=== PATIENT | female | born 1950 | race Caucasian/White ===

== ENCOUNTER 2016-06-07 22:41 | Observation (INO) | payer MEDICARE, OTHER ==
[2016-06-07 23:17] LABS: Basophils % (A) 1 %; CH 30.9; CHCM 32.5; Eosinophils # (A) 0.4 k/uL (0-0.7); Eosinophils % (A) 5 %; HCT 38.7 % (34.0-46.0); HDW 2.29; HGB 12.5 gm/dL (11.4-16.0); Luc # (Auto) 0.13; Luc % (Auto) 2; Lymphocytes # (A) 1.9 k/uL (1.0-4.8); Lymphocytes % (A) 27 %; MCH 30.7 pg (25.0-35.0); MCHC 32.2 g/dL (31.0-37.0); MCV 95.5 fL (80.0-100.0); Mean Platelet Volume 7.7; Monocytes # (A) 0.4 k/uL (0-1.0); Monocytes % (A) 6 %; Neutrophils # (A) 4.2 k/uL (1.3-7.7); Neutrophils % (A) 60 %; RBC 4.06 m/uL (3.80-5.40); RDW 13.9 % (11.5-15.5); WBC 7.1 k/uL (3.8-10.6); WBC (Perox) 7.23
[2016-06-07 23:25] LABS: Partial Thromboplastin Time 22.5 sec (22.0-30.0); Prothrombin Time 9.8 sec (9.0-12.0)
[2016-06-07 23:28] LABS: Calcium 10.1 mg/dL (8.4-10.2); Magnesium 1.4 mg/dL (1.6-2.3); Potassium 4.2 mmol/L (3.5-5.1); Total Bilirubin 0.4 mg/dL (0.2-1.3); Total Protein 7.6 g/dL (6.3-8.2)
[2016-06-07 23:37] LABS: Creatine Kinase 113 U/L (30-135)
--- NOTE | 2016-06-07 23:43 | XR ---
EXAMINATION TYPE: XR chest 1V portable DATE OF EXAM: 06/07/2016 11:17 PM COMPARISON: 08/23/2011 HISTORY: Chest pain today history of quadruple bypass. TECHNIQUE: Single frontal view of the chest is obtained. FINDINGS: There is no focal air space opacity, pleural effusion, or pneumothorax seen. The cardiac silhouette size is within normal limits. Postsurgical changes of sternotomy are noted. The osseous s tructures are intact. IMPRESSION: 1. No active lung infiltrates. 2. Sternotomy. 3. No significant interval change.
--- NOTE | 2016-06-07 23:49 | ED ---
Chest Pain HPI - General Chief Complaint: Chest Pain Stated Complaint: Chest Pain Time Seen by Provider: 06/07/16 22:55 Source: patient, RN notes reviewed Mode of arrival: wheelchair Limitations: no limitations - History of Present Illness Initial Comments: This patient is a 66-year-old woman with history of previous CABG, who presents with what she is describing as anginal episodes going on or about 7 days now. The patient states that she gets some substernal pain, like a pressure, moderate intensity. She states the pains will last half hour to an hour and resolved with rest. She states that for some the episodes she has taken nitroglycerin and that that will resolve the pain. She has also had some intermittent nausea associated. She phoned her permastone applicator, Dr. Smith who told her to go to the emergency department if the episodes continue and that is why she is here. Patient denies other anginal symptoms. Reviewing her recent health, she did have bronchitis couple weeks ago associated with that cough but this seems to have resolved. MD Complaint: chest pain -: days(s) Onset: during rest Pain Location: substernal Pain Radiation: none Severity: moderate Quality: heaviness Consistency: intermittent Improves With: nitroglycerin, rest Worsens With: nothing Anginal Symptoms: nausea Treatments Prior to Arrival: nitroglycerin - Related Data Home Medications Medication Instructions Recorded Confirmed ALPRAZolam [Xanax] 0.25 mg PO HS PRN 06/07/16 06/07/16 Allopurinol [Zyloprim] 200 mg PO DAILY 06/07/16 06/07/16 Ascorbic Acid [Vitamin C] 1,000 mg PO DAILY 06/07/16 06/07/16 Atorvastatin [Lipitor] 10 mg PO HS 06/07/16 06/07/16 Clopidogrel [Plavix] 75 mg PO DAILY 06/07/16 06/07/16 Cyclobenzaprine [Flexeril] 10 mg PO TID PRN 06/07/16 06/07/16 Esomeprazole Magnesium [NexIUM] 40 mg PO DAILY 06/07/16 06/07/16 Hydrocodone/Acetaminophen [[place] 1 tab PO Q4H PRN 06/07/16 06/07/16 10-325] Hydroxychloroquine Sulfate 200 mg PO DAILY 06/07/16 06/07/16 [Plaquenil] Isosorbide Mononitrate ER [Imdur] 60 mg PO DAILY 06/07/16 06/07/16 Levothyroxine Sodium [Synthroid] 100 mcg PO DAILY 06/07/16 06/07/16 Magnesium Gluconate [Magonate] 500 mg PO DAILY 06/07/16 06/07/16 Metoprolol Succinate (ER) [Toprol 100 mg PO DAILY 06/07/16 06/07/16 Xl] [place]-3 Fatty Acids/Fish Oil [Fish 1 cap PO BID 06/07/16 06/07/16 Oil 1,000 mg Softgel] Vitamin E 1,000 unit PO DAILY 06/07/16 06/07/16 Allergies Allergy/AdvReac Type Severity Reaction Status Date / Time Penicillins Allergy Unknown Verified 06/07/16 23:15 prednisone Allergy Unknown Verified 06/07/16 23:15 Sulfa (Sulfonamide Allergy Unknown Verified 06/07/16 23:15 Antibiotics) Review of Systems ROS Statement: Those systems with pertinent positive or pertinent negative responses have been documented in the HPI. ROS Other: All systems not noted in ROS Statement are negative. Constitutional: Denies: fever, chills, weakness Respiratory: Reports: as per HPI, cough, dyspnea. Denies: wheezes, hemoptysis Cardiovascular: Reports: as per HPI, chest pain. Denies: palpitations, orthopnea, edema, syncope Gastrointestinal: Reports: nausea. Denies: abdominal pain, vomiting, diarrhea, constipation, melena, hematochezia Genitourinary: Denies: dysuria, hematuria Musculoskeletal: Denies: back pain Skin: Denies: rash Neurological: Denies: headache, weakness, numbness EKG Findings - EKG Results: EKG: interpreted by ERMD, sinus rhythm (Rate proximal he 69 bpm) - Blocks, [place], Hypertrophy, ST Abn: AV and intraventricular conduction: left bundle branch block (fixed/intermittent , complete/incomplete) (Incomplete) QRS axis and voltage: left axis deviation (-30 to -90) Chamber hypertrophy or enlargement: only voltage criteria for left ventricular hypertrophy Repolarization changes or abnormalities: nonspecific abnormality, ST segment, and/or T wave Past Medical History Past Medical History: Diabetes Mellitus, Myocardial Infarction ([place]) Additional Past Medical History / Comment(s): sarcodosis, kidney failure History of Any Multi-Drug Resistant Organisms: None Reported Past Surgical History: Coronary Bypass/CABG, Heart Catheterization Past Psychological History: No Psychological Hx Reported Smoking Status: Never smoker Past Alcohol Use History: Occasional Past Drug Use History: None Reported General Exam Limitations: no limitations General appearance: alert, in no apparent distress, obese Head exam: Present: atraumatic, normocephalic Eye exam: Present: normal appearance ENT exam: Present: normal exam Neck exam: Present: normal inspection Respiratory exam: Present: normal lung sounds bilaterally. Absent: respiratory distress, wheezes, rales, rhonchi, stridor Cardiovascular Exam: Present: regular rate, normal rhythm, normal heart sounds. Absent: systolic murmur, diastolic murmur, rubs, gallop GI/Abdominal exam: Present: soft. Absent: distended, tenderness, guarding, rebound, mass Extremities exam: Present: normal inspection, normal capillary refill. Absent: pedal edema, calf tenderness Back exam: Present: normal inspection. Absent: CVA tenderness (R), CVA tenderness (L) Neurological exam: Present: alert Skin exam: Present: warm, dry, intact, normal color. Absent: rash Course Vital Signs 06/07/16 06/07/16 06/08/16 22:45 23:49 00:00 Temperature 97.6 F 98 F 98 F Pulse Rate 71 65 73 Respiratory 18 18 20 Rate Blood Pressure 151/67 157/77 145/75 O2 Sat by Pulse 99 97 95 Oximetry Critical Care Time Critical Care Time: Yes (35 minutes) Disposition Clinical Impression: Chest pain Disposition: ADMITTED IP TO THIS [facility] Condition: Fair Referrals: Sam Quiñonez MD [Primary Care Provider] - 1-2 days
[2016-06-07 23:51] LABS: Creatine Kinase MB 0.9 ng/mL (0.0-2.4); Troponin I <0.012 ng/mL (0.000-0.034)
[2016-06-08] MEDS ORDERED: NITROGLYCERIN SL TABS 0.4 MG TAB SUBLINGUAL STA (00:14)
[2016-06-08] MEDS ORDERED: MORPHINE SULFATE 4 MG/ML SYRINGE IV STA (00:14)
[2016-06-08] MEDS ORDERED: NITROGLYCERIN SL TABS 0.4 MG TAB SUBLINGUAL PRN ×2 (00:42→09:20)
[2016-06-08] MEDS ORDERED: ALPRAZolam 0.25 MG TAB PO PRN ×2 (00:44→09:20)
[2016-06-08] MEDS ORDERED: CYCLOBENZAPRINE 10 MG TAB PO PRN (00:44)
[2016-06-08] MEDS: ENOXAPARIN 100 MG/ML SYRINGE SQ SCH ×2 (01:08→13:45)
[2016-06-08 02:02] VITALS: BMI 36.9
[2016-06-08] MEDS: HYDROcodone/APAP 10-325MG 1 EACH TAB PO PRN ×3 (02:56→20:13)
[2016-06-08 06:05] LABS: Creatine Kinase MB 0.8 ng/mL (0.0-2.4); Troponin I 0.019 ng/mL (0.000-0.034)
[2016-06-08 07:49] LABS: Glucose,Whole Blood 107 mg/dL (75-99)
[2016-06-08] MEDS ORDERED: NON-FORMULARY DRUG (Omega-3 Fatty Acids/Fish Oil [Fish Oil 1,000 Mg Softgel] 1 CAP) PO SCH (09:00)
[2016-06-08] MEDS ORDERED: SODIUM CHLORIDE 0.9% 1,000 ML in EMPTY BAG 1 BAG IV ONE (09:20)
[2016-06-08] MEDS ORDERED: ATORVASTATIN 80 MG TAB PO STA (09:20)
[2016-06-08] MEDS ORDERED: ASPIRIN 325 MG TAB PO STA (09:20)
[2016-06-08] MEDS ORDERED: ALPRAZolam 0.5 MG TAB PO PRN (09:20)
--- NOTE | 2016-06-08 09:21 | P.CRDCN ---
History of Present Illness Consult date: 06/08/16 Chief complaint: Chest pain History of present illness: This is a pleasant 66-year-old female patient with a past medical history significant for CAD and prior CABG with unknown details at this point, diabetes , hypertension, dyslipidemia, presented to the emergency room complaining of chest discomfort. She was in her usual state of health until about a week ago when she started experiencing intermittent episodes of chest discomfort as a pressure across the chest without any radiation and without any associated symptoms. Over the last few days her chest discomfort has became constant. The EKG showed sinus mechanism with nonspecific changes. She underwent 2 sets of cardiac enzymes came in to be unremarkable. In view of the history of CAD and prior open-heart, the ongoing chest discomfort , I recommended proceeding with a heart catheterization. Past Medical History Past Medical History: Diabetes Mellitus Additional Past Medical History / Comment(s): sarcodosis, kidney failure, Angina History of Any Multi-Drug Resistant Organisms: None Reported Past Surgical History: Back Surgery, Section, Cholecystectomy, Coronary Bypass/CABG, Heart Catheterization, Tubal Ligation Additional Past Surgical History / Comment(s): C section X2, left shoulder rotator cuff, B/L knee 2014 Past Anesthesia/Blood Transfusion Reactions: No Reported Reaction Past Psychological History: No Psychological Hx Reported Smoking Status: Never smoker Past Alcohol Use History: Occasional Past Drug Use History: None Reported - Past Family History Mother Family Medical History: Diabetes Mellitus Additional Family Medical History / Comment(s): 2 CABG Father Family Medical History: Diabetes Mellitus Additional Family Medical History / Comment(s): CABG Medications and Allergies Home Medications Medication Instructions Recorded Confirmed Type ALPRAZolam [Xanax] 0.25 mg PO HS PRN 06/07/16 06/07/16 History Allopurinol [Zyloprim] 200 mg PO DAILY 06/07/16 06/07/16 History Ascorbic Acid [Vitamin C] 1,000 mg PO DAILY 06/07/16 06/07/16 History Atorvastatin [Lipitor] 10 mg PO HS 06/07/16 06/07/16 History Clopidogrel [Plavix] 75 mg PO HS 06/07/16 06/08/16 History Cyclobenzaprine [Flexeril] 10 mg PO TID PRN 06/07/16 06/08/16 History Esomeprazole Magnesium [NexIUM] 80 mg PO HS 06/07/16 06/08/16 History Hydrocodone/Acetaminophen [[place] 1 tab PO Q4H PRN 06/07/16 06/07/16 History 10-325] Hydroxychloroquine Sulfate 200 mg PO BID 06/07/16 06/08/16 History [Plaquenil] Isosorbide Mononitrate ER [Imdur] 60 mg PO DAILY 06/07/16 06/07/16 History Levothyroxine Sodium [Synthroid] 100 mcg PO DAILY 06/07/16 06/07/16 History Magnesium Gluconate [Magonate] 500 mg PO DAILY 06/07/16 06/07/16 History Metoprolol Succinate (ER) [Toprol 100 mg PO DAILY 06/07/16 06/07/16 History Xl] [place]-3 Fatty Acids/Fish Oil [Fish 1 cap PO BID 06/07/16 06/07/16 History Oil 1,000 mg Softgel] Vitamin E 1,000 unit PO DAILY 06/07/16 06/07/16 History INSULIN LISPRO (HumaLOG) [HumaLOG] 0 units SQ ACHS 06/08/16 06/08/16 History Insulin NPH Hum/Reg Insulin Hm 0 units SQ BID 06/08/16 06/08/16 History [NovoLIN 70-30 100 UNIT/ML VIAL] Allergies Allergy/AdvReac Type Severity Reaction Status Date / Time Penicillins Allergy Rash/Hives Verified 06/08/16 01:48 prednisone Allergy Rapid Verified 06/08/16 01:48 Heart Rate Sulfa (Sulfonamide Allergy Unknown Verified 06/07/16 23:15 Antibiotics) Physical Exam Vitals: Vital Signs Temp Pulse Pulse Resp BP BP BP 06/08/16 07:47 97.4 F L 66 16 141/66 06/08/16 04:00 71 16 131/61 06/08/16 02:09 18 06/08/16 01:50 97.6 F 68 16 181/78 06/08/16 01:16 97.4 F L 66 18 140/66 Pulse Ox 06/08/16 07:47 100 06/08/16 04:00 99 06/08/16 02:09 06/08/16 01:50 100 06/08/16 01:16 97 Intake and Output 06/07/16 06/08/16 06/08/16 22:59 06:59 14:59 Intake Total 0 Balance 0 Intake: Oral 0 Other: Voiding Method Toilet Toilet # Voids 3 Weight 97.7 kg - Constitutional General appearance: no acute distress - Respiratory Respiratory: bilateral: CTA - Cardiovascular Heart sounds: normal: S1, S2 Results 06/07/16 23:04 06/07/16 23:04 Cardiac Enzymes 06/08/16 Range/Units 05:21 CK-MB (CK-2) 0.8 (0.0-2.4) ng/mL Troponin I 0.019 (0.000-0.034) ng/mL Current Medications Generic Name Dose Route Start Last Admin Trade Name Freq PRN Reason Stop Dose Admin Acetaminophen/Hydrocodone [place] 1 each 06/08/16 00:44 06/08/16 07:59 [place] 10 PO 1 each Q4H PRN Administration Pain Allopurinol 200 mg 06/08/16 09:00 Zyloprim PO DAILY JET Alprazolam 0.25 mg 06/08/16 00:44 06/08/16 02:56 Xanax PO 0.25 mg HS PRN Administration Anxiety Ascorbic Acid 1,000 mg 06/08/16 09:00 Vitamin C PO DAILY [facility] Aspirin 325 mg 06/09/16 09:00 Aspirin PO DAILY [facility] Atorvastatin Calcium 10 mg 06/08/16 21:00 Lipitor PO HS [facility] Clopidogrel Bisulfate 75 mg 06/08/16 09:00 Plavix PO DAILY [facility] Cyclobenzaprine HCl 10 mg 06/08/16 00:44 Flexeril PO TID PRN Spasms Enoxaparin Sodium 100 mg 06/08/16 00:45 06/08/16 01:08 Lovenox SQ 100 mg Q12H JET Administration Hydroxychloroquine Sulfate 200 mg 06/08/16 09:00 Plaquenil PO DAILY [facility] Isosorbide Mononitrate 60 mg 06/08/16 09:00 Imdur PO DAILY [facility] Levothyroxine Sodium 100 mcg 06/08/16 09:00 Synthroid PO DAILY [facility] Magnesium Oxide 400 mg 06/08/16 09:00 Mag-Ox PO DAILY [facility] Metoprolol Succinate 100 mg 06/08/16 09:00 Toprol Xl PO DAILY [facility] Nitroglycerin 0.4 mg 06/08/16 00:42 Nitrostat SUBLINGUAL Q5M PRN Chest Pain Pantoprazole Sodium 40 mg 06/08/16 09:00 Protonix PO DAILY JET Vitamin E 1,200 unit 06/08/16 09:00 Vitamin E PO DAILY JET Intake and Output 06/07/16 06/08/16 06/08/16 22:59 06:59 14:59 Intake Total 0 Balance 0 Intake: Oral 0 Other: Voiding Method Toilet Toilet # Voids 3 Weight 97.7 kg Assessment and Plan Plan: Assessment #1 ongoing chest discomfort #2 known CAD with prior CABG #3 multiple risk factors for CAD Plan #1 I recommended proceeding with heart catheterization #2 follow-up with the patient
[2016-06-08] MEDS: VITAMIN E (DL,TOCOPHERYL ACET) 400 UNIT CAP PO SCH (11:08)
[2016-06-08] MEDS: MAGNESIUM OXIDE 400 MG TAB PO SCH (11:08)
[2016-06-08] MEDS: ISOSORBIDE MONONITRATE ER 60 MG TAB.ER.24H PO SCH (11:08)
[2016-06-08] MEDS: HYDROXYCHLOROQUINE SULFATE 200 MG TAB PO SCH (11:09)
[2016-06-08] MEDS: ASCORBIC ACID 500 MG TAB PO SCH (11:09)
[2016-06-08] MEDS: ALLOPURINOL 100 MG TAB PO SCH (11:09)
[2016-06-08] MEDS: LEVOTHYROXINE 100 MCG TAB PO SCH (11:09)
[2016-06-08] MEDS: METOPROLOL SUCCINATE (ER) 100 MG TAB.ER.24H PO SCH (11:09)
[2016-06-08] MEDS: PANTOPRAZOLE 40 MG TABLET PO SCH (11:10)
[2016-06-08 11:44] LABS: Creatine Kinase MB 0.8 ng/mL (0.0-2.4); Troponin I 0.016 ng/mL (0.000-0.034)
[2016-06-08 12:02] LABS: Glucose,Whole Blood 132 mg/dL (75-99)
--- NOTE | 2016-06-08 14:24 | P.HPIM ---
History of Present Illness H&P Date: 06/08/16 Chief Complaint: Chest pain This is a 66-year-old female. Her primary care physician is Dr. Quiñonez. She has a past medical history for coronary artery disease status post 4 vessel CABG in 2002, diabetes mellitus type 2, insulin requiring, sarcoidosis , chronic kidney disease stage III under the care of Dr. Pham, hyperlipidemia, hypothyroidism, GERD. She gives history of having angina for the past 8 days with pressure in her chest. The pain was gradually getting worse. She was better with nitroglycerin. She had intermittent nausea. He called Dr. Smith and was instructed to come into the hospital. Troponin 0.012, 0.019, 0.016. Patient was placed in the observation unit and cardiology consult in place with plan for heart catheterization after patient receives hydration. Nephrology consult will be added. Review of Systems All systems: negative Constitutional: Denies chills, Denies fever Eyes: denies blurred vision, denies pain Ears, nose, mouth and throat: Denies headache, Denies sore throat Cardiovascular: Reports chest pain, Denies shortness of breath Respiratory: Denies cough Gastrointestinal: Denies abdominal pain, Denies diarrhea, Denies nausea, Denies vomiting Genitourinary: Denies dysuria, Denies hematuria Musculoskeletal: Denies myalgias Integumentary: Denies pruritus, Denies rash Neurological: Denies numbness, Denies weakness Psychiatric: Denies anxiety, Denies depression Endocrine: Denies fatigue, Denies weight change Past Medical History Past Medical History: Diabetes Mellitus, GERD/Reflux, Hyperlipidemia, Renal Disease, Thyroid Disorder Additional Past Medical History / Comment(s): sarcodosis, chronic kidney disease stage III, Angina History of Any Multi-Drug Resistant Organisms: None Reported Past Surgical History: Back Surgery, Section, Cholecystectomy, Coronary Bypass/CABG, Heart Catheterization, Tonsillectomy, Tubal Ligation Additional Past Surgical History / Comment(s): C section X2, left shoulder rotator cuff, bilateral knee replacement 2014, 4 vessel CABG in 2002, bilateral cataract extraction and intraocular lens implants Past Anesthesia/Blood Transfusion Reactions: No Reported Reaction Past Psychological History: No Psychological Hx Reported Smoking Status: Never smoker Past Alcohol Use History: Occasional Additional Past Alcohol Use History / Comment(s): Patient is a lifelong nonsmoker. She denies any medical marijuana, marijuana, street drug use. She drinks occasional wine. She was at home with her . Past Drug Use History: None Reported - Past Family History Mother Family Medical History: Diabetes Mellitus Additional Family Medical History / Comment(s): Mother at age 70 with history of coronary artery disease status post CABG 2 and diabetes. Father Family Medical History: Diabetes Mellitus Additional Family Medical History / Comment(s): Father at age 83 with history of coronary artery disease status post CABG and diabetes. Daughter(s) Additional Family Medical History / Comment(s): Patient has one daughter with hyperlipidemia. Patient has one son with diabetes. Patient is an only child. Medications and Allergies Home Medications Medication Instructions Recorded Confirmed Type ALPRAZolam [Xanax] 0.25 mg PO HS PRN 06/07/16 06/07/16 History Allopurinol [Zyloprim] 200 mg PO DAILY 06/07/16 06/07/16 History Ascorbic Acid [Vitamin C] 1,000 mg PO DAILY 06/07/16 06/07/16 History Atorvastatin [Lipitor] 10 mg PO HS 06/07/16 06/07/16 History Clopidogrel [Plavix] 75 mg PO HS 06/07/16 06/08/16 History Cyclobenzaprine [Flexeril] 10 mg PO TID PRN 06/07/16 06/08/16 History Esomeprazole Magnesium [NexIUM] 80 mg PO HS 06/07/16 06/08/16 History Hydrocodone/Acetaminophen [[place] 1 tab PO Q4H PRN 06/07/16 06/07/16 History 10-325] Hydroxychloroquine Sulfate 200 mg PO BID 06/07/16 06/08/16 History [Plaquenil] Isosorbide Mononitrate ER [Imdur] 60 mg PO DAILY 06/07/16 06/07/16 History Levothyroxine Sodium [Synthroid] 100 mcg PO DAILY 06/07/16 06/07/16 History Magnesium Gluconate [Magonate] 500 mg PO DAILY 06/07/16 06/07/16 History Metoprolol Succinate (ER) [Toprol 100 mg PO DAILY 06/07/16 06/07/16 History Xl] [place]-3 Fatty Acids/Fish Oil [Fish 1 cap PO BID 06/07/16 06/07/16 History Oil 1,000 mg Softgel] Vitamin E 1,000 unit PO DAILY 06/07/16 06/07/16 History INSULIN LISPRO (HumaLOG) [HumaLOG] 0 units SQ ACHS 06/08/16 06/08/16 History Insulin NPH Hum/Reg Insulin Hm 0 units SQ BID 06/08/16 06/08/16 History [NovoLIN 70-30 100 UNIT/ML VIAL] Allergies Allergy/AdvReac Type Severity Reaction Status Date / Time Penicillins Allergy Rash/Hives Verified 06/08/16 01:48 prednisone Allergy Rapid Verified 06/08/16 01:48 Heart Rate Sulfa (Sulfonamide Allergy Unknown Verified 06/07/16 23:15 Antibiotics) Physical Exam Vitals: Vital Signs Temp Pulse Pulse Resp BP BP BP 06/08/16 11:44 97.9 F 66 16 119/58 06/08/16 11:08 97.4 F L 63 16 147/65 06/08/16 07:47 97.4 F L 66 16 141/66 06/08/16 04:00 71 16 131/61 06/08/16 02:09 18 06/08/16 01:50 97.6 F 68 16 181/78 06/08/16 01:16 97.4 F L 66 18 140/66 Pulse Ox 06/08/16 11:44 99 06/08/16 11:08 99 06/08/16 07:47 100 06/08/16 04:00 99 06/08/16 02:09 06/08/16 01:50 100 06/08/16 01:16 97 Intake and Output 06/07/16 06/08/16 06/08/16 22:59 06:59 14:59 Intake Total 0 Balance 0 Intake: Oral 0 Other: Voiding Method Toilet Toilet # Voids 3 Weight 97.7 kg Gen: This is a 66-year-old female. She is resting in bed appears to be in no acute distress. HEENT: Head is atraumatic, normocephalic. Pupils equal, round. Sclerae is anicteric. NECK: Supple. No JVD. No lymphadenopathy. No thyromegaly. LUNGS: Clear to auscultation. No wheezes or rhonchi. No intercostal retractions. HEART: Regular rate and rhythm. No murmur. ABDOMEN: Soft. Bowel sounds are present. No masses. No tenderness. EXTREMITIES: No pedal edema. No calf tenderness. NEUROLOGICAL: Patient is awake, alert and oriented x3. Cranial nerves 2 through 12 are grossly intact. Results CBC & Chem 7: 06/07/16 23:04 06/07/16 23:04 Labs: Abnormal Lab Results - Last 24 Hours (Table) 06/08/16 06/08/16 Range/Units 07:35 12:01 POC Glucose (mg/dL) 107 H 132 H (75-99) mg/dL Thrombosis Risk Factor Assmnt - DVT/VTE Prophylaxis DVT/VTE Prophylaxis: Pharmacologic Prophylaxis ordered - Choose All That Apply Each Risk Factor Represents 2 Points: Age 61-74 years Thrombosis Risk Factor Assessment Total Risk Factor Score: 2 Thrombosis Risk Factor Assessment Level: Low Risk Assessment and Plan Plan: 1. Chest pain in a patient with history of coronary artery disease. Patient is being prepared for heart catheterization. Continue aspirin 325 mg daily, Lipitor 10 mg daily, Toprol-XL, Plavix, Imdur. Cardiology consult appreciated. 2. History of coronary artery disease status post 4 vessel CABG in 2002. Continue as in #1. 3. Diabetes mellitus type 2, insulin requiring. Continue NPH 7030 20 units twice daily and Humalog scale. 4. Hyperlipidemia. Continue Lipitor, fish oil. 5. Hypothyroidism. Continue levothyroxine. 6. Gastroesophageal reflux disease and gastritis prophylaxis. Continue Protonix. 7. DVT prophylaxis. Continue Lovenox. Patient will be admitted to the hospital for a minimum of 2 night stay. Discharge plan: Return home Impression and plan of care have been directed as dictated by the signing physician. Clarice Sommers nurse practitioner acting as scribe for signing physician. Time with Patient: Greater than 30
[2016-06-08 15:12] LABS: Hemoglobin A1C 6.5 % (4.2-6.1)
[2016-06-08 16:50] LABS: Glucose,Whole Blood 113 mg/dL (75-99)
[2016-06-08] MEDS ORDERED: MIDAZOLAM 2 MG/2 ML VIAL ONE (18:05)
[2016-06-08] MEDS ORDERED: diphenhydrAMINE 50 MG/ML 1 ML VIAL ONE (18:06)
[2016-06-08] MEDS ORDERED: LIDOCAINE 2% INJ 20 MG/ML (20 ML MDV) ONE (18:06)
[2016-06-08] MEDS ORDERED: IV FLUID CONTINUATION 1,000 ML IV ONE (18:15)
[2016-06-08 18:29] LABS: Glucose,Whole Blood 128 mg/dL (75-99)
[2016-06-08] MEDS ORDERED: MIDAZOLAM 2 MG/2 ML VIAL IVP ONE ×2 (18:30)
[2016-06-08] MEDS ORDERED: diphenhydrAMINE 50 MG/ML 1 ML VIAL IVP ONE (18:30)
[2016-06-08] MEDS ORDERED: LIDOCAINE 2% INJ 20 MG/ML SQ ONE ×2 (18:34→18:35)
[2016-06-08] MEDS ORDERED: HYDROmorphone 2 MG/ML 1 ML SYRINGE ONE (18:54)
[2016-06-08] MEDS ORDERED: HYDROmorphone 2 MG/ML 1 ML SYRINGE IVP ONE (18:56)
[2016-06-08] MEDS ORDERED: IODIXANOL 320 MG/ML 100 ML INTRAARTER ONE (19:08)
[2016-06-08] MEDS ORDERED: RX INFO: IV CONTRAST WAS GIVEN 1 EACH MISC MISCELLANE PRN (19:10)
[2016-06-08] MEDS ORDERED: SODIUM CHLORIDE 0.9% 1,000 ML IV SCH (19:15)
[2016-06-08] MEDS: CLOPIDOGREL 75 MG TAB PO SCH (20:21)
[2016-06-08] MEDS: INSULIN LISPRO (humaLOG) 300 UNIT/3 ML VIAL SQ SCH (20:21)
[2016-06-08] MEDS: INSULIN NPH/REG INSULIN 70/30 300 UNIT/3 ML VIAL SQ SCH (20:33)
[2016-06-08] MEDS ORDERED: ATORVASTATIN 10 MG TAB PO SCH (21:00)
[2016-06-09] MEDS: INSULIN LISPRO (humaLOG) 300 UNIT/3 ML VIAL SQ SCH ×2 (01:37→07:54)
[2016-06-09] MEDS: ENOXAPARIN 100 MG/ML SYRINGE SQ SCH (02:00)
[2016-06-09 06:55] LABS: Glucose,Whole Blood 86 mg/dL (75-99)
[2016-06-09 07:23] LABS: CH 30.6; CHCM 31.6; HCT 37.7 % (34.0-46.0); HDW 2.27; HGB 11.8 gm/dL (11.4-16.0); MCH 30.5 pg (25.0-35.0); MCHC 31.4 g/dL (31.0-37.0); MCV 97.4 fL (80.0-100.0); Mean Platelet Volume 7.8; RBC 3.88 m/uL (3.80-5.40); RDW 13.8 % (11.5-15.5); WBC 5.6 k/uL (3.8-10.6)
[2016-06-09 07:40] LABS: Calcium 9.5 mg/dL (8.4-10.2); Potassium 4.3 mmol/L (3.5-5.1)
[2016-06-09 08:30] VITALS: BP 158/53; PULSE 62; RESP 16; TEMP 97.9
[2016-06-09] MEDS: ASCORBIC ACID 500 MG TAB PO SCH (08:33)
[2016-06-09] MEDS: ALLOPURINOL 100 MG TAB PO SCH (08:33)
[2016-06-09] MEDS: HYDROcodone/APAP 10-325MG 1 EACH TAB PO PRN (08:33)
[2016-06-09] MEDS: HYDROXYCHLOROQUINE SULFATE 200 MG TAB PO SCH (08:34)
[2016-06-09] MEDS: CLOPIDOGREL 75 MG TAB PO SCH (08:34)
[2016-06-09] MEDS: PANTOPRAZOLE 40 MG TABLET PO SCH (08:35)
[2016-06-09] MEDS: METOPROLOL SUCCINATE (ER) 100 MG TAB.ER.24H PO SCH (08:35)
[2016-06-09] MEDS: ISOSORBIDE MONONITRATE ER 60 MG TAB.ER.24H PO SCH (08:35)
[2016-06-09] MEDS: MAGNESIUM OXIDE 400 MG TAB PO SCH (08:35)
[2016-06-09] MEDS: LEVOTHYROXINE 100 MCG TAB PO SCH (08:35)
[2016-06-09] MEDS: VITAMIN E (DL,TOCOPHERYL ACET) 400 UNIT CAP PO SCH (08:36)
[2016-06-09] MEDS ORDERED: ASPIRIN 325 MG TAB PO SCH (09:00)
--- NOTE | 2016-06-09 11:20 | CC ---
DATE OF SERVICE: 06/08/2016 PERFORMING PHYSICIAN: Bo Diehl MD, automatic mold sander. PROCEDURE PERFORMED: 1. Selective left and right coronary angiogram. 2. SVG angiogram x1. 3. Radial artery bypass angiogram. 4. Left internal mammary artery angiogram. INDICATION: This is a pleasant 66-year-old female patient who sees Dr. Smith as an outpatient with a known history of CAD and prior coronary artery bypass grafting x3 were she received HANNAH to LAD, SVG to diagonal, and radial artery to OM branch, presented to the hospital complaining of chest discomfort and she continues to have ongoing chest discomfort. In view of that, the decision was made toward cardiac catheterization. APPROACH: Right common femoral artery. COMPLICATIONS: None. LEVEL OF SEDATION: Moderate. PROCEDURE DESCRIPTION: After obtaining an informed consent, the patient was brought to the cardiac clinical laboratory science professor. The right common femoral artery was cannulated using micropuncture technique. The micropuncture wire passed easily. Then I placed 6-[place] sheath in the right common femoral artery. Subsequently, I did selective left and right coronary angiogram using JL4 and JR4 catheters. After that, I did coronary artery bypass grafting angiogram using the JR4 catheter. The procedure was completed without any complication. SELECTIVE CORONARY ANGIOGRAM: 1. The left main has mild disease only. It bifurcates into the left anterior descending artery, and the left circumflex and both are occluded. 2. The right coronary artery is a large-caliber vessel and it is a dominant vessel. The proximal RCA appeared to have mild disease only and gives rises into a small to medium conus branch. The mid RCA appeared to have mild disease only as well and the RCA distally appeared to have mild to moderate diffuse disease. 3. The vein graft to the diag appeared to be patent. The distal part of the graft appeared to be dilated and aneurysmal with possible valve there. There was ( ) mismatch between the vein graft and the [place] coronary arteries. 4. The radial artery bypass to OM branch appeared to be patent and functional. 5. The HANNAH to LAD is patent. CONCLUSION: 1. Severe coronary artery disease with occluded left circumflex and left anterior descending artery. 2. Mild disease involving the right coronary artery. 3. Patent HANNAH to LAD. 4. Patent SVG to diagonal. 5. Patent radial artery to OM branch. POSTPROCEDURE MANAGEMENT: 1. Maximize medical treatment. 2. Follow up with the patient.
[2016-06-09] MEDS: INSULIN NPH/REG INSULIN 70/30 300 UNIT/3 ML VIAL SQ SCH (11:22)
--- NOTE | 2016-06-10 12:52 | DS ---
DATE OF ADMISSION: 06/08/2016 DATE OF DISCHARGE: 06/09/2016 ADMITTING DIAGNOSIS(ES): 1. Chest pain. 2. Anxiety. 3. Obesity. DISCHARGE DIAGNOSES: Chest pain, atypical, likely related to musculoskeletal exacerbated with anxiety. HISTORY OF PRESENT ILLNESS: This is a 66-year-old female who presented to the hospital with new onset chest pain. Cardiology evaluated the patient and recommended cardiac catheterization which turned to be without obvious significant stenosis. Patient was recommended to continue on her aggressive medical treatment with aspirin, Plavix and statin and control of other risk factors including glucose, and blood pressure. I had a long discussion with the patient at the bedside in the presence of her and plan was discussed closely there the patient and her understood the necessities for medication compliance and follow up with primary care physician and cardiology on the scheduled appointment. Discharge process: 35 minutes.
== END 2016-06-09 12:10 | disposition home or self-care (01) ==
LOC: EC 22:41 → 3OBS 06-08 00:45
PROVIDERS: ADMIT Internal Medicine; ATTEND Internal Medicine
DX: R07.89 Other chest pain (principal); F41.9 Anxiety disorder, unspecified; E66.9 Obesity, unspecified; I25.10 Atherosclerotic heart disease of native coronary artery without angina pectoris; I13.10 Hypertensive heart and chronic kidney disease without heart failure, with stage 1 through stage 4 chronic kidney disease, or unspecified chronic kidney disease; E11.22 Type 2 diabetes mellitus with diabetic chronic kidney disease; N18.3 Chronic kidney disease, stage 3 (moderate); E78.5 Hyperlipidemia, unspecified; E03.9 Hypothyroidism, unspecified; K21.9 Gastro-esophageal reflux disease without esophagitis; I25.2 Old myocardial infarction; D86.9 Sarcoidosis, unspecified; Z79.02 Long term (current) use of antithrombotics/antiplatelets; Z79.899 Other long term (current) drug therapy; Z88.0 Allergy status to penicillin; Z88.2 Allergy status to sulfonamides; Z88.8 Allergy status to other drugs, medicaments and biological substances; Z95.1 Presence of aortocoronary bypass graft; Z82.49 Family history of ischemic heart disease and other diseases of the circulatory system; Z83.3 Family history of diabetes mellitus; Z79.4 Long term (current) use of insulin; Z96.653 Presence of artificial knee joint, bilateral; Z96.1 Presence of intraocular lens; Z68.37 Body mass index [BMI] 37.0-37.9, adult
CPT/HCPCS: 36415; 93005; 93455; 80061; 80053; 80048; 83036; 82550 ×2; 82553 ×2; 83735; 84484 ×2; 85025; 85027; 85610; 85730; 71010; 99291; 96374; 96372; G0378 ×2; C1769 ×4; C1894; J2001; J2250; J2270; J1170; J1200; Q9967; J1650 ×2

== ENCOUNTER → 2016-06-13 | Outpatient (CLI) | payer MEDICARE, OTHER | END | disposition home or self-care (01) | LOC: LABWHC1 15:37 | PROVIDERS: ATTEND Internal Medicine Critical Care Medicine | DX: D86.9 Sarcoidosis, unspecified (principal); R07.9 Chest pain, unspecified | CPT/HCPCS: 36415; 82164 ==

== ENCOUNTER → 2017-05-17 | Outpatient (CLI) | payer MEDICARE, OTHER ==
--- NOTE | 2017-05-17 14:58 | XR ---
EXAMINATION TYPE: XR KUB DATE OF EXAM: 05/17/2017 2:32 PM CLINICAL HISTORY: Urinary tract infection for 9 days with history of nephrolithiasis. TECHNIQUE: Single supine KUB image of the abdomen is obtained. COMPARISON: CT abdomen pelvis dated 04/06/2016 FINDINGS: Scattered gas is seen in non-distended small bowel loops. Gas and fecal material is seen in non-distended colon. No gross evidence of nephrolithiasis. Rounded dense structure and the right upp er quadrant just inferior to the cholecystectomy clips is thought to be within bowel lumen as it is t oo cranial to be located within the kidney. Right renal arterial calcifications are incidentally note d. Degenerative changes and postoperative changes at the visualized thoracolumbar spine are present c holecystectomy clips are seen within the right upper quadrant. Numerous phleboliths are noted within the low pelvis. Atherosclerosis of the common iliac arteries and their branches are also seen. IMPRESSION: 1. Nonobstructive bowel gas pattern. 2. Right renal arterial calcifications with no gross evidence of nephrolithiasis. Note the previously described solid renal mass in 2016 cannot be visualized radiographically. CT renal mass protocol cou ld be performed for further evaluation.
== END | disposition home or self-care (01) ==
LOC: RADXRMAIN 14:08
PROVIDERS: ATTEND Internal Medicine Geriatric Medicine
DX: I70.1 Atherosclerosis of renal artery (principal); R30.0 Dysuria
CPT/HCPCS: 74000

== ENCOUNTER 2017-05-21 09:58 | Emergency (ER) | payer MEDICARE, OTHER ==
--- NOTE | 2017-05-21 11:27 | ED ---
General Adult HPI - General Source: patient, RN notes reviewed Mode of arrival: ambulatory Limitations: no limitations <Nitish Lovett - Last Filed: 05/21/17 13:50> <Zack Gallegos - Last Filed: 05/21/17 13:57> - General Chief complaint: Urogenital Stated complaint: Poss bladder infection Time Seen by Provider: 05/21/17 10:28 - History of Present Illness Initial comments: Patient 67-year-old female who presents emergency room today with a chief complaint of dysuria. Patient states that she has had pressure and pain with urination over the last 2 weeks. She does not that she was diagnosed urinary tract infection partially 2 weeks ago. She states she has been on Macrobid and now started ciprofloxacin recently after having a change when she saw the family doctor. Patient stateshis symptoms as well as computer today for further evaluation. Patient denies any recent fever, chills, shortness of breath , chest pain, back pain, nausea or vomiting, numbness or tingling, constipation or diarrhea, headaches or visual changes, or any other complaints. (Nitish Lovett) - Related Data Home Medications Medication Instructions Recorded Confirmed ALPRAZolam [Xanax] 0.25 mg PO HS PRN 06/07/16 05/21/17 Allopurinol [Zyloprim] 200 mg PO DAILY 06/07/16 05/21/17 Ascorbic Acid [Vitamin C] 1,000 mg PO DAILY 06/07/16 05/21/17 Atorvastatin [Lipitor] 10 mg PO HS 06/07/16 05/21/17 Clopidogrel [Plavix] 75 mg PO HS 06/07/16 05/21/17 Cyclobenzaprine [Flexeril] 10 mg PO TID PRN 06/07/16 05/21/17 Esomeprazole Magnesium [NexIUM] 80 mg PO HS 06/07/16 05/21/17 Hydrocodone/Acetaminophen [[place]ima 1 tab PO Q4H PRN 06/07/16 05/21/17 10-325] Hydroxychloroquine Sulfate 200 mg PO BID 06/07/16 05/21/17 [Plaquenil] Isosorbide Mononitrate ER [Imdur] 60 mg PO DAILY 06/07/16 05/21/17 Levothyroxine Sodium [Synthroid] 100 mcg PO SUMOWEFRSA 06/07/16 05/21/17 Magnesium Gluconate [Magonate] 500 mg PO DAILY 06/07/16 05/21/17 [place]-3 Fatty Acids/Fish Oil [Fish 2 cap PO DAILY 06/07/16 05/21/17 Oil 1,000 mg Softgel] Vitamin E 1,000 unit PO DAILY 06/07/16 05/21/17 INSULIN LISPRO (HumaLOG) [HumaLOG] See Protocol SQ ACHS 06/08/16 05/21/17 Insulin NPH Hum/Reg Insulin Hm See Protocol SQ AC-TID 06/08/16 05/21/17 [NovoLIN 70-30 100 UNIT/ML VIAL] Aspirin 81 mg PO DAILY 05/21/17 05/21/17 Levothyroxine Sodium [Synthroid] 150 mcg PO TUTH 05/21/17 05/21/17 Metoprolol Tartrate [Lopressor] 100 mg PO BID 05/21/17 05/21/17 [place]-3 Fatty Acids/Fish Oil [Fish 1 cap PO HS 05/21/17 05/21/17 Oil 1,000 mg Softgel] Allergies Allergy/AdvReac Type Severity Reaction Status Date / Time Iodinated Contrast- Oral and Allergy Unknown Verified 05/21/17 10:45 IV Dye Penicillins Allergy Rash/Hives Verified 05/21/17 10:45 prednisone Allergy Rapid Verified 05/21/17 10:45 Heart Rate Sulfa (Sulfonamide Allergy Unknown Verified 05/21/17 10:45 Antibiotics) gabapentin [From Neurontin] AdvReac Unknown Verified 05/21/17 10:45 Review of Systems ROS Other: All systems not noted in ROS Statement are negative. <Nitish Lovett - Last Filed: 05/21/17 13:50> ROS Other: All systems not noted in ROS Statement are negative. <Zack Gallegos - Last Filed: 05/21/17 13:57> ROS Statement: Those systems with pertinent positive or pertinent negative responses have been documented in the HPI. Past Medical History Past Medical History: Diabetes Mellitus, GERD/Reflux, Hyperlipidemia, Renal Disease, Thyroid Disorder Additional Past Medical History / Comment(s): sarcodosis, chronic kidney disease stage III, Angina History of Any Multi-Drug Resistant Organisms: None Reported Past Surgical History: Back Surgery, Section, Cholecystectomy, Coronary Bypass/CABG, Heart Catheterization, Tonsillectomy, Tubal Ligation Additional Past Surgical History / Comment(s): C section X2, left shoulder rotator cuff, bilateral knee replacement 2015, 4 vessel CABG in 2002, bilateral cataract extraction and intraocular lens implants Past Anesthesia/Blood Transfusion Reactions: No Reported Reaction Past Psychological History: No Psychological Hx Reported Smoking Status: Never smoker Past Alcohol Use History: Occasional Past Drug Use History: None Reported - Past Family History Mother Family Medical History: Diabetes Mellitus Additional Family Medical History / Comment(s): Mother at age 70 with history of coronary artery disease status post CABG 2 and diabetes. Father Family Medical History: Diabetes Mellitus Additional Family Medical History / Comment(s): Father at age 83 with history of coronary artery disease status post CABG and diabetes. Daughter(s) Additional Family Medical History / Comment(s): Patient has one daughter with hyperlipidemia. Patient has one son with diabetes. Patient is an only child. <Nitish Lovett - Last Filed: 05/21/17 13:50> General Exam Limitations: no limitations <Nitish Lovett - Last Filed: 05/21/17 13:50> <Zack Gallegos - Last Filed: 05/21/17 13:57> - General Exam Comments Initial Comments: General: The patient is awake and alert, in no distress, and does not appear acutely ill. Eye: Pupils are equal, round and reactive to light, extra-ocular movements are intact. No nystagmus. There is normal conjunctiva bilaterally. No signs of icterus. Ears, nose, mouth and throat: There are moist mucous membranes and no oral lesions. Neck: The neck is supple, there is no tenderness or JVD. Cardiovascular: There is a regular rate and rhythm. No murmur, rub or gallop is appreciated. Respiratory: Lungs are clear to auscultation, respirations are non-labored, breath sounds are equal. No wheezes, stridor, rales, or rhonchi. Gastrointestinal: The patient 11. Normal bowel sounds. Abdomen soft on palpation. Patient does have tenderness suprapubically over the bladder. No rebound tenderness. No guarding. No CVA tenderness. Musculoskeletal: Normal ROM, no tenderness. Strength 5/5. Sensation intact. Pulses equal bilaterally 2+. Neurological: A&O x 3. CN II-XII intact, There are no obvious motor or sensory deficits. Coordination appears grossly intact. Speech is normal. Skin: Skin is warm and dry and no rashes or lesions are noted. Psychiatric: Cooperative, appropriate mood & affect, normal judgment. (Nitish Lovett) Course <Nitish Lovett - Last Filed: 05/21/17 13:50> <Zack Gallegos - Last Filed: 05/21/17 13:57> Vital Signs 05/21/17 05/21/17 05/21/17 10:14 13:09 13:41 Temperature 97.6 F 97.2 F L Pulse Rate 63 81 62 Respiratory 18 18 16 Rate Blood Pressure 136/61 131/67 166/72 O2 Sat by Pulse 97 97 98 Oximetry - Reevaluation(s) Reevaluation #1: 05/21/17 13:56 PA supervision: I did a long discussion with the patient and her regarding findings. There is evidence of a mass 1.5 x 1.5 on the lower pole right kidney. She has had symptoms on the right side including some hematuria she's had chronic right lower quadrant pain for the past 2 years she states. This has been worked up apparently with no success as etiology. Patient does have a history kidney stones but none recently. She will follow-up with Dr. Phillips from urology way did discuss case with she has an appointment scheduled for 2 PM tomorrow afternoon at the urology office. Patient does have a history of sarcoid it is unclear whether this is involved at this time. (Zack Gallegos) Medical Decision Making - Lab Data Result diagrams: 05/21/17 11:30 05/21/17 11:30 <Nitish Lovett - Last Filed: 05/21/17 13:50> - Lab Data Result diagrams: 05/21/17 11:30 05/21/17 11:30 <Zack Gallegos - Last Filed: 05/21/17 13:57> - Medical Decision Making Patient's labs been reviewed. Patient's ultrasound does show evidence of a right-sided kidney mass measuring 1-1/2 cm. Results were discussed with attending physician Dr. Gallegos is also seeing patient at bedside. He did discuss case with on-call urologist Dr. Damon will see the patient while in the office. Patient's been updated of the plan will be discharged home today to follow urology tomorrow. Patient states her stated and is in agreement. (Nitish Lovett) - Lab Data Lab Results 05/21/17 05/21/17 05/21/17 Range/Units 10:15 11:30 11:30 WBC 8.8 (3.8-10.6) k/uL RBC 3.75 L (3.80-5.40) m/uL Hgb 11.0 L (11.4-16.0) gm/dL Hct 35.1 (34.0-46.0) % MCV 93.8 (80.0-100.0) fL MCH 29.3 (25.0-35.0) pg MCHC 31.3 (31.0-37.0) g/dL RDW 14.1 (11.5-15.5) % Plt Count 195 (150-450) k/uL Neutrophils % 67 % Lymphocytes % 23 % Monocytes % 5 % Eosinophils % 4 % Basophils % 1 % Neutrophils # 5.9 (1.3-7.7) k/uL Lymphocytes # 2.0 (1.0-4.8) k/uL Monocytes # 0.4 (0-1.0) k/uL Eosinophils # 0.3 (0-0.7) k/uL Basophils # 0.1 (0-0.2) k/uL Sodium 138 (137-145) mmol/L Potassium 4.9 (3.5-5.1) mmol/L Chloride 101 (98-107) mmol/L Carbon Dioxide 28 (22-30) mmol/L Anion Gap 9 mmol/L BUN 47 H (7-17) mg/dL Creatinine 1.47 H (0.52-1.04) mg/dL Est GFR (MDRD) Af Amer 43 (>60 ml/min/1.73 sqM) Est GFR (MDRD) Non-Af 35 (>60 ml/min/1.73 sqM) Glucose 133 H (74-99) mg/dL Calcium 10.1 (8.4-10.2) mg/dL Total Bilirubin 0.2 (0.2-1.3) mg/dL AST 26 (14-36) U/L ALT 31 (9-52) U/L Alkaline Phosphatase 96 (38-126) U/L Total Protein 7.1 (6.3-8.2) g/dL Albumin 3.9 (3.5-5.0) g/dL Amylase 58 (30-110) U/L Lipase 94 (23-300) U/L Urine Color Dark Yellow Urine Appearance Clear (Clear) Urine pH 6.0 (5.0-8.0) Ur Specific Lynch 1.014 (1.001-1.035) Urine Protein Trace H (Negative) Urine Glucose (UA) Negative (Negative) Urine Ketones Negative (Negative) Urine Blood Negative (Negative) Urine Nitrite Negative (Negative) Urine Bilirubin Negative (Negative) Urine Urobilinogen <2.0 (<2.0) mg/dL Ur Leukocyte Esterase Negative (Negative) Disposition Time of Disposition: 13:51 <Nitish Lovett - Last Filed: 05/21/17 13:50> <Zack Gallegos - Last Filed: 05/21/17 13:57> Clinical Impression: Dysuria, Kidney mass Disposition: HOME SELF-CARE Condition: Undetermined Instructions: Dysuria (ED) Additional Instructions: Please follow-up with urologist while at 2 PM. Referrals: Sam Quiñonez MD [Primary Care Provider] - 1-2 days Kenny Phillips MD [STAFF PHYSICIAN] - 1-2 days
[2017-05-21 11:33] LABS: Appearance,Urine Clear (Clear); Bilirubin,Urine Negative (Negative); Blood,Urine Negative (Negative); Color,Urine Dark Yellow; Glucose,Urine (UA) Negative (Negative); Ketones,Urine Negative (Negative); Leukocyte Esterase,Urine Negative (Negative); Nitrite,Urine Negative (Negative); Protein,Urine Trace (Negative); Specific Gravity,Urine 1.014 (1.001-1.035); Urobilinogen,Urine <2.0 mg/dL (<2.0)
[2017-05-21 11:37] LABS: Basophils # (A) 0.1 k/uL (0-0.2); Basophils % (A) 1 %; Eosinophils # (A) 0.3 k/uL (0-0.7); Eosinophils % (A) 4 %; HCT 35.1 % (34.0-46.0); Lymphocytes % (A) 23 %; MCH 29.3 pg (25.0-35.0); MCHC 31.3 g/dL (31.0-37.0); MCV 93.8 fL (80.0-100.0); Mean Platelet Volume 8.1; Monocytes # (A) 0.4 k/uL (0-1.0); Monocytes % (A) 5 %; Neutrophils # (A) 5.9 k/uL (1.3-7.7); Neutrophils % (A) 67 %; Platelet Count 195 k/uL (150-450); RBC 3.75 m/uL (3.80-5.40); RDW 14.1 % (11.5-15.5); WBC 8.8 k/uL (3.8-10.6)
[2017-05-21 11:50] LABS: Albumin 3.9 g/dL (3.5-5.0); Calcium 10.1 mg/dL (8.4-10.2); Potassium 4.9 mmol/L (3.5-5.1); Total Bilirubin 0.2 mg/dL (0.2-1.3); Total Protein 7.1 g/dL (6.3-8.2)
--- NOTE | 2017-05-21 12:38 | US ---
EXAMINATION TYPE: US kidneys/renal and bladder DATE OF EXAM: 05/21/2017 COMPARISON: CT abdomen pelvis dated 04/06/2016. CLINICAL HISTORY: Pain. Bladder infection x 2 weeks EXAM MEASUREMENTS: Right Kidney: 8.8 x 4.7 x 4.1 cm Left Kidney: 10.7 x 4.7 x 3.8 cm Right Kidney: Hypoechoic lower pole = 1.5 x 1.2 x 1.5cm is noted. No definitive increased or transmis eric is seen. No hydronephrosis or nephrolithiasis. Left Kidney: Prominent renal sinus fat is noted. No hydronephrosis or nephrolithiasis. Bladder: appears wnl Bilateral Jets seen: no There is no evidence for hydronephrosis at this point in time. No nephrolithiasis is seen. The urin darek bladder is anechoic. Bilateral ureteral jets are seen. IMPRESSION: 1. Hypoechoic right lower pole renal lesion that does not clearly represent a simple cyst. Three-phas e enhanced CT (renal mass protocol) could be performed for further evaluation. 2. No hydronephrosis or nephrolithiasis. Urinary bladder is sonographically unremarkable.
[2017-05-22 23:00] VITALS: BP 166/72; PULSE 62; RESP 16; TEMP 97.2
== END 2017-05-21 14:05 | disposition home or self-care (01) ==
LOC: EC 09:58
DX: N28.89 Other specified disorders of kidney and ureter (principal); R30.0 Dysuria; K21.9 Gastro-esophageal reflux disease without esophagitis; E78.5 Hyperlipidemia, unspecified; E07.9 Disorder of thyroid, unspecified; E11.22 Type 2 diabetes mellitus with diabetic chronic kidney disease; N18.3 Chronic kidney disease, stage 3 (moderate); Z79.01 Long term (current) use of anticoagulants; Z79.4 Long term (current) use of insulin; Z79.82 Long term (current) use of aspirin; Z79.899 Other long term (current) drug therapy; Z88.0 Allergy status to penicillin; Z88.2 Allergy status to sulfonamides; Z91.041 Radiographic dye allergy status; Z88.8 Allergy status to other drugs, medicaments and biological substances
CPT/HCPCS: 36415; 76770; 80053; 81003; 82150; 83690; 85025; 87086; 99283

== ENCOUNTER → 2017-06-17 | Outpatient (CLI) | payer MEDICARE, OTHER ==
--- NOTE | 2017-06-17 13:24 | US ---
EXAMINATION TYPE: US transvaginal DATE OF EXAM: 06/17/2017 COMPARISON: NONE CLINICAL HISTORY: Pelvic Pain R10.2. Right pelvic pain x 2 years TECHNIQUE: Transvaginal (TV) Date of LMP: unknown EXAM MEASUREMENTS: Uterus: 5.3 x 2.6 x 4.0 cm Endometrial Stripe: 0.2 cm Right Ovary: 2.7 x 1.2 x 1.1 cm Left Ovary: unable to visualize 1. Uterus: Anteverted heterogeneous 2. Endometrium: appears wnl as visualized 3. Right Ovary: cystic area = 0.8 x 0.8 x 0.7cm compatible with a follicle 4. Left Ovary: Obscured by overlying bowel gas 5. Bilateral Adnexa: wnl 6. Posterior cul-de-sac: wnl IMPRESSION: 1. Right ovarian follicle 2. Left ovary is not identified during this exam.
== END | disposition home or self-care (01) ==
LOC: RADUSWWP 12:13
PROVIDERS: ATTEND Internal Medicine Geriatric Medicine
DX: R10.2 Pelvic and perineal pain (principal)
CPT/HCPCS: 76830

== ENCOUNTER → 2017-08-26 | Outpatient (CLI) | payer MEDICARE, OTHER ==
--- NOTE | 2017-08-26 13:21 | BD ---
EXAMINATION TYPE: MG DEXA axial skeleton. DATE OF EXAM: 08/26/2017 COMPARISON: NONE CLINICAL HISTORY: Z13.820 Screening for osteoporosis Height: 63 Weight: 223.7 FRAX RISK QUESTIONS: Alcohol (3 or more units per day): no Family History (Parent hip fracture): no Glucocorticoids (More than 3mos): no (Ex: prednisone, prednisolone, methylprednisolone, dexamethasone, and hydrocortisone). History of Fracture in Adulthood: no Secondary Osteoporosis: 1. Type 1 Diabetes: no 2. Hyperthyroidism: no 3. Menopause before 45: no 4. Malnutrition: no 5. Chronic liver disease: no Rheumatoid Arthritis: no Current Tobacco Use: no RISK FACTORS HISTORY OF: Surgery to Spine/Hip(right/left)/Wrist (right/left): l-3,4, s1 When: 2014 Family History of Osteoporosis: no Active: yes Diet low in dairy products/other sources of calcium: no Postmenopausal woman: age 49 Itake estrogen and/or progesterone medications: yes How lon-4 years Lost more than 2 inches in height since high school: yes Frequent falls: yes/ neuropathy Adrenal Insufficiency: no MEDICATIONS: plaquenil, plavix, toperol, nexium, lipitor, alopurinal. imdur, norco, fentanyl, vagafem , flexeril, asa, humulin, omega 3, xanax Thyroid Medications: synthroid How Long: long time Additional History: EXAM MEASUREMENTS: Bone mineral densitometry was performed using the [employer] System. Bone mineral density about the R hip (g/cm2): 1.176 Bone mineral density about the L hip (g/cm2): 1.275 T Score values are as follows: -----R Neck: 1.0 -----L Neck: 1.7 -----R Total: 1.1 -----L Total: 1.8 Bone mineral density has: decreased 18.7 % since study of: 06.21.2009 IMPRESSION: No evidence for osteoporosis or osteopenia. NOTE: T-SCORE=SD OF THE YOUNG ADULT MEAN.
== END | disposition home or self-care (01) ==
LOC: RADBDWWP 09:45
PROVIDERS: ATTEND Obstetrics & Gynecology
DX: Z13.820 Encounter for screening for osteoporosis (principal)
CPT/HCPCS: 77080

== ENCOUNTER → 2017-08-26 | Outpatient (CLI) | payer MEDICARE, OTHER ==
--- NOTE | 2017-08-28 09:22 | MM ---
Reason for exam: screening (asymptomatic). Last mammogram was performed 1 year ago. History: Patient is postmenopausal. Taking progesterone for 3 years. Physical Findings: A clinical breast exam by your physician is recommended on an annual basis and results should be correlated with mammographic findings. MG Screening Mammo w CAD Bilateral CC and MLO view(s) were taken. Prior study comparison: August 23, 2016, bilateral MG screening mammo w CAD. July 20, 2015, bilateral MG screening mammo w CAD. The breast tissue is almost entirely fat. No significant changes when compared with prior studies. ASSESSMENT: Negative, BI-RAD 1 RECOMMENDATION: Routine screening mammogram of both breasts in 1 year.
== END | disposition home or self-care (01) ==
LOC: RADMAMWWP 09:42
PROVIDERS: ATTEND Obstetrics & Gynecology
DX: Z12.31 Encounter for screening mammogram for malignant neoplasm of breast (principal)
CPT/HCPCS: 77067

== ENCOUNTER → 2017-09-25 | Day surgery (SDC) | payer MEDICARE, OTHER ==
[2017-09-24 13:21] VITALS: BMI 38.6
[2017-09-25 10:54] VITALS: BP 171/74; RESP 18
[2017-09-25 12:08] VITALS: PULSE 64; TEMP 97.8
== END ==
LOC: CATHCVL 10:32
DX: N39.0 Urinary tract infection, site not specified (principal)
CPT/HCPCS: 76937; 77001; 00000; C1751; 0

== ENCOUNTER 2017-11-08 08:18 | Inpatient (IN) | payer MEDICARE, OTHER ==
[2017-11-08] MEDS ORDERED: NITROGLYCERIN SL TABS 0.4 MG TAB SUBLINGUAL STA (08:35)
[2017-11-08] MEDS ORDERED: SODIUM CHLORIDE 0.9% 1,000 ML IV STA (08:35)
[2017-11-08] MEDS ORDERED: ASPIRIN 81 MG PO STA (08:35)
--- NOTE | 2017-11-08 08:38 | ED ---
SOB HPI <El Enamorado - Last Filed: 11/08/17 12:37> - General Source: patient, RN notes reviewed, old records reviewed Mode of arrival: wheelchair Limitations: no limitations <Nori Benedict - Last Filed: 11/08/17 12:56> - General Chief Complaint: Shortness of Breath Stated Complaint: Sob Time Seen by Provider: 11/08/17 08:27 - History of Present Illness Initial Comments: This Patient is a 59-year-old female with a significant history of coronary artery disease and quadruple bypass surgery 2002 and a catheterization. 2017 presents today with 2 days of shortness of breath. She reports that at this time she has no chest pain what was suffered from some chest pain past 2 days. She does take nitro periodically. Patient reports that she has no cough. She was recently seen by her program coordinator Dr. Goodson. She reports that she was clear from his standpoint last week. She does have a history of sarcoidosis. She denies any productive cough. Denies any nausea or vomiting or diaphoresis. Denies any jaw or chest pain at this time. 2 reports yesterday evening she was trying to get comfortable. Sleep and was still complaining of difficulty breathing tried use multiple pillows and sitting up to help her breathe. ( Nori Benedict) - Related Data Home Medications Medication Instructions Recorded Confirmed ALPRAZolam [Xanax] 0.25 mg PO HS PRN 06/07/16 11/08/17 Allopurinol [Zyloprim] 200 mg PO DAILY 06/07/16 11/08/17 Ascorbic Acid [Vitamin C] 1,000 mg PO DAILY 06/07/16 11/08/17 Atorvastatin [Lipitor] 10 mg PO HS 06/07/16 11/08/17 Clopidogrel [Plavix] 75 mg PO HS 06/07/16 11/08/17 Cyclobenzaprine [Flexeril] 10 mg PO TID PRN 06/07/16 11/08/17 Esomeprazole Magnesium [NexIUM] 40 mg PO BID 06/07/16 11/08/17 Hydrocodone/Acetaminophen [[place] 1 tab PO BID PRN 06/07/16 11/08/17 10-325] Hydroxychloroquine Sulfate 200 mg PO BID 06/07/16 11/08/17 [Plaquenil] Isosorbide Mononitrate ER [Imdur] 60 mg PO DAILY 06/07/16 11/08/17 Levothyroxine Sodium [Synthroid] 100 mcg PO SUMOWEFRSA 06/07/16 11/08/17 Vitamin E 1,000 unit PO DAILY 06/07/16 11/08/17 INSULIN LISPRO (HumaLOG) [HumaLOG] See Protocol SQ ACHS 06/08/16 11/08/17 Insulin NPH Hum/Reg Insulin Hm See Protocol SQ AC-TID 06/08/16 11/08/17 [NovoLIN 70-30 100 UNIT/ML VIAL] Levothyroxine Sodium [Synthroid] 50 mcg PO TUTH 05/21/17 11/08/17 [place]-3 Fatty Acids/Fish Oil [Fish 2 cap PO HS 05/21/17 11/08/17 Oil 1,000 mg Softgel] Magnesium Gluconate [Magonate] 500 mg PO BID 09/24/17 11/08/17 Nitroglycerin Sl Tabs [Nitrostat] 0.4 mg SUBLINGUAL Q5M PRN 09/24/17 11/08/17 Estradiol [Vagifem] 10 mcg VG SUTH 11/08/17 11/08/17 Metoprolol Succinate (ER) [Toprol 100 mg PO BID 11/08/17 11/08/17 Xl] fentaNYL [Duragesic 37.5 MCG/HR] 1 patch TRANSDERM Q72H 11/08/17 11/08/17 Allergies Allergy/AdvReac Type Severity Reaction Status Date / Time Penicillins Allergy Rash/Hives Verified 11/08/17 09:32 prednisone Allergy Rapid Verified 11/08/17 09:32 Heart Rate Sulfa (Sulfonamide Allergy Unknown Verified 11/08/17 09:32 Antibiotics) gabapentin [From Neurontin] AdvReac Unknown Verified 11/08/17 09:32 Iodinated Contrast- Oral and AdvReac Unknown Verified 11/08/17 09:32 IV Dye Review of Systems ROS Other: All systems not noted in ROS Statement are negative. <El Enamorado - Last Filed: 11/08/17 12:37> ROS Other: All systems not noted in ROS Statement are negative. <Nori Benedict - Last Filed: 11/08/17 12:56> ROS Statement: Those systems with pertinent positive or pertinent negative responses have been documented in the HPI. Past Medical History Past Medical History: Chest Pain / Angina, Diabetes Mellitus, Fibromyalgia, GERD /Reflux, Hyperlipidemia, Hypertension, Osteoarthritis (OA), Renal Disease, Thyroid Disorder Additional Past Medical History / Comment(s): sarcoidosis, chronic kidney disease stage III, tx. current UTI that has been tx. for 4 months History of Any Multi-Drug Resistant Organisms: None Reported Past Surgical History: Back Surgery, Section, Cholecystectomy, Coronary Bypass/CABG, Heart Catheterization, Tonsillectomy, Tubal Ligation Additional Past Surgical History / Comment(s): C section X2, left shoulder rotator cuff, bilateral knee replacement 2014, 4 vessel CABG in 2002, bilateral cataract extraction and intraocular lens implants Past Anesthesia/Blood Transfusion Reactions: Postoperative Nausea & Vomiting ( PONV) Past Psychological History: No Psychological Hx Reported Smoking Status: Never smoker Past Alcohol Use History: None Reported Past Drug Use History: None Reported - Past Family History Mother Family Medical History: Diabetes Mellitus Additional Family Medical History / Comment(s): Mother at age 70 with history of coronary artery disease status post CABG 2 and diabetes. Father Family Medical History: Diabetes Mellitus Additional Family Medical History / Comment(s): Father at age 83 with history of coronary artery disease status post CABG and diabetes. Daughter(s) Additional Family Medical History / Comment(s): Patient has one daughter with hyperlipidemia. Patient has one son with diabetes. Patient is an only child. <Nori Benedict - Last Filed: 11/08/17 12:56> General Exam <FeiEl - Last Filed: 11/08/17 12:37> Limitations: no limitations Head exam: Present: atraumatic, normocephalic, normal inspection Eye exam: Present: normal appearance, PERRL, EOMI. Absent: scleral icterus, conjunctival injection, periorbital swelling ENT exam: Present: normal exam, mucous membranes moist Neck exam: Present: normal inspection. Absent: tenderness, meningismus, lymphadenopathy Respiratory exam: Present: normal lung sounds bilaterally. Absent: respiratory distress, wheezes, rales, rhonchi, stridor Cardiovascular Exam: Present: regular rate, normal rhythm, normal heart sounds. Absent: systolic murmur, diastolic murmur, rubs, gallop, clicks GI/Abdominal exam: Present: soft, normal bowel sounds. Absent: distended, tenderness, guarding, rebound, rigid Extremities exam: Present: normal inspection, full ROM, normal capillary refill. Absent: tenderness, pedal edema, joint swelling, calf tenderness Back exam: Present: normal inspection Neurological exam: Present: alert, oriented X3, CN II-XII intact Psychiatric exam: Present: normal affect, normal mood Skin exam: Present: warm, dry, intact, normal color. Absent: rash <Nori Benedict - Last Filed: 11/08/17 12:56> - General Exam Comments Initial Comments: 59-year-old female. Alert and oriented. No significant distress. (Nori Benedict) Vital Signs 11/08/17 11/08/17 11/08/17 08:20 09:22 11:32 Temperature 98.1 F Pulse Rate 56 L 53 L 54 L Respiratory 20 18 18 Rate Blood Pressure 151/59 195/79 O2 Sat by Pulse 100 100 100 Oximetry Medical Decision Making - Lab Data Result diagrams: 11/08/17 09:27 11/08/17 09:27 <El Enamorado - Last Filed: 11/08/17 12:37> - Lab Data Result diagrams: 11/08/17 09:27 11/08/17 09:27 - Radiology Data Radiology results: report reviewed <Nori Benedict - Last Filed: 11/08/17 12:56> - Medical Decision Making Attending note, medical decision making; this is a 67-year-old female with a complaint of shortness of breath for the past 2 days. She does report that she had a month long episode of angina type symptoms and it was okay for 2 weeks and then this started again. While in emergency room the patient had lab work that showed normal cardiac enzymes been elevated BNP of 3800. D-dimer elevated 3.6. CT of the chest showed no evidence of PE. She was given Lasix and nitro for the increase fluid. I examined the patient at bedside and interviewed her. She does have some crepitant rales both bases. Otherwise afebrile normal white count. CT also made suggestion of possible infiltrate. I discussed the case with Dr. Palencia, the patient's family doctor patient be admitted his service he requests consultation from cardiology and pulmonology. Dr. Enamorado ( El Enamorado) - Lab Data Lab Results 06/22/18 06/22/18 06/22/18 Range/Units 09:27 09:27 09:27 WBC 5.9 (3.8-10.6) k/uL RBC 3.43 L (3.80-5.40) m/uL Hgb 9.9 L (11.4-16.0) gm/dL Hct 31.7 L (34.0-46.0) % MCV 92.6 (80.0-100.0) fL MCH 28.8 (25.0-35.0) pg MCHC 31.1 (31.0-37.0) g/dL RDW 15.8 H (11.5-15.5) % Plt Count 185 (150-450) k/uL Neutrophils % 68 % Lymphocytes % 21 % Monocytes % 5 % Eosinophils % 5 % Basophils % 1 % Neutrophils # 4.0 (1.3-7.7) k/uL Lymphocytes # 1.2 (1.0-4.8) k/uL Monocytes # 0.3 (0-1.0) k/uL Eosinophils # 0.3 (0-0.7) k/uL Basophils # 0.0 (0-0.2) k/uL Hypochromasia Moderate PT (9.0-12.0) sec INR (<1.2) APTT (22.0-30.0) sec D-Dimer (<0.60) mg/L FEU Sodium 140 (137-145) mmol/L Potassium 4.9 (3.5-5.1) mmol/L Chloride 103 (98-107) mmol/L Carbon Dioxide 27 (22-30) mmol/L Anion Gap 10 mmol/L BUN 19 H (7-17) mg/dL Creatinine 1.10 H (0.52-1.04) mg/dL Est GFR (CKD-EPI)AfAm 60 (>60 ml/min/1.73 sqM) Est GFR (CKD-EPI)NonAf 52 (>60 ml/min/1.73 sqM) Glucose 100 H (74-99) mg/dL Calcium 9.7 (8.4-10.2) mg/dL Magnesium 1.4 L (1.6-2.3) mg/dL Total Bilirubin 0.3 (0.2-1.3) mg/dL AST 28 (14-36) U/L ALT 29 (9-52) U/L Alkaline Phosphatase 86 (38-126) U/L Total Creatine Kinase 72 (30-135) U/L CK-MB (CK-2) 0.6 (0.0-2.4) ng/mL CK-MB (CK-2) Rel Index 0.8 Troponin I 0.013 (0.000-0.034) ng/mL NT-Pro-B Natriuret Pep pg/mL Total Protein 6.6 (6.3-8.2) g/dL Albumin 3.7 (3.5-5.0) g/dL 11/08/17 11/08/17 Range/Units 09:27 09:27 WBC (3.8-10.6) k/uL RBC (3.80-5.40) m/uL Hgb (11.4-16.0) gm/dL Hct (34.0-46.0) % MCV (80.0-100.0) fL MCH (25.0-35.0) pg MCHC (31.0-37.0) g/dL RDW (11.5-15.5) % Plt Count (150-450) k/uL Neutrophils % % Lymphocytes % % Monocytes % % Eosinophils % % Basophils % % Neutrophils # (1.3-7.7) k/uL Lymphocytes # (1.0-4.8) k/uL Monocytes # (0-1.0) k/uL Eosinophils # (0-0.7) k/uL Basophils # (0-0.2) k/uL Hypochromasia PT 9.6 (9.0-12.0) sec INR 1.0 (<1.2) APTT 23.7 (22.0-30.0) sec D-Dimer 3.19 H (<0.60) mg/L FEU Sodium (137-145) mmol/L Potassium (3.5-5.1) mmol/L Chloride (98-107) mmol/L Carbon Dioxide (22-30) mmol/L Anion Gap mmol/L BUN (7-17) mg/dL Creatinine (0.52-1.04) mg/dL Est GFR (CKD-EPI)AfAm (>60 ml/min/1.73 sqM) Est GFR (CKD-EPI)NonAf (>60 ml/min/1.73 sqM) Glucose (74-99) mg/dL Calcium (8.4-10.2) mg/dL Magnesium (1.6-2.3) mg/dL Total Bilirubin (0.2-1.3) mg/dL AST (14-36) U/L ALT (9-52) U/L Alkaline Phosphatase (38-126) U/L Total Creatine Kinase (30-135) U/L CK-MB (CK-2) (0.0-2.4) ng/mL CK-MB (CK-2) Rel Index Troponin I (0.000-0.034) ng/mL NT-Pro-B Natriuret Pep 3340 pg/mL Total Protein (6.3-8.2) g/dL Albumin (3.5-5.0) g/dL 11/08/17 08:43 EKG shows sinus bradycardia with first-degree AV block. Minimal voltage criteria for LVH may be normal variant. T-wave abnormality considering lateral ischemia. Abnormal EKG. Ventricular rate 52 beats were minute. Pulse 210 ms. QRS duration 108 ms. QT QTc is 436/405 ms. (Nori Benedict) - Radiology Data CT evidence no evidence for PE. Suspicious reticular opacities on bilateral arms could reflect developing multifocal pneumonia correlate clinically. Chronic for CHF exacerbation as increasing cardiomegaly with suspected moderate central vascular congestion. (Nori Benedict) Disposition <El Enamorado - Last Filed: 11/08/17 12:37> Is patient prescribed a controlled substance at d/c from ED?: No When asked, does pt state using other controlled substances?: No If prescribed controlled substance>3 days was MAPS reviewed?: No If opioid is for acute pain is fill amount 7 days or less?: No If Rx opioid, was Start Talking consent form obtained?: No Time of Disposition: 12:56 <Nori Benedict - Last Filed: 11/08/17 12:56> Clinical Impression: CHF (congestive heart failure), Unstable angina Disposition: ADMITTED IP TO THIS HOSP Condition: Stable Referrals: Sam Quiñonez MD [Primary Care Provider] - 1-2 days
--- NOTE | 2017-11-08 09:47 | XR ---
EXAMINATION TYPE: XR chest 2V DATE OF EXAM: 11/08/2017 COMPARISON: Chest x-ray June 07, 2016 HISTORY: Chest pain. TECHNIQUE: Frontal and lateral views of the chest are obtained. FINDINGS: Post-CABG changes with mediastinal clips and sternal wires is present. There is new cardiom egaly with central vascular congestion. No large pleural effusion or pneumothorax is seen bilaterall y. Fairly moderate to severe multilevel spurring in the spine is present. Cholecystectomy clips are n oted IMPRESSION: Correlate for CHF exacerbation as there is increasing cardiomegaly with suspected new mil d to moderate central vascular congestion.
[2017-11-08 09:51] LABS: Basophils % (A) 1 %; Eosinophils # (A) 0.3 k/uL (0-0.7); Eosinophils % (A) 5 %; HCT 31.7 % (34.0-46.0); HGB 9.9 gm/dL (11.4-16.0); Hypochromasia Moderate; Lymphocytes # (A) 1.2 k/uL (1.0-4.8); Lymphocytes % (A) 21 %; MCH 28.8 pg (25.0-35.0); MCHC 31.1 g/dL (31.0-37.0); MCV 92.6 fL (80.0-100.0); Mean Platelet Volume 8.3; Monocytes # (A) 0.3 k/uL (0-1.0); Monocytes % (A) 5 %; Neutrophils % (A) 68 %; Platelet Count 185 k/uL (150-450); RBC 3.43 m/uL (3.80-5.40); RDW 15.8 % (11.5-15.5); WBC 5.9 k/uL (3.8-10.6)
[2017-11-08 10:02] LABS: Partial Thromboplastin Time 23.7 sec (22.0-30.0); Prothrombin Time 9.6 sec (9.0-12.0)
[2017-11-08 10:05] LABS: Albumin 3.7 g/dL (3.5-5.0); Calcium 9.7 mg/dL (8.4-10.2); Magnesium 1.4 mg/dL (1.6-2.3); Potassium 4.9 mmol/L (3.5-5.1); Total Bilirubin 0.3 mg/dL (0.2-1.3); Total Protein 6.6 g/dL (6.3-8.2)
[2017-11-08 10:10] LABS: D-Dimer 3.19 mg/L FEU (<0.60)
[2017-11-08 10:26] LABS: Creatine Kinase MB 0.6 ng/mL (0.0-2.4); Troponin I 0.013 ng/mL (0.000-0.034)
[2017-11-08] MEDS ORDERED: SODIUM CHLORIDE 0.9% 1,000 ML IV ONE (10:35)
[2017-11-08] MEDS ORDERED: FAMOTIDINE 20 MG/2 ML VIAL IV STA (10:43)
[2017-11-08] MEDS ORDERED: diphenhydrAMINE 50 MG/ML 1 ML VIAL IVP STA (10:43)
[2017-11-08] MEDS ORDERED: methylPREDNISolone SOD SUCCI 125 MG/2 ML VIAL IV STA (10:43)
[2017-11-08] MEDS ORDERED: SODIUM CHLORIDE 0.9% 1,000 ML IV SCH (10:45)
--- NOTE | 2017-11-08 11:44 | CT ---
EXAMINATION TYPE: CT chest angio for PE DATE OF EXAM: 11/08/2017 COMPARISON: CT chest June 27, 2010. Chest x-ray earlier today HISTORY: Difficulty breathing. CT DLP: 685 mGycm. Automated Exposure Control for Dose Reduction was Utilized. CONTRAST: CTA scan of the thorax is performed with IV Contrast, patient injected with 93 mL of Isovue 370, pulm onary embolism protocol. MIP Images are created on CT scanner and reviewed. FINDINGS: LUNGS: Slightly elevated and eventrated right hemidiaphragm is redemonstrated. There is patchy bibasi lar linear scarring and/or atelectasis identified on current study. Central areas of opacity bilatera lly favor mild edema. No suspicious focal consolidation is seen. There are however reticulonodular op acities superior aspect right lower lobe could reflect developing infiltrates and also on the periphe ry of the left lower lobe near axial image 90. MEDIASTINUM: There is satisfactory enhancement of the pulmonary artery and its branches, there is no CT evidence for pulmonary embolism. There are no greater than 1 cm hilar or mediastinal lymph nodes. No cardiomegaly or pericardial effusion is seen. Post CABG changes with mediastinal clips and ster nal wires is present. OTHER: Cholecystectomy clips are noted. There is fairly moderate multilevel spurring in the thoracic spine. IMPRESSION: 1. No CT evidence for acute pulmonary embolism. 2. Suspicious reticulonodular opacities bilateral lower lobes could reflect developing multifocal pne umonia, correlate clinically.
[2017-11-08] MEDS ORDERED: FUROSEMIDE 10 MG/ML 4 ML VIAL IV STA (12:08)
[2017-11-08] MEDS ORDERED: LEVOFLOXACIN 750MG-D5W PMX 750 MG in DEXTROSE/WATER 1 150ML.BAG IVPB STA (12:21)
[2017-11-08] MEDS: SODIUM CHLORIDE 0.9% 1,000 ML IV SCH (12:47)
[2017-11-08] MEDS ORDERED: NITROGLYCERIN SL TABS 0.4 MG TAB SUBLINGUAL PRN (12:58)
[2017-11-08] MEDS ORDERED: CYCLOBENZAPRINE 10 MG TAB PO PRN (12:58)
[2017-11-08] MEDS ORDERED: LEVOTHYROXINE 100 MCG TAB PO SCH (13:00)
[2017-11-08] MEDS: NITROGLYCERIN OINT 1 INCH/GM PACKET TOPICAL SCH ×3 (15:29→21:29)
[2017-11-08] MEDS: HYDROcodone/APAP 10-325MG 1 EACH TAB PO PRN (15:30)
--- NOTE | 2017-11-08 16:18 | P.HPIM ---
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 Pham on regular basis. History of diabetes has been doing better also history of sarcoidosis who seen Dr. Lopez for the last 15 years on regular basis and not on any active medication currently. Patient has been seen Dr. Aguilar recently for recurrent UTI and was treated with few course of antibiotic and had an arrangement for iron infusion recently was done as an outpatient at [facility]. Patient presented to the emergency department with complaint of acute mid to left-sided chest pain exacerbated with exertion associated with mild shortness of breath with nausea and mild abdominal pain. Workup at the emergency department shows slight infiltrate in the base was diagnosed with pneumonia also CK with troponin came back negative but with her current complaint as an active angina will do CK with troponin 3 admit patient consult cardiology might require an need testing. Review of Systems CONSTITUTIONAL: Well-developed no acute respiratory distress. EYES: No icterus sclerae, no conjunctivitis. EARS, NOSE, MOUTH, THROAT, and FACE: No sore throat, lymphadenopathy, carotid bruits or deformity. RESPIRATORY: Positive shortness of breath cough wheezes with chest pain. CARDIOVASCULAR: Positive chest pain with angina positive PND orthopnea palpitations. GASTROINTESTINAL: No Abd pain, positive nausea with no vomiting, no Diarrhea or constipation, No GI Bleed, no distention or masses. GENITOURINARY: Negative for Hematuria or UTI, no kidney stones. INTEGUMENT/BREAST: Negative for any muscular injury with mild osteoarthritis.. HEMATOLOGIC/LYMPHATIC: Negative for bleed or purpura. MUSCULOSKELTAL: Negative for Myalgia or arthralgia. NEURLOGICAL: No LOC, Sz or syncope, blurred vision dizziness or abnormality.. BEHAVIORAL/PSYCH: Negative. ENDOCRINE: Negative. Past Medical History Past Medical History: Chest Pain / Angina, Diabetes Mellitus, Fibromyalgia, GERD /Reflux, Hyperlipidemia, Hypertension, Osteoarthritis (OA), Renal Disease, Thyroid Disorder Additional Past Medical History / Comment(s): sarcoidosis, chronic kidney disease stage III,neuropathy-balance issues, reccurring UTI" had a picc line in -removed recently, upper/lower bridges History of Any Multi-Drug Resistant Organisms: None Reported Past Surgical History: Back Surgery, Section, Cholecystectomy, Coronary Bypass/CABG, Heart Catheterization, Tonsillectomy, Tubal Ligation Additional Past Surgical History / Comment(s): C section X2, left shoulder rotator cuff, bilateral knee replacement 2014, 4 vessel CABG in 2002, bilateral cataract extraction and intraocular lens implants, picc line -since removed. Past Anesthesia/Blood Transfusion Reactions: Motion Sickness, Postoperative Nausea & Vomiting (PONV) Smoking Status: Never smoker - Past Family History Mother Family Medical History: Diabetes Mellitus Additional Family Medical History / Comment(s): Mother at age 70 with history of coronary artery disease status post CABG 2 and diabetes. Father Family Medical History: Diabetes Mellitus Additional Family Medical History / Comment(s): Father at age 83 with history of coronary artery disease status post CABG and diabetes. Daughter(s) Additional Family Medical History / Comment(s): Patient has one daughter with hyperlipidemia. Patient has one son with diabetes. Patient is an only child. Medications and Allergies Home Medications Medication Instructions Recorded Confirmed Type ALPRAZolam [Xanax] 0.25 mg PO HS PRN 06/07/16 11/08/17 History Allopurinol [Zyloprim] 200 mg PO DAILY 06/07/16 11/08/17 History Ascorbic Acid [Vitamin C] 1,000 mg PO DAILY 06/07/16 11/08/17 History Atorvastatin [Lipitor] 10 mg PO HS 06/07/16 11/08/17 History Clopidogrel [Plavix] 75 mg PO HS 06/07/16 11/08/17 History Cyclobenzaprine [Flexeril] 10 mg PO TID PRN 06/07/16 11/08/17 History Esomeprazole Magnesium [NexIUM] 40 mg PO BID 06/07/16 11/08/17 History Hydrocodone/Acetaminophen [[place] 1 tab PO BID PRN 06/07/16 11/08/17 History 10-325] Hydroxychloroquine Sulfate 200 mg PO BID 06/07/16 11/08/17 History [Plaquenil] Isosorbide Mononitrate ER [Imdur] 60 mg PO DAILY 06/07/16 11/08/17 History Levothyroxine Sodium [Synthroid] 100 mcg PO SUMOWEFRSA 06/07/16 11/08/17 History Vitamin E 1,000 unit PO DAILY 06/07/16 11/08/17 History INSULIN LISPRO (HumaLOG) [HumaLOG] See Protocol SQ ACHS 06/08/16 11/08/17 History Insulin NPH Hum/Reg Insulin Hm See Protocol SQ AC-TID 06/08/16 11/08/17 History [NovoLIN 70-30 100 UNIT/ML VIAL] Levothyroxine Sodium [Synthroid] 50 mcg PO TUTH 05/21/17 11/08/17 History [place]-3 Fatty Acids/Fish Oil [Fish 2 cap PO HS 05/21/17 11/08/17 History Oil 1,000 mg Softgel] Magnesium Gluconate [Magonate] 500 mg PO BID 09/24/17 11/08/17 History Nitroglycerin Sl Tabs [Nitrostat] 0.4 mg SUBLINGUAL Q5M PRN 09/24/17 11/08/17 History Estradiol [Vagifem] 10 mcg VG SUTH 11/08/17 11/08/17 History Metoprolol Succinate (ER) [Toprol 100 mg PO BID 11/08/17 11/08/17 History Xl] fentaNYL [Duragesic 37.5 MCG/HR] 1 patch TRANSDERM Q72H 11/08/17 11/08/17 History Allergies Allergy/AdvReac Type Severity Reaction Status Date / Time Penicillins Allergy Rash/Hives Verified 11/08/17 09:32 prednisone Allergy Rapid Verified 11/08/17 09:32 Heart Rate Sulfa (Sulfonamide Allergy Unknown Verified 11/08/17 09:32 Antibiotics) gabapentin [From Neurontin] AdvReac Unknown Verified 11/08/17 09:32 Iodinated Contrast- Oral and AdvReac Unknown Verified 11/08/17 09:32 IV Dye Physical Exam Vitals: Vital Signs Temp Pulse Resp BP Pulse Ox 11/08/17 13:45 52 L 18 158/68 98 11/08/17 11:32 54 L 18 195/79 100 11/08/17 09:22 53 L 18 100 11/08/17 08:20 98.1 F 56 L 20 151/59 100 Intake and Output 11/08/17 11/08/17 11/08/17 06:59 14:59 22:59 Other: Weight 102.058 kg Results CBC & Chem 7: 11/08/17 09:27 11/08/17 09:27 Labs: Abnormal Lab Results - Last 24 Hours (Table) 11/08/17 11/08/17 11/08/17 Range/Units 09:27 09:27 09:27 RBC 3.43 L (3.80-5.40) m/uL Hgb 9.9 L (11.4-16.0) gm/dL Hct 31.7 L (34.0-46.0) % RDW 15.8 H (11.5-15.5) % D-Dimer 3.19 H (<0.60) mg/L FEU BUN 19 H (7-17) mg/dL Creatinine 1.10 H (0.52-1.04) mg/dL Glucose 100 H (74-99) mg/dL Magnesium 1.4 L (1.6-2.3) mg/dL Thrombosis Risk Factor Assmnt - DVT/VTE Prophylaxis DVT/VTE Prophylaxis: Pharmacologic Prophylaxis ordered, Mechanical Prophylaxis ordered Assessment and Plan Plan: 1 recurrent angina and chest pain: With known coronary artery disease post CABG , patient seen cardiology regular basis we'll consult cardiology troponin 3 will be done repeat EKG in continue cardiac monitoring. Based on the results we 'll decide on further testing. 2 severe dyspnea and shortness of breath: Combination of COPD, sarcoidosis and pneumonia continue updraft treatment continue antibiotics for now continue O2 try to keep pulse ox above 92 percentile. 3 bibasilar pneumonia: With patient's current symptoms patient will be on gram- negative coverage at this point Levaquin was giving in the emergency room continue Levaquin along with updraft treatment O2 repeat chest x-ray in 2 days. 4 diabetes: More time 2 on insulin continue patient on 7030 along with Accu- Chek with sliding scales coverage. 5 hyperlipidemia: Continue patient on 10 mg daily. 6 hypothyroidism: Patient is on levothyroxine 150 g daily. 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 8 anemia: Iron deficient post iron supplement and infusion recently. 9 recurrent UTI: Has been seen urology and infectious disease no infection lately. 10 chronic kidney disease stage III: Much better patient creatinine is down significantly, she still seen nephrology every 6-8 weeks. 11 GI prophylaxis: Patient will be on Nexium 40 mg daily. 12 DVT prophylaxis: Patient will be on heparin subcutaneous. CODE STATUS: Full code. Admit patient to inpatient status for more than 2 nights.
[2017-11-08 16:42] LABS: Creatine Kinase MB 0.4 ng/mL (0.0-2.4); Troponin I 0.013 ng/mL (0.000-0.034)
[2017-11-08] MEDS: FUROSEMIDE 10 MG/ML 4 ML VIAL IV SCH ×2 (16:51→23:36)
--- NOTE | 2017-11-08 16:59 | P.CNPUL ---
History of Present Illness Consult date: 11/08/17 Reason for consult: dyspnea, chest pain History of present illness: A pleasant 67-year-old female patient, known history of coronary artery disease with previous bypass surgery, known history of sarcoidosis, known history of chronic renal failure, presenting to the hospital because of episodic chest pain and shortness of breath. The patient's chest pain is been going on for the past month. She states that on and off she was having small episodes of angina for which she was taken nitroglycerin sublingually with good response. Nevertheless over the past few days her pain is gotten worse. She has developed severe pain anterior chest radiating to her back associated with some shortness of breath. No diaphoresis. No sweating. She was very much concerned and she came into the hospital. EKG showed no acute ST segment elevations. Questionable lateral stuff which were present on old EKGs. Troponin was at 0.012 first set and the proBNP level is a [address] of the chest was done in the emergency department that showed no evidence of any pulmonary embolism. There is some limited mediastinal calcification related to old sarcoidosis along with some limited count breast changes which does not explain the patient's symptoms. Noted the patient's sarcoidosis is been essentially inactive in stable and she has been maintained on Plaquenil suppressions treatment for many years under the care of Dr. Goodson. The patient has no fever. No chills. No pleurisy. No hemoptysis. No swelling in lower extremities. No other complaints otherwise for now. She was given nitroglycerin patch. He does have an underlying anemia with a hemoglobin of 9.9 yet that is no reported history of any GI bleed or melanotic stools. In terms of coronary artery disease, the patient last cardiac catheterization was then GI of 2016 and back and the patient was found to have disease within the [place] arteries and the patient had patent HANNHA to LAD, patent saphenous vein graft and radial artery to obtuse marginal. Review of Systems CONSTITUTIONAL: Well-developed no acute respiratory distress. EYES: No icterus sclerae, no conjunctivitis. EARS, NOSE, MOUTH, THROAT, and FACE: No sore throat, lymphadenopathy, carotid bruits or deformity. RESPIRATORY: Positive shortness of breath cough wheezes with chest pain. CARDIOVASCULAR: Positive chest pain with angina positive PND orthopnea palpitations. GASTROINTESTINAL: No Abd pain, positive nausea with no vomiting, no Diarrhea or constipation, No GI Bleed, no distention or masses. GENITOURINARY: Negative for Hematuria or UTI, no kidney stones. INTEGUMENT/BREAST: Negative for any muscular injury with mild osteoarthritis.. HEMATOLOGIC/LYMPHATIC: Negative for bleed or purpura. MUSCULOSKELTAL: Negative for Myalgia or arthralgia. NEURLOGICAL: No LOC, Sz or syncope, blurred vision dizziness or abnormality.. BEHAVIORAL/PSYCH: Negative. ENDOCRINE: Negative. Past Medical History Past Medical History: Coronary Artery Disease (CAD), Chest Pain / Angina, Diabetes Mellitus, Fibromyalgia, GERD/Reflux, Hyperlipidemia, Hypertension, Osteoarthritis (OA), Renal Disease, Thyroid Disorder Additional Past Medical History / Comment(s): sarcoidosis, chronic kidney disease stage III,neuropathy-balance issues, reccurring UTI" had a picc line in -removed recently, upper/lower bridges History of Any Multi-Drug Resistant Organisms: None Reported Past Surgical History: Back Surgery, Section, Cholecystectomy, Coronary Bypass/CABG, Heart Catheterization, Tonsillectomy, Tubal Ligation Additional Past Surgical History / Comment(s): C section X2, left shoulder rotator cuff, bilateral knee replacement 2014, 4 vessel CABG in 2002, bilateral cataract extraction and intraocular lens implants, picc line -since removed. Past Anesthesia/Blood Transfusion Reactions: Motion Sickness, Postoperative Nausea & Vomiting (PONV) Smoking Status: Never smoker - Past Family History Mother Family Medical History: Diabetes Mellitus Additional Family Medical History / Comment(s): Mother at age 70 with history of coronary artery disease status post CABG 2 and diabetes. Father Family Medical History: Diabetes Mellitus Additional Family Medical History / Comment(s): Father at age 83 with history of coronary artery disease status post CABG and diabetes. Daughter(s) Additional Family Medical History / Comment(s): Patient has one daughter with hyperlipidemia. Patient has one son with diabetes. Patient is an only child. Medications and Allergies Home Medications Medication Instructions Recorded Confirmed Type ALPRAZolam [Xanax] 0.25 mg PO HS PRN 06/07/16 11/08/17 History Allopurinol [Zyloprim] 200 mg PO DAILY 06/07/16 11/08/17 History Ascorbic Acid [Vitamin C] 1,000 mg PO DAILY 06/07/16 11/08/17 History Atorvastatin [Lipitor] 10 mg PO HS 06/07/16 11/08/17 History Clopidogrel [Plavix] 75 mg PO HS 06/07/16 11/08/17 History Cyclobenzaprine [Flexeril] 10 mg PO TID PRN 06/07/16 11/08/17 History Esomeprazole Magnesium [NexIUM] 40 mg PO BID 06/07/16 11/08/17 History Hydrocodone/Acetaminophen [[place]horn 1 tab PO BID PRN 06/07/16 11/08/17 History 10-325] Hydroxychloroquine Sulfate 200 mg PO BID 06/07/16 11/08/17 History [Plaquenil] Isosorbide Mononitrate ER [Imdur] 60 mg PO DAILY 06/07/16 11/08/17 History Levothyroxine Sodium [Synthroid] 100 mcg PO SUMOWEFRSA 06/07/16 11/08/17 History Vitamin E 1,000 unit PO DAILY 06/07/16 11/08/17 History INSULIN LISPRO (HumaLOG) [HumaLOG] See Protocol SQ ACHS 06/08/16 11/08/17 History Insulin NPH Hum/Reg Insulin Hm See Protocol SQ AC-TID 06/08/16 11/08/17 History [NovoLIN 70-30 100 UNIT/ML VIAL] Levothyroxine Sodium [Synthroid] 50 mcg PO TUTH 05/21/17 11/08/17 History Hubert-3 Fatty Acids/Fish Oil [Fish 2 cap PO HS 05/21/17 11/08/17 History Oil 1,000 mg Softgel] Magnesium Gluconate [Magonate] 500 mg PO BID 09/24/17 11/08/17 History Nitroglycerin Sl Tabs [Nitrostat] 0.4 mg SUBLINGUAL Q5M PRN 09/24/17 11/08/17 History Estradiol [Vagifem] 10 mcg VG SUTH 11/08/17 11/08/17 History Metoprolol Succinate (ER) [Toprol 100 mg PO BID 11/08/17 11/08/17 History Xl] fentaNYL [Duragesic 37.5 MCG/HR] 1 patch TRANSDERM Q72H 11/08/17 11/08/17 History Allergies Allergy/AdvReac Type Severity Reaction Status Date / Time Penicillins Allergy Rash/Hives Verified 11/08/17 09:32 prednisone Allergy Rapid Verified 11/08/17 09:32 Heart Rate Sulfa (Sulfonamide Allergy Unknown Verified 11/08/17 09:32 Antibiotics) gabapentin [From Neurontin] AdvReac Unknown Verified 11/08/17 09:32 Iodinated Contrast- Oral and AdvReac Unknown Verified 11/08/17 09:32 IV Dye Physical Exam Vitals: Vital Signs Temp Pulse Resp BP Pulse Ox 11/08/17 13:45 52 L 18 158/68 98 11/08/17 11:32 54 L 18 195/79 100 11/08/17 09:22 53 L 18 100 11/08/17 08:20 98.1 F 56 L 20 151/59 100 Intake and Output 11/08/17 11/08/17 11/08/17 06:59 14:59 22:59 Other: Weight 102.058 kg Gen. appearance, comfortable no acute distress. Awake and alert. Head exam was generally normal. There was no scleral icterus or corneal arcus. Mucous membranes were moist. Neck was supple and without jugular venous distension, thyromegaly, or carotid bruits. Carotids were easily palpable bilaterally. There was no adenopathy. Lungs were clear to auscultation and percussion, and with normal diaphragmatic excursion. No wheezes or rales were noted. Cardiac exam revealed the PMI to be normally situated and sized. The rhythm was regular and no extrasystoles were noted during several minutes of auscultation. The first and second heart sounds were normal and physiologic splitting of the second heart sound was noted. There were no murmurs, rubs, clicks, or gallops. Scar of previous thoracotomy over the anterior chest area and the areas dry clean and intact. Abdominal exam revealed normal bowel sounds. The abdomen was soft, non-tender, and without masses, organomegaly, or appreciable enlargement of the abdominal aorta. Examination of the extremities revealed easily palpable radial, femoral and pedal pulses. There was no cyanosis, clubbing or edema. Scar of a previous vein harvest in the left lower extremity which is dry clean and intact. Examination of the skin revealed no evidence of significant rashes, suspicious appearing nevi or other concerning lesions. Neurologically awake and alert and there is no focal neurological deficits. Results - Laboratory Findings CBC and BMP: 11/08/17 09:27 11/08/17 09:27 PT/INR, D-dimer PT 9.6 sec (9.0-12.0) 11/08/17 09:27 INR 1.0 (<1.2) 11/08/17 09:27 D-Dimer 3.19 mg/L FEU (<0.60) H 11/08/17 09:27 Abnormal lab findings: Abnormal Labs 11/08/17 11/08/17 11/08/17 09:27 09:27 09:27 RBC 3.43 L Hgb 9.9 L Hct 31.7 L RDW 15.8 H D-Dimer 3.19 H BUN 19 H Creatinine 1.10 H Glucose 100 H Magnesium 1.4 L - Diagnostic Findings CT scan - chest: image reviewed Assessment and Plan Plan: Assessment 1 episodes of chest pain and shortness of breath, likely a representation of an underlying angina and this is to be further investigated. 2 coronary artery disease with previous bypass surgery and please refer back to the cardiac catheterization report from general 2017 that showed patent HANNAH to LAD, saphenous vein graft and patent radial to up obtuse marginal branch. The current EKG is not showing any acute abnormalities and the first set of cardiac enzymes of been negative 3 sarcoidosis chronic, and in remission. The patient is on Plaquenil. CAT scan of the chest shows some minimal groundglass changes and mediastinal lymph node calcification, which is a typical manifestation of sarcoidosis in remission and there is no active manifestations of sarcoid explain her shortness of breath and her chest pain. Her most recent angiotensin-converting enzyme level was in the mid 60s and was within stable levels. 4 diabetes mellitus 5 hyperlipidemia 6 hypothyroidism 7 chronic anemia with a hemoglobin of 9.9, likely of an iron was sitting deficiency type 8 chronic stage III kidney failure, stable 9 obesity with a BMI of 38.6 Plan In my opinion, likely would've pneumonia is very unlikely in the manifestation the CAT scan isn't presentation of old sarcoidosis. No pulmonary embolism. No active sarcoid disease. No evidence of any acute pneumonia. Patient has developed some iron deficiency anemia and please refer to the underlying chest pain/angina the patient is having and she may need further cardiac evaluation including an echocardiogram and possibly repeating a cardiac catheterization based on the reported history. We'll continue to follow.
[2017-11-08 17:03] LABS: Glucose,Whole Blood 266 mg/dL (75-99)
[2017-11-08] MEDS: PANTOPRAZOLE 40 MG TABLET PO SCH (18:30)
[2017-11-08 20:47] LABS: Glucose,Whole Blood 286 mg/dL (75-99)
[2017-11-08] MEDS ORDERED: ATORVASTATIN 10 MG TAB PO SCH (21:00)
[2017-11-08] MEDS: MAGNESIUM OXIDE 400 MG TAB PO SCH (21:27)
[2017-11-08] MEDS: HYDROXYCHLOROQUINE SULFATE 200 MG TAB PO SCH (21:27)
[2017-11-08] MEDS: METOPROLOL SUCCINATE (ER) 100 MG TAB.ER.24H PO SCH (21:28)
[2017-11-08] MEDS: CLOPIDOGREL 75 MG TAB PO SCH (21:28)
[2017-11-08] MEDS: ALPRAZolam 0.25 MG TAB PO PRN (21:29)
[2017-11-08] MEDS: INSULIN ASPART 100 UNIT/ML 1 ML 10 ML VIAL SQ SCH (21:29)
[2017-11-08] MEDS: OMEGA PO SCH (21:29)
[2017-11-08 23:41] LABS: Creatine Kinase MB 0.5 ng/mL (0.0-2.4); Troponin I <0.012 ng/mL (0.000-0.034)
[2017-11-09 01:07] LABS: Hemoglobin A1C 5.7 % (4.0-6.0)
[2017-11-09 06:12] LABS: Glucose,Whole Blood 245 mg/dL (75-99)
[2017-11-09] MEDS: INSULIN ASPART 100 UNIT/ML 1 ML 10 ML VIAL SQ SCH ×4 (06:39→21:47)
[2017-11-09] MEDS: LEVOTHYROXINE 100 MCG TAB PO SCH (06:39)
[2017-11-09] MEDS: PANTOPRAZOLE 40 MG TABLET PO SCH ×2 (07:06→17:23)
[2017-11-09] MEDS: INSULIN NPH/REG INSULIN 70/30 300 UNIT/3 ML VIAL SQ SCH ×3 (07:14→17:23)
[2017-11-09] MEDS: MAGNESIUM SULFATE-D5W PMX 1 GM in DEXTROSE/WATER 1 100ML.BAG IVPB SCH ×2 (07:15→08:35)
[2017-11-09] MEDS: FUROSEMIDE 10 MG/ML 4 ML VIAL IV SCH ×3 (07:59→23:49)
[2017-11-09] MEDS: METOPROLOL SUCCINATE (ER) 100 MG TAB.ER.24H PO SCH ×2 (07:59→21:48)
[2017-11-09] MEDS: ASCORBIC ACID 500 MG TAB PO SCH (07:59)
[2017-11-09] MEDS: ASPIRIN 325 MG TAB PO SCH (07:59)
[2017-11-09] MEDS: NITROGLYCERIN OINT 1 INCH/GM PACKET TOPICAL SCH ×4 (07:59→21:48)
[2017-11-09] MEDS: HYDROXYCHLOROQUINE SULFATE 200 MG TAB PO SCH ×2 (07:59→21:47)
[2017-11-09] MEDS: ALLOPURINOL 100 MG TAB PO SCH (08:00)
[2017-11-09] MEDS: VITAMIN E (DL,TOCOPHERYL ACET) 400 UNIT CAP PO SCH (08:00)
[2017-11-09] MEDS: MAGNESIUM OXIDE 400 MG TAB PO SCH ×2 (08:00→21:48)
[2017-11-09] MEDS: HYDROcodone/APAP 10-325MG 1 EACH TAB PO PRN ×2 (08:48→21:48)
[2017-11-09] MEDS ORDERED: ISOSORBIDE MONONITRATE ER 60 MG TAB.ER.24H PO SCH (09:00)
[2017-11-09] MEDS ORDERED: HEPARIN SODIUM,PORCINE 5,000 UNIT/ML 1 ML VIAL IV ONE (09:14)
[2017-11-09] MEDS ORDERED: HEPARIN SODIUM,PORCINE 5,000 UNIT/ML 1 ML VIAL IV PRN (09:14)
[2017-11-09] MEDS: HEPARIN SOD,PORK IN 0.45% NACL 25,000 UNIT in 0.45% NACL 1 500ML.BAG IV SCH (10:39)
--- NOTE | 2017-11-09 11:03 | P.PN ---
Subjective Progress Note Date: 11/09/17 A pleasant 67-year-old female patient, known history of coronary artery disease with previous bypass surgery, known history of sarcoidosis, known history of chronic renal failure, presenting to the hospital because of episodic chest pain and shortness of breath. The patient's chest pain is been going on for the past month. She states that on and off she was having small episodes of angina for which she was taken nitroglycerin sublingually with good response. Nevertheless over the past few days her pain is gotten worse. She has developed severe pain anterior chest radiating to her back associated with some shortness of breath. No diaphoresis. No sweating. She was very much concerned and she came into the hospital. EKG showed no acute ST segment elevations. Questionable lateral stuff which were present on old EKGs. Troponin was at 0.012 first set and the proBNP level is a [address] of the chest was done in the emergency department that showed no evidence of any pulmonary embolism. There is some limited mediastinal calcification related to old sarcoidosis along with some limited count breast changes which does not explain the patient's symptoms. Noted the patient's sarcoidosis is been essentially inactive in stable and she has been maintained on Plaquenil suppressions treatment for many years under the care of Dr. Goodson. The patient has no fever. No chills. No pleurisy. No hemoptysis. No swelling in lower extremities. No other complaints otherwise for now. She was given nitroglycerin patch. He does have an underlying anemia with a hemoglobin of 9.9 yet that is no reported history of any GI bleed or melanotic stools. In terms of coronary artery disease, the patient last cardiac catheterization was then GI of 2016 and back and the patient was found to have disease within the [place] arteries and the patient had patent HANNAH to LAD, patent saphenous vein graft and radial artery to obtuse marginal. On today's evaluation of 11/09/2017, the patient is feeling better. On and off she was having chest pain for which was given Nitropaste which gave her a subsequent headache. Cardiac enzymes are negative. Patient was seen by cardiology and she is being contemplated for further workup including either a stress test or a cardiac catheterization. No cough. No sputum production. No chest tightness. No wheezing. Echo cardiogram was done this morning. The patient remains on IV heparin. The patient's is receiving topical nitroglycerin patch 1 inch 4 times a day. The patient is also on IV Lasix. Objective - Vital Signs Vital signs: Vital Signs Temp 96.4 F L 11/09/17 07:59 Pulse 58 L 11/09/17 07:59 Resp 18 11/09/17 07:59 BP 122/57 11/09/17 07:59 Pulse Ox 94 L 11/09/17 07:59 Intake & Output 11/08/17 11/09/17 11/09/17 18:59 06:59 18:59 Intake Total 360 Output Total 2900 Balance 360 -2900 Weight 102.058 kg 99.3 kg Intake: Oral 360 Output: Urine 2900 Other: Voiding Method Toilet Toilet # Voids 2 - Exam Gen. appearance, comfortable no acute distress. Awake and alert. Head exam was generally normal. There was no scleral icterus or corneal arcus. Mucous membranes were moist. Neck was supple and without jugular venous distension, thyromegaly, or carotid bruits. Carotids were easily palpable bilaterally. There was no adenopathy. Lungs were clear to auscultation and percussion, and with normal diaphragmatic excursion. No wheezes or rales were noted. Cardiac exam revealed the PMI to be normally situated and sized. The rhythm was regular and no extrasystoles were noted during several minutes of auscultation. The first and second heart sounds were normal and physiologic splitting of the second heart sound was noted. There were no murmurs, rubs, clicks, or gallops. Scar of previous thoracotomy over the anterior chest area and the areas dry clean and intact. Abdominal exam revealed normal bowel sounds. The abdomen was soft, non-tender, and without masses, organomegaly, or appreciable enlargement of the abdominal aorta. Examination of the extremities revealed easily palpable radial, femoral and pedal pulses. There was no cyanosis, clubbing or edema. Scar of a previous vein harvest in the left lower extremity which is dry clean and intact. Examination of the skin revealed no evidence of significant rashes, suspicious appearing nevi or other concerning lesions. Neurologically awake and alert and there is no focal neurological deficits. - Labs CBC & Chem 7: 11/08/17 09:27 11/08/17 09:27 Labs: Abnormal Lab Results - Last 24 Hours (Table) 0611/08/17 11/09/17 Range/Units 16:43 20:46 05:47 POC Glucose (mg/dL) 266 H 286 H (75-99) mg/dL Magnesium 1.3 L (1.6-2.3) mg/dL 11/09/17 Range/Units 06:07 POC Glucose (mg/dL) 245 H (75-99) mg/dL Magnesium (1.6-2.3) mg/dL Assessment and Plan Plan: Assessment 1 episodes of chest pain and shortness of breath, likely a representation of an underlying angina and this is to be further investigated. The patient is on IV heparin. The patient is also on nitroglycerin. Cardiac enzymes have been negative 3 sets. Echocardiogram is still pending for now. 2 coronary artery disease with previous bypass surgery and please refer back to the cardiac catheterization report from general 2017 that showed patent HANNAH to LAD, saphenous vein graft and patent radial to up obtuse marginal branch. The current EKG is not showing any acute abnormalities and the cardiac enzymes of been negative 3 sarcoidosis chronic, and in remission. The patient is on Plaquenil. CAT scan of the chest shows some minimal groundglass changes and mediastinal lymph node calcification, which is a typical manifestation of sarcoidosis in remission and there is no active manifestations of sarcoid explain her shortness of breath and her chest pain. Her most recent angiotensin-converting enzyme level was in the mid 60s and was within stable levels. 4 diabetes mellitus 5 hyperlipidemia 6 hypothyroidism 7 chronic anemia with a hemoglobin of 9.9, likely of an iron was sitting deficiency type 8 chronic stage III kidney failure, stable 9 obesity with a BMI of 38.6 Plan Pulmonary status is stable. Sarcoidosis stable. Patient is being worked up for cardiac disease/unstable angina. The patient is on IV heparin. The patient nitroglycerin. Cardiac enzymes are negative. Echocardiogram was done today. Patient on IV Lasix. We'll continue to follow.
--- NOTE | 2017-11-09 11:46 | P.PN ---
Subjective 67-year-old female one of my office patient with multiple medical problem was known to have history of CAD post CABG, post heart catheter back in 2016 with no major blockage at the time, also patient suffered from stage III chronic kidney disease has been seen Dr. Pham on regular basis. History of diabetes has been doing better also history of sarcoidosis who seen Dr. Lopez for the last 15 years on regular basis and not on any active medication currently. Patient has been seen Dr. Aguilar recently for recurrent UTI and was treated with few course of antibiotic and had an arrangement for iron infusion recently was done as an outpatient at [facility]. Patient presented to the emergency department with complaint of acute mid to left-sided chest pain exacerbated with exertion associated with mild shortness of breath with nausea and mild abdominal pain. Workup at the emergency department shows slight infiltrate in the base was diagnosed with pneumonia also CK with troponin came back negative but with her current complaint as an active angina will do CK with troponin 3 admit patient consult cardiology might require an need testing. 11/09: Patient was evaluated this morning on rounds, she denies any further episodes of chest pain, so far her cardiac workup has been negative, 3 troponins were drawn and are negative. Her d-dimer was noted to be elevated at 3.1, she had a CT of the chest, shows no evidence for acute pulmonary embolism, suspicious reticulonodular opacities bilateral lower lobes that could possibly represent developing multifocal pneumonia. Pulmonary is on consult, feels that pneumonia is less likely and possible chronic sarcoidosis that is in remission. Cardiology is on consult. Hemoglobin low at 9.9, creatinine 1.1, BUN 19, glucose have been slightly elevated. She has been started on Heparin and on nitroglycerin. Echocardiogram is pending. Objective - Vital Signs Vital signs: Vital Signs Temp 97.6 F 11/09/17 04:00 Pulse 67 11/09/17 04:00 Resp 18 11/09/17 04:00 BP 142/66 11/09/17 04:00 Pulse Ox 97 11/09/17 04:00 Intake & Output 11/08/17 11/09/17 11/09/17 18:59 06:59 18:59 Intake Total 360 Output Total 2900 Balance 360 -2900 Weight 102.058 kg 99.3 kg Intake: Oral 360 Output: Urine 2900 Other: Voiding Method Toilet # Voids 2 - Constitutional General appearance: Present: cooperative, no acute distress - EENT Eyes: Present: PERRLA ENT: Present: hearing grossly normal - Neck Neck: Present: normal ROM. Absent: lymphadenopathy, thyromegaly Thyroid: bilateral: normal size, negative: enlarged, nodule - Respiratory Respiratory: bilateral: CTA, negative: rales, rhonchi, wheezing - Cardiovascular Rhythm: regular Heart sounds: normal: S1, S2 Abnormal Heart Sounds: Absent: systolic murmur, diastolic murmur - Gastrointestinal General gastrointestinal: Present: normal bowel sounds, soft. Absent: distended , hepatomegaly, organomegaly, tenderness - Integumentary Integumentary: Present: normal, normal turgor. Absent: rash - Neurologic Neurologic: Present: CNII-XII intact. Absent: focal deficits - Musculoskeletal Musculoskeletal: Present: strength equal bilaterally - Psychiatric Psychiatric: Present: A&O x's 3 - Labs CBC & Chem 7: 11/08/17 09:27 11/08/17 09:27 Labs: Abnormal Lab Results - Last 24 Hours (Table) 11/08/17 11/08/17 11/08/17 Range/Units 09:27 09:27 09:27 RBC 3.43 L (3.80-5.40) m/uL Hgb 9.9 L (11.4-16.0) gm/dL Hct 31.7 L (34.0-46.0) % RDW 15.8 H (11.5-15.5) % D-Dimer 3.19 H (<0.60) mg/L FEU BUN 19 H (7-17) mg/dL Creatinine 1.10 H (0.52-1.04) mg/dL Glucose 100 H (74-99) mg/dL POC Glucose (mg/dL) (75-99) mg/dL Magnesium 1.4 L (1.6-2.3) mg/dL 11/08/17 11/08/17 11/09/17 Range/Units 16:43 20:46 05:47 RBC (3.80-5.40) m/uL Hgb (11.4-16.0) gm/dL Hct (34.0-46.0) % RDW (11.5-15.5) % D-Dimer (<0.60) mg/L FEU BUN (7-17) mg/dL Creatinine (0.52-1.04) mg/dL Glucose (74-99) mg/dL POC Glucose (mg/dL) 266 H 286 H (75-99) mg/dL Magnesium 1.3 L (1.6-2.3) mg/dL 11/09/17 Range/Units 06:07 RBC (3.80-5.40) m/uL Hgb (11.4-16.0) gm/dL Hct (34.0-46.0) % RDW (11.5-15.5) % D-Dimer (<0.60) mg/L FEU BUN (7-17) mg/dL Creatinine (0.52-1.04) mg/dL Glucose (74-99) mg/dL POC Glucose (mg/dL) 245 H (75-99) mg/dL Magnesium (1.6-2.3) mg/dL Assessment and Plan Plan: 1 recurrent angina and chest pain: With known coronary artery disease post CABG , patient seen cardiology regular basis we'll consult cardiology troponin 3 are negative, repeat EKG in continue cardiac monitoring. Echocardiogram is pending. 2 severe dyspnea and shortness of breath: Combination of COPD, sarcoidosis and pneumonia has been ruled out 3 Sarcoidosis: pneumonia has been ruled out, Levaquin has been discontinued. Pulmonary is on consult, continue with Plaquenil 4 diabetes: More time 2 on insulin continue patient on 70/30 along with Accu- Chek with sliding scales coverage. 5 hyperlipidemia: Continue patient on Lipitor 10 mg daily. 6 hypothyroidism: Patient is on levothyroxine 100 g daily. 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 8 anemia: Iron deficient post iron supplement and infusion recently. 9 recurrent UTI: Has been seen urology and infectious disease no infection lately. 10 chronic kidney disease stage III: Much better patient creatinine is down significantly, she still seen nephrology every 6-8 weeks. 11 GI prophylaxis: Patient will be on Nexium 40 mg daily. 12 DVT prophylaxis: Patient will be on heparin subcutaneous. CODE STATUS: Full code. Admit patient to inpatient status for more than 2 nights. The above impression and plan of care have been discussed and directed by signing physician. Jocelin Zhou nurse practitioner acting as scribe for signing physician.
[2017-11-09 12:07] LABS: Glucose,Whole Blood 117 mg/dL (75-99)
[2017-11-09] MEDS: SODIUM CHLORIDE 0.9% 1,000 ML IV SCH (12:09)
--- NOTE | 2017-11-09 13:39 | CONS ---
CONSULTATION Mrs. Oswald is a patient of Dr. Smith and Dr. Quiñonez who presented with chest discomfort. This is a 67-year-old female who has coronary artery disease status post coronary artery bypass graft in 2002. She presented with shortness of breath and chest discomfort for the last several days. She denied any other pulmonary symptoms. She was also complaining of orthopnea and had to sit up breathing. The symptom that bothered her most was that she had to get up several times because she was extremely short of breath when she started experiencing chest discomfort. When she did not have chest discomfort, she was able to lie flat. MEDICATIONS: Home medications include Xanax, Zyloprim, vitamin C, Lipitor, Plavix, Flexeril, Nexium, [place], Plaquenil, Imdur, Synthroid, insulin, metoprolol succinate. Prednisone, sulfa, gabapentin, iodine. PAST MEDICAL HISTORY: Past history of coronary artery disease status post coronary artery bypass grafting and stage 3 chronic kidney disease, history of sarcoidosis. PAST SURGICAL HISTORY: Back surgeries, Caesarean section, cholecystectomy, coronary artery bypass grafting. EXAMINATION: She is afebrile 96.8 degrees Fahrenheit, pulse rate is in the 50s, respirations are normal,blood pressure is normal 132/77 mmHg. Breath sounds are reduced bilaterally and no rhonchi no crackles. Heart sounds S1, S2 are normal. Abdomen is soft, nontender. Extremities are warm. No edema. LABORATORY DATA: Her labs are reviewed and specific cardiac enzymes normal. She had 3 normal cardiac enzymes. Electrolytes are normal. BUN is 19, creatinine is 1.1. GFR is 52. D-dimer is elevated at 3.19. She underwent a CT of the chest which showed no evidence for pulmonary embolism, but showed reticulonodular opacities bilaterally in the lower lobes. She has a history of sarcoidosis. IMPRESSION: The patient presenting with shortness of breath and chest discomfort and orthopnea with normal cardiac enzymes. Her 12-lead ECG showed a septal ST depression in the precordial leads as well as high lateral leads. SUGGEST: Continue IV heparin for now. Continue cardiac medications. Continue aspirin and statin. I will increase the dose of statin to 20 mg p.o. daily and further coronary workup as an inpatient. Two-dimensional echo and Doppler studies also be noted. MMODL / IJN: [id number] /
[2017-11-09 15:38] VITALS: BMI 37.5
[2017-11-09 17:16] LABS: Glucose,Whole Blood 163 mg/dL (75-99)
[2017-11-09 20:53] LABS: Glucose,Whole Blood 167 mg/dL (75-99)
[2017-11-09] MEDS: ATORVASTATIN 20 MG TAB PO SCH (21:47)
[2017-11-09] MEDS: CLOPIDOGREL 75 MG TAB PO SCH (21:47)
[2017-11-09] MEDS: ALPRAZolam 0.25 MG TAB PO PRN (21:48)
[2017-11-09] MEDS: OMEGA PO SCH (21:48)
[2017-11-10] MEDS: HEPARIN SOD,PORK IN 0.45% NACL 25,000 UNIT in 0.45% NACL 1 500ML.BAG IV SCH (05:14)
[2017-11-10 06:19] LABS: Glucose,Whole Blood 123 mg/dL (75-99)
[2017-11-10 06:21] LABS: Anisocytosis Slight; Basophils # (A) 0.1 k/uL (0-0.2); Basophils % (A) 1 %; Eosinophils # (A) 0.2 k/uL (0-0.7); Eosinophils % (A) 3 %; HGB 10.7 gm/dL (11.4-16.0); Hypochromasia Slight; Lymphocytes # (A) 3.1 k/uL (1.0-4.8); Lymphocytes % (A) 36 %; MCH 29.7 pg (25.0-35.0); MCHC 32.3 g/dL (31.0-37.0); MCV 91.8 fL (80.0-100.0); Mean Platelet Volume 8.2; Monocytes # (A) 0.4 k/uL (0-1.0); Monocytes % (A) 4 %; Neutrophils # (A) 4.7 k/uL (1.3-7.7); Neutrophils % (A) 54 %; Platelet Count 199 k/uL (150-450); RDW 16.7 % (11.5-15.5); WBC 8.6 k/uL (3.8-10.6)
[2017-11-10] MEDS: INSULIN ASPART 100 UNIT/ML 1 ML 10 ML VIAL SQ SCH ×4 (06:46→20:49)
[2017-11-10] MEDS: LEVOTHYROXINE 100 MCG TAB PO SCH (06:46)
[2017-11-10] MEDS: INSULIN NPH/REG INSULIN 70/30 300 UNIT/3 ML VIAL SQ SCH ×3 (06:46→17:09)
[2017-11-10] MEDS: PANTOPRAZOLE 40 MG TABLET PO SCH ×2 (06:46→17:11)
[2017-11-10 07:11] LABS: Albumin 3.8 g/dL (3.5-5.0); Calcium 9.8 mg/dL (8.4-10.2); Magnesium 1.8 mg/dL (1.6-2.3); Potassium 4.8 mmol/L (3.5-5.1); Total Bilirubin 0.3 mg/dL (0.2-1.3); Total Protein 6.9 g/dL (6.3-8.2)
--- NOTE | 2017-11-10 07:41 | XR ---
EXAMINATION TYPE: XR chest 2V DATE OF EXAM: 11/10/2017 COMPARISON: 11/08/2017 HISTORY: 67 year-old female shortness of breath TECHNIQUE: Frontal and lateral views FINDINGS: Heart normal size, improved from prior. Median sternotomy wires. Some strandy areas of probable atele ctasis in the lower lungs. Chronic appearing mild diffuse interstitial prominence. No consolidation o r pleural effusion. IMPRESSION: Some strandy bibasilar densities probably atelectasis. The reticulonodular densities seen on CT are n ot well appreciated radiographically. There are no progressive infiltrates.
[2017-11-10] MEDS: NITROGLYCERIN OINT 1 INCH/GM PACKET TOPICAL SCH ×4 (09:38→23:16)
[2017-11-10] MEDS: HYDROXYCHLOROQUINE SULFATE 200 MG TAB PO SCH ×2 (09:38→20:10)
[2017-11-10] MEDS: ASPIRIN 325 MG TAB PO SCH (09:38)
[2017-11-10] MEDS: VITAMIN E (DL,TOCOPHERYL ACET) 400 UNIT CAP PO SCH (09:38)
[2017-11-10] MEDS: ASCORBIC ACID 500 MG TAB PO SCH (09:38)
[2017-11-10] MEDS: ALLOPURINOL 100 MG TAB PO SCH (09:38)
[2017-11-10] MEDS: MAGNESIUM OXIDE 400 MG TAB PO SCH ×2 (09:38→20:10)
[2017-11-10] MEDS: FUROSEMIDE 10 MG/ML 4 ML VIAL IV SCH (09:39)
[2017-11-10] MEDS: SODIUM CHLORIDE 0.9% 1,000 ML IV SCH (09:39)
[2017-11-10] MEDS: METOPROLOL SUCCINATE (ER) 100 MG TAB.ER.24H PO SCH ×2 (09:39→20:10)
[2017-11-10] MEDS: HYDROcodone/APAP 10-325MG 1 EACH TAB PO PRN ×2 (09:50→22:08)
--- NOTE | 2017-11-10 10:47 | ECHOF ---
Referral Reason:acs MEASUREMENTS -------- HEIGHT: 162.6 cm WEIGHT: 98.9 kg BP: 122/57 IVSd: 1.0 cm (0.6 - 1.1) LVIDd: 4.9 cm (3.9 - 5.3) LVPWd: 0.9 cm (0.6 - 1.1) IVSs: 1.6 cm LVIDs: 3.1 cm LVPWs: 1.4 cm LA Diam: 4.0 cm (2.7 - 3.8) RVIDd: 3.4 cm (< 3.3) LAESV Index (A-L): 40.34 ml/m Ao Diam: 3.0 cm (2.0 - 3.7) AV Cusp: 2.1 cm (1.5 - 2.6) EPSS: 1.1 cm MV E Giuseppe: 1.10 m/s MV DecT: 159 ms MV A Giuseppe: 0.78 m/s MV E/A Ratio: 1.41 RAP: 5.00 mmHg RVSP: 31.67 mmHg MV EF SLOPE: 63.65 mm/s (70 - 150) MV EXCURSION: 12.15 mm (> 18.000) FINDINGS -------- Sinus rhythm. This was a technically adequate study. The left ventricular size is normal. Left ventricular wall thickness is normal. Overall left vent ricular systolic function is normal with, an EF between 55 - 60 %. The right ventricle is mildly enlarged. LA is severely dilated >40 ml/m2 The right atrium is normal in size. The aortic valve is trileaflet and appears structurally normal. The mitral valve leaflets are mildly thickened. Mild mitral annular calcification present. Mild-t o-moderate mitral regurgitation is present. Mild tricuspid regurgitation present. Right ventricular systolic pressure is normal at < 35 mmHg. Trace/mild (physiologic) pulmonic regurgitation. The aortic root size is normal. Normal inferior vena cava with normal inspiratory collapse consistent with estimated right atrial pre ssure of 5 mmHg. There is no pericardial effusion. CONCLUSIONS -------- 1. Sinus rhythm. 2. This was a technically adequate study. 3. The left ventricular size is normal. 4. Left ventricular wall thickness is normal. 5. Overall left ventricular systolic function is normal with, an EF between 55 - 60 %. 6. The right ventricle is mildly enlarged. 7. LA is severely dilated >40 ml/m2 8. The right atrium is normal in size. 9. The aortic valve is trileaflet and appears structurally normal. 10. The mitral valve leaflets are mildly thickened. 11. Mild mitral annular calcification present. 12. Fpmp-gb-[id number] mitral regurgitation is present. 13. Mild tricuspid regurgitation present. 14. Right ventricular systolic pressure is normal at < 35 mmHg. 15. Trace/mild (physiologic) pulmonic regurgitation. 16. The aortic root size is normal. 17. Normal inferior vena cava with normal inspiratory collapse consistent with estimated right atrial pressure of 5 mmHg. 18. There is no pericardial effusion. TAIL RIPPER: Toyin Pascual RDCS
--- NOTE | 2017-11-10 11:23 | P.PN ---
Subjective Progress Note Date: 11/10/17 This is a 67-year-old female with history of coronary artery disease with prior bypass surgery, chronic kidney disease, diabetes, hypertension, hyperlipidemia, history of sarcoidosis, recent UTI as an outpatient. She presented to the hospital with symptoms of shortness of breath with associated chest discomfort. Positive orthopnea. Patient was seen in consultation by Dr. Espinal. Patient had been initiated on IV Lasix, she diuresed through the night , weight is down 1 kg. Troponins 0.013, 0.013, 0.012. Easy level on admission 1.4, 1.8 this morning. BNP level 3340. Creatinine on admission 1.1, 1.9 this morning. She did have an elevated d-dimer on admission of 3.1, CT of the chest was negative for pulmonary embolism. Echocardiogram with Doppler study was performed which revealed an ejection fraction of 55-60%, severely dilated left atrium with mild to moderate mitral regurg. Chest x-ray revealed probable atelectasis, no progressive infiltrates. Patient overall feels well today, denies any chest discomfort, breathing is stable. We will discontinue her IV Lasix today discontinue IV heparin. Have the patient up ambulating today. We will review office records in the morning, and further recommendations will be made. Objective - Vital Signs Vital signs: Vital Signs Temp 96.8 F L 11/10/17 11:06 Pulse 50 L 11/10/17 11:06 Resp 18 11/10/17 11:06 BP 130/59 11/10/17 11:06 Pulse Ox 95 11/10/17 11:06 Intake & Output 11/09/17 11/10/17 11/10/17 18:59 06:59 18:59 Intake Total 1093.358 297.381 180 Output Total 2350 1800 Balance -1256.642 -1502.619 180 Weight 99.3 kg 98.7 kg Intake: Intake, IV Titration 143.358 297.381 Amount Heparin Sod,Pork in 0.45% 143.358 297.381 NaCl 25,000 unit In 0.45 % NaCl 1 500ml.bag @ 10.1 UNITS/KG/HR 20.05 mls/hr IV .Q24H [facility] Rx#: [id number] Oral 950 180 Output: Urine 2350 1800 Other: Voiding Method Toilet Toilet Toilet - Exam PHYSICAL EXAMINATION: GENERAL: 67-year-old female in no apparent distress at the time of my examination HEENT: Head is atraumatic, normocephalic. Pupils equal, round. Sclera anicteric. Conjunctiva are clear. Mucous membranes of the mouth are moist. Neck is supple. There is no elevated jugular venous pressure.] bruit is heard. HEART EXAMINATION: Heart S1, S2 normal. No murmur or gallop heard. CHEST EXAMINATION: Lungs are clear to auscultation and precussion. No chest wall tenderness is noted on palpation or with deep breathing. ABDOMEN: Soft, nontender. Bowel sounds are heard. No organomegaly noted. EXTREMITIES: 2+ peripheral pulses with no evidence of peripheral edema and no calf tenderness noted. NEUROLOGIC patient is awake, alert and oriented -3. . - Labs CBC & Chem 7: 11/10/17 05:46 11/10/17 05:46 Labs: Abnormal Lab Results - Last 24 Hours (Table) 11/09/17 11/09/17 11/09/17 Range/Units 12:03 16:39 17:08 RBC (3.80-5.40) m/uL Hgb (11.4-16.0) gm/dL Hct (34.0-46.0) % RDW (11.5-15.5) % APTT 38.7 H (22.0-30.0) sec Chloride (98-107) mmol/L Carbon Dioxide (22-30) mmol/L BUN (7-17) mg/dL Creatinine (0.52-1.04) mg/dL Glucose (74-99) mg/dL POC Glucose (mg/dL) 117 H 163 H (75-99) mg/dL 11/09/17 11/09/17 11/10/17 Range/Units 20:49 23:23 05:46 RBC 3.60 L (3.80-5.40) m/uL Hgb 10.7 L (11.4-16.0) gm/dL Hct 33.0 L (34.0-46.0) % RDW 16.7 H (11.5-15.5) % APTT 68.3 H (22.0-30.0) sec Chloride (98-107) mmol/L Carbon Dioxide (22-30) mmol/L BUN (7-17) mg/dL Creatinine (0.52-1.04) mg/dL Glucose (74-99) mg/dL POC Glucose (mg/dL) 167 H (75-99) mg/dL 11/10/17 11/10/17 11/10/17 Range/Units 05:46 05:46 06:14 RBC (3.80-5.40) m/uL Hgb (11.4-16.0) gm/dL Hct (34.0-46.0) % RDW (11.5-15.5) % APTT 74.8 H (22.0-30.0) sec Chloride 95 L (98-107) mmol/L Carbon Dioxide 32 H (22-30) mmol/L BUN 45 H (7-17) mg/dL Creatinine 1.99 H (0.52-1.04) mg/dL Glucose 129 H (74-99) mg/dL POC Glucose (mg/dL) 123 H (75-99) mg/dL Microbiology - Last 24 Hours (Table) 11/08/17 09:27 Blood Culture - Preliminary Blood No Growth after 24 hours Assessment and Plan Plan: Assessment and plan #1 recurrent chest discomfort, troponins negative 3, EKG did not reveal any significant change. #2 known history of coronary artery disease with prior bypass surgery #3 dyspnea with associated orthopnea, likely, patient of COPD, sarcoidosis #4 diabetes # 5 hyperlipidemia #6 hypothyroidism #7 chronic kidney disease Plan We will discontinue the IV Lasix, check lytes BUN and creatinine in the morning. Discontinue IV Heparin. We will also review the office records tomorrow. Continue other current medical therapy. DNP note has been reviewed, I agree with a documented findings and plan of care. Patient was seen and examined.
[2017-11-10 11:44] LABS: Glucose,Whole Blood 202 mg/dL (75-99)
--- NOTE | 2017-11-10 12:18 | P.PN ---
Subjective 67-year-old female one of my office patient with multiple medical problem was known to have history of CAD post CABG, post heart catheter back in 2016 with no major blockage at the time, also patient suffered from stage III chronic kidney disease has been seen Dr. Pham on regular basis. History of diabetes has been doing better also history of sarcoidosis who seen Dr. Lopez for the last 15 years on regular basis and not on any active medication currently. Patient has been seen Dr. Aguilar recently for recurrent UTI and was treated with few course of antibiotic and had an arrangement for iron infusion recently was done as an outpatient at [facility]. Patient presented to the emergency department with complaint of acute mid to left-sided chest pain exacerbated with exertion associated with mild shortness of breath with nausea and mild abdominal pain. Workup at the emergency department shows slight infiltrate in the base was diagnosed with pneumonia also CK with troponin came back negative but with her current complaint as an active angina will do CK with troponin 3 admit patient consult cardiology might require an need testing. 11/09: Patient was evaluated this morning on rounds, she denies any further episodes of chest pain, so far her cardiac workup has been negative, 3 troponins were drawn and are negative. Her d-dimer was noted to be elevated at 3.1, she had a CT of the chest, shows no evidence for acute pulmonary embolism, suspicious reticulonodular opacities bilateral lower lobes that could possibly represent developing multifocal pneumonia. Pulmonary is on consult, feels that pneumonia is less likely and possible chronic sarcoidosis that is in remission. Cardiology is on consult. Hemoglobin low at 9.9, creatinine 1.1, BUN 19, glucose have been slightly elevated. She has been started on Heparin and on nitroglycerin. Echocardiogram is pending. 11/10: Patient denies any further episodes of chest pain, no palpitations shortness of breath or dizziness. Patient has been up and ambulating in the room today. Blood cultures show no growth to date. Creatinine increased to 1.99 today, Lasix has been discontinued. Echo cardiogram reveals an EF between 55-60%, mild to moderate mitral regurgitation, mild tricuspid regurgitation, and a severely dilated left atrium. Will redraw BUN and creatinine tomorrow morning. Objective - Vital Signs Vital signs: Vital Signs Temp 96.8 F L 11/10/17 11:06 Pulse 50 L 11/10/17 11:07 Resp 18 11/10/17 11:07 BP 130/59 11/10/17 11:06 Pulse Ox 95 11/10/17 11:06 Intake & Output 11/09/17 11/10/17 11/10/17 18:59 06:59 18:59 Intake Total 1093.358 297.381 180 Output Total 2350 1800 Balance -1256.642 -1502.619 180 Weight 99.3 kg 98.7 kg Intake: Intake, IV Titration 143.358 297.381 Amount Heparin Sod,Pork in 0.45% 143.358 297.381 NaCl 25,000 unit In 0.45 % NaCl 1 500ml.bag @ 10.1 UNITS/KG/HR 20.05 mls/hr IV .Q24H [facility] Rx#: [id number] Oral 950 180 Output: Urine 2350 1800 Other: Voiding Method Toilet Toilet Toilet - Exam - Constitutional General appearance: Present: cooperative, no acute distress - EENT Eyes: Present: PERRLA ENT: Present: hearing grossly normal - Neck Neck: Present: normal ROM. Absent: lymphadenopathy, thyromegaly Thyroid: bilateral: normal size, negative: enlarged, nodule - Respiratory Respiratory: bilateral: CTA, negative: rales, rhonchi, wheezing - Cardiovascular Rhythm: regular Heart sounds: normal: S1, S2 Abnormal Heart Sounds: Absent: systolic murmur, diastolic murmur - Gastrointestinal General gastrointestinal: Present: normal bowel sounds, soft. Absent: distended , hepatomegaly, organomegaly, tenderness - Integumentary Integumentary: Present: normal, normal turgor. Absent: rash - Neurologic Neurologic: Present: CNII-XII intact. Absent: focal deficits - Musculoskeletal Musculoskeletal: Present: strength equal bilaterally - Psychiatric Psychiatric: Present: A&O x's 3 - Labs CBC & Chem 7: 11/10/17 05:46 11/10/17 05:46 Labs: Abnormal Lab Results - Last 24 Hours (Table) 11/09/17 11/09/17 11/09/17 Range/Units 12:03 16:39 17:08 RBC (3.80-5.40) m/uL Hgb (11.4-16.0) gm/dL Hct (34.0-46.0) % RDW (11.5-15.5) % APTT 38.7 H (22.0-30.0) sec Chloride (98-107) mmol/L Carbon Dioxide (22-30) mmol/L BUN (7-17) mg/dL Creatinine (0.52-1.04) mg/dL Glucose (74-99) mg/dL POC Glucose (mg/dL) 117 H 163 H (75-99) mg/dL 11/09/17 11/09/17 11/10/17 Range/Units 20:49 23:23 05:46 RBC 3.60 L (3.80-5.40) m/uL Hgb 10.7 L (11.4-16.0) gm/dL Hct 33.0 L (34.0-46.0) % RDW 16.7 H (11.5-15.5) % APTT 68.3 H (22.0-30.0) sec Chloride (98-107) mmol/L Carbon Dioxide (22-30) mmol/L BUN (7-17) mg/dL Creatinine (0.52-1.04) mg/dL Glucose (74-99) mg/dL POC Glucose (mg/dL) 167 H (75-99) mg/dL 11/10/17 11/10/17 11/10/17 Range/Units 05:46 05:46 06:14 RBC (3.80-5.40) m/uL Hgb (11.4-16.0) gm/dL Hct (34.0-46.0) % RDW (11.5-15.5) % APTT 74.8 H (22.0-30.0) sec Chloride 95 L (98-107) mmol/L Carbon Dioxide 32 H (22-30) mmol/L BUN 45 H (7-17) mg/dL Creatinine 1.99 H (0.52-1.04) mg/dL Glucose 129 H (74-99) mg/dL POC Glucose (mg/dL) 123 H (75-99) mg/dL Microbiology - Last 24 Hours (Table) 11/08/17 09:27 Blood Culture - Preliminary Blood No Growth after 24 hours Assessment and Plan Plan: 1 recurrent angina and chest pain: With known coronary artery disease post CABG , patient seen cardiology regular basis we'll consult cardiology troponin 3 are negative, repeat EKG in continue cardiac monitoring. Echocardiogram reveals an EF between 55-60%, mild to moderate mitral regurgitation, mild tricuspid regurgitation, and a severely dilated left atrium. 2 severe dyspnea and shortness of breath: Combination of COPD, sarcoidosis and pneumonia has been ruled out 3 Sarcoidosis: pneumonia has been ruled out, Levaquin has been discontinued. Pulmonary is on consult, continue with Plaquenil 4 diabetes: More time 2 on insulin continue patient on 70/30 along with Accu- Chek with sliding scales coverage. 5 hyperlipidemia: Continue patient on Lipitor 10 mg daily. 6 hypothyroidism: Patient is on levothyroxine 100 g daily. 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 8 anemia: Iron deficient post iron supplement and infusion recently. 9 recurrent UTI: Has been seen urology and infectious disease no infection lately. 10 chronic kidney disease stage III: Much better patient creatinine is down significantly, she still seen nephrology every 6-8 weeks. 11 GI prophylaxis: Patient will be on Nexium 40 mg daily. 12 DVT prophylaxis: Patient will be on heparin subcutaneous. CODE STATUS: Full code. Admit patient to inpatient status for more than 2 nights. The above impression and plan of care have been discussed and directed by signing physician. Jocelin Zhou nurse practitioner acting as scribe for signing physician.
--- NOTE | 2017-11-10 12:53 | P.PN ---
Subjective Progress Note Date: 11/10/17 A pleasant 67-year-old female patient, known history of coronary artery disease with previous bypass surgery, known history of sarcoidosis, known history of chronic renal failure, presenting to the hospital because of episodic chest pain and shortness of breath. The patient's chest pain is been going on for the past month. She states that on and off she was having small episodes of angina for which she was taken nitroglycerin sublingually with good response. Nevertheless over the past few days her pain is gotten worse. She has developed severe pain anterior chest radiating to her back associated with some shortness of breath. No diaphoresis. No sweating. She was very much concerned and she came into the hospital. EKG showed no acute ST segment elevations. Questionable lateral stuff which were present on old EKGs. Troponin was at 0.012 first set and the proBNP level is a [address] of the chest was done in the emergency department that showed no evidence of any pulmonary embolism. There is some limited mediastinal calcification related to old sarcoidosis along with some limited count breast changes which does not explain the patient's symptoms. Noted the patient's sarcoidosis is been essentially inactive in stable and she has been maintained on Plaquenil suppressions treatment for many years under the care of Dr. Goodson. The patient has no fever. No chills. No pleurisy. No hemoptysis. No swelling in lower extremities. No other complaints otherwise for now. She was given nitroglycerin patch. He does have an underlying anemia with a hemoglobin of 9.9 yet that is no reported history of any GI bleed or melanotic stools. In terms of coronary artery disease, the patient last cardiac catheterization was then GI of 2016 and back and the patient was found to have disease within the [place] arteries and the patient had patent HANNAH to LAD, patent saphenous vein graft and radial artery to obtuse marginal. On today's evaluation of 11/09/2017, the patient is feeling better. On and off she was having chest pain for which was given Nitropaste which gave her a subsequent headache. Cardiac enzymes are negative. Patient was seen by cardiology and she is being contemplated for further workup including either a stress test or a cardiac catheterization. No cough. No sputum production. No chest tightness. No wheezing. Echo cardiogram was done this morning. The patient remains on IV heparin. The patient's is receiving topical nitroglycerin patch 1 inch 4 times a day. The patient is also on IV Lasix. On 11/10/2017 the patient is calm and comfortable resting comfortably in bed without any chest pain still on IV heparin. The patient became prerenal on IV Lasix which was immediately discontinued. No other complaints otherwise for now. The echocardiogram was done and the patient is a preserved LV function with an ejection fraction of 55-60%. There is szji-rm-ccfaocyl mitral regurgitation. Right ventricular pressures less than 35. No pericardial effusion. No other abnormalities are noted. She is resting comfortably in bed. She is chest pain-free. No nausea or vomiting. No abdominal pain. No cough sputum production or any pleurisy. Objective - Vital Signs Vital signs: Vital Signs Temp 96.8 F L 11/10/17 11:06 Pulse 50 L 11/10/17 11:07 Resp 18 11/10/17 11:07 BP 130/59 11/10/17 11:06 Pulse Ox 95 11/10/17 11:06 Intake & Output 11/09/17 11/10/17 11/10/17 18:59 06:59 18:59 Intake Total 1093.358 297.381 380 Output Total 2350 1800 625 Balance -1256.642 -1502.619 -245 Weight 99.3 kg 98.7 kg Intake: Intake, IV Titration 143.358 297.381 Amount Heparin Sod,Pork in 0.45% 143.358 297.381 NaCl 25,000 unit In 0.45 % NaCl 1 500ml.bag @ 10.1 UNITS/KG/HR 20.05 mls/hr IV .Q24H [facility] Rx#: [id number] Oral 950 380 Output: Urine 2350 1800 625 Other: Voiding Method Toilet Toilet Toilet # Voids 2 - Exam Gen. appearance, comfortable no acute distress. Awake and alert. Head exam was generally normal. There was no scleral icterus or corneal arcus. Mucous membranes were moist. Neck was supple and without jugular venous distension, thyromegaly, or carotid bruits. Carotids were easily palpable bilaterally. There was no adenopathy. Lungs were clear to auscultation and percussion, and with normal diaphragmatic excursion. No wheezes or rales were noted. Cardiac exam revealed the PMI to be normally situated and sized. The rhythm was regular and no extrasystoles were noted during several minutes of auscultation. The first and second heart sounds were normal and physiologic splitting of the second heart sound was noted. There were no murmurs, rubs, clicks, or gallops. Scar of previous thoracotomy over the anterior chest area and the areas dry clean and intact. Abdominal exam revealed normal bowel sounds. The abdomen was soft, non-tender, and without masses, organomegaly, or appreciable enlargement of the abdominal aorta. Examination of the extremities revealed easily palpable radial, femoral and pedal pulses. There was no cyanosis, clubbing or edema. Scar of a previous vein harvest in the left lower extremity which is dry clean and intact. Examination of the skin revealed no evidence of significant rashes, suspicious appearing nevi or other concerning lesions. Neurologically awake and alert and there is no focal neurological deficits. - Labs CBC & Chem 7: 11/10/17 05:46 11/10/17 05:46 Labs: Abnormal Lab Results - Last 24 Hours (Table) 11/09/17 11/09/17 11/09/17 Range/Units 16:39 17:08 20:49 RBC (3.80-5.40) m/uL Hgb (11.4-16.0) gm/dL Hct (34.0-46.0) % RDW (11.5-15.5) % APTT 38.7 H (22.0-30.0) sec Chloride (98-107) mmol/L Carbon Dioxide (22-30) mmol/L BUN (7-17) mg/dL Creatinine (0.52-1.04) mg/dL Glucose (74-99) mg/dL POC Glucose (mg/dL) 163 H 167 H (75-99) mg/dL 11/09/17 11/10/17 11/10/17 Range/Units 23:23 05:46 05:46 RBC 3.60 L (3.80-5.40) m/uL Hgb 10.7 L (11.4-16.0) gm/dL Hct 33.0 L (34.0-46.0) % RDW 16.7 H (11.5-15.5) % APTT 68.3 H (22.0-30.0) sec Chloride 95 L (98-107) mmol/L Carbon Dioxide 32 H (22-30) mmol/L BUN 45 H (7-17) mg/dL Creatinine 1.99 H (0.52-1.04) mg/dL Glucose 129 H (74-99) mg/dL POC Glucose (mg/dL) (75-99) mg/dL 11/10/17 11/10/17 11/10/17 Range/Units 05:46 06:14 11:28 RBC (3.80-5.40) m/uL Hgb (11.4-16.0) gm/dL Hct (34.0-46.0) % RDW (11.5-15.5) % APTT 74.8 H (22.0-30.0) sec Chloride (98-107) mmol/L Carbon Dioxide (22-30) mmol/L BUN (7-17) mg/dL Creatinine (0.52-1.04) mg/dL Glucose (74-99) mg/dL POC Glucose (mg/dL) 123 H 202 H (75-99) mg/dL Microbiology - Last 24 Hours (Table) 11/08/17 09:27 Blood Culture - Preliminary Blood No Growth after 48 hours Assessment and Plan Plan: Assessment 1 episodes of chest pain and shortness of breath, likely a representation of an underlying angina and this is to be further investigated. The patient is on IV heparin. The patient is also on nitroglycerin. Cardiac enzymes have been negative 3 sets. Echocardiogram is not showing any acute abnormalities and the patient is a preserved LV function and no valvular dysfunction is seen. 2 coronary artery disease with previous bypass surgery and please refer back to the cardiac catheterization report from general 2017 that showed patent HANNAH to LAD, saphenous vein graft and patent radial to up obtuse marginal branch. The current EKG is not showing any acute abnormalities and the cardiac enzymes of been negative 3 sarcoidosis chronic, and in remission. The patient is on Plaquenil. CAT scan of the chest shows some minimal groundglass changes and mediastinal lymph node calcification, which is a typical manifestation of sarcoidosis in remission and there is no active manifestations of sarcoid explain her shortness of breath and her chest pain. Her most recent angiotensin-converting enzyme level was in the mid 60s and was within stable levels. 4 diabetes mellitus 5 hyperlipidemia 6 hypothyroidism 7 chronic anemia with a hemoglobin of 9.9, likely of an iron was sitting deficiency type 8 chronic stage III kidney failure, stable 9 obesity with a BMI of 38.6 10 acute kidney injury secondary to Lasix/prerenal azotemia. Plan Pulmonary status is stable. Sarcoidosis stable. Patient is being worked up for cardiac disease/unstable angina. Stop IV Lasix. Monitor renal function. Echocardiogram was noted. Probably stress test within next 24-48 hours versus on outpatient basis.
[2017-11-10 17:23] LABS: Glucose,Whole Blood 120 mg/dL (75-99)
[2017-11-10] MEDS: CLOPIDOGREL 75 MG TAB PO SCH (20:10)
[2017-11-10] MEDS: ATORVASTATIN 20 MG TAB PO SCH (20:10)
[2017-11-10] MEDS: OMEGA PO SCH (20:16)
[2017-11-10 20:20] LABS: Glucose,Whole Blood 175 mg/dL (75-99)
[2017-11-10] MEDS ORDERED: VAGIFEM VG SCH (21:00)
[2017-11-10] MEDS: ALPRAZolam 0.25 MG TAB PO PRN (22:08)
[2017-11-11] MEDS: HEPARIN SOD,PORK IN 0.45% NACL 25,000 UNIT in 0.45% NACL 1 500ML.BAG IV SCH (01:33)
[2017-11-11 05:51] LABS: Glucose,Whole Blood 166 mg/dL (75-99)
[2017-11-11 07:09] LABS: Anisocytosis Slight; Basophils # (A) 0.1 k/uL (0-0.2); Basophils % (A) 1 %; Eosinophils # (A) 0.4 k/uL (0-0.7); Eosinophils % (A) 4 %; HCT 34.8 % (34.0-46.0); HGB 10.8 gm/dL (11.4-16.0); Hypochromasia Slight; Lymphocytes # (A) 2.7 k/uL (1.0-4.8); Lymphocytes % (A) 31 %; MCH 29.1 pg (25.0-35.0); MCHC 31.1 g/dL (31.0-37.0); MCV 93.5 fL (80.0-100.0); Mean Platelet Volume 8.5; Monocytes # (A) 0.5 k/uL (0-1.0); Monocytes % (A) 6 %; Neutrophils # (A) 5.1 k/uL (1.3-7.7); Neutrophils % (A) 57 %; Platelet Count 230 k/uL (150-450); RBC 3.72 m/uL (3.80-5.40); RDW 16.6 % (11.5-15.5); WBC 8.9 k/uL (3.8-10.6)
[2017-11-11] MEDS: INSULIN ASPART 100 UNIT/ML 1 ML 10 ML VIAL SQ SCH ×4 (07:53→20:54)
[2017-11-11] MEDS: INSULIN NPH/REG INSULIN 70/30 300 UNIT/3 ML VIAL SQ SCH ×3 (07:53→17:20)
[2017-11-11 08:00] LABS: Calcium 9.7 mg/dL (8.4-10.2); Magnesium 1.8 mg/dL (1.6-2.3); Potassium 4.5 mmol/L (3.5-5.1); Total Bilirubin 0.2 mg/dL (0.2-1.3); Total Protein 7.2 g/dL (6.3-8.2)
[2017-11-11] MEDS ORDERED: REGADENOSON 0.4 MG/5 ML SYRINGE IV ONE (08:02)
[2017-11-11] MEDS ORDERED: AMINOPHYLLINE 500 MG/20 ML VIAL IV PRN (08:02)
[2017-11-11] MEDS: METOPROLOL SUCCINATE (ER) 100 MG TAB.ER.24H PO SCH ×2 (08:42→23:34)
--- NOTE | 2017-11-11 09:03 | P.PN ---
Subjective Progress Note Date: 11/11/17 67-year-old female one of my office patient with multiple medical problem was known to have history of CAD post CABG, post heart catheter back in 2016 with no major blockage at the time, also patient suffered from stage III chronic kidney disease has been seen Dr. Pham on regular basis. History of diabetes has been doing better also history of sarcoidosis who seen Dr. Lopez for the last 15 years on regular basis and not on any active medication currently. Patient has been seen Dr. Aguilar recently for recurrent UTI and was treated with few course of antibiotic and had an arrangement for iron infusion recently was done as an outpatient at [facility]. Patient presented to the emergency department with complaint of acute mid to left-sided chest pain exacerbated with exertion associated with mild shortness of breath with nausea and mild abdominal pain. Workup at the emergency department shows slight infiltrate in the base was diagnosed with pneumonia also CK with troponin came back negative but with her current complaint as an active angina will do CK with troponin 3 admit patient consult cardiology might require an need testing. 11/09: Patient was evaluated this morning on rounds, she denies any further episodes of chest pain, so far her cardiac workup has been negative, 3 troponins were drawn and are negative. Her d-dimer was noted to be elevated at 3.1, she had a CT of the chest, shows no evidence for acute pulmonary embolism, suspicious reticulonodular opacities bilateral lower lobes that could possibly represent developing multifocal pneumonia. Pulmonary is on consult, feels that pneumonia is less likely and possible chronic sarcoidosis that is in remission. Cardiology is on consult. Hemoglobin low at 9.9, creatinine 1.1, BUN 19, glucose have been slightly elevated. She has been started on Heparin and on nitroglycerin. Echocardiogram is pending. 11/10: Patient denies any further episodes of chest pain, no palpitations shortness of breath or dizziness. Patient has been up and ambulating in the room today. Blood cultures show no growth to date. Creatinine increased to 1.99 today, Lasix has been discontinued. Echo cardiogram reveals an EF between 55-60%, mild to moderate mitral regurgitation, mild tricuspid regurgitation, and a severely dilated left atrium. Will redraw BUN and creatinine tomorrow morning. 11/11: Patient is sitting up in bed in no apparent distress, she had an episode of orthostatic hypotension, she was taken off diuretics, we will start her on IV fluid in the form of normal saline at 75 mL an hour for the next 24 hours, echogram was reviewed, patient scheduled to go for Lexiscan stress test today patient will be kept in the hospital for another 24 hours because of that. She has no chest pain, she does not appear to be in any dyspnea, she has no swelling in her legs, she denies any abdominal pain, nausea, vomiting, or diarrhea. Objective - Vital Signs Vital signs: Vital Signs Temp 96.9 F L 11/11/17 08:08 Pulse 55 L 11/11/17 08:10 Resp 16 11/11/17 08:10 BP 116/55 11/11/17 08:08 Pulse Ox 96 11/11/17 08:08 Intake & Output 11/10/17 11/11/17 11/11/17 18:59 06:59 18:59 Intake Total 560 1070 191.608 Output Total 1525 850 Balance -965 220 191.608 Weight 98.7 kg Intake: Intake, IV Titration 720 191.608 Amount Heparin Sod,Pork in 0.45% 500 191.608 NaCl 25,000 unit In 0.45 % NaCl 1 500ml.bag @ 10.1 UNITS/KG/HR 20.05 mls/hr IV .Q24H [facility] Rx#: [id number] Sodium Chloride 0.9% 1, 220 000 ml @ 20 mls/hr IV . Q24H [facility] Rx#:[id number] Oral 560 350 Output: Urine 1525 850 Other: Voiding Method Toilet Toilet Toilet # Voids 1 1 - Exam - Exam - Constitutional General appearance: Present: cooperative, no acute distress - EENT Eyes: Present: PERRLA ENT: Present: hearing grossly normal - Neck Neck: Present: normal ROM. Absent: lymphadenopathy, thyromegaly Thyroid: bilateral: normal size, negative: enlarged, nodule - Respiratory Respiratory: bilateral: CTA, negative: rales, rhonchi, wheezing - Cardiovascular Rhythm: regular Heart sounds: normal: S1, S2 Abnormal Heart Sounds: Absent: systolic murmur, diastolic murmur - Gastrointestinal General gastrointestinal: Present: normal bowel sounds, soft. Absent: distended , hepatomegaly, organomegaly, tenderness - Integumentary Integumentary: Present: normal, normal turgor. Absent: rash - Neurologic Neurologic: Present: CNII-XII intact. Absent: focal deficits - Musculoskeletal Musculoskeletal: Present: strength equal bilaterally - Labs CBC & Chem 7: 11/11/17 06:45 11/11/17 06:45 Labs: Abnormal Lab Results - Last 24 Hours (Table) 11/10/17 11/10/17 11/10/17 Range/Units 11:28 17:03 20:19 RBC (3.80-5.40) m/uL Hgb (11.4-16.0) gm/dL RDW (11.5-15.5) % APTT (22.0-30.0) sec Chloride (98-107) mmol/L BUN (7-17) mg/dL Creatinine (0.52-1.04) mg/dL Glucose (74-99) mg/dL POC Glucose (mg/dL) 202 H 120 H 175 H (75-99) mg/dL 11/11/17 11/11/17 11/11/17 Range/Units 05:50 06:45 06:45 RBC 3.72 L (3.80-5.40) m/uL Hgb 10.8 L (11.4-16.0) gm/dL RDW 16.6 H (11.5-15.5) % APTT (22.0-30.0) sec Chloride 93 L (98-107) mmol/L BUN 59 H (7-17) mg/dL Creatinine 2.00 H (0.52-1.04) mg/dL Glucose 221 H (74-99) mg/dL POC Glucose (mg/dL) 166 H (75-99) mg/dL 11/11/17 Range/Units 06:45 RBC (3.80-5.40) m/uL Hgb (11.4-16.0) gm/dL RDW (11.5-15.5) % APTT 52.5 H (22.0-30.0) sec Chloride (98-107) mmol/L BUN (7-17) mg/dL Creatinine (0.52-1.04) mg/dL Glucose (74-99) mg/dL POC Glucose (mg/dL) (75-99) mg/dL Microbiology - Last 24 Hours (Table) 11/08/17 09:27 Blood Culture - Preliminary Blood No Growth after 48 hours Assessment and Plan Assessment: 1 recurrent angina and chest pain: With known coronary artery disease post CABG , patient seen cardiology regular basis we'll consult cardiology troponin 3 are negative, repeat EKG in continue cardiac monitoring. Echocardiogram reveals an EF between 55-60%, mild to moderate mitral regurgitation, mild tricuspid regurgitation, and a severely dilated left atrium. 2 severe dyspnea and shortness of breath: Combination of COPD, sarcoidosis and pneumonia has been ruled out 3 Sarcoidosis: pneumonia has been ruled out, Levaquin has been discontinued. Pulmonary is on consult, continue with Plaquenil 4 diabetes: More time 2 on insulin continue patient on 70/30 along with Accu- Chek with sliding scales coverage. 5 hyperlipidemia: Continue patient on Lipitor 10 mg daily. 6 hypothyroidism: Patient is on levothyroxine 100 g daily. 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 8 anemia: Iron deficient post iron supplement and infusion recently. 9 recurrent UTI: Has been seen urology and infectious disease no infection lately. 10 chronic kidney disease stage III: Much better patient creatinine is down significantly, she still seen nephrology every 6-8 weeks. 11 GI prophylaxis: Patient will be on Nexium 40 mg daily. 12 DVT prophylaxis: Patient is on heparin drip. 13. Acute kidney injury on top of chronic kidney disease stage III. Discontinue Lasix, start the patient on IV fluid in the form of normal saline at 75 mL an hour for the next 24 hours, repeat CMP magnesium tomorrow morning.
--- NOTE | 2017-11-11 10:31 | P.PN ---
Subjective Progress Note Date: 11/11/17 Principal diagnosis: Acute coronary syndrome A pleasant 67-year-old female patient, known history of coronary artery disease with previous bypass surgery, known history of sarcoidosis, known history of chronic renal failure, presenting to the hospital because of episodic chest pain and shortness of breath. The patient's chest pain is been going on for the past month. She states that on and off she was having small episodes of angina for which she was taken nitroglycerin sublingually with good response. Nevertheless over the past few days her pain is gotten worse. She has developed severe pain anterior chest radiating to her back associated with some shortness of breath. No diaphoresis. No sweating. She was very much concerned and she came into the hospital. EKG showed no acute ST segment elevations. Questionable lateral stuff which were present on old EKGs. Troponin was at 0.012 first set and the proBNP level is a [address] of the chest was done in the emergency department that showed no evidence of any pulmonary embolism. There is some limited mediastinal calcification related to old sarcoidosis along with some limited count breast changes which does not explain the patient's symptoms. Noted the patient's sarcoidosis is been essentially inactive in stable and she has been maintained on Plaquenil suppressions treatment for many years under the care of Dr. Goodson. The patient has no fever. No chills. No pleurisy. No hemoptysis. No swelling in lower extremities. No other complaints otherwise for now. She was given nitroglycerin patch. He does have an underlying anemia with a hemoglobin of 9.9 yet that is no reported history of any GI bleed or melanotic stools. In terms of coronary artery disease, the patient last cardiac catheterization was then GI of 2016 and back and the patient was found to have disease within the [place] arteries and the patient had patent HANNAH to LAD, patent saphenous vein graft and radial artery to obtuse marginal. On today's evaluation of 11/09/2017, the patient is feeling better. On and off she was having chest pain for which was given Nitropaste which gave her a subsequent headache. Cardiac enzymes are negative. Patient was seen by cardiology and she is being contemplated for further workup including either a stress test or a cardiac catheterization. No cough. No sputum production. No chest tightness. No wheezing. Echo cardiogram was done this morning. The patient remains on IV heparin. The patient's is receiving topical nitroglycerin patch 1 inch 4 times a day. The patient is also on IV Lasix. On 11/10/2017 the patient is calm and comfortable resting comfortably in bed without any chest pain still on IV heparin. The patient became prerenal on IV Lasix which was immediately discontinued. No other complaints otherwise for now. The echocardiogram was done and the patient is a preserved LV function with an ejection fraction of 55-60%. There is cdmp-re-cgyycvop mitral regurgitation. Right ventricular pressures less than 35. No pericardial effusion. No other abnormalities are noted. She is resting comfortably in bed. She is chest pain-free. No nausea or vomiting. No abdominal pain. No cough sputum production or any pleurisy. Patient was reevaluated today on 11/11/2017, she is pain free, asymptomatic, no chest pain, no shortness of breath, no cough, no wheezing. Patient is scheduled to have a stress test today. Echocardiogram showed good LV function, she does have mild to moderate mitral regurgitation, and slightly elevated right -sided pressures. PA pressure is 35. Labs were reviewed she had a therapeutic PTT normal CBC normal basic metabolic profile, however BUN is 59 and creatinine is 2.0. Objective - Vital Signs Vital signs: Vital Signs Temp 96.9 F L 11/11/17 08:08 Pulse 55 L 11/11/17 08:10 Resp 16 11/11/17 08:10 BP 116/55 11/11/17 08:08 Pulse Ox 96 11/11/17 08:08 Intake & Output 11/10/17 11/11/17 11/11/17 18:59 06:59 18:59 Intake Total 560 1070 191.608 Output Total 1525 850 Balance -965 220 191.608 Weight 98.7 kg Intake: Intake, IV Titration 720 191.608 Amount Heparin Sod,Pork in 0.45% 500 191.608 NaCl 25,000 unit In 0.45 % NaCl 1 500ml.bag @ 10.1 UNITS/KG/HR 20.05 mls/hr IV .Q24H [facility] Rx#: [id number] Sodium Chloride 0.9% 1, 220 000 ml @ 20 mls/hr IV . Q24H [facility] Rx#:[id number] Oral 560 350 Output: Urine 1525 850 Other: Voiding Method Toilet Toilet Toilet # Voids 1 1 - Exam Physical Exam:Revealed a 59-year-old female in no distress. Head: Atraumatic, normocephalic. HEENT:[Neck is supple.] [No neck masses.] [No thyromegaly.] [No JVD.] Chest: [Clear throughout, no crackles, no rhonchi, no wheezes.] Cardiac Exam: [Normal S1 and S2, no S3 gallop, 2/6 systolic murmur throughout the precordium. Abdomen: Obese, [Soft, nontender, no megaly, no rebound, no guarding, normal bowel sounds.] Extremities: [No clubbing, no edema, no cyanosis.] Neurological Exam: [No focal neurologic deficit. Psychiatric: Normal mood affect and mental status examination. Lymphatics: No lymphadenopathy was appreciated.] - Labs CBC & Chem 7: 11/11/17 06:45 11/11/17 06:45 Labs: Abnormal Lab Results - Last 24 Hours (Table) 11/10/17 11/10/17 11/10/17 Range/Units 11:28 17:03 20:19 RBC (3.80-5.40) m/uL Hgb (11.4-16.0) gm/dL RDW (11.5-15.5) % APTT (22.0-30.0) sec Chloride (98-107) mmol/L BUN (7-17) mg/dL Creatinine (0.52-1.04) mg/dL Glucose (74-99) mg/dL POC Glucose (mg/dL) 202 H 120 H 175 H (75-99) mg/dL 11/11/17 11/11/17 11/11/17 Range/Units 05:50 06:45 06:45 RBC 3.72 L (3.80-5.40) m/uL Hgb 10.8 L (11.4-16.0) gm/dL RDW 16.6 H (11.5-15.5) % APTT (22.0-30.0) sec Chloride 93 L (98-107) mmol/L BUN 59 H (7-17) mg/dL Creatinine 2.00 H (0.52-1.04) mg/dL Glucose 221 H (74-99) mg/dL POC Glucose (mg/dL) 166 H (75-99) mg/dL 11/11/17 Range/Units 06:45 RBC (3.80-5.40) m/uL Hgb (11.4-16.0) gm/dL RDW (11.5-15.5) % APTT 52.5 H (22.0-30.0) sec Chloride (98-107) mmol/L BUN (7-17) mg/dL Creatinine (0.52-1.04) mg/dL Glucose (74-99) mg/dL POC Glucose (mg/dL) (75-99) mg/dL Microbiology - Last 24 Hours (Table) 11/08/17 09:27 Blood Culture - Preliminary Blood No Growth after 48 hours Assessment and Plan Assessment: 1 acute coronary syndrome with episodes of chest pain and shortness of breath, likely a representation of an underlying angina and this is to be further investigated. The patient is on IV heparin. The patient is also on nitroglycerin. Cardiac enzymes have been negative 3 sets. Echocardiogram is not showing any acute abnormalities and the patient is a preserved LV function and no valvular dysfunction is seen. Mild to moderate mitral regurgitation noted on echocardiogram. And mild pulmonary hypertension. 2 coronary artery disease with previous bypass surgery and please refer back to the cardiac catheterization report from general 2017 that showed patent HANNAH to LAD, saphenous vein graft and patent radial to up obtuse marginal branch. The current EKG is not showing any acute abnormalities and the cardiac enzymes of been negative 3 sarcoidosis chronic, and in remission. The patient is on Plaquenil. CAT scan of the chest shows some minimal groundglass changes and mediastinal lymph node calcification, which is a typical manifestation of sarcoidosis in remission and there is no active manifestations of sarcoid explain her shortness of breath and her chest pain. Her most recent angiotensin-converting enzyme level was in the mid 60s and was within stable levels. 4 diabetes mellitus 5 hyperlipidemia 6 hypothyroidism 7 chronic anemia with a hemoglobin of 9.9, likely of an iron was sitting deficiency type 8 chronic stage III kidney failure, stable 9 obesity with a BMI of 38.6 10 acute kidney injury secondary to Lasix/prerenal azotemia. Recommendation: Continue present treatment plan, patient is scheduled to have a stress test in the next hour or so, if cleared by cardiology, patient can be discharged home on follow-up on outpatient basis with Dr. Horner. Time with Patient: Less than 30
[2017-11-11 11:39] LABS: Glucose,Whole Blood 241 mg/dL (75-99)
[2017-11-11] MEDS: VITAMIN E (DL,TOCOPHERYL ACET) 400 UNIT CAP PO SCH (12:04)
[2017-11-11] MEDS: ASCORBIC ACID 500 MG TAB PO SCH (12:04)
[2017-11-11] MEDS: PANTOPRAZOLE 40 MG TABLET PO SCH (12:04)
[2017-11-11] MEDS: ASPIRIN 325 MG TAB PO SCH (12:04)
[2017-11-11] MEDS: MAGNESIUM OXIDE 400 MG TAB PO SCH ×2 (12:04→20:17)
[2017-11-11] MEDS: HYDROXYCHLOROQUINE SULFATE 200 MG TAB PO SCH ×2 (12:04→20:17)
[2017-11-11] MEDS: NITROGLYCERIN OINT 1 INCH/GM PACKET TOPICAL SCH ×4 (12:05→23:34)
[2017-11-11] MEDS: LEVOTHYROXINE 100 MCG TAB PO SCH (12:05)
[2017-11-11] MEDS: ALLOPURINOL 100 MG TAB PO SCH (12:05)
[2017-11-11] MEDS: SODIUM CHLORIDE 0.9% 1,000 ML IV SCH (12:05)
[2017-11-11] MEDS: HYDROcodone/APAP 10-325MG 1 EACH TAB PO PRN ×2 (12:07→21:58)
--- NOTE | 2017-11-11 13:41 | NM ---
EXAMINATION TYPE: NM stress lexiscan cardiolite DATE OF EXAM: 11/11/2017 COMPARISON: NONE HISTORY: 67-year-old female with chest pain TECHNIQUE: After the intravenous administration of 10.8 mCi Tc 99m Sestamibi - Cardiolite resting SP ECT images acquired 60 minutes post injection. The patient received 0.4mg Lexiscan, 25.9 mCi Tc 99m Sestamibi - Stress images obtained [address] injection FINDINGS: Review of stress and rest SPECT images demonstrates anterior wall defect on rest images likely artifa ct due to mottled low-dose tracer uptake. No corresponding abnormality seen on polar maps here. There is slight decreased color on stress images along the mid to basal anterolateral wall but gated image s show normal wall thickening in this location. Polar maps show corresponding reversibility here. Est imated left ventricular ejection fraction of 55 %. TID is calculated at 1.24 which is elevated. IMPRESSION: 1. Possible area of reversibility along the mid to basal anterolateral wall. There is some inconsiste ncy as color is only slightly diminished here but there is normal wall thickening on gated images. Fu rther clinical workup recommended. 2. In addition, TID is elevated (1.24) which can be seen in the setting of multivessel balanced ische laxmi. Again, additional workup recommended.
--- NOTE | 2017-11-11 14:02 | EST ---
EXERCISE STRESS AGE: 67 SEX: F HT: 64" WT: 217 PROTOCOL: Lexiscan Cardiolite Stress Test HEART RATE REST: 62 BLOOD PRESSURE REST: 130/52 MAXIMUM HEART RATE ACHIEVED: 70 MAXIMUM BLOOD PRESSURE: 118/47 85% MPHR: 129 100% MPHR: 152 INDICATIONS: Chest pain. CLINICAL INFORMATION: Baseline EKG revealed normal sinus rhythm with nonspecific IVCD, precordial ST and T- wave abnormality of a nonspecific type. With Lexiscan administration, heart rate changed from 62 to 70 beats per minute, blood pressure changed from 130/52 to 118/47. EKG remained inconclusive and patient had transient chest pressure. By EKG criteria, this is an inconclusive Lexiscan stress test. The nuclear scan results which are more pertinent, will be reported by the radiologist. SHRUTHI / NORMAN: [id number] /
--- NOTE | 2017-11-11 14:50 | P.PN ---
Subjective Progress Note Date: 11/11/17 This is a 67-year-old female with history of coronary artery disease with prior bypass surgery, chronic kidney disease, diabetes, hypertension, hyperlipidemia, history of sarcoidosis, recent UTI as an outpatient. She presented to the hospital with symptoms of shortness of breath with associated chest discomfort. Positive orthopnea. Patient was seen in consultation by Dr. Espinal. Patient had been initiated on IV Lasix, she diuresed through the night , weight is down 1 kg. Troponins 0.013, 0.013, 0.012. Easy level on admission 1.4, 1.8 this morning. BNP level 3340. Creatinine on admission 1.1, 1.9 this morning. She did have an elevated d-dimer on admission of 3.1, CT of the chest was negative for pulmonary embolism. Echocardiogram with Doppler study was performed which revealed an ejection fraction of 55-60%, severely dilated left atrium with mild to moderate mitral regurg. Chest x-ray revealed probable atelectasis, no progressive infiltrates. Patient overall feels well today, denies any chest discomfort, breathing is stable. We will discontinue her IV Lasix today discontinue IV heparin. Have the patient up ambulating today. We will review office records in the morning, and further recommendations will be made. 11/12/2007 Patient seen and examined this morning, earlier this morning she had an episode where she became extremely dizzy and weak. Orthostatics were obtained at that time, 116/55 lying, 101/48 sitting, and 88/40 standing. BUN today is 59 and creatinine 2.0 with a hemoglobin of 10.8. HERBERT hose bilaterally were applied. Patient is also receiving some IV fluids. She is scheduled today to undergo a Lexiscan stress test. Objective - Vital Signs Vital signs: Vital Signs Temp 96.8 F L 11/11/17 11:44 Pulse 66 11/11/17 11:44 Resp 20 11/11/17 11:44 BP 125/56 11/11/17 11:44 Pulse Ox 95 11/11/17 11:44 Intake & Output 11/10/17 11/11/17 11/11/17 18:59 06:59 18:59 Intake Total 560 1070 731.608 Output Total 1525 850 300 Balance -965 220 431.608 Weight 98.7 kg Intake: Intake, IV Titration 720 191.608 Amount Heparin Sod,Pork in 0.45% 500 191.608 NaCl 25,000 unit In 0.45 % NaCl 1 500ml.bag @ 10.1 UNITS/KG/HR 20.05 mls/hr IV .Q24H JET Rx#: [id number] Sodium Chloride 0.9% 1, 220 000 ml @ 20 mls/hr IV . Q24H JET Rx#:[id number] Oral 560 350 540 Output: Urine 1525 850 300 Other: Voiding Method Toilet Toilet Toilet # Voids 1 1 1 # Bowel Movements 1 - Exam PHYSICAL EXAMINATION: GENERAL: 67-year-old female in no apparent distress at the time of my examination HEENT: Head is atraumatic, normocephalic. Pupils equal, round. Sclera anicteric. Conjunctiva are clear. Mucous membranes of the mouth are moist. Neck is supple. There is no elevated jugular venous pressure.] bruit is heard. HEART EXAMINATION: Heart S1, S2 normal. No murmur or gallop heard. CHEST EXAMINATION: Lungs are clear to auscultation and precussion. No chest wall tenderness is noted on palpation or with deep breathing. ABDOMEN: Soft, nontender. Bowel sounds are heard. No organomegaly noted. EXTREMITIES: 2+ peripheral pulses with no evidence of peripheral edema and no calf tenderness noted. NEUROLOGIC patient is awake, alert and oriented -3. . - Labs CBC & Chem 7: 11/11/17 06:45 11/11/17 06:45 Labs: Abnormal Lab Results - Last 24 Hours (Table) 11/10/17 11/10/17 11/11/17 Range/Units 17:03 20:19 05:50 RBC (3.80-5.40) m/uL Hgb (11.4-16.0) gm/dL RDW (11.5-15.5) % APTT (22.0-30.0) sec Chloride (98-107) mmol/L BUN (7-17) mg/dL Creatinine (0.52-1.04) mg/dL Glucose (74-99) mg/dL POC Glucose (mg/dL) 120 H 175 H 166 H (75-99) mg/dL Stool Occult Blood (Negative) 11/11/17 11/11/17 11/11/17 Range/Units 06:45 06:45 06:45 RBC 3.72 L (3.80-5.40) m/uL Hgb 10.8 L (11.4-16.0) gm/dL RDW 16.6 H (11.5-15.5) % APTT 52.5 H (22.0-30.0) sec Chloride 93 L (98-107) mmol/L BUN 59 H (7-17) mg/dL Creatinine 2.00 H (0.52-1.04) mg/dL Glucose 221 H (74-99) mg/dL POC Glucose (mg/dL) (75-99) mg/dL Stool Occult Blood (Negative) 11/11/17 11/11/17 Range/Units 11:37 14:00 RBC (3.80-5.40) m/uL Hgb (11.4-16.0) gm/dL RDW (11.5-15.5) % APTT (22.0-30.0) sec Chloride (98-107) mmol/L BUN (7-17) mg/dL Creatinine (0.52-1.04) mg/dL Glucose (74-99) mg/dL POC Glucose (mg/dL) 241 H (75-99) mg/dL Stool Occult Blood Positive H (Negative) Microbiology - Last 24 Hours (Table) 11/08/17 09:27 Blood Culture - Preliminary Blood No Growth after 72 hours Assessment and Plan Plan: Assessment and plan #1 recurrent chest discomfort, troponins negative 3, EKG did not reveal any significant change. #2 known history of coronary artery disease with prior bypass surgery #3 dyspnea with associated orthopnea, likely, patient of COPD, sarcoidosis #4 diabetes # 5 hyperlipidemia #6 hypothyroidism #7 chronic kidney disease Plan Patient is scheduled today to undergo a Lexiscan stress test, we will review the results of that this afternoon. She is also currently receiving IV fluids which we will continue, bilateral HERBERT hose stockings have been applied. DNP note has been reviewed, I agree with a documented findings and plan of care. Patient was seen and examined.
[2017-11-11 16:27] LABS: Glucose,Whole Blood 120 mg/dL (75-99)
[2017-11-11] MEDS: PANTOPRAZOLE 40 MG/10 ML VIAL IVP SCH (16:41)
[2017-11-11] MEDS: ATORVASTATIN 20 MG TAB PO SCH (20:17)
[2017-11-11 20:25] LABS: Glucose,Whole Blood 218 mg/dL (75-99)
[2017-11-11] MEDS: CLOPIDOGREL 75 MG TAB PO SCH (20:50)
[2017-11-11] MEDS: OMEGA PO SCH (21:02)
[2017-11-11 21:23] LABS: HCT 31.5 % (34.0-46.0); HGB 9.8 gm/dL (11.4-16.0); Hypochromasia Slight; MCH 28.5 pg (25.0-35.0); MCHC 31.2 g/dL (31.0-37.0); MCV 91.4 fL (80.0-100.0); Mean Platelet Volume 11.1; Platelet Count 183 k/uL (150-450); RBC 3.45 m/uL (3.80-5.40); WBC 7.4 k/uL (3.8-10.6)
[2017-11-11] MEDS: ALPRAZolam 0.25 MG TAB PO PRN (21:59)
[2017-11-12 04:02] VITALS: RESP 18
[2017-11-12 06:05] LABS: Anisocytosis Slight; Basophils % (A) 1 %; Eosinophils # (A) 0.3 k/uL (0-0.7); Eosinophils % (A) 4 %; HCT 30.8 % (34.0-46.0); HGB 9.6 gm/dL (11.4-16.0); Hypochromasia Slight; Lymphocytes # (A) 2.1 k/uL (1.0-4.8); Lymphocytes % (A) 31 %; MCH 28.9 pg (25.0-35.0); MCHC 31.2 g/dL (31.0-37.0); MCV 92.9 fL (80.0-100.0); Mean Platelet Volume 8.7; Monocytes # (A) 0.5 k/uL (0-1.0); Monocytes % (A) 7 %; Neutrophils # (A) 3.8 k/uL (1.3-7.7); Neutrophils % (A) 55 %; Platelet Count 186 k/uL (150-450); RBC 3.32 m/uL (3.80-5.40); RDW 16.3 % (11.5-15.5); WBC 6.9 k/uL (3.8-10.6)
[2017-11-12 06:10] LABS: Glucose,Whole Blood 136 mg/dL (75-99)
[2017-11-12 06:11] LABS: Albumin 3.6 g/dL (3.5-5.0); Calcium 9.6 mg/dL (8.4-10.2); Magnesium 1.8 mg/dL (1.6-2.3); Potassium 4.7 mmol/L (3.5-5.1); Total Bilirubin 0.2 mg/dL (0.2-1.3); Total Protein 6.3 g/dL (6.3-8.2)
[2017-11-12] MEDS: SODIUM CHLORIDE 0.9% 1,000 ML IV SCH ×2 (06:12→12:22)
[2017-11-12] MEDS: LEVOTHYROXINE 100 MCG TAB PO SCH (06:41)
[2017-11-12] MEDS: INSULIN NPH/REG INSULIN 70/30 300 UNIT/3 ML VIAL SQ SCH ×3 (06:45→17:18)
[2017-11-12] MEDS: INSULIN ASPART 100 UNIT/ML 1 ML 10 ML VIAL SQ SCH ×3 (06:45→17:18)
[2017-11-12] MEDS: HYDROcodone/APAP 10-325MG 1 EACH TAB PO PRN ×2 (07:54→21:47)
[2017-11-12] MEDS: HYDROXYCHLOROQUINE SULFATE 200 MG TAB PO SCH ×2 (07:55→21:44)
[2017-11-12] MEDS: ASPIRIN 325 MG TAB PO SCH (07:55)
[2017-11-12] MEDS: VITAMIN E (DL,TOCOPHERYL ACET) 400 UNIT CAP PO SCH (07:55)
[2017-11-12] MEDS: ALLOPURINOL 100 MG TAB PO SCH (07:55)
[2017-11-12] MEDS: ASCORBIC ACID 500 MG TAB PO SCH (07:55)
[2017-11-12] MEDS: LEVOTHYROXINE 50 MCG TAB PO SCH (07:55)
[2017-11-12] MEDS: PANTOPRAZOLE 40 MG/10 ML VIAL IVP SCH (07:56)
[2017-11-12] MEDS: MAGNESIUM OXIDE 400 MG TAB PO SCH ×2 (07:56→21:44)
[2017-11-12] MEDS: NITROGLYCERIN OINT 1 INCH/GM PACKET TOPICAL SCH ×3 (07:56→17:20)
[2017-11-12] MEDS ORDERED: SODIUM FERRIC GLUCONAT-SUCROSE 125 MG in SODIUM CHLORIDE 0.9% 100 ML IVPB ONE (09:01)
--- NOTE | 2017-11-12 11:04 | P.PN ---
Subjective Progress Note Date: 11/12/17 This is a 67-year-old female with history of coronary artery disease with prior bypass surgery, chronic kidney disease, diabetes, hypertension, hyperlipidemia, history of sarcoidosis, recent UTI as an outpatient. She presented to the hospital with symptoms of shortness of breath with associated chest discomfort. Positive orthopnea. Patient was seen in consultation by Dr. Espinal. Patient had been initiated on IV Lasix, she diuresed through the night , weight is down 1 kg. Troponins 0.013, 0.013, 0.012. Easy level on admission 1.4, 1.8 this morning. BNP level 3340. Creatinine on admission 1.1, 1.9 this morning. She did have an elevated d-dimer on admission of 3.1, CT of the chest was negative for pulmonary embolism. Echocardiogram with Doppler study was performed which revealed an ejection fraction of 55-60%, severely dilated left atrium with mild to moderate mitral regurg. Chest x-ray revealed probable atelectasis, no progressive infiltrates. Patient overall feels well today, denies any chest discomfort, breathing is stable. We will discontinue her IV Lasix today discontinue IV heparin. Have the patient up ambulating today. We will review office records in the morning, and further recommendations will be made. 11/11/2017 Patient seen and examined this morning, earlier this morning she had an episode where she became extremely dizzy and weak. Orthostatics were obtained at that time, 116/55 lying, 101/48 sitting, and 88/40 standing. BUN today is 59 and creatinine 2.0 with a hemoglobin of 10.8. HERBERT hose bilaterally were applied. Patient is also receiving some IV fluids. She is scheduled today to undergo a Lexiscan stress test. 11/12/2017 Patient was seen and examined this morning, denies any dizziness, no chest discomfort, no shortness of breath. Princess scan stress test performed yesterday revealed possible area of reversibility along the mid to basal anterior lateral wall. There is some inconsistency as color is only slightly diminished there but there is normal wall thickening on gated images. Findings were reviewed with Dr. Dover, and also discussed with Dr. Smith. Decision was made at this time to continue maximum medical therapy. Blood pressure this morning 126/60 with a heart rate in the 70s, 99% on room air. White blood cell count 6.9, hemoglobin 9.6, potassium 4.7, BUN 51, creatinine 1.6. Magnesium level I.8. Objective - Vital Signs Vital signs: Vital Signs Temp 97.5 F L 11/12/17 04:00 Pulse 71 11/12/17 07:50 Resp 18 11/12/17 07:50 BP 118/55 11/12/17 07:48 Pulse Ox 97 11/12/17 07:48 Intake & Output 11/11/17 11/12/17 11/12/17 18:59 06:59 18:59 Intake Total 855.374 6113 240 Output Total 300 Balance 854.857 8453 240 Weight 98.5 kg Intake: Intake, IV Titration 191.608 900 Amount Heparin Sod,Pork in 0.45% 191.608 NaCl 25,000 unit In 0.45 % NaCl 1 500ml.bag @ 10.1 UNITS/KG/HR 20.05 mls/hr IV .Q24H JET Rx#: [id number] Sodium Chloride 0.9% 1, 900 000 ml @ 75 mls/hr IV . [id number] JTE Rx#:[id number] Oral 780 600 240 Output: Urine 300 Other: Voiding Method Toilet Toilet Toilet # Voids 1 2 # Bowel Movements 1 - Exam PHYSICAL EXAMINATION: GENERAL: 67-year-old female in no apparent distress at the time of my examination HEENT: Head is atraumatic, normocephalic. Pupils equal, round. Sclera anicteric. Conjunctiva are clear. Mucous membranes of the mouth are moist. Neck is supple. There is no elevated jugular venous pressure.] bruit is heard. HEART EXAMINATION: Heart S1, S2 normal. No murmur or gallop heard. CHEST EXAMINATION: Lungs are clear to auscultation and precussion. No chest wall tenderness is noted on palpation or with deep breathing. ABDOMEN: Soft, nontender. Bowel sounds are heard. No organomegaly noted. EXTREMITIES: 2+ peripheral pulses with no evidence of peripheral edema and no calf tenderness noted. NEUROLOGIC patient is awake, alert and oriented -3. . - Labs CBC & Chem 7: 11/12/17 05:28 11/12/17 05:28 Labs: Abnormal Lab Results - Last 24 Hours (Table) 11/11/17 11/11/17 11/11/17 Range/Units 11:37 14:00 16:26 RBC (3.80-5.40) m/uL Hgb (11.4-16.0) gm/dL Hct (34.0-46.0) % RDW (11.5-15.5) % BUN (7-17) mg/dL Creatinine (0.52-1.04) mg/dL Glucose (74-99) mg/dL POC Glucose (mg/dL) 241 H 120 H (75-99) mg/dL Stool Occult Blood Positive H (Negative) 11/11/17 11/11/17 11/12/17 Range/Units 20:23 21:14 05:28 RBC 3.45 L 3.32 L (3.80-5.40) m/uL Hgb 9.8 L 9.6 L (11.4-16.0) gm/dL Hct 31.5 L 30.8 L (34.0-46.0) % RDW 16.0 H 16.3 H (11.5-15.5) % BUN (7-17) mg/dL Creatinine (0.52-1.04) mg/dL Glucose (74-99) mg/dL POC Glucose (mg/dL) 218 H (75-99) mg/dL Stool Occult Blood (Negative) 11/12/17 11/12/17 Range/Units 05:28 06:01 RBC (3.80-5.40) m/uL Hgb (11.4-16.0) gm/dL Hct (34.0-46.0) % RDW (11.5-15.5) % BUN 51 H (7-17) mg/dL Creatinine 1.63 H (0.52-1.04) mg/dL Glucose 118 H (74-99) mg/dL POC Glucose (mg/dL) 136 H (75-99) mg/dL Stool Occult Blood (Negative) Microbiology - Last 24 Hours (Table) 11/08/17 09:27 Blood Culture - Preliminary Blood No Growth after 72 hours Assessment and Plan Plan: Assessment and plan #1 recurrent chest discomfort, troponins negative 3, EKG did not reveal any significant change. Princess scan revealed a possible area of reversibility along the mid to basal anterior lateral wall, and consistency of color is only slightly diminished air but there is normal wall thickening on gating images. Decision was made to maximize medical therapy. #2 known history of coronary artery disease with prior bypass surgery #3 dyspnea with associated orthopnea, likely, patient of COPD, sarcoidosis #4 diabetes # 5 hyperlipidemia #6 hypothyroidism #7 chronic kidney disease Plan Patient is receiving an iron infusion today. From cardiology's perspective she may be able to be discharged once she is cleared by primary we'll make her a follow-up appointment to see Dr. Smith in the office post discharge. DNP note has been reviewed, I agree with a documented findings and plan of care. Patient was seen and examined.
--- NOTE | 2017-11-12 11:15 | P.PN ---
Subjective 67-year-old female one of my office patient with multiple medical problem was known to have history of CAD post CABG, post heart catheter back in 2016 with no major blockage at the time, also patient suffered from stage III chronic kidney disease has been seen Dr. Pham on regular basis. History of diabetes has been doing better also history of sarcoidosis who seen Dr. Lopez for the last 15 years on regular basis and not on any active medication currently. Patient has been seen Dr. Aguilar recently for recurrent UTI and was treated with few course of antibiotic and had an arrangement for iron infusion recently was done as an outpatient at [facility]. Patient presented to the emergency department with complaint of acute mid to left-sided chest pain exacerbated with exertion associated with mild shortness of breath with nausea and mild abdominal pain. Workup at the emergency department shows slight infiltrate in the base was diagnosed with pneumonia also CK with troponin came back negative but with her current complaint as an active angina will do CK with troponin 3 admit patient consult cardiology might require an need testing. 11/09: Patient was evaluated this morning on rounds, she denies any further episodes of chest pain, so far her cardiac workup has been negative, 3 troponins were drawn and are negative. Her d-dimer was noted to be elevated at 3.1, she had a CT of the chest, shows no evidence for acute pulmonary embolism, suspicious reticulonodular opacities bilateral lower lobes that could possibly represent developing multifocal pneumonia. Pulmonary is on consult, feels that pneumonia is less likely and possible chronic sarcoidosis that is in remission. Cardiology is on consult. Hemoglobin low at 9.9, creatinine 1.1, BUN 19, glucose have been slightly elevated. She has been started on Heparin and on nitroglycerin. Echocardiogram is pending. 11/10: Patient denies any further episodes of chest pain, no palpitations shortness of breath or dizziness. Patient has been up and ambulating in the room today. Blood cultures show no growth to date. Creatinine increased to 1.99 today, Lasix has been discontinued. Echo cardiogram reveals an EF between 55-60%, mild to moderate mitral regurgitation, mild tricuspid regurgitation, and a severely dilated left atrium. Will redraw BUN and creatinine tomorrow morning. 11/11: Patient is sitting up in bed in no apparent distress, she had an episode of orthostatic hypotension, she was taken off diuretics, we will start her on IV fluid in the form of normal saline at 75 mL an hour for the next 24 hours, echogram was reviewed, patient scheduled to go for Lexiscan stress test today patient will be kept in the hospital for another 24 hours because of that. She has no chest pain, she does not appear to be in any dyspnea, she has no swelling in her legs, she denies any abdominal pain, nausea, vomiting, or diarrhea. 11/12: Patient reports no chest pain, or shortness of breath, no cough or wheeze today. States dizziness has improved with IV fluids. Lexiscan reveals a possible area of reversibility along the mid to basal anterolateral wall, cardiology would like to review Lexiscan results before decision is made. Kidney function did improve after IV fluids, creatinine 1.63, BUN 51. Patient was noted to have an episode of dark tarry stool, sample was obtained and it was guaiac positive. Hemoglobin did drop slightly from 10.8 to 9.6 today. Heparin has been discontinued. She will need a GI workup to rule out GI bleed. Will consult surgery. Iron infusion ordered today. Objective - Vital Signs Vital signs: Vital Signs Temp 97.5 F L 11/12/17 04:00 Pulse 71 11/12/17 07:50 Resp 18 11/12/17 07:50 BP 118/55 11/12/17 07:48 Pulse Ox 97 11/12/17 07:48 Intake & Output 11/11/17 11/12/17 11/12/17 18:59 06:59 18:59 Intake Total 721.827 9553 240 Output Total 300 Balance 026.810 9571 240 Weight 98.5 kg Intake: Intake, IV Titration 191.608 900 Amount Heparin Sod,Pork in 0.45% 191.608 NaCl 25,000 unit In 0.45 % NaCl 1 500ml.bag @ 10.1 UNITS/KG/HR 20.05 mls/hr IV .Q24H JET Rx#: [id number] Sodium Chloride 0.9% 1, 900 000 ml @ 75 mls/hr IV . [id number] JET Rx#:[id number] Oral 780 600 240 Output: Urine 300 Other: Voiding Method Toilet Toilet Toilet # Voids 1 2 # Bowel Movements 1 - Exam - Constitutional General appearance: Present: cooperative, no acute distress - EENT Eyes: Present: PERRLA ENT: Present: hearing grossly normal - Neck Neck: Present: normal ROM. Absent: lymphadenopathy, thyromegaly Thyroid: bilateral: normal size, negative: enlarged, nodule - Respiratory Respiratory: bilateral: CTA, negative: rales, rhonchi, wheezing - Cardiovascular Rhythm: regular Heart sounds: normal: S1, S2 Abnormal Heart Sounds: Absent: systolic murmur, diastolic murmur - Gastrointestinal General gastrointestinal: Present: normal bowel sounds, soft. Absent: distended , hepatomegaly, organomegaly, tenderness - Integumentary Integumentary: Present: normal, normal turgor. Absent: rash - Neurologic Neurologic: Present: CNII-XII intact. Absent: focal deficits - Musculoskeletal Musculoskeletal: Present: strength equal bilaterally - Psychiatric Psychiatric: Present: A&O x's 3 - Labs CBC & Chem 7: 11/12/17 05:28 11/12/17 05:28 Labs: Abnormal Lab Results - Last 24 Hours (Table) 11/11/17 11/11/17 11/11/17 Range/Units 06:45 11:37 14:00 RBC (3.80-5.40) m/uL Hgb (11.4-16.0) gm/dL Hct (34.0-46.0) % RDW (11.5-15.5) % Chloride 93 L (98-107) mmol/L BUN 59 H (7-17) mg/dL Creatinine 2.00 H (0.52-1.04) mg/dL Glucose 221 H (74-99) mg/dL POC Glucose (mg/dL) 241 H (75-99) mg/dL Stool Occult Blood Positive H (Negative) 11/11/17 11/11/17 11/11/17 Range/Units 16:26 20:23 21:14 RBC 3.45 L (3.80-5.40) m/uL Hgb 9.8 L (11.4-16.0) gm/dL Hct 31.5 L (34.0-46.0) % RDW 16.0 H (11.5-15.5) % Chloride (98-107) mmol/L BUN (7-17) mg/dL Creatinine (0.52-1.04) mg/dL Glucose (74-99) mg/dL POC Glucose (mg/dL) 120 H 218 H (75-99) mg/dL Stool Occult Blood (Negative) 11/12/17 11/12/17 11/12/17 Range/Units 05:28 05:28 06:01 RBC 3.32 L (3.80-5.40) m/uL Hgb 9.6 L (11.4-16.0) gm/dL Hct 30.8 L (34.0-46.0) % RDW 16.3 H (11.5-15.5) % Chloride (98-107) mmol/L BUN 51 H (7-17) mg/dL Creatinine 1.63 H (0.52-1.04) mg/dL Glucose 118 H (74-99) mg/dL POC Glucose (mg/dL) 136 H (75-99) mg/dL Stool Occult Blood (Negative) Microbiology - Last 24 Hours (Table) 11/08/17 09:27 Blood Culture - Preliminary Blood No Growth after 72 hours Assessment and Plan Plan: 1 recurrent angina and chest pain: With known coronary artery disease post CABG , patient seen cardiology regular basis we'll consult cardiology troponin 3 are negative, repeat EKG in continue cardiac monitoring. Echocardiogram reveals an EF between 55-60%, mild to moderate mitral regurgitation, mild tricuspid regurgitation, and a severely dilated left atrium. 2 severe dyspnea and shortness of breath: Combination of COPD, sarcoidosis and pneumonia has been ruled out 3 Sarcoidosis: pneumonia has been ruled out, Levaquin has been discontinued. Pulmonary is on consult, continue with Plaquenil 4 diabetes: More time 2 on insulin continue patient on 70/30 along with Accu- Chek with sliding scales coverage. 5 hyperlipidemia: Continue patient on Lipitor 10 mg daily. 6 hypothyroidism: Patient is on levothyroxine 100 g daily. 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 8 anemia: Iron deficient post iron supplement and infusion recently, she is receiving iron infusion today, guaiac positive, surgery consulted for possible GI bleed may need colonoscopy and EGD, will continue 40 mg of Protonix daily. 9 recurrent UTI: Has been seen urology and infectious disease no infection lately. 10 chronic kidney disease stage III: Much better patient creatinine is down significantly, she still seen nephrology every 6-8 weeks. 11 GI prophylaxis: Patient will be on Nexium 40 mg daily. 12 DVT prophylaxis: Patient will be on heparin subcutaneous. CODE STATUS: Full code. Admit patient to inpatient status for more than 2 nights. The above impression and plan of care have been discussed and directed by signing physician. Jocelin Zhou nurse practitioner acting as scribe for signing physician.
[2017-11-12 11:34] LABS: Glucose,Whole Blood 243 mg/dL (75-99)
[2017-11-12] MEDS: METOPROLOL SUCCINATE (ER) 100 MG TAB.ER.24H PO SCH (11:41)
--- NOTE | 2017-11-12 11:46 | P.PN ---
Subjective Progress Note Date: 11/12/17 Principal diagnosis: Acute coronary syndrome A pleasant 67-year-old female patient, known history of coronary artery disease with previous bypass surgery, known history of sarcoidosis, known history of chronic renal failure, presenting to the hospital because of episodic chest pain and shortness of breath. The patient's chest pain is been going on for the past month. She states that on and off she was having small episodes of angina for which she was taken nitroglycerin sublingually with good response. Nevertheless over the past few days her pain is gotten worse. She has developed severe pain anterior chest radiating to her back associated with some shortness of breath. No diaphoresis. No sweating. She was very much concerned and she came into the hospital. EKG showed no acute ST segment elevations. Questionable lateral stuff which were present on old EKGs. Troponin was at 0.012 first set and the proBNP level is a [address] of the chest was done in the emergency department that showed no evidence of any pulmonary embolism. There is some limited mediastinal calcification related to old sarcoidosis along with some limited count breast changes which does not explain the patient's symptoms. Noted the patient's sarcoidosis is been essentially inactive in stable and she has been maintained on Plaquenil suppressions treatment for many years under the care of Dr. Goodson. The patient has no fever. No chills. No pleurisy. No hemoptysis. No swelling in lower extremities. No other complaints otherwise for now. She was given nitroglycerin patch. He does have an underlying anemia with a hemoglobin of 9.9 yet that is no reported history of any GI bleed or melanotic stools. In terms of coronary artery disease, the patient last cardiac catheterization was then GI of 2016 and back and the patient was found to have disease within the rampart arteries and the patient had patent HANNAH to LAD, patent saphenous vein graft and radial artery to obtuse marginal. On today's evaluation of 11/09/2017, the patient is feeling better. On and off she was having chest pain for which was given Nitropaste which gave her a subsequent headache. Cardiac enzymes are negative. Patient was seen by cardiology and she is being contemplated for further workup including either a stress test or a cardiac catheterization. No cough. No sputum production. No chest tightness. No wheezing. Echo cardiogram was done this morning. The patient remains on IV heparin. The patient's is receiving topical nitroglycerin patch 1 inch 4 times a day. The patient is also on IV Lasix. On 11/10/2017 the patient is calm and comfortable resting comfortably in bed without any chest pain still on IV heparin. The patient became prerenal on IV Lasix which was immediately discontinued. No other complaints otherwise for now. The echocardiogram was done and the patient is a preserved LV function with an ejection fraction of 55-60%. There is [id number] mitral regurgitation. Right ventricular pressures less than 35. No pericardial effusion. No other abnormalities are noted. She is resting comfortably in bed. She is chest pain-free. No nausea or vomiting. No abdominal pain. No cough sputum production or any pleurisy. Patient was reevaluated today on 11/11/2017, she is pain free, asymptomatic, no chest pain, no shortness of breath, no cough, no wheezing. Patient is scheduled to have a stress test today. Echocardiogram showed good LV function, she does have mild to moderate mitral regurgitation, and slightly elevated right -sided pressures. PA pressure is 35. Labs were reviewed she had a therapeutic PTT normal CBC normal basic metabolic profile, however BUN is 59 and creatinine is 2.0. The patient is seen again today 11/12/2017 in follow-up on the selective care unit. She is currently awake and alert in no acute distress. She denies any worsening shortness of breath, cough or congestion. She is maintaining good O2 saturations in the mid 90s on room air. She's been afebrile. No chest pain currently. She did undergo Lexiscan stress testing yesterday. Cardiology has decided to treat her with maximum medical therapy. She is now having issues with suspected GI bleed. Stools positive. She is also iron deficient and receiving a transfusion of iron today. Objective - Vital Signs Vital signs: Vital Signs Temp 97.0 F L 11/12/17 11:27 Pulse 63 11/12/17 11:27 Resp 18 11/12/17 11:27 BP 128/55 11/12/17 11:27 Pulse Ox 95 11/12/17 11:27 Intake & Output 11/11/17 11/12/17 11/12/17 18:59 06:59 18:59 Intake Total 572.817 6683 1240 Output Total 300 200 Balance 289.589 0202 1040 Weight 98.5 kg Intake: Intake, IV Titration 191.836 456 3460 Amount Heparin Sod,Pork in 0.45% 191.608 NaCl 25,000 unit In 0.45 % NaCl 1 500ml.bag @ 10.1 UNITS/KG/HR 20.05 mls/hr IV .Q24H [facility] Rx#: [id number] Sodium Chloride 0.9% 1, 900 900 000 ml @ 75 mls/hr IV . [id number] [facility] Rx#:[id number] Sodium Ferric Gluconat- 100 Sucrose 125 mg In Sodium Chloride 0.9% 100 ml @ 100 mls/hr IVPB ONCE ONE Rx#:[id number] Oral 780 600 240 Output: Urine 300 200 Other: Voiding Method Toilet Toilet Toilet # Voids 1 2 1 # Bowel Movements 1 - Exam GENERAL EXAM: Alert, active, comfortable in no apparent distress. HEAD: Normocephalic. EYES: Normal reaction of pupils, equal size. NOSE: Clear with pink turbinates. THROAT: No erythema or exudates. NECK: No masses, no JVD. CHEST: No chest wall deformity. LUNGS: Equal air entry with no crackles, wheeze, rhonchi or dullness. CVS: S1 and S2 normal with no audible murmur, regular rhythm. ABDOMEN: No hepatosplenomegaly, normal bowel sounds, no guarding or rigidity. SPINE: No scoliosis or deformity SKIN: No rashes CENTRAL NERVOUS SYSTEM: No focal deficits, tone is normal in all 4 extremities. EXTREMITIES: There is no peripheral edema. No clubbing, no cyanosis. Peripheral pulses are intact. - Labs CBC & Chem 7: 11/12/17 05:28 11/12/17 05:28 Labs: Abnormal Lab Results - Last 24 Hours (Table) 11/11/17 11/11/17 11/11/17 Range/Units 14:00 16:26 20:23 RBC (3.80-5.40) m/uL Hgb (11.4-16.0) gm/dL Hct (34.0-46.0) % RDW (11.5-15.5) % BUN (7-17) mg/dL Creatinine (0.52-1.04) mg/dL Glucose (74-99) mg/dL POC Glucose (mg/dL) 120 H 218 H (75-99) mg/dL Stool Occult Blood Positive H (Negative) 11/11/17 11/12/17 11/12/17 Range/Units 21:14 05:28 05:28 RBC 3.45 L 3.32 L (3.80-5.40) m/uL Hgb 9.8 L 9.6 L (11.4-16.0) gm/dL Hct 31.5 L 30.8 L (34.0-46.0) % RDW 16.0 H 16.3 H (11.5-15.5) % BUN 51 H (7-17) mg/dL Creatinine 1.63 H (0.52-1.04) mg/dL Glucose 118 H (74-99) mg/dL POC Glucose (mg/dL) (75-99) mg/dL Stool Occult Blood (Negative) 11/12/17 11/12/17 Range/Units 06:01 11:29 RBC (3.80-5.40) m/uL Hgb (11.4-16.0) gm/dL Hct (34.0-46.0) % RDW (11.5-15.5) % BUN (7-17) mg/dL Creatinine (0.52-1.04) mg/dL Glucose (74-99) mg/dL POC Glucose (mg/dL) 136 H 243 H (75-99) mg/dL Stool Occult Blood (Negative) Microbiology - Last 24 Hours (Table) 11/08/17 09:27 Blood Culture - Preliminary Blood No Growth after 72 hours Assessment and Plan Assessment: Impression: 1 acute coronary syndrome with episodes of chest pain and shortness of breath, likely a representation of an underlying angina and this is to be further investigated. The patient is on IV heparin. The patient is also on nitroglycerin. Cardiac enzymes have been negative 3 sets. Echocardiogram is not showing any acute abnormalities and the patient is a preserved LV function and no valvular dysfunction is seen. Mild to moderate mitral regurgitation noted on echocardiogram. And mild pulmonary hypertension. 2 coronary artery disease with previous bypass surgery and please refer back to the cardiac catheterization report from general 2017 that showed patent HANNAH to LAD, saphenous vein graft and patent radial to up obtuse marginal branch. The current EKG is not showing any acute abnormalities and the cardiac enzymes of been negative 3 sarcoidosis chronic, and in remission. The patient is on Plaquenil. CAT scan of the chest shows some minimal groundglass changes and mediastinal lymph node calcification, which is a typical manifestation of sarcoidosis in remission and there is no active manifestations of sarcoid explain her shortness of breath and her chest pain. Her most recent angiotensin-converting enzyme level was in the mid 60s and was within stable levels. 4 diabetes mellitus 5 hyperlipidemia 6 hypothyroidism 7 chronic anemia with a hemoglobin of 9.9, likely of an iron was sitting deficiency type 8 chronic stage III kidney failure, stable 9 obesity with a BMI of 38.6 10 acute kidney injury secondary to Lasix/prerenal azotemia. Recommendation: The patient was seen and evaluated by Dr. Townsend. She remains stable from the pulmonary standpoint. We will follow the patient on as-needed basis. I, the cosigning physician, performed a history & physical examination of the patient. Lungs sounds are clear. Maintaining good O2 saturations in the 90s on room air. I discussed the assessment and plan of care with my nurse practitioner, Antonia Allen. I attest to the above note as dictated by her.
[2017-11-12 12:06] LABS: Appearance,Urine Clear (Clear); Bilirubin,Urine Negative (Negative); Blood,Urine Negative (Negative); Color,Urine Light Yellow; Glucose,Urine (UA) Negative (Negative); Ketones,Urine Negative (Negative); Leukocyte Esterase,Urine Negative (Negative); Nitrite,Urine Negative (Negative); Protein,Urine Negative (Negative); Specific Gravity,Urine 1.011 (1.001-1.035); Urobilinogen,Urine <2.0 mg/dL (<2.0)
[2017-11-12 16:30] LABS: Glucose,Whole Blood 148 mg/dL (75-99)
--- NOTE | 2017-11-12 18:29 | P.GSCN ---
History of Present Illness Consult date: 11/12/17 Reason for Consult: Anemia, Hemoccult-positive stool History of present illness: The patient's a 67-year-old female who presented to the hospital with chest pain and shortness of breath. She has a history of coronary artery disease and was admitted for further workup. She is been noted to be anemic. A Hemoccult was done which was positive. There is a history of urinary tract infections which were recurrent and chronic for greater than 6 months. She was on multiple antibiotics for this. She denied any hematuria. She did have a cystoscopy done which the patient reports as normal. A colonoscopy was done by Dr. Tomlin in 2016. The patient reports that there was 1 polyp and some diverticulosis. She hasn't had any recent diverticulitis. No obvious blood in the stool or dark tarry stool no abdominal pain, nausea, vomiting, weight loss. No family history of GI malignancy or inflammatory bowel disease. The patient reports having iron deficiency anemia when she was first diagnosed with sarcoidosis Review of Systems All systems: negative - Constitutional Constitutional Comment(s): Her chest pain and shortness of breath have resolved Past Medical History Past Medical History: Coronary Artery Disease (CAD), Chest Pain / Angina, Diabetes Mellitus, Fibromyalgia, GERD/Reflux, Hyperlipidemia, Hypertension, Osteoarthritis (OA), Renal Disease, Thyroid Disorder Additional Past Medical History / Comment(s): sarcoidosis, chronic kidney disease stage III, diverticulosis, colon polyps neuropathy-balance issues, reccurring UTI" had a picc line in -removed recently, upper/lower bridges History of Any Multi-Drug Resistant Organisms: None Reported Past Surgical History: Back Surgery, Section, Cholecystectomy, Coronary Bypass/CABG, Heart Catheterization, Tonsillectomy, Tubal Ligation Additional Past Surgical History / Comment(s): C section X2, left shoulder rotator cuff, bilateral knee replacement 2014, 4 vessel CABG in 2002, bilateral cataract extraction and intraocular lens implants, picc line -since removed. Colonoscopy in 2016 Past Anesthesia/Blood Transfusion Reactions: Motion Sickness, Postoperative Nausea & Vomiting (PONV) Smoking Status: Never smoker - Past Family History Mother Family Medical History: Diabetes Mellitus Additional Family Medical History / Comment(s): Mother at age 70 with history of coronary artery disease status post CABG 2 and diabetes. Father Family Medical History: Diabetes Mellitus Additional Family Medical History / Comment(s): Father at age 83 with history of coronary artery disease status post CABG and diabetes. Daughter(s) Additional Family Medical History / Comment(s): Patient has one daughter with hyperlipidemia. Patient has one son with diabetes. Patient is an only child. Medications and Allergies Home Medications Medication Instructions Recorded Confirmed Type ALPRAZolam [Xanax] 0.25 mg PO HS PRN 06/07/16 11/08/17 History Allopurinol [Zyloprim] 200 mg PO DAILY 06/07/16 11/08/17 History Ascorbic Acid [Vitamin C] 1,000 mg PO DAILY 06/07/16 11/08/17 History Atorvastatin [Lipitor] 10 mg PO HS 06/07/16 11/08/17 History Clopidogrel [Plavix] 75 mg PO HS 06/07/16 11/08/17 History Esomeprazole Magnesium [NexIUM] 40 mg PO BID 06/07/16 11/08/17 History Hydrocodone/Acetaminophen [[place] 1 tab PO BID PRN 06/07/16 11/08/17 History 10-325] Hydroxychloroquine Sulfate 200 mg PO BID 06/07/16 11/08/17 History [Plaquenil] Isosorbide Mononitrate ER [Imdur] 60 mg PO DAILY 06/07/16 11/08/17 History Vitamin E 1,000 unit PO DAILY 06/07/16 11/08/17 History INSULIN LISPRO (HumaLOG) [HumaLOG] See Protocol SQ ACHS 06/08/16 11/08/17 History Insulin NPH Hum/Reg Insulin Hm See Protocol SQ AC-TID 06/08/16 11/08/17 History [NovoLIN 70-30 100 UNIT/ML VIAL] Levothyroxine Sodium [Synthroid] 50 mcg PO TUTH 05/21/17 11/08/17 History [place]-3 Fatty Acids/Fish Oil [Fish 2 cap PO HS 05/21/17 11/08/17 History Oil 1,000 mg Softgel] Magnesium Gluconate [Magonate] 500 mg PO BID 09/24/17 11/08/17 History Nitroglycerin Sl Tabs [Nitrostat] 0.4 mg SUBLINGUAL Q5M PRN 09/24/17 11/08/17 History Estradiol [Vagifem] 10 mcg VG SUTH 11/08/17 11/08/17 History Levothyroxine Sodium [Synthroid] 100 mcg PO DAILY 11/08/17 11/08/17 History Metoprolol Succinate (ER) [Toprol 100 mg PO BID 11/08/17 11/08/17 History Xl] fentaNYL 50MCG/HR PATCH [Duragesic 50 mcg TRANSDERM Q72H 11/08/17 11/08/17 History 50MCG/HR] Allergies Allergy/AdvReac Type Severity Reaction Status Date / Time Penicillins Allergy Rash/Hives Verified 11/08/17 09:32 prednisone Allergy Rapid Verified 11/08/17 09:32 Heart Rate Sulfa (Sulfonamide Allergy Unknown Verified 11/08/17 09:32 Antibiotics) gabapentin [From Neurontin] AdvReac Unknown Verified 11/08/17 09:32 Iodinated Contrast- Oral and AdvReac Unknown Verified 11/08/17 09:32 IV Dye Surgical - Exam Osteopathic Statement: *. No significant issues noted on an osteopathic structural exam other than those noted in the History and Physical/Consult. Vital Signs Temp Pulse Resp BP Pulse Ox 98.1 F 56 L 20 151/59 100 11/08/17 08:20 11/08/17 08:20 11/08/17 08:20 11/08/17 08:20 11/08/17 08:20 - General well developed, well nourished, no distress - Eyes normal ocular movement - Neck trachea midline - Respiratory normal respiratory effort - Abdomen Unremarkable Results - Labs 11/12/17 05:28 11/12/17 05:28 Abnormal Lab Results - Last 24 Hours (Table) 11/11/17 11/11/17 11/12/17 Range/Units 20:23 21:14 05:28 RBC 3.45 L 3.32 L (3.80-5.40) m/uL Hgb 9.8 L 9.6 L (11.4-16.0) gm/dL Hct 31.5 L 30.8 L (34.0-46.0) % RDW 16.0 H 16.3 H (11.5-15.5) % BUN (7-17) mg/dL Creatinine (0.52-1.04) mg/dL Glucose (74-99) mg/dL POC Glucose (mg/dL) 218 H (75-99) mg/dL 0611/12/17 11/12/17 Range/Units 05:28 06:01 11:29 RBC (3.80-5.40) m/uL Hgb (11.4-16.0) gm/dL Hct (34.0-46.0) % RDW (11.5-15.5) % BUN 51 H (7-17) mg/dL Creatinine 1.63 H (0.52-1.04) mg/dL Glucose 118 H (74-99) mg/dL POC Glucose (mg/dL) 136 H 243 H (75-99) mg/dL 11/12/17 Range/Units 16:25 RBC (3.80-5.40) m/uL Hgb (11.4-16.0) gm/dL Hct (34.0-46.0) % RDW (11.5-15.5) % BUN (7-17) mg/dL Creatinine (0.52-1.04) mg/dL Glucose (74-99) mg/dL POC Glucose (mg/dL) 148 H (75-99) mg/dL Microbiology - Last 24 Hours (Table) 11/12/17 11:46 Urine Culture - Preliminary Urine,Clean Catch 11/08/17 09:27 Blood Culture - Preliminary Blood No Growth after 96 hours Diabetes panel 11/12/17 Range/Units 05:28 Sodium 140 (137-145) mmol/L Potassium 4.7 (3.5-5.1) mmol/L Chloride 102 (98-107) mmol/L Carbon Dioxide 29 (22-30) mmol/L BUN 51 H (7-17) mg/dL Creatinine 1.63 H (0.52-1.04) mg/dL Glucose 118 H (74-99) mg/dL Calcium 9.6 (8.4-10.2) mg/dL AST 21 (14-36) U/L ALT 27 (9-52) U/L Alkaline Phosphatase 69 (38-126) U/L Total Protein 6.3 (6.3-8.2) g/dL Albumin 3.6 (3.5-5.0) g/dL Calcium panel 11/12/17 Range/Units 05:28 Calcium 9.6 (8.4-10.2) mg/dL Albumin 3.6 (3.5-5.0) g/dL Pituitary panel 11/12/17 Range/Units 05:28 Sodium 140 (137-145) mmol/L Potassium 4.7 (3.5-5.1) mmol/L Chloride 102 (98-107) mmol/L Carbon Dioxide 29 (22-30) mmol/L BUN 51 H (7-17) mg/dL Creatinine 1.63 H (0.52-1.04) mg/dL Glucose 118 H (74-99) mg/dL Calcium 9.6 (8.4-10.2) mg/dL Adrenal panel 11/12/17 Range/Units 05:28 Sodium 140 (137-145) mmol/L Potassium 4.7 (3.5-5.1) mmol/L Chloride 102 (98-107) mmol/L Carbon Dioxide 29 (22-30) mmol/L BUN 51 H (7-17) mg/dL Creatinine 1.63 H (0.52-1.04) mg/dL Glucose 118 H (74-99) mg/dL Calcium 9.6 (8.4-10.2) mg/dL Total Bilirubin 0.2 (0.2-1.3) mg/dL AST 21 (14-36) U/L ALT 27 (9-52) U/L Alkaline Phosphatase 69 (38-126) U/L Total Protein 6.3 (6.3-8.2) g/dL Albumin 3.6 (3.5-5.0) g/dL Assessment and Plan (1) Iron deficiency anemia Current Visit: Yes Status: Acute Code(s): D50.9 - IRON DEFICIENCY ANEMIA, UNSPECIFIED SNOMED Code(s): 48009989 (2) Heme positive stool Current Visit: Yes Status: Acute Code(s): R19.5 - OTHER FECAL ABNORMALITIES SNOMED Code(s): 89153616 (3) Diverticulosis Current Visit: Yes Status: Acute Code(s): K57.90 - DVRTCLOS OF INTEST, PART UNSP, W/O PERF OR ABSCESS W/O BLEED SNOMED Code(s): 047622841 (4) Frequent urinary tract infections Current Visit: Yes Status: Acute Code(s): N39.0 - URINARY TRACT INFECTION, SITE NOT SPECIFIED SNOMED Code(s): 582291448 (5) Chest pain Current Visit: No Status: Acute Code(s): R07.9 - CHEST PAIN, UNSPECIFIED SNOMED Code(s): 98601314 Plan: The patient denies any upper GI symptoms but with a Hemoccult positive stool I would recommend an EGD to rule out occult ulcer disease. The procedure risk and complications were discussed. I will do this for her tomorrow. If the EGD is normal, and recommend a repeat colonoscopy. This could be done as an outpatient. With the frequent urinary tract infections due to E. coli, consideration could be made for some sort of colovesical fistula. The patient does not have passage of flatus or stool with urination, but this should be considered. Further recommendations to follow
[2017-11-12] MEDS: ATORVASTATIN 20 MG TAB PO SCH (21:44)
[2017-11-12] MEDS: CLOPIDOGREL 75 MG TAB PO SCH (21:44)
[2017-11-12] MEDS: ALPRAZolam 0.25 MG TAB PO PRN (21:47)
--- NOTE | 2017-11-13 10:21 | PN ---
PROGRESS NOTE HPI: This is a pleasant 67-year-old female who initially presented to the hospital with symptoms of chest discomfort and abdominal discomfort. She did undergo Lexiscan stress test while she was here, which was reviewed, maximal medical therapy advised. She was seen and examined this morning. She is scheduled to undergo an EGD at 3:00 today. Denies any chest discomfort. Her breathing is stable. No further dizziness or lightheadedness. Hemodynamically she is stable. Blood pressure 118/60 with a heart rate in the 70s. PHYSICAL EXAMINATION: A 67-year-old female in no apparent distress at the time of my examination. HEENT normal. HEART: S1, S2. Soft, systolic murmur is heard. LUNGS: Lungs are clear to auscultation. ABDOMEN: Soft. Mild generalized tenderness is noted. EXTREMITIES: 2+ peripheral pulses with no evidence of any peripheral edema. PLAN: From cardiology's perspective, we will continue the patient on her current medications. On discharge, she has been advised to follow up with Dr. Smith in the office. MMODL / IJN: [id number] /
--- NOTE | 2017-11-13 10:50 | P.PN ---
Subjective Progress Note Date: 11/13/17 Principal diagnosis: Acute coronary syndrome A pleasant 67-year-old female patient, known history of coronary artery disease with previous bypass surgery, known history of sarcoidosis, known history of chronic renal failure, presenting to the hospital because of episodic chest pain and shortness of breath. The patient's chest pain is been going on for the past month. She states that on and off she was having small episodes of angina for which she was taken nitroglycerin sublingually with good response. Nevertheless over the past few days her pain is gotten worse. She has developed severe pain anterior chest radiating to her back associated with some shortness of breath. No diaphoresis. No sweating. She was very much concerned and she came into the hospital. EKG showed no acute ST segment elevations. Questionable lateral stuff which were present on old EKGs. Troponin was at 0.012 first set and the proBNP level is a [address] of the chest was done in the emergency department that showed no evidence of any pulmonary embolism. There is some limited mediastinal calcification related to old sarcoidosis along with some limited count breast changes which does not explain the patient's symptoms. Noted the patient's sarcoidosis is been essentially inactive in stable and she has been maintained on Plaquenil suppressions treatment for many years under the care of Dr. Goodson. The patient has no fever. No chills. No pleurisy. No hemoptysis. No swelling in lower extremities. No other complaints otherwise for now. She was given nitroglycerin patch. He does have an underlying anemia with a hemoglobin of 9.9 yet that is no reported history of any GI bleed or melanotic stools. In terms of coronary artery disease, the patient last cardiac catheterization was then GI of 2016 and back and the patient was found to have disease within the [place] arteries and the patient had patent HANNAH to LAD, patent saphenous vein graft and radial artery to obtuse marginal. On today's evaluation of 11/09/2017, the patient is feeling better. On and off she was having chest pain for which was given Nitropaste which gave her a subsequent headache. Cardiac enzymes are negative. Patient was seen by cardiology and she is being contemplated for further workup including either a stress test or a cardiac catheterization. No cough. No sputum production. No chest tightness. No wheezing. Echo cardiogram was done this morning. The patient remains on IV heparin. The patient's is receiving topical nitroglycerin patch 1 inch 4 times a day. The patient is also on IV Lasix. On 11/10/2017 the patient is calm and comfortable resting comfortably in bed without any chest pain still on IV heparin. The patient became prerenal on IV Lasix which was immediately discontinued. No other complaints otherwise for now. The echocardiogram was done and the patient is a preserved LV function with an ejection fraction of 55-60%. There is [id number] mitral regurgitation. Right ventricular pressures less than 35. No pericardial effusion. No other abnormalities are noted. She is resting comfortably in bed. She is chest pain-free. No nausea or vomiting. No abdominal pain. No cough sputum production or any pleurisy. Patient was reevaluated today on 11/11/2017, she is pain free, asymptomatic, no chest pain, no shortness of breath, no cough, no wheezing. Patient is scheduled to have a stress test today. Echocardiogram showed good LV function, she does have mild to moderate mitral regurgitation, and slightly elevated right -sided pressures. PA pressure is 35. Labs were reviewed she had a therapeutic PTT normal CBC normal basic metabolic profile, however BUN is 59 and creatinine is 2.0. The patient is seen again today 11/12/2017 in follow-up on the selective care unit. She is currently awake and alert in no acute distress. She denies any worsening shortness of breath, cough or congestion. She is maintaining good O2 saturations in the mid 90s on room air. She's been afebrile. No chest pain currently. She did undergo Lexiscan stress testing yesterday. Cardiology has decided to treat her with maximum medical therapy. She is now having issues with suspected GI bleed. Stools positive. She is also iron deficient and receiving a transfusion of iron today. Patient is seen again today 11/13/2017 in follow-up on the selective care unit. She remains awake and alert in no acute distress. She denies any shortness of breath, cough or congestion. Maintaining good O2 saturations in the 90s on room air. Hemodynamically stable. The plan is for EGD today. Objective - Vital Signs Vital signs: Vital Signs Temp 96.9 F L 11/13/17 00:00 Pulse 77 11/13/17 02:21 Resp 18 11/13/17 02:21 BP 101/39 11/13/17 00:00 Pulse Ox 98 11/13/17 00:00 Intake & Output 11/12/17 11/13/17 11/13/17 18:59 06:59 18:59 Intake Total 1600 Output Total 200 400 Balance 1400 -400 Weight 98.5 kg Intake: Intake, IV Titration 1000 Amount Sodium Chloride 0.9% 1, 900 000 ml @ 75 mls/hr IV . [id number] [facility] Rx#:[id number] Sodium Ferric Gluconat- 100 Sucrose 125 mg In Sodium Chloride 0.9% 100 ml @ 100 mls/hr IVPB ONCE ONE Rx#:[id number] Oral 600 Output: Urine 200 400 Other: Voiding Method Toilet Toilet # Voids 1 1 - Exam GENERAL EXAM: Alert, active, comfortable in no apparent distress. HEAD: Normocephalic. EYES: Normal reaction of pupils, equal size. NOSE: Clear with pink turbinates. THROAT: No erythema or exudates. NECK: No masses, no JVD. CHEST: No chest wall deformity. LUNGS: Equal air entry with no crackles, wheeze, rhonchi or dullness. CVS: S1 and S2 normal with no audible murmur, regular rhythm. ABDOMEN: No hepatosplenomegaly, normal bowel sounds, no guarding or rigidity. SPINE: No scoliosis or deformity SKIN: No rashes CENTRAL NERVOUS SYSTEM: No focal deficits, tone is normal in all 4 extremities. EXTREMITIES: There is no peripheral edema. No clubbing, no cyanosis. Peripheral pulses are intact. - Labs CBC & Chem 7: 11/12/17 05:28 11/12/17 05:28 Labs: Abnormal Lab Results - Last 24 Hours (Table) 11/12/17 11/12/17 Range/Units 11:29 16:25 POC Glucose (mg/dL) 243 H 148 H (75-99) mg/dL Microbiology - Last 24 Hours (Table) 11/12/17 11:46 Urine Culture - Preliminary Urine,Clean Catch 11/08/17 09:27 Blood Culture - Preliminary Blood No Growth after 96 hours Assessment and Plan Assessment: Impression: 1 acute coronary syndrome with episodes of chest pain and shortness of breath, likely a representation of an underlying angina and this is to be further investigated. The patient is on IV heparin. The patient is also on nitroglycerin. Cardiac enzymes have been negative 3 sets. Echocardiogram is not showing any acute abnormalities and the patient is a preserved LV function and no valvular dysfunction is seen. Mild to moderate mitral regurgitation noted on echocardiogram. And mild pulmonary hypertension. 2 coronary artery disease with previous bypass surgery and please refer back to the cardiac catheterization report from general 2017 that showed patent HANNAH to LAD, saphenous vein graft and patent radial to up obtuse marginal branch. The current EKG is not showing any acute abnormalities and the cardiac enzymes of been negative 3 sarcoidosis chronic, and in remission. The patient is on Plaquenil. CAT scan of the chest shows some minimal groundglass changes and mediastinal lymph node calcification, which is a typical manifestation of sarcoidosis in remission and there is no active manifestations of sarcoid explain her shortness of breath and her chest pain. Her most recent angiotensin-converting enzyme level was in the mid 60s and was within stable levels. 4 diabetes mellitus 5 hyperlipidemia 6 hypothyroidism 7 chronic anemia with a hemoglobin of 9.9, likely of an iron deficiency. Stool for occult blood positive. EGD today. 8 chronic stage III kidney failure, stable 9 obesity with a BMI of 38.6 10 acute kidney injury secondary to Lasix/prerenal azotemia. Recommendation: The patient was seen and evaluated by Dr. Townsend. She remains stable from the pulmonary standpoint. Await EGD results. I, the cosigning physician, performed a history & physical examination of the patient. Lungs sounds are clear. Maintaining good O2 saturations in the 90s on room air. I discussed the assessment and plan of care with my nurse practitioner, Antonia Allen. I attest to the above note as dictated by her.
[2017-11-13] MEDS: METOPROLOL SUCCINATE (ER) 100 MG TAB.ER.24H PO SCH ×3 (11:36→22:30)
[2017-11-13] MEDS: OMEGA PO SCH (11:36)
[2017-11-13] MEDS: NITROGLYCERIN OINT 1 INCH/GM PACKET TOPICAL SCH ×4 (11:36→16:38)
[2017-11-13] MEDS: INSULIN ASPART 100 UNIT/ML 1 ML 10 ML VIAL SQ SCH ×5 (11:36→22:28)
[2017-11-13] MEDS: SODIUM CHLORIDE 0.9% 1,000 ML IV SCH ×2 (11:37→16:49)
[2017-11-13] MEDS: INSULIN NPH/REG INSULIN 70/30 300 UNIT/3 ML VIAL SQ SCH ×3 (11:37→16:46)
[2017-11-13] MEDS: LEVOTHYROXINE 100 MCG TAB PO SCH (11:37)
--- NOTE | 2017-11-13 12:17 | P.PN ---
Subjective Progress Note Date: 11/13/17 67-year-old female one of my office patient with multiple medical problem was known to have history of CAD post CABG, post heart catheter back in 2016 with no major blockage at the time, also patient suffered from stage III chronic kidney disease has been seen Dr. Pham on regular basis. History of diabetes has been doing better also history of sarcoidosis who seen Dr. Lopez for the last 15 years on regular basis and not on any active medication currently. Patient has been seen Dr. Aguilar recently for recurrent UTI and was treated with few course of antibiotic and had an arrangement for iron infusion recently was done as an outpatient at [facility]. Patient presented to the emergency department with complaint of acute mid to left-sided chest pain exacerbated with exertion associated with mild shortness of breath with nausea and mild abdominal pain. Workup at the emergency department shows slight infiltrate in the base was diagnosed with pneumonia also CK with troponin came back negative but with her current complaint as an active angina will do CK with troponin 3 admit patient consult cardiology might require an need testing. 11/09: Patient was evaluated this morning on rounds, she denies any further episodes of chest pain, so far her cardiac workup has been negative, 3 troponins were drawn and are negative. Her d-dimer was noted to be elevated at 3.1, she had a CT of the chest, shows no evidence for acute pulmonary embolism, suspicious reticulonodular opacities bilateral lower lobes that could possibly represent developing multifocal pneumonia. Pulmonary is on consult, feels that pneumonia is less likely and possible chronic sarcoidosis that is in remission. Cardiology is on consult. Hemoglobin low at 9.9, creatinine 1.1, BUN 19, glucose have been slightly elevated. She has been started on Heparin and on nitroglycerin. Echocardiogram is pending. 11/10: Patient denies any further episodes of chest pain, no palpitations shortness of breath or dizziness. Patient has been up and ambulating in the room today. Blood cultures show no growth to date. Creatinine increased to 1.99 today, Lasix has been discontinued. Echo cardiogram reveals an EF between 55-60%, mild to moderate mitral regurgitation, mild tricuspid regurgitation, and a severely dilated left atrium. Will redraw BUN and creatinine tomorrow morning. 11/11: Patient is sitting up in bed in no apparent distress, she had an episode of orthostatic hypotension, she was taken off diuretics, we will start her on IV fluid in the form of normal saline at 75 mL an hour for the next 24 hours, echogram was reviewed, patient scheduled to go for Lexiscan stress test today patient will be kept in the hospital for another 24 hours because of that. She has no chest pain, she does not appear to be in any dyspnea, she has no swelling in her legs, she denies any abdominal pain, nausea, vomiting, or diarrhea. 11/12: Patient reports no chest pain, or shortness of breath, no cough or wheeze today. States dizziness has improved with IV fluids. Lexiscan reveals a possible area of reversibility along the mid to basal anterolateral wall, cardiology would like to review Lexiscan results before decision is made. Kidney function did improve after IV fluids, creatinine 1.63, BUN 51. Patient was noted to have an episode of dark tarry stool, sample was obtained and it was guaiac positive. Hemoglobin did drop slightly from 10.8 to 9.6 today. Heparin has been discontinued. She will need a GI workup to rule out GI bleed. Will consult surgery. Iron infusion ordered today. 11/13: Patient sitting up in bed in no apparent distress she is feeling a bit better she had an episode of chest pain earlier today, she is scheduled to go for EGD this afternoon, she will be hopefully discharged home in the next 24 hours after obtaining the result of the EGD. Objective - Vital Signs Vital signs: Vital Signs Temp 97.8 F 11/13/17 12:02 Pulse 77 11/13/17 12:02 Resp 18 11/13/17 12:02 BP 155/67 11/13/17 12:02 Pulse Ox 97 11/13/17 12:02 Intake & Output 11/12/17 11/13/17 11/13/17 18:59 06:59 18:59 Intake Total 1600 Output Total 200 400 Balance 1400 -400 Weight 98.5 kg 99 kg Intake: Intake, IV Titration 1000 Amount Sodium Chloride 0.9% 1, 900 000 ml @ 75 mls/hr IV . [id number] [facility] Rx#:[id number] Sodium Ferric Gluconat- 100 Sucrose 125 mg In Sodium Chloride 0.9% 100 ml @ 100 mls/hr IVPB ONCE ONE Rx#:[id number] Oral 600 Output: Urine 200 400 Other: Voiding Method Toilet Toilet Toilet # Voids 1 1 1 # Bowel Movements 0 - Exam - Exam - Constitutional General appearance: Present: cooperative, no acute distress - EENT Eyes: Present: PERRLA ENT: Present: hearing grossly normal - Neck Neck: Present: normal ROM. Absent: lymphadenopathy, thyromegaly Thyroid: bilateral: normal size, negative: enlarged, nodule - Respiratory Respiratory: bilateral: CTA, negative: rales, rhonchi, wheezing - Cardiovascular Rhythm: regular Heart sounds: normal: S1, S2 Abnormal Heart Sounds: Absent: systolic murmur, diastolic murmur - Gastrointestinal General gastrointestinal: Present: normal bowel sounds, soft. Absent: distended , hepatomegaly, organomegaly, tenderness - Integumentary Integumentary: Present: normal, normal turgor. Absent: rash - Neurologic Neurologic: Present: CNII-XII intact. Absent: focal deficits - Musculoskeletal Musculoskeletal: Present: strength equal bilaterally - Labs CBC & Chem 7: 11/12/17 05:28 11/12/17 05:28 Labs: Abnormal Lab Results - Last 24 Hours (Table) 11/12/17 Range/Units 16:25 POC Glucose (mg/dL) 148 H (75-99) mg/dL Microbiology - Last 24 Hours (Table) 11/08/17 09:27 Blood Culture - Preliminary Blood No Growth after 120 hours 11/12/17 11:46 Urine Culture - Preliminary Urine,Clean Catch Assessment and Plan Assessment: 1 recurrent angina and chest pain: With known coronary artery disease post CABG , patient seen cardiology regular basis we'll consult cardiology troponin 3 are negative, repeat EKG in continue cardiac monitoring. Echocardiogram reveals an EF between 55-60%, mild to moderate mitral regurgitation, mild tricuspid regurgitation, and a severely dilated left atrium. 2 severe dyspnea and shortness of breath: Combination of COPD, sarcoidosis and pneumonia has been ruled out 3 Sarcoidosis: pneumonia has been ruled out, Levaquin has been discontinued. Pulmonary is on consult, continue with Plaquenil 4 diabetes: More time 2 on insulin continue patient on 70/30 along with Accu- Chek with sliding scales coverage. 5 hyperlipidemia: Continue patient on Lipitor 10 mg daily. 6 hypothyroidism: Patient is on levothyroxine 100 g daily. 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 8 anemia: Iron deficient post iron supplement and infusion recently. 9 recurrent UTI: Has been seen urology and infectious disease no infection lately. 10 chronic kidney disease stage III: Much better patient creatinine is down significantly, she still seen nephrology every 6-8 weeks. 11 GI prophylaxis: Patient will be on Nexium 40 mg daily. 12 DVT prophylaxis: Patient is on heparin drip. 13. Acute kidney injury on top of chronic kidney disease stage III. Discontinue Lasix, start the patient on IV fluid in the form of normal saline at 75 mL an hour for the next 24 hours, repeat CMP magnesium tomorrow morning. 13. GI bleed. EGD scheduled for today. Patient can be discharged home in the next 24 hours and Endoscopy to Be Done As an Outpatient. Patient Has Had Colonoscopy 2015.
[2017-11-13] MEDS ORDERED: PROPOFOL 10 MG/ML 20 ML VIAL IV ONE (14:30)
[2017-11-13] MEDS ORDERED: LIDOCAINE 1% INJ 10MG/ML (20 ML MDV) ONE (14:30)
[2017-11-13] MEDS ORDERED: SODIUM CHLORIDE 0.9% 1,000 ML IV ONE (14:36)
--- NOTE | 2017-11-13 14:50 | P.PCN ---
Date of Procedure: 11/13/17 Preoperative Diagnosis: Iron deficiency anemia, chest pain, heme positive stool Postoperative Diagnosis: Iron deficiency anemia, chest pain, ulcerated duodenal mass, duodenal diverticulum, heme positive stool Procedure(s) Performed: EGD with biopsy Anesthesia: MAC Surgeon: Fanny Saleh Estimated Blood Loss (ml): 5 Pathology: other (Duodenum) Condition: stable Disposition: floor Indications for Procedure: Patient presented with iron deficiency anemia and heme positive stools Description of Procedure: The patient is taken to the endoscopy suite where a gastroscope is passed per mouth to the third and fourth portions of the duodenum. The pharynx is unremarkable. The esophagus is without evidence of esophagitis or mass lesion. GE junction is without inflammatory change. The stomach shows no evidence of ulcer or mucosal abnormality. No evidence of new or old blood in the stomach. In the duodenal bulb and abutting the pylorus there is noted to be a ulcerated mass at least 2-3 cm in size. It's fairly friable. Several cold biopsies were obtained. 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 She tolerated the procedure without difficulty and was taken recovery room in satisfactory condition. Further recommendations to follow.
--- NOTE | 2017-11-13 15:05 | P.PN ---
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 CEA and CA-19-9 were ordered. She needs a computed tomography scan with oral and IV contrast to further evaluate the tumor. She does have renal insufficiency. I spoke with Dr. Collier would like Dr. Pham consulted for recommendations regarding the IV contrast. She can be further worked up as an outpatient.
[2017-11-13] MEDS: MAGNESIUM OXIDE 400 MG TAB PO SCH ×2 (16:20→22:28)
[2017-11-13] MEDS: HYDROXYCHLOROQUINE SULFATE 200 MG TAB PO SCH (16:20)
[2017-11-13] MEDS: ASCORBIC ACID 500 MG TAB PO SCH (16:35)
[2017-11-13] MEDS: VITAMIN E (DL,TOCOPHERYL ACET) 400 UNIT CAP PO SCH (16:36)
[2017-11-13] MEDS: ASPIRIN 325 MG TAB PO SCH (16:36)
[2017-11-13] MEDS: PANTOPRAZOLE 40 MG TABLET PO SCH (16:36)
[2017-11-13] MEDS: ALLOPURINOL 100 MG TAB PO SCH (16:36)
[2017-11-13 16:51] LABS: Glucose,Whole Blood 170 mg/dL (75-99)
[2017-11-13 20:03] LABS: Cancer Antigen 19-9 2.4 U/mL (0.0-34.9)
[2017-11-13 21:01] LABS: Glucose,Whole Blood 166 mg/dL (75-99)
[2017-11-13] MEDS: ATORVASTATIN 20 MG TAB PO SCH (22:26)
[2017-11-13] MEDS: CLOPIDOGREL 75 MG TAB PO SCH (22:27)
[2017-11-13] MEDS: HYDROcodone/APAP 10-325MG 1 EACH TAB PO PRN (22:31)
[2017-11-13] MEDS: ALPRAZolam 0.25 MG TAB PO PRN (22:32)
[2017-11-14 05:47] LABS: Glucose,Whole Blood 135 mg/dL (75-99)
[2017-11-14 05:55] LABS: Anisocytosis Slight; Basophils # (A) 0.1 k/uL (0-0.2); Basophils % (A) 1 %; Eosinophils # (A) 0.4 k/uL (0-0.7); Eosinophils % (A) 5 %; HCT 28.9 % (34.0-46.0); HGB 9.1 gm/dL (11.4-16.0); Hypochromasia Moderate; Lymphocytes # (A) 1.9 k/uL (1.0-4.8); Lymphocytes % (A) 28 %; MCH 29.4 pg (25.0-35.0); MCHC 31.6 g/dL (31.0-37.0); MCV 92.9 fL (80.0-100.0); Mean Platelet Volume 8.6; Monocytes # (A) 0.5 k/uL (0-1.0); Monocytes % (A) 7 %; Neutrophils # (A) 3.8 k/uL (1.3-7.7); Neutrophils % (A) 57 %; Platelet Count 168 k/uL (150-450); RBC 3.11 m/uL (3.80-5.40); RDW 16.6 % (11.5-15.5); WBC 6.8 k/uL (3.8-10.6)
[2017-11-14 06:15] LABS: Albumin 3.2 g/dL (3.5-5.0); Calcium 9.6 mg/dL (8.4-10.2); Potassium 5.1 mmol/L (3.5-5.1); Total Bilirubin 0.2 mg/dL (0.2-1.3)
[2017-11-14] MEDS: HYDROXYCHLOROQUINE SULFATE 200 MG TAB PO SCH ×2 (06:38→08:01)
[2017-11-14] MEDS: OMEGA PO SCH (06:38)
[2017-11-14] MEDS: NITROGLYCERIN OINT 1 INCH/GM PACKET TOPICAL SCH ×2 (06:39→08:17)
[2017-11-14] MEDS: LEVOTHYROXINE 100 MCG TAB PO SCH (06:40)
[2017-11-14] MEDS: SODIUM CHLORIDE 0.9% 1,000 ML IV SCH (06:43)
[2017-11-14] MEDS: VITAMIN E (DL,TOCOPHERYL ACET) 400 UNIT CAP PO SCH (08:00)
[2017-11-14] MEDS: PANTOPRAZOLE 40 MG TABLET PO SCH (08:00)
[2017-11-14] MEDS: MAGNESIUM OXIDE 400 MG TAB PO SCH (08:00)
[2017-11-14] MEDS: ASPIRIN 325 MG TAB PO SCH (08:00)
[2017-11-14] MEDS: ASCORBIC ACID 500 MG TAB PO SCH (08:00)
[2017-11-14] MEDS: ALLOPURINOL 100 MG TAB PO SCH (08:00)
[2017-11-14] MEDS: METOPROLOL SUCCINATE (ER) 100 MG TAB.ER.24H PO SCH (08:01)
[2017-11-14] MEDS: INSULIN NPH/REG INSULIN 70/30 300 UNIT/3 ML VIAL SQ SCH (08:15)
[2017-11-14] MEDS: INSULIN ASPART 100 UNIT/ML 1 ML 10 ML VIAL SQ SCH (08:16)
[2017-11-14] MEDS: LEVOTHYROXINE 50 MCG TAB PO SCH (08:16)
[2017-11-14 08:29] VITALS: BP 113/63; PULSE 65; TEMP 97.9
--- NOTE | 2017-11-14 11:31 | P.DS ---
Providers Date of admission: 11/09/17 15:20 Attending physician: Sam Quiñonez Consults: 11/08/17 12:56 Consult Physician Stat Consulting Provider: Zack Goodson Consult Reason/Comments: CHF, Unstable Angina, SOB Do you want consulting provider notified?: Yes Consult Physician Stat Consulting Provider: Madhav Smith Consult Reason/Comments: CHF, Unstable Angina Do you want consulting provider notified?: Yes 11/12/17 08:54 Consult Physician Routine Consulting Provider: Denver Tomlin Consult Reason/Comments: GI bleed Do you want consulting provider notified?: Yes 11/13/17 15:02 Consult Physician Routine Consulting Provider: Rowena Pham Consult Reason/Comments: renal disease, needs IV contrast for CT scan Do you want consulting provider notified?: Yes Primary care physician: [facility] Course: 67-year-old female one of my office patient with multiple medical problem was known to have history of CAD post CABG, post heart catheter back in 2016 with no major blockage at the time, also patient suffered from stage III chronic kidney disease has been seen Dr. Pham on regular basis. History of diabetes has been doing better also history of sarcoidosis who seen Dr. Goodson the for the last 15 years on regular basis and not on any active medication currently. Patient has been seen Dr. Aguilar recently for recurrent UTI and was treated with few course of antibiotic and had an arrangement for iron infusion recently was done as an outpatient at [facility]. Patient presented to the emergency department with complaint of acute mid to left-sided chest pain exacerbated with exertion associated with mild shortness of breath with nausea and mild abdominal pain. Workup at the emergency department shows slight infiltrate in the base was diagnosed with pneumonia also CK with troponin came back negative but with her current complaint as an active angina will do CK with troponin 3 admit patient consult cardiology might require an need testing. 11/09: Patient was evaluated this morning on rounds, she denies any further episodes of chest pain, so far her cardiac workup has been negative, 3 troponins were drawn and are negative. Her d-dimer was noted to be elevated at 3.1, she had a CT of the chest, shows no evidence for acute pulmonary embolism, suspicious reticulonodular opacities bilateral lower lobes that could possibly represent developing multifocal pneumonia. Pulmonary is on consult, feels that pneumonia is less likely and possible chronic sarcoidosis that is in remission. Cardiology is on consult. Hemoglobin low at 9.9, creatinine 1.1, BUN 19, glucose have been slightly elevated. She has been started on Heparin and on nitroglycerin. Echocardiogram is pending. 11/10: Patient denies any further episodes of chest pain, no palpitations shortness of breath or dizziness. Patient has been up and ambulating in the room today. Blood cultures show no growth to date. Creatinine increased to 1.99 today, Lasix has been discontinued. Echo cardiogram reveals an EF between 55-60%, mild to moderate mitral regurgitation, mild tricuspid regurgitation, and a severely dilated left atrium. Will redraw BUN and creatinine tomorrow morning. 11/11: Patient is sitting up in bed in no apparent distress, she had an episode of orthostatic hypotension, she was taken off diuretics, we will start her on IV fluid in the form of normal saline at 75 mL an hour for the next 24 hours, echogram was reviewed, patient scheduled to go for Lexiscan stress test today patient will be kept in the hospital for another 24 hours because of that. She has no chest pain, she does not appear to be in any dyspnea, she has no swelling in her legs, she denies any abdominal pain, nausea, vomiting, or diarrhea. 11/12: Patient reports no chest pain, or shortness of breath, no cough or wheeze today. States dizziness has improved with IV fluids. Lexiscan reveals a possible area of reversibility along the mid to basal anterolateral wall, cardiology would like to review Lexiscan results before decision is made. Kidney function did improve after IV fluids, creatinine 1.63, BUN 51. Patient was noted to have an episode of dark tarry stool, sample was obtained and it was guaiac positive. Hemoglobin did drop slightly from 10.8 to 9.6 today. Heparin has been discontinued. She will need a GI workup to rule out GI bleed. Will consult surgery. Iron infusion ordered today. 11/13: 11/13: Patient sitting up in bed in no apparent distress she is feeling a bit better she had an episode of chest pain earlier today, she is scheduled to go for EGD this afternoon, she will be hopefully discharged home in the next 24 hours after obtaining the result of the EGD. 11/14: Patient underwent EGD yesterday. There was no evidence of new or old blood in the stomach, no ulcers or mucosal abnormality, in the duodenal bulb and abutting the pylorus there was a friable, ulcerated mass 2-3 cm in size, biopsies were taken and are pending. Duodenal tumor suspicious adenocarcinoma, CEA and CA 19-9 were ordered and are pending. She will need a CT scan with oral and IV contrast as an outpatient basis. Nephrology was consulted regarding her decreased kidney function in regards for recommendations for the CT. Plan is to wait on biopsy results and do CT/PET scan as outpatient depending on the biopsy results. Discharge diagnoses 1 recurrent angina and chest pain 2 severe dyspnea and shortness of breath 3 Sarcoidosis 4 diabetes 5 hyperlipidemia 6 hypothyroidism 7 chronic pain syndrome 8 anemia 9 recurrent UTI 10 chronic kidney disease stage III 11. Acute kidney injury on top of chronic kidney disease stage III. 13. GI bleed. 14. Duodenal tumor suspicious for adenocarcinoma The above impression and plan of care have been discussed and directed by signing physician. Jocelin Zhou nurse practitioner acting as scribe for signing physician. Patient Condition at Discharge: Stable Plan - Discharge Summary Discharge Rx Participant: No New Discharge Prescriptions: Continue ALPRAZolam [Xanax] 0.25 mg PO HS PRN PRN Reason: Anxiety Isosorbide Mononitrate ER [Imdur] 60 mg PO DAILY Hydrocodone/Acetaminophen [Dutton 10-325] 1 tab PO BID PRN PRN Reason: Pain Esomeprazole Magnesium [NexIUM] 40 mg PO BID Atorvastatin [Lipitor] 10 mg PO HS Allopurinol [Zyloprim] 200 mg PO DAILY Hydroxychloroquine Sulfate [Plaquenil] 200 mg PO BID Clopidogrel [Plavix] 75 mg PO HS Vitamin E 1,000 unit PO DAILY Ascorbic Acid [Vitamin C] 1,000 mg PO DAILY INSULIN LISPRO (HumaLOG) [humaLOG] See Protocol SQ ACHS Insulin NPH Hum/Reg Insulin Hm [NovoLIN 70-30 100 UNIT/ML VIAL] See Protocol SQ AC-TID Levothyroxine Sodium [Synthroid] 50 mcg PO TUTH Olanta-3 Fatty Acids/Fish Oil [Fish Oil 1,000 mg Softgel] 2 cap PO HS Nitroglycerin Sl Tabs [Nitrostat] 0.4 mg SUBLINGUAL Q5M PRN PRN Reason: Chest Pain Magnesium Gluconate [Magonate] 500 mg PO BID Estradiol [Vagifem] 10 mcg VG SUTH Metoprolol Succinate (ER) [Toprol XL] 100 mg PO BID fentaNYL 50MCG/HR PATCH [Duragesic 50MCG/HR] 50 mcg TRANSDERM Q72H Levothyroxine Sodium [Synthroid] 100 mcg PO DAILY Discharge Medication List ALPRAZolam [Xanax] 0.25 mg PO HS PRN 06/07/16 [History] Allopurinol [Zyloprim] 200 mg PO DAILY 06/07/16 [History] Ascorbic Acid [Vitamin C] 1,000 mg PO DAILY 06/07/16 [History] Atorvastatin [Lipitor] 10 mg PO HS 06/07/16 [History] Clopidogrel [Plavix] 75 mg PO HS 06/07/16 [History] Esomeprazole Magnesium [NexIUM] 40 mg PO BID 06/07/16 [History] Hydrocodone/Acetaminophen [Dutton 10-325] 1 tab PO BID PRN 06/07/16 [History] Hydroxychloroquine Sulfate [Plaquenil] 200 mg PO BID 06/07/16 [History] Isosorbide Mononitrate ER [Imdur] 60 mg PO DAILY 06/07/16 [History] Vitamin E 1,000 unit PO DAILY 06/07/16 [History] INSULIN LISPRO (HumaLOG) [humaLOG] See Protocol SQ ACHS 06/08/16 [History] Insulin NPH Hum/Reg Insulin Hm [NovoLIN 70-30 100 UNIT/ML VIAL] See Protocol SQ AC-TID 06/08/16 [History] Levothyroxine Sodium [Synthroid] 50 mcg PO TUTH 05/21/17 [History] Olanta-3 Fatty Acids/Fish Oil [Fish Oil 1,000 mg Softgel] 2 cap PO HS 05/21/17 [ History] Magnesium Gluconate [Magonate] 500 mg PO BID 09/24/17 [History] Nitroglycerin Sl Tabs [Nitrostat] 0.4 mg SUBLINGUAL Q5M PRN 09/24/17 [History] Estradiol [Vagifem] 10 mcg VG SUTH 11/08/17 [History] Levothyroxine Sodium [Synthroid] 100 mcg PO DAILY 11/08/17 [History] Metoprolol Succinate (ER) [Toprol XL] 100 mg PO BID 11/08/17 [History] fentaNYL 50MCG/HR PATCH [Duragesic 50MCG/HR] 50 mcg TRANSDERM Q72H 11/08/17 [ History] Follow up Appointment(s)/Referral(s): Madhav Smith MD [STAFF PHYSICIAN] - 11/21/17 9:45 am Sam Quiñonez MD [Primary Care Provider] - 11/15/17 9:15 am Zack Goodson DO [Doctor of Osteopathic Medicine] - 11/28/17 2:30 pm Patient Instructions/Handouts: Heart Failure (DC), Chest Pain (DC)
--- NOTE | 2017-11-14 17:24 | CONS ---
CONSULTATION REASON FOR CONSULT: Renal failure. HISTORY OF PRESENT ILLNESS: The patient is a 67-year-old female who was admitted to the hospital on 11/08/2017 with complaints of shortness of breath. Patient was initially in CHF and volume overload. She was diuresed and serum creatinine went up from 1.1 to 2.0 mg/dL following which the diuretics were held and patient was started on IV fluids. Her creatinine is now down to 1.3. The patient had an EGD done which showed an ulcerated duodenal mass. The biopsy and/pathology of which is currently pending. There was concern for needing a CT scan with IV contrast. However, it was decided to have the CT done as outpatient once the acute kidney injury has resolved. The patient will need a PET scan too down the road. PAST MEDICAL HISTORY: Chronic kidney disease and NKF stage III, currently stable. Type 2 diabetes, coronary artery disease, fibromyalgia, gastroesophageal reflux disease, hyperlipidemia, hypertension, and sarcoidosis. History of UTI. PAST SURGICAL HISTORY: Back surgery, , cholecystectomy, coronary artery bypass surgery, cardiac catheterization, tonsillectomy, tubal ligation. , rotator cuff surgery, bilateral knee arthroplasty, cataract surgery. SOCIAL HISTORY: Negative for smoking, drug abuse or alcohol abuse. MEDICATIONS: Medications at home include Xanax, vitamin C, Zyloprim, Plavix, Flexeril, Nexium, Imdur, Synthroid, Nitrostat, Toprol and Ventolin. ALLERGIES: INCLUDE PENICILLIN, PREDNISONE, SULFA, GABAPENTIN, IV DYE. EXAMINATION: Patient is currently comfortable, awake, not in any acute distress. Alert and oriented x3. Blood pressure is 113/63, heart rate 65 per minute. She is afebrile. Examination of the heart S1, S2. Examination of the lungs bilateral breath sounds are heard. Abdomen is soft, nontender. Examination of the lower extremities shows no evidence of edema. 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 LAB: Shows sodium 139, potassium 5.1, BUN 25, serum creatinine 1.3, hemoglobin 10.1 g/dL. ASSESSMENT: 1. Acute kidney injury secondary to diuresis, currently improved. 2. Chronic kidney disease stage 3 secondary to nephrosclerosis, currently completely benign urinalysis. We will follow up as outpatient. Patient has a scheduled appointment in about 2 weeks time. Renal function is now close to baseline. 3. Ulcerated duodenal mass status post biopsy, results of which are currently pending. 4. Gastrointestinal bleed, most likely associated with this new finding on the EGD. Await pathology results. PLAN: Patient is stable for discharge. It will be better to proceed with further imaging, which will need contrast agents down the road as outpatient once her renal function has improved further. MMODL / IJN: [id number] /
== END 2017-11-14 10:17 | disposition home or self-care (01) | DRG 303 ==
LOC: EC 08:18 → 6SEL 12:39 → OBSVTOIN 11-09 15:20
PROVIDERS: ADMIT Internal Medicine Geriatric Medicine; ATTEND Internal Medicine Geriatric Medicine
PROC: 0DB98ZX Excision of Duodenum, Via Natural or Artificial Opening Endoscopic, Diagnostic (ICD-10-PCS; principal; 2017-11-13 09:05)
DX: I25.110 Atherosclerotic heart disease of native coronary artery with unstable angina pectoris (principal); N17.9 Acute kidney failure, unspecified; C17.0 Malignant neoplasm of duodenum; K92.2 Gastrointestinal hemorrhage, unspecified; I13.0 Hypertensive heart and chronic kidney disease with heart failure and stage 1 through stage 4 chronic kidney disease, or unspecified chronic kidney disease; D86.9 Sarcoidosis, unspecified; E11.22 Type 2 diabetes mellitus with diabetic chronic kidney disease; N18.3 Chronic kidney disease, stage 3 (moderate); K57.10 Diverticulosis of small intestine without perforation or abscess without bleeding; T50.1X5A Adverse effect of loop [high-ceiling] diuretics, initial encounter; I27.20 Pulmonary hypertension, unspecified; I95.1 Orthostatic hypotension; D50.9 Iron deficiency anemia, unspecified; I08.1 Rheumatic disorders of both mitral and tricuspid valves; J44.9 Chronic obstructive pulmonary disease, unspecified; E11.42 Type 2 diabetes mellitus with diabetic polyneuropathy; I50.9 Heart failure, unspecified; R94.39 Abnormal result of other cardiovascular function study; K57.90 Diverticulosis of intestine, part unspecified, without perforation or abscess without bleeding; I44.0 Atrioventricular block, first degree; G89.4 Chronic pain syndrome; E78.5 Hyperlipidemia, unspecified; M79.7 Fibromyalgia; M19.90 Unspecified osteoarthritis, unspecified site; E66.9 Obesity, unspecified; E03.9 Hypothyroidism, unspecified; M51.36 Other intervertebral disc degeneration, lumbar region; K21.9 Gastro-esophageal reflux disease without esophagitis; Z83.3 Family history of diabetes mellitus; Z95.1 Presence of aortocoronary bypass graft; Z96.653 Presence of artificial knee joint, bilateral; Z87.440 Personal history of urinary (tract) infections; Z98.42 Cataract extraction status, left eye; Z98.41 Cataract extraction status, right eye; Z96.1 Presence of intraocular lens; Z79.4 Long term (current) use of insulin; Z79.899 Other long term (current) drug therapy; Z68.38 Body mass index [BMI] 38.0-38.9, adult; Z86.010 Personal history of colon polyps; Z82.49 Family history of ischemic heart disease and other diseases of the circulatory system; Z83.49 Family history of other endocrine, nutritional and metabolic diseases; Z98.51 Tubal ligation status; Z90.49 Acquired absence of other specified parts of digestive tract; Z88.0 Allergy status to penicillin; Z88.2 Allergy status to sulfonamides; Z88.8 Allergy status to other drugs, medicaments and biological substances; Z91.041 Radiographic dye allergy status; Z79.02 Long term (current) use of antithrombotics/antiplatelets; Z79.890 Hormone replacement therapy; Z79.891 Long term (current) use of opiate analgesic
CPT/HCPCS: 36415; 43239; 71046; 71275; 78452; 80053; 81003; 82272; 82378; 82550; 82553; 83036; 83735; 83880; 84484; 85025; 85027; 85379; 85610; 85730; 86301; 87040; 87077; 87086; 87186; 88305; 93005; 93017; 93306; 96361; 96365; 96366; 96375; 99285

== ENCOUNTER → 2017-12-05 | Outpatient (CLI) | payer MEDICARE, OTHER ==
--- NOTE | 2017-12-05 16:25 | CT ---
EXAMINATION TYPE: CT abdomen pelvis wo/w con DATE OF EXAM: 12/05/2017 COMPARISON: 04/06/2016 and 09/19/2015 HISTORY: 59 year-old female history of malignant gastric tumor, c/o pelvic pain TECHNIQUE: Contiguous axial scanning of the abdomen and pelvis before and after administration of 80 ml Isovue 300 IV contrast. Delayed images through the kidneys and coronal/sagittal reconstructions p erformed. CT DLP: 3441.7 mGycm Automated exposure control for dose reduction was used. FINDINGS: Heart mildly enlarged. Median sternotomy wires. No pericardial effusion. Visualized mid and lower lungs show patchy perihilar bronchovascular groundglass, possible tree-in-bu d opacities. No pleural effusion. Findings have increased from 09/19/2015, are new from 06/27/2010, and d id not seem to be significantly changed from 11/08/2017. Tiny hiatal hernia. No focal liver lesion or biliary ductal dilatation. Portal venous system is patent. Cholecystectomy clips. Diverticulum of the second portion of the duodenum projecting into the pancrea tic head region. Adrenal glands, left kidney, spleen, pancreas show no gross abnormality. Hilar splenules and prominent left para-aortic retroperitoneal lymph node measuring 8 mm, unchanged f rom 2016. No other retroperitoneal or mesenteric lymphadenopathy. 1.4 cm cortical lesion lower pole right kidney is unchanged from 2016 compatible with a cyst. Moderate atherosclerotic calcifications abdominal aorta. No aneurysm. No dilated small bowel, free fluid, or free air. Scattered mild without pericolonic inflammatory [place]. There is sigmoid diverticulosis. Bladder is urine distended. Uterus and ovaries are visualized. Pelvic fluid levels. No abnormal fluid collection in the pelvis or pelvic lymphadenopathy seen. Soft tissue density and associated calcifications within the superficial subcutaneous adipose tissues of the lower abdomen likely relating to chronic subcutaneous injections. Bones: Degenerative changes of the hips. Osteopenia. Posterior lumbar fusion hardware. Multilevel deg enerative changes in the spine. IMPRESSION: 1. A SUSPICIOUS GASTRIC TUMOR IS NOT CLEARLY IDENTIFIED. 2. PATCHY PERIBRONCHOVASCULAR GROUNDGLASS AND POSSIBLE TREE-IN-BUD OPACITIES IN THE VISUALIZED MID AN D LOWER LUNGS, NOT SIGNIFICANTLY CHANGED FROM 11/08/2017 BUT INCREASED FROM 09/19/2015. CORRELATE FOR PO SSIBLE ETIOLOGIES SUCH CRIMP SETTER, SARCOID, ATYPICAL PNEUMONIAS, AND BRONCHIOLITIS. 3. SIGMOID DIVERTICULOSIS.
== END | disposition home or self-care (01) ==
LOC: RADCTMAIN 13:50
PROVIDERS: ATTEND Internal Medicine Geriatric Medicine
DX: K57.30 Diverticulosis of large intestine without perforation or abscess without bleeding (principal)
CPT/HCPCS: 82565; 84520; 74178; 36415; Q9967

== ENCOUNTER 2017-12-13 06:55 | Day surgery (SDC) | payer MEDICARE, OTHER ==
[2017-12-10 17:18] VITALS: BMI 39.1
[~2017-12-13 06:55] MED LIST: LACTATED RINGERS 1,000 ML IV SCH; LIDOCAINE 1% 20 ML VIAL (10MG/ML) FOR IV START INTRADERMA PRN; MIDAZOLAM 2 MG/2 ML VIAL IV PRN
[2017-12-13 07:34] VITALS: RESP 18; TEMP 98.6
[2017-12-13] MEDS ORDERED: PROPOFOL 10 MG/ML 20 ML VIAL IV ONE (07:40)
[2017-12-13] MEDS ORDERED: GLYCOPYRROLATE 0.2 MG/ML 2 ML VIAL ONE (07:40)
[2017-12-13] MEDS ORDERED: LIDOCAINE 1% INJ 10MG/ML (20 ML MDV) ONE (07:40)
--- NOTE | 2017-12-13 08:10 | P.PCN ---
Date of Procedure: 12/13/17 Procedure(s) Performed: BRIEF HISTORY: Patient is a 67-year-old, pleasant, white white female, scheduled for an upper endoscopy as a part of follow-up of pyloric/duodenal polyp that was noted initially upper endoscopy a month ago by Dr. Saleh. The patient presented with iron deficiency anemia and GI bleed and hence an upper endoscopy performed on 11/14/2079 showed an ulcerated lesion in the duodenal bulb/pyloric area and biopsies revealed hyperplastic polyp. She is hence scheduled today for possible endoscopic polypectomy. PROCEDURE PERFORMED: Esophagogastroduodenoscopy with snare polypectomy and Endo Clip placement. PREOPERATIVE DIAGNOSIS: Ulcerated duodenal polypoid lesion noted on upper endoscopy a month ago. IV sedation per anesthesia. PROCEDURE: After informed consent was obtained, the patient was brought into the endoscopy unit. IV sedation was administered by Anesthesia under continuous monitoring. Initially the Olympus GIF-140 video endoscope was inserted into the mouth. Esophagus intubated without any difficulty. It was gradually advanced into the stomach and duodenum and carefully examined. The bulb and the second part of the duodenum appeared normal. Initially there was a 2.5-3 cm pedunculated polyp noted in the duodenal bulb but with gentle suction I was able to pull it into the gastric antrum and the location of the polyp was in the prepyloric area close to the pylorus. It had a thick peduncle and at this time I proceeded with complete snare polypectomy. Following this there was small oozing noted at the base of the polyp and hence Endo Clip was placed with good hemostasis. The scope at this time was withdrawn to the stomach, adequately insufflated with air, and upon careful examination, mucosa of the antrum, body, cardia and the fundus appeared normal. The scope was then withdrawn into the esophagus. The GE junction was located at 39 cm from the incisors. Very small hiatal hernia noted. The esophagus appeared normal. There were no erosions or ulcerations seen and the patient tolerated the procedure well. IMPRESSION: 1. 2.5 - 3 cm ulcerated polyp on a thick peduncle in the prepyloric area status post complete snare polypectomy followed by Endo Clip placement. RECOMMENDATIONS: The findings of this examination were discussed with the patient as well as her family. She was advised to hold off on aspirin and Plavix for 5 days. She'll be seen in office in a week to discuss the biopsy results..
[2017-12-13] MEDS ORDERED: ONDANSETRON 4 MG/2 ML VIAL IVP ONE (08:15)
[2017-12-13 08:45] VITALS: BP 145/63; PULSE 69
[2017-12-16 07:25] LABS: Glucose,Whole Blood 135 mg/dL (75-99)
[2017-12-16 07:25] LABS: Glucose,Whole Blood 136 mg/dL (75-99)
== END 2017-12-13 09:06 | disposition home or self-care (01) ==
LOC: ORWHC2ENDO 06:55
PROVIDERS: ATTEND Internal Medicine Gastroenterology
DX: K29.00 Acute gastritis without bleeding (principal); K29.50 Unspecified chronic gastritis without bleeding; K31.7 Polyp of stomach and duodenum; K44.9 Diaphragmatic hernia without obstruction or gangrene; K21.9 Gastro-esophageal reflux disease without esophagitis; I25.10 Atherosclerotic heart disease of native coronary artery without angina pectoris; E78.5 Hyperlipidemia, unspecified; D86.9 Sarcoidosis, unspecified; E09.22 Drug or chemical induced diabetes mellitus with diabetic chronic kidney disease; I12.9 Hypertensive chronic kidney disease with stage 1 through stage 4 chronic kidney disease, or unspecified chronic kidney disease; N18.3 Chronic kidney disease, stage 3 (moderate); Z87.440 Personal history of urinary (tract) infections; Z79.4 Long term (current) use of insulin; Z79.899 Other long term (current) drug therapy; Z95.1 Presence of aortocoronary bypass graft; Z96.653 Presence of artificial knee joint, bilateral; Z79.02 Long term (current) use of antithrombotics/antiplatelets
CPT/HCPCS: 88305; 43251; J2405; J2001; J2704; 43247; 43255

== ENCOUNTER → 2018-09-02 | Outpatient (CLI) | payer MEDICARE, OTHER ==
--- NOTE | 2018-09-03 09:55 | MM ---
Reason for exam: screening (asymptomatic). Last mammogram was performed 1 year ago. History: Patient is postmenopausal. Taking progesterone for 3 years. Physical Findings: A clinical breast exam by your physician is recommended on an annual basis and results should be correlated with mammographic findings. MG Screening Mammo w CAD Bilateral CC and MLO view(s) were taken. Prior study comparison: August 26, 2017, bilateral MG screening mammo w CAD. August 23, 2016, bilateral MG screening mammo w CAD. There are scattered fibroglandular densities. There are benign appearing round vascular calcifications bilaterally. There is no discrete abnormality. ASSESSMENT: Benign, BI-RAD 2 RECOMMENDATION: Routine screening mammogram of both breasts in 1 year.
== END ==
LOC: RADMAMWWP 09:42
PROVIDERS: ATTEND Obstetrics & Gynecology
DX: Z12.31 Encounter for screening mammogram for malignant neoplasm of breast (principal)
CPT/HCPCS: 77067

== ENCOUNTER 2018-10-21 07:34 | Day surgery (SDC) | payer MEDICARE, OTHER ==
[2018-10-17 11:43] VITALS: BMI 38.6
[~2018-10-21 07:34] MED LIST changes: +HYDROmorphone 0.5 MG/0.5 ML SYRINGE IVP PRN; -LIDOCAINE 1% 20 ML VIAL (10MG/ML) FOR IV START INTRADERMA PRN; +ONDANSETRON 4 MG/2 ML VIAL IVP ONE; +ceFAZolin IN SWFI 2 GM/20 ML SYRINGE IVP ONE
[2018-10-21 08:00] VITALS: TEMP 97.8
[2018-10-21 08:12] LABS: Glucose,Whole Blood 142 mg/dL (75-99)
[2018-10-21] MEDS ORDERED: LIDOCAINE 2% INJ 20 MG/ML SQ ONE (08:33)
[2018-10-21] MEDS ORDERED: BUPIVACAINE (PF) 0.5% 30 ML VIAL SQ ONE (08:33)
[2018-10-21] MEDS ORDERED: LIDOCAINE 1% INJ 10MG/ML (20 ML MDV) ONE (08:38)
[2018-10-21] MEDS ORDERED: PROPOFOL 10 MG/ML 20 ML VIAL IV ONE (08:38)
[2018-10-21] MEDS ORDERED: MIDAZOLAM 2 MG/2 ML VIAL ONE (08:38)
[2018-10-21] MEDS ORDERED: fentaNYL (PF) 50 MCG/ML 2 ML AMP ONE (08:38)
[2018-10-21] MEDS ORDERED: LACTATED RINGERS 1,000 ML IV ONE (09:03)
[2018-10-21 09:31] VITALS: BP 164/70; PULSE 51; RESP 16
[2018-10-21 09:47] LABS: Glucose,Whole Blood 122 mg/dL (75-99)
--- NOTE | 2018-10-21 22:56 | OP ---
OPERATIVE REPORT SURGERY DATE: 10/21/2018 PREOPERATIVE DIAGNOSIS: Right index trigger finger. FINAL DIAGNOSIS: Right index trigger finger. OPERATION PERFORMED: Trigger finger release. PROCEDURE: A transverse incision was made in the proximal skin crease of the middle finger. Blunt dissection was taken through the subcutaneous tissue to identify the neurovascular bundles. They were kept in view and gently retracted out of harm?s way while a longitudinal release of the A1 gavin was performed. The flexor pollicis longus was examined and slight swelling was noted but the tendon was intact. The tendon was gently retracted from the wound to ensure no adhesion. The wound was then thoroughly irrigated, tourniquet released. Hemostasis was acquired and the skin was closed with 5-0 nylon suture. Soft bulky dressing applied. The patient was taken to the recovery room in satisfactory condition. MMODL / IJN: [id number] /
== END 2018-10-21 09:51 | disposition home or self-care (01) ==
LOC: OR 07:34
PROVIDERS: ATTEND Orthopaedic Surgery Hand Surgery
DX: M65.321 Trigger finger, right index finger (principal); I13.10 Hypertensive heart and chronic kidney disease without heart failure, with stage 1 through stage 4 chronic kidney disease, or unspecified chronic kidney disease; E11.22 Type 2 diabetes mellitus with diabetic chronic kidney disease; N18.9 Chronic kidney disease, unspecified; Z79.4 Long term (current) use of insulin; E07.9 Disorder of thyroid, unspecified; M79.7 Fibromyalgia; M19.90 Unspecified osteoarthritis, unspecified site; E78.5 Hyperlipidemia, unspecified; R00.2 Palpitations; K21.9 Gastro-esophageal reflux disease without esophagitis; Z95.1 Presence of aortocoronary bypass graft; D86.9 Sarcoidosis, unspecified; Z79.82 Long term (current) use of aspirin; Z79.890 Hormone replacement therapy; Z79.891 Long term (current) use of opiate analgesic; Z79.02 Long term (current) use of antithrombotics/antiplatelets; Z79.899 Other long term (current) drug therapy; Z90.49 Acquired absence of other specified parts of digestive tract; Z88.0 Allergy status to penicillin; Z88.2 Allergy status to sulfonamides; Z88.8 Allergy status to other drugs, medicaments and biological substances
CPT/HCPCS: 26055; J2001 ×2; J2250; J2405; J3010; J2704; J0690

== ENCOUNTER 2019-03-28 13:15 | Observation (INO) | payer MEDICARE ==
--- NOTE | 2019-03-28 14:07 | ED ---
Chest Pain HPI - General Chief Complaint: Chest Pain Stated Complaint: Chest discomfort Time Seen by Provider: 03/28/19 13:25 Source: patient Mode of arrival: ambulatory Limitations: no limitations - History of Present Illness Initial Comments: The patient is a 69-year-old female with past medical history coronary artery disease status post CABG, diabetes mellitus and sarcoid who presents to the emergency department with reported chest palpitations. She states that her symptoms started around 3 PM yesterday. States that she was relaxing at home an d they came on. States that her heart rate tolerates when she ambulates. Admits to exertional shortness of breath. Also admits orthopnea she has been present for the past several days. No history of congestive heart failure. Denies chest pain but admits to chest pressure. No ripping or tearing sensation to her back. Denies fevers, chills or hemoptysis. No nausea or vomiting. No recent surgeries. Denies a history of DVT or PE. No family history of blood clotting disorders. Denies pedal edema. No recent medication changes. She is currently on Plaquinil for her sarcoid. No recent antibiotic or steroid use. There are no other alleviating, precipitating or modifying factors - Related Data Home Medications Medication Instructions Recorded Confirmed ALPRAZolam [Xanax] 0.25 mg PO BID PRN 06/07/16 03/28/19 Allopurinol [Zyloprim] 100 mg PO DAILY 06/07/16 03/28/19 Atorvastatin [Lipitor] 10 mg PO HS 06/07/16 03/28/19 Clopidogrel [Plavix] 75 mg PO HS 06/07/16 03/28/19 Esomeprazole Magnesium [NexIUM] 40 mg PO BID 06/07/16 03/28/19 Hydrocodone/Acetaminophen [[place] 1 tab PO BID PRN 06/07/16 03/28/19 10-325] Hydroxychloroquine Sulfate 200 mg PO BID 06/07/16 03/28/19 [Plaquenil] Isosorbide Mononitrate ER [Imdur] 60 mg PO DAILY 06/07/16 03/28/19 INSULIN LISPRO (HumaLOG) [humaLOG] See Protocol SQ ACHS 06/08/16 03/28/19 Insulin NPH Hum/Reg Insulin Hm See Protocol SQ AC-TID 06/08/16 03/28/19 [NovoLIN 70-30 100 UNIT/ML VIAL] Levothyroxine Sodium [Synthroid] 50 mcg PO TUTH 05/21/17 03/28/19 Nitroglycerin Sl Tabs [Nitrostat] 0.4 mg SUBLINGUAL Q5M PRN 09/24/17 03/28/19 Levothyroxine Sodium [Synthroid] 100 mcg PO SUMOWEFRSA 11/08/17 03/28/19 Metoprolol Succinate (ER) [Toprol 100 mg PO BID 11/08/17 03/28/19 XL] Aspirin [Adult Low Dose Aspirin EC] 81 mg PO HS 12/10/17 03/28/19 Clobetasol Propionate [Temovate 1 applic TOPICAL DAILY 03/28/19 03/28/19 0.05% Cream] Clotrimazole/Betamethasone Dip 1 applic TOPICAL BID 03/28/19 03/28/19 [Lotrisone Cream] Cyclobenzaprine [Flexeril] 10 mg PO TID PRN 03/28/19 03/28/19 Estradiol [Vagifem] 10 mcg VAGINAL MOTH 03/28/19 03/28/19 Triamcinolone 0.1% Cream [Kenalog 1 applic TOPICAL DAILY 03/28/19 03/28/19 0.1% Cream] Allergies Allergy/AdvReac Type Severity Reaction Status Date / Time Penicillins Allergy Rash/Hives Verified 03/28/19 16:56 prednisone Allergy Rapid Verified 03/28/19 16:56 Heart Rate Sulfa (Sulfonamide Allergy Rash/Hives Verified 03/28/19 16:56 Antibiotics) gabapentin [From Neurontin] AdvReac Unknown Verified 03/28/19 16:56 methylprednisolone AdvReac Rapid Verified 03/28/19 16:56 [From Medrol] Heart Rate Review of Systems ROS Statement: Those systems with pertinent positive or pertinent negative responses have been documented in the HPI. ROS Other: All systems not noted in ROS Statement are negative. EKG Findings - EKG Comments: EKG Findings:: EKG demonstrates normal sinus rhythm with a ventricular rate of 86. IL interval 190. Trazodone 10. QTC 454. There are no acute ST segment elevations. Inverted T waves and some ST depression in leads 1, aVL, V5 through V6. This appears similar to patient's previous EKG however is more pronounced Past Medical History Past Medical History: Coronary Artery Disease (CAD), Chest Pain / Angina, Diabetes Mellitus, Fibromyalgia, GERD/Reflux, Hyperlipidemia, Hypertension, Osteoarthritis (OA), Renal Disease, Respiratory Disorder, Thyroid Disorder Additional Past Medical History / Comment(s): sarcoidosis, chronic kidney disease stage III, diverticulosis, colon polyps neuropathy-balance issues, reccurring UTI, upper/lower bridges. VARICOSE VEINS. RT INDEX TRIGGER FINGER CURRENTLY. History of Any Multi-Drug Resistant Organisms: None Reported Past Surgical History: Back Surgery, Section, Cholecystectomy, Coronary Bypass/CABG, Heart Catheterization, Joint Replacement, Tonsillectomy, Tubal Ligation Additional Past Surgical History / Comment(s): C-S X2, left shoulder rotator cuff, bilateral knee replacement 2014, 4 vessel CABG in 2002, bilateral cataract extraction and intraocular lens implants, picc line -since removed. Colonoscopy in 2016. BRONCHOSCOPY, BIOPSY. Past Anesthesia/Blood Transfusion Reactions: Motion Sickness, Postoperative Nausea & Vomiting (PONV) Past Psychological History: No Psychological Hx Reported Smoking Status: Never smoker Past Alcohol Use History: None Reported Past Drug Use History: None Reported - Past Family History Mother Family Medical History: Diabetes Mellitus Additional Family Medical History / Comment(s): Mother at age 70 with history of coronary artery disease status post CABG 2 and diabetes. Father Family Medical History: Diabetes Mellitus Additional Family Medical History / Comment(s): Father at age 83 with history of coronary artery disease status post CABG and diabetes. Daughter(s) Additional Family Medical History / Comment(s): Patient has one daughter with hyperlipidemia. Patient has one son with diabetes. Patient is an only child. General Exam Limitations: no limitations General appearance: alert, in no apparent distress Head exam: Present: atraumatic, normocephalic, normal inspection Eye exam: Present: normal appearance, PERRL, EOMI. Absent: scleral icterus, conjunctival injection, periorbital swelling ENT exam: Present: normal exam, mucous membranes moist Neck exam: Present: normal inspection. Absent: tenderness, meningismus, lymphadenopathy Respiratory exam: Present: normal lung sounds bilaterally. Absent: respiratory distress, wheezes, rales, rhonchi, stridor Cardiovascular Exam: Present: regular rate, normal rhythm, normal heart sounds. Absent: systolic murmur, diastolic murmur, rubs, gallop, clicks GI/Abdominal exam: Present: soft, normal bowel sounds. Absent: distended, tenderness, guarding, rebound, rigid Extremities exam: Present: normal inspection, full ROM, normal capillary refill. Absent: tenderness, pedal edema, joint swelling, calf tenderness Back exam: Present: normal inspection Neurological exam: Present: alert, oriented X3, CN II-XII intact Psychiatric exam: Present: normal affect, normal mood Skin exam: Present: warm, dry, intact, normal color. Absent: rash Course Vital Signs 03/28/19 03/28/19 03/28/19 13:21 14:00 15:00 Temperature 98 F Pulse Rate 89 85 84 Respiratory 18 18 18 Rate Blood Pressure 124/89 149/71 149/71 O2 Sat by Pulse 98 98 96 Oximetry 03/28/19 03/28/19 03/28/19 16:00 17:00 17:14 Temperature 98.7 F Pulse Rate 88 98 Respiratory 16 18 Rate Blood Pressure 149/71 141/74 O2 Sat by Pulse 98 97 Oximetry Chest Pain MDM - MDM Upon arrival the patient was placed into room 8. A thorough history and physical exam was performed. I recommended laboratory studies and a chest x- ray. EKG is unremarkable. D-dimer is elevated at 1.5. Creatinine 1.4 which from the patient's baseline. Troponin 0.015. BNP of 411. Chest x-ray is performed and demonstrates no active cardiopulmonary disease. I did discuss results with the patient. Because of her elevated d-dimer I do request to do a CT. The patient does have a low GFR and therefore radiology does refused to perform the study. I discussed this with the patient. I did recommend a ventilation perfusion scan. Also recommended continuing to trend the patient's troponins have a cardiology consult because of her orthopnea. I called and discussed the case with Dr. Collier who accepted admission for the patient. Bridging orders were placed. Ventilation/perfusion scan was ordered the patient was taken to imaging immediately therefore I do hold off on heparinizing the patient. Disposition Clinical Impression: Chest pain, Shortness of breath, Palpitations, Elevated d-dimer Disposition: ADMITTED IP TO THIS [facility] Condition: Stable Is patient prescribed a controlled substance at d/c from ED?: No Decision to Admit Reason: Admit from EC Decision Date: 03/28/19 Decision Time: 16:33
[2019-03-28 14:19] LABS: Basophils % (A) 1 %; Eosinophils # (A) 0.2 k/uL (0-0.7); Eosinophils % (A) 4 %; HCT 39.4 % (34.0-46.0); HGB 12.6 gm/dL (11.4-16.0); Lymphocytes # (A) 1.3 k/uL (1.0-4.8); Lymphocytes % (A) 20 %; MCH 30.5 pg (25.0-35.0); MCV 95.2 fL (80.0-100.0); Mean Platelet Volume 8.1; Monocytes # (A) 0.3 k/uL (0-1.0); Monocytes % (A) 5 %; Neutrophils # (A) 4.5 k/uL (1.3-7.7); Neutrophils % (A) 69 %; Platelet Count 172 k/uL (150-450); RBC 4.13 m/uL (3.80-5.40); RDW 14.5 % (11.5-15.5); WBC 6.6 k/uL (3.8-10.6)
--- NOTE | 2019-03-28 14:20 | XR ---
EXAMINATION TYPE: XR chest 2V DATE OF EXAM: 03/28/2019 COMPARISON: 11/10/2017 HISTORY: Chest pain TECHNIQUE: Frontal and lateral views of the chest are obtained. FINDINGS: Heart is normal. Lungs are clear of consolidation. There are no hilar masses. There are ch est leads. There are sternal wires. Bony thorax is intact. There is slight widening left AC joint unc hanged. IMPRESSION: No active cardiopulmonary disease. Normal heart. No change.
[2019-03-28 14:29] LABS: Albumin 4.3 g/dL (3.5-5.0); Calcium 10.3 mg/dL (8.4-10.2); Magnesium 1.7 mg/dL (1.6-2.3); Potassium 4.9 mmol/L (3.5-5.1); Total Bilirubin 0.4 mg/dL (0.2-1.3); Total Protein 7.6 g/dL (6.3-8.2)
[2019-03-28 14:36] LABS: INR 0.9 (<1.2); Partial Thromboplastin Time 23.3 sec (22.0-30.0); Prothrombin Time 9.5 sec (9.0-12.0)
[2019-03-28 14:51] LABS: D-Dimer 1.52 mg/L FEU (<0.60)
[2019-03-28] MEDS ORDERED: NALOXONE 0.4 MG/ML 1 ML VIAL IV PRN (16:33)
[2019-03-28] MEDS ORDERED: ENOXAPARIN 100 MG/ML SYRINGE SQ STA (16:36)
--- NOTE | 2019-03-28 18:26 | NM ---
EXAMINATION TYPE: NM pul vent and perfuse DATE OF EXAM: 03/28/2019 COMPARISON: NONE HISTORY: Elevated d-dimer. Short of breath. TECHNIQUE: Utilizing inhalation of 68.9 mCi Tc 99m DTPA aerosol and intravenous injection of 5.3 mCi of Tc 99m MAA, ventilation and perfusion images are acquired post injection in multiple projections. FINDINGS: There is mild symmetric decreased ventilation and perfusion of the upper lobes compared to the lower lobes. There is no mismatch. There is no segmental type defect. IMPRESSION: Matching bilateral upper lobe defect consistent with airway disease. There is a low probability of pu lmonary embolism.
[2019-03-28] MEDS ORDERED: CYCLOBENZAPRINE 10 MG TAB PO PRN (19:04)
[2019-03-28] MEDS ORDERED: HYDROcodone/APAP 10-325MG 1 EACH TAB PO PRN (19:04)
[2019-03-28] MEDS ORDERED: ALPRAZolam 0.25 MG TAB PO PRN (19:04)
[2019-03-28] MEDS ORDERED: NITROGLYCERIN SL TABS 0.4 MG TAB SUBLINGUAL PRN (19:04)
[2019-03-28] MEDS ORDERED: ATORVASTATIN 10 MG TAB PO SCH (21:00)
[2019-03-28] MEDS ORDERED: ASPIRIN 81 MG PO SCH (21:00)
[2019-03-28] MEDS ORDERED: CLOPIDOGREL 75 MG TAB PO SCH (21:00)
[2019-03-28 21:04] LABS: Glucose,Whole Blood 205 mg/dL (75-99)
[2019-03-28] MEDS: CLOTRIMAZOLE/BETAMETH 1-0.05% CREAM 45 GM TUBE TOPICAL SCH (21:20)
[2019-03-28] MEDS: PANTOPRAZOLE 40 MG TABLET PO SCH (21:20)
[2019-03-28] MEDS: HYDROXYCHLOROQUINE SULFATE 200 MG TAB PO SCH (21:21)
[2019-03-28] MEDS: METOPROLOL SUCCINATE (ER) 100 MG TAB.ER.24H PO SCH (21:21)
[2019-03-28] MEDS: INSULIN ASPART (NovoLOG) 100 UNIT/ML VIAL SQ SCH (21:22)
[2019-03-28] MEDS: INSULIN NPH 300 UNIT/3 ML VIAL SQ SCH (21:23)
[2019-03-29 06:00] LABS: Glucose,Whole Blood 119 mg/dL (75-99)
[2019-03-29] MEDS: INSULIN ASPART (NovoLOG) 100 UNIT/ML VIAL SQ SCH ×2 (06:12→12:02)
[2019-03-29] MEDS: INSULIN NPH 300 UNIT/3 ML VIAL SQ SCH ×2 (06:13→12:01)
--- NOTE | 2019-03-29 06:20 | P.HPIM ---
History of Present Illness H&P Date: 03/28/19 Chief Complaint: chest pain/palpitations. 69-year-old female one of my office patient with multiple medical problem was known to have history of CAD post CABG, post heart catheter back in 2016 with no major blockage at the time, also patient suffered from stage III chronic kidney disease has been seen Dr. Pham on regular basis. History of diabetes has been doing better also history of sarcoidosis who seen Dr. Goodson the for the last 15 years on regular basis and not on any active medication currently. Patient has been packing her stuff at home for plan to move to a different home and she noticed that she has been more short of breath along with increased palpitations without being able to lay flat for the past few days and she was debating wether or not she should come to the Emergency Department for evaluation and she finally did, she did not notice any increased swelling in both legs, no recent travel or trauma, no coughing or hemoptysis, but she knows that this is different from the angina that she gets once harry while, she was seen in the Emergency and was found to have elevated D-Dimer( but unfortunately she has CKD 3 which make D-Dimer elevated) so there was a concerns for Pulmonary Embolism however patient is not in acute respiratory distress, therefore it was decided to go for VQ scan if it is negative that will rule it out, she will have her cardiac enzymes checked and will be seen in consultation and Cardiology and Pulmonary. Review of Systems Constitutional: Denies anorexia, Denies chronic headaches, Denies lethargy, Denies malaise, Denies weight gain, Denies weight loss Eyes: denies blurred vision, denies bulging eye, denies decreased vision Ears, nose, mouth and throat: Denies dysphagia, Denies neck lump, Denies sore throat Cardiovascular: Reports chest pain, Reports decreased exercise tolerance, Reports dyspnea on exertion, Reports rapid heart beat, Reports shortness of breath, Denies lightheadedness, Denies syncope Respiratory: Denies congestion, Denies cough with sputum, Denies home oxygen, Denies sleep apnea, Denies snoring, Denies wheezing Gastrointestinal: Denies abdominal pain, Denies BRBPR, Denies heartburn, Denies hematemesis, Denies melena, Denies nausea, Denies vomiting Genitourinary: Denies dysuria, Denies nocturia Menstruation: Reports postmenopausal Musculoskeletal: Denies myalgias Musculoskeletal: absent: ankle pain, ankle stiffness, ankle swelling, elbow pain, elbow stiffness, elbow swelling, foot pain, foot stiffness, foot swelling, hand pain, hand stiffness, hand swelling, hip pain, hip stiffness, hip swelling, knee pain, knee stiffness, knee swelling, shoulder pain, shoulder stiffness, shoulder swelling, wrist pain, wrist stiffness, wrist swelling Integumentary: Denies pruritus, Denies rash Neurological: Denies numbness, Denies weakness Psychiatric: Reports anxiety Endocrine: Denies fatigue, Denies weight change Past Medical History Past Medical History: Coronary Artery Disease (CAD), Chest Pain / Angina, Diabetes Mellitus, Fibromyalgia, GERD/Reflux, Hyperlipidemia, Hypertension, Osteoarthritis (OA), Renal Disease, Respiratory Disorder, Thyroid Disorder Additional Past Medical History / Comment(s): sarcoidosis, chronic kidney disease stage III, diverticulosis, colon polyps neuropathy-balance issues, reccurring UTI, upper/lower bridges. VARICOSE VEINS. RT INDEX TRIGGER FINGER CURRENTLY. History of Any Multi-Drug Resistant Organisms: None Reported Past Surgical History: Back Surgery, Section, Cholecystectomy, Coronary Bypass/CABG, Heart Catheterization, Joint Replacement, Tonsillectomy, Tubal Ligation Additional Past Surgical History / Comment(s): C-S X2, left shoulder rotator cuff, bilateral knee replacement 2014, 4 vessel CABG in 2002, bilateral cataract extraction and intraocular lens implants, picc line -since removed. Colonoscopy in 2015. BRONCHOSCOPY, BIOPSY. Past Anesthesia/Blood Transfusion Reactions: Motion Sickness, Postoperative Nausea & Vomiting (PONV) Past Psychological History: No Psychological Hx Reported Smoking Status: Never smoker Past Alcohol Use History: None Reported Past Drug Use History: None Reported - Past Family History Mother Family Medical History: Diabetes Mellitus Additional Family Medical History / Comment(s): Mother at age 70 with history of coronary artery disease status post CABG 2 and diabetes. Father Family Medical History: Diabetes Mellitus Additional Family Medical History / Comment(s): Father at age 83 with history of coronary artery disease status post CABG and diabetes. Daughter(s) Additional Family Medical History / Comment(s): Patient has one daughter with hyperlipidemia. Patient has one son with diabetes. Patient is an only child. Medications and Allergies Home Medications Medication Instructions Recorded Confirmed Type ALPRAZolam [Xanax] 0.25 mg PO BID PRN 06/07/16 03/28/19 History Allopurinol [Zyloprim] 100 mg PO DAILY 06/07/16 03/28/19 History Atorvastatin [Lipitor] 10 mg PO HS 06/07/16 03/28/19 History Clopidogrel [Plavix] 75 mg PO HS 06/07/16 03/28/19 History Esomeprazole Magnesium [NexIUM] 40 mg PO BID 06/07/16 03/28/19 History Hydrocodone/Acetaminophen [[place] 1 tab PO BID PRN 06/07/16 03/28/19 History 10-325] Hydroxychloroquine Sulfate 200 mg PO BID 06/07/16 03/28/19 History [Plaquenil] Isosorbide Mononitrate ER [Imdur] 60 mg PO DAILY 06/07/16 03/28/19 History INSULIN LISPRO (HumaLOG) [humaLOG] See Protocol SQ ACHS 06/08/16 03/28/19 History Insulin NPH Hum/Reg Insulin Hm See Protocol SQ AC-TID 06/08/16 03/28/19 History [NovoLIN 70-30 100 UNIT/ML VIAL] Levothyroxine Sodium [Synthroid] 50 mcg PO TUTH 05/21/17 03/28/19 History Nitroglycerin Sl Tabs [Nitrostat] 0.4 mg SUBLINGUAL Q5M PRN 09/24/17 03/28/19 History Levothyroxine Sodium [Synthroid] 100 mcg PO SUMOWEFRSA 11/08/17 03/28/19 History Metoprolol Succinate (ER) [Toprol 100 mg PO BID 11/08/17 03/28/19 History XL] Aspirin [Adult Low Dose Aspirin EC] 81 mg PO HS 12/10/17 03/28/19 History Clobetasol Propionate [Temovate 1 applic TOPICAL DAILY 03/28/19 03/28/19 History 0.05% Cream] Clotrimazole/Betamethasone Dip 1 applic TOPICAL BID 03/28/19 03/28/19 History [Lotrisone Cream] Cyclobenzaprine [Flexeril] 10 mg PO TID PRN 03/28/19 03/28/19 History Estradiol [Vagifem] 10 mcg VAGINAL MOTH 03/28/19 03/28/19 History Triamcinolone 0.1% Cream [Kenalog 1 applic TOPICAL DAILY 03/28/19 03/28/19 History 0.1% Cream] Allergies Allergy/AdvReac Type Severity Reaction Status Date / Time Penicillins Allergy Rash/Hives Verified 03/28/19 16:56 prednisone Allergy Rapid Verified 03/28/19 16:56 Heart Rate Sulfa (Sulfonamide Allergy Rash/Hives Verified 03/28/19 16:56 Antibiotics) gabapentin [From Neurontin] AdvReac Unknown Verified 03/28/19 16:56 methylprednisolone AdvReac Rapid Verified 03/28/19 16:56 [From Medrol] Heart Rate Physical Exam Vitals: Vital Signs Temp Pulse Resp BP Pulse Ox 03/28/19 16:00 88 16 149/71 98 03/28/19 15:00 84 18 149/71 96 03/28/19 14:00 85 18 149/71 98 03/28/19 13:21 98 F 89 18 124/89 98 Intake and Output 03/28/19 03/28/19 03/28/19 06:59 14:59 22:59 Other: Weight 102.058 kg - Constitutional General appearance: average body habitus, no acute distress - EENT Eyes: anicteric sclerae, EOMI, PERRLA, no ptosis, no scleral icterus, normal appearance ENT: hearing grossly normal, NA/AT, normal oropharynx, no thrush Ears: bilateral: normal - Neck Neck: no lymphadenopathy, normal ROM, no rigidity, no stridor, no thyromegaly Carotids: bilateral: upstroke normal Thyroid: bilateral: normal size - Respiratory Respiratory: bilateral: diminished, negative: dullness, rales, rhonchi, wheezing, prolonged expiration, prolonged inspiration - Cardiovascular Rhythm: regular Heart sounds: normal: S1, S2 Abnormal Heart Sounds: systolic murmur, no rub, no S3 Gallop, no S4 Gallop, no click - Gastrointestinal General gastrointestinal: normal bowel sounds, soft, no tenderness, no umbilical hernia, no ventral hernia - Integumentary Integumentary: normal, normal turgor - Neurologic Neurologic: CNII-XII intact - Musculoskeletal Musculoskeletal: gait normal, strength equal bilaterally - Psychiatric Psychiatric: A&O x's 3, appropriate affect, intact judgment & insight Results CBC & Chem 7: 03/28/19 13:55 03/28/19 13:55 Labs: Abnormal Lab Results - Last 24 Hours (Table) 03/28/19 03/28/19 Range/Units 13:55 13:55 D-Dimer 1.52 H (<0.60) mg/L FEU BUN 33 H (7-17) mg/dL Creatinine 1.43 H (0.52-1.04) mg/dL Glucose 202 H (74-99) mg/dL Calcium 10.3 H (8.4-10.2) mg/dL Thrombosis Risk Factor Assmnt - DVT/VTE Prophylaxis DVT/VTE Prophylaxis: Pharmacologic Prophylaxis ordered, Mechanical Prophylaxis ordered Assessment and Plan Assessment: Assessment and Plan: 1. Chest pain with palpitations. doubt Pulmonary Embolism and it appears different than her angina. we will check cardiac enzymes ,VQ scan and will be seen by Cardiology and Pulmonary. 2. CAD post CABG . will continue with ASA 81 mg orally daily, Plavix 75 mg orally daily, Imdur 60m orally daily and Metoprolol 100 mg orally bid along with Lipitor 10 mg orally daily. 3. Pulmonary sarcoidosis. inactive. consult Pulmonary. 4. Hypertension and hypertensive cardiovascular disease. we will continue with Metoprolol 100 mg orally bid. 5. Hyperlipidemia. we will continue with Lipitor 10mg orally daily. 6. Diabetes mellitus type 2. we will continue with Humalog 70/30 25 units TID along with SSI. BGM Ac connie and at bedtime. 7. Hypothyroidism. we will continue with synthroid 100 mcg orally daily except Saturday and 50 mcg . 8. Gout. we will continue with Allopurinol 100 mg orally daily. 9. CKD stage 3 . Avoid Contrast dye. 10. chronic pain syndrome with low back pain and Neuropathy. continue with Flexeril. 11. GERD with recent EGD that showed Polyp(benign). 12. DVT prophylaxis . we will continue with Heparin 5000 units sc Q 8 H. 13. GI prophylaxis. on PPI. 14. Admits for inpatient.estimated length of stay 2 midnights. 15. Full code.
[2019-03-29] MEDS: PANTOPRAZOLE 40 MG TABLET PO SCH (06:24)
[2019-03-29] MEDS ORDERED: LEVOTHYROXINE 100 MCG TAB PO SCH (06:30)
[2019-03-29] MEDS ORDERED: HEPARIN SODIUM,PORCINE 5,000 UNIT/ML 1 ML VIAL SQ SCH (08:00)
[2019-03-29] MEDS: METOPROLOL SUCCINATE (ER) 100 MG TAB.ER.24H PO SCH (08:46)
[2019-03-29] MEDS: HYDROXYCHLOROQUINE SULFATE 200 MG TAB PO SCH (08:46)
[2019-03-29] MEDS: CLOTRIMAZOLE/BETAMETH 1-0.05% CREAM 45 GM TUBE TOPICAL SCH (08:47)
[2019-03-29 08:58] VITALS: TEMP 98.7
[2019-03-29] MEDS ORDERED: CLOBETASOL PROP 0.05% CR 15GM TOPICAL SCH (09:00)
[2019-03-29] MEDS ORDERED: TRIAMCINOLONE 0.1% CREAM 80 GM TUBE TOPICAL SCH (09:00)
[2019-03-29] MEDS ORDERED: ALLOPURINOL 100 MG TAB PO SCH (09:00)
[2019-03-29] MEDS ORDERED: ISOSORBIDE MONONITRATE ER 60 MG TAB.ER.24H PO SCH (09:00)
--- NOTE | 2019-03-29 09:51 | P.PN ---
Subjective Progress Note Date: 03/29/19 69-year-old female one of my office patient with multiple medical problem was known to have history of CAD post CABG, post heart catheter back in 2016 with no major blockage at the time, also patient suffered from stage III chronic kidney disease has been seen Dr. Pham on regular basis. History of diabetes has been doing better also history of sarcoidosis who seen Dr. Goodson the for the last 15 years on regular basis and not on any active medication currently. Patient has been packing her stuff at home for plan to move to a different home and she noticed that she has been more short of breath along with increased palpitations without being able to lay flat for the past few days and she was debating wether or not she should come to the Emergency Department for evaluation and she finally did, she did not notice any increased swelling in both legs, no recent travel or trauma, no coughing or hemoptysis, but she knows that this is different from the angina that she gets once harry while, she was seen in the Emergency and was found to have elevated D-Dimer( but unfortunately she has CKD 3 which make D-Dimer elevated) so there was a concerns for Pulmonary Embolism however patient is not in acute respiratory distress, therefore it was decided to go for VQ scan if it is negative that will rule it out, she will have her cardiac enzymes checked and will be seen in consultation and Cardiology and Pulmonary. 03/29: Patient is doing a lot better today she is not having any palpitation she has no shortness of breath, she is not using oxygen per monitor showing heart rate with sinus rate of 75, her VQ scan showed low probability for pulmonary medicine, I believe the patient can be discharged home with follow-up with pulmonary and cardiology as an outpatient. Review of Systems Constitutional: Denies anorexia, Denies chronic headaches, Denies lethargy, Denies malaise, Denies weight gain, Denies weight loss Eyes: denies blurred vision, denies bulging eye, denies decreased vision Ears, nose, mouth and throat: Denies dysphagia, Denies neck lump, Denies sore throat Cardiovascular: Reports chest pain, Reports decreased exercise tolerance, Reports dyspnea on exertion, Reports rapid heart beat, Reports shortness of breath, Denies lightheadedness, Denies syncope Respiratory: Denies congestion, Denies cough with sputum, Denies home oxygen, Denies sleep apnea, Denies snoring, Denies wheezing Gastrointestinal: Denies abdominal pain, Denies BRBPR, Denies heartburn, Denies hematemesis, Denies melena, Denies nausea, Denies vomiting Genitourinary: Denies dysuria, Denies nocturia Menstruation: Reports postmenopausal Musculoskeletal: Denies myalgias Musculoskeletal: absent: ankle pain, ankle stiffness, ankle swelling, elbow pain, elbow stiffness, elbow swelling, foot pain, foot stiffness, foot swelling, hand pain, hand stiffness, hand swelling, hip pain, hip stiffness, hip swelling, knee pain, knee stiffness, knee swelling, shoulder pain, shoulder stiffness, shoulder swelling, wrist pain, wrist stiffness, wrist swelling Integumentary: Denies pruritus, Denies rash Neurological: Denies numbness, Denies weakness Psychiatric: Reports anxiety Endocrine: Denies fatigue, Denies weight change Objective - Vital Signs Vital signs: Vital Signs Temp 97.3 F L 03/29/19 03:55 Pulse 77 03/29/19 03:55 Resp 18 03/29/19 03:55 BP 140/68 03/29/19 03:55 Pulse Ox 97 03/29/19 03:55 Intake & Output 03/28/19 03/28/19 03/29/19 06:59 18:59 06:59 Intake Total 600 Output Total 700 Balance 600 -700 Weight 102.058 kg 100.7 kg Intake: Oral 600 Output: Urine 700 Other: Voiding Method Toilet - Exam - Constitutional General appearance: average body habitus, no acute distress - EENT Eyes: anicteric sclerae, EOMI, PERRLA, no ptosis, no scleral icterus, normal appearance ENT: hearing grossly normal, NA/AT, normal oropharynx, no thrush Ears: bilateral: normal - Neck Neck: no lymphadenopathy, normal ROM, no rigidity, no stridor, no thyromegaly Carotids: bilateral: upstroke normal Thyroid: bilateral: normal size - Respiratory Respiratory: bilateral: diminished, negative: dullness, rales, rhonchi, wheezing, prolonged expiration, prolonged inspiration - Cardiovascular Rhythm: regular Heart sounds: normal: S1, S2 Abnormal Heart Sounds: systolic murmur, no rub, no S3 Gallop, no S4 Gallop, no click - Gastrointestinal General gastrointestinal: normal bowel sounds, soft, no tenderness, no umbilical hernia, no ventral hernia - Integumentary Integumentary: normal, normal turgor - Neurologic Neurologic: CNII-XII intact - Musculoskeletal Musculoskeletal: gait normal, strength equal bilaterally - Psychiatric Psychiatric: A&O x's 3, appropriate affect, intact judgment & insight - Labs CBC & Chem 7: 03/28/19 13:55 03/28/19 13:55 Labs: Abnormal Lab Results - Last 24 Hours (Table) 03/28/19 03/28/19 03/28/19 Range/Units 13:55 13:55 20:48 D-Dimer 1.52 H (<0.60) mg/L FEU BUN 33 H (7-17) mg/dL Creatinine 1.43 H (0.52-1.04) mg/dL Glucose 202 H (74-99) mg/dL POC Glucose (mg/dL) 205 H (75-99) mg/dL Calcium 10.3 H (8.4-10.2) mg/dL Assessment and Plan Assessment: Assessment and Plan: 1. Chest pain with palpitations. doubt Pulmonary Embolism and it appears different than her angina. VQ scan was done and that was low probability for pulmonary was him. 2. CAD post CABG . will continue with ASA 81 mg orally daily, Plavix 75 mg orally daily, Imdur 60m orally daily and Metoprolol 100 mg orally bid along with Lipitor 10 mg orally daily. 3. Pulmonary sarcoidosis. inactive. consult Pulmonary. 4. Hypertension and hypertensive cardiovascular disease. we will continue with Metoprolol 100 mg orally bid. 5. Hyperlipidemia. we will continue with Lipitor 10mg orally daily. 6. Diabetes mellitus type 2. we will continue with Humalog 70/30 25 units TID along with SSI. BGM Ac connie and at bedtime. 7. Hypothyroidism. we will continue with synthroid 100 mcg orally daily except Saturday and 50 mcg . 8. Gout. we will continue with Allopurinol 100 mg orally daily. 9. CKD stage 3 . Avoid Contrast dye. 10. chronic pain syndrome with low back pain and Neuropathy. continue with Flexeril. 11. GERD with recent EGD that showed Polyp(benign). 12. DVT prophylaxis . we will continue with Heparin 5000 units sc Q 8 H. 13. GI prophylaxis. on PPI. 14. Medically stable for discharge.
--- NOTE | 2019-03-29 09:53 | P.DS ---
Providers Date of admission: 03/28/19 16:33 Expected date of discharge: 03/29/19 Attending physician: Mina Collier Consults: 03/28/19 16:34 Consult Physician Urgent Consulting Provider: Jacquie Horner Consult Reason/Comments: acute resp insuff, hx sarcoid Do you want consulting provider notified?: Yes 03/28/19 16:35 Consult Physician Urgent Consulting Provider: [facility] Consult Reason/Comments: acute orthopnea, palpitations Do you want consulting provider notified?: Yes Primary care physician: [facility] Course: 69-year-old female one of my office patient with multiple medical problem was known to have history of CAD post CABG, post heart catheter back in 2016 with no major blockage at the time, also patient suffered from stage III chronic kidney disease has been seen Dr. Pham on regular basis. History of diabetes has been doing better also history of sarcoidosis who seen Dr. Lopez for the last 15 years on regular basis and not on any active medication currently. Patient has been packing her stuff at home for plan to move to a different home and she noticed that she has been more short of breath along with increased palpitations without being able to lay flat for the past few days and she was debating wether or not she should come to the Emergency Department for evaluation and she finally did, she did not notice any increased swelling in both legs, no recent travel or trauma, no coughing or hemoptysis, but she knows that this is different from the angina that she gets once harry while, she was seen in the Emergency and was found to have elevated D-Dimer( but unfortunately she has CKD 3 which make D-Dimer elevated) so there was a concerns for Pulmonary Embolism however patient is not in acute respiratory distress, therefore it was decided to go for VQ scan if it is negative that will rule it out, she will have her cardiac enzymes checked and will be seen in consultation and Cardiology and Pulmonary. 03/29: Patient is doing a lot better today she is not having any palpitation she has no shortness of breath, she is not using oxygen per monitor showing heart rate with sinus rate of 75, her VQ scan showed low probability for pulmonary medicine, I believe the patient can be discharged home with follow-up with pulmonary and cardiology as an outpatient. Discharge diagnoses: 1. Chest pain with palpitations. Cardiac enzymes are negative 3, VQ scan were low probability for pulmonary medicine this is likely due to anxiety. 2. CAD post CABG . 3. Pulmonary sarcoidosis. inactive. 4. Hypertension and hypertensive cardiovascular disease. 5. Hyperlipidemia. 6. Diabetes mellitus type 2. 7. Hypothyroidism. 8. Gout. 9. CKD stage 3. 10. chronic pain syndrome with low back pain. 11. GERD Patient Condition at Discharge: Stable Plan - Discharge Summary Discharge Rx Participant: No New Discharge Prescriptions: No Action ALPRAZolam [Xanax] 0.25 mg PO BID PRN PRN Reason: Anxiety Isosorbide Mononitrate ER [Imdur] 60 mg PO DAILY Hydrocodone/Acetaminophen [Musella 10-325] 1 tab PO BID PRN PRN Reason: Pain Esomeprazole Magnesium [NexIUM] 40 mg PO BID Atorvastatin [Lipitor] 10 mg PO HS Allopurinol [Zyloprim] 100 mg PO DAILY Hydroxychloroquine Sulfate [Plaquenil] 200 mg PO BID Clopidogrel [Plavix] 75 mg PO HS INSULIN LISPRO (HumaLOG) [humaLOG] See Protocol SQ ACHS Insulin NPH Hum/Reg Insulin Hm [NovoLIN 70-30 100 UNIT/ML VIAL] See Protocol SQ AC-TID Levothyroxine Sodium [Synthroid] 50 mcg PO TUTH Nitroglycerin Sl Tabs [Nitrostat] 0.4 mg SUBLINGUAL Q5M PRN PRN Reason: Chest Pain Metoprolol Succinate (ER) [Toprol XL] 100 mg PO BID Levothyroxine Sodium [Synthroid] 100 mcg PO SUMOWEFRSA Aspirin [Adult Low Dose Aspirin EC] 81 mg PO HS Clobetasol Propionate [Temovate 0.05% Cream] 1 applic TOPICAL DAILY Clotrimazole/Betamethasone Dip [Lotrisone Cream] 1 applic TOPICAL BID Estradiol [Vagifem] 10 mcg VAGINAL MOTH Triamcinolone 0.1% Cream [Kenalog 0.1% Cream] 1 applic TOPICAL DAILY Cyclobenzaprine [Flexeril] 10 mg PO TID PRN PRN Reason: Muscle Spasm Discharge Medication List ALPRAZolam [Xanax] 0.25 mg PO BID PRN 06/07/16 [History] Allopurinol [Zyloprim] 100 mg PO DAILY 06/07/16 [History] Atorvastatin [Lipitor] 10 mg PO HS 06/07/16 [History] Clopidogrel [Plavix] 75 mg PO HS 06/07/16 [History] Esomeprazole Magnesium [NexIUM] 40 mg PO BID 06/07/16 [History] Hydrocodone/Acetaminophen [Musella 10-325] 1 tab PO BID PRN 06/07/16 [History] Hydroxychloroquine Sulfate [Plaquenil] 200 mg PO BID 06/07/16 [History] Isosorbide Mononitrate ER [Imdur] 60 mg PO DAILY 06/07/16 [History] INSULIN LISPRO (HumaLOG) [humaLOG] See Protocol SQ ACHS 06/08/16 [History] Insulin NPH Hum/Reg Insulin Hm [NovoLIN 70-30 100 UNIT/ML VIAL] See Protocol SQ AC-TID 06/08/16 [History] Levothyroxine Sodium [Synthroid] 50 mcg PO TUTH 05/21/17 [History] Nitroglycerin Sl Tabs [Nitrostat] 0.4 mg SUBLINGUAL Q5M PRN 09/24/17 [History] Levothyroxine Sodium [Synthroid] 100 mcg PO SUMOWEFRSA 11/08/17 [History] Metoprolol Succinate (ER) [Toprol XL] 100 mg PO BID 11/08/17 [History] Aspirin [Adult Low Dose Aspirin EC] 81 mg PO HS 12/10/17 [History] Clobetasol Propionate [Temovate 0.05% Cream] 1 applic TOPICAL DAILY 03/28/19 [History] Clotrimazole/Betamethasone Dip [Lotrisone Cream] 1 applic TOPICAL BID 03/28/19 [History] Cyclobenzaprine [Flexeril] 10 mg PO TID PRN 03/28/19 [History] Estradiol [Vagifem] 10 mcg VAGINAL MOTH 03/28/19 [History] Triamcinolone 0.1% Cream [Kenalog 0.1% Cream] 1 applic TOPICAL DAILY 03/28/19 [History] Follow up Appointment(s)/Referral(s): Sam Quiñonez MD [Primary Care Provider] - 1-2 days
--- NOTE | 2019-03-29 10:12 | P.CRDCN ---
History of Present Illness History of present illness: HISTORY OF PRESENTING ILLNESS This is a pleasant 69-year-old female past medical history significant for artery disease status post four-vessel bypass grafting in 2003 subsequent cardiac catheterization in 2017 revealed 3 patent grafts, chronic angina, diabetes mellitus, hypertension, dyslipidemia, chronic kidney disease and fibromyalgia. She presented with palpitations. She follows in the office with Dr. Smith. We have been asked to see him in consultation for palpitations. She states since Saturday evening she has felt her heart racing. She states it has been a steady regular racing not associated with activity or exertion. She checked her pulse and her pulse ranged between the high 90s to the low 100s. She also has been experiencing some associated shortness of breath with the palpitations. She states the palpitations seemed worse when she lays flat. She denies associated chest pain, dizziness, nausea, vomiting or syncope. She continued to have palpitations on arrival to the emergency department. EKG at that time revealed sinus mechanism, left axis deviation heart rate of 86. She states her heart rates typically run in the low 60s. Telemetry tracings reveal persistent sinus rhythm. Her symptoms have completely subsided. She denies any further palpitations or shortness of breath. She does states she has been under significant stress and anxiety as she is currently moving and has been packing and doing a lot of extra activity that she doesn't typically do on a daily basis. DIAGNOSTICS Chest xray negative for an acute cardiopulmonary process. VQ scan is low probability for PE. Evidence of matching bilateral upper lobe d efect consistent with airway disease. Laboratory reviewed, CBC unremarkable, d-dimer 1.52, sodium 140, potassium 4.9, creatinine 1.43, magnesium 1.7, cardiac enzymes negative 3, proBNP 401, TSH 1.31. Current cardiac medications include aspirin 81 mg daily, atorvastatin 10 mg daily, Plavix 75 mg daily, Imdur 60 mg daily, Toprol 100 mg twice a day. Most recent echocardiogram obtained in October 2017 reveals preserved LV systolic function with ejection fraction 55-60%. REVIEW OF SYSTEMS At the time of my exam: CONSTITUTIONAL: Denies fever or chills. CARDIOVASCULAR: Denies chest pain, shortness of breath, orthopnea, PND or palpitations. RESPIRATORY: Denies cough. GASTROINTESTINAL: Denies abdominal pain, diarrhea, constipation, nausea or vomiting. MUSCULOSKELETAL: Denies myalgias. NEUROLOGIC: Denies numbness, tingling or weakness. ENDOCRINE: Denies fatigue, weight change, polydipsia or polyurina. GENITOURINARY: Denies burning, hematuria or urgency with micturation. HEMATOLOGIC: Denies history of anemia or bleeding. PHYSICAL EXAMINATION Blood [id number] heart rate 75 afebrile and maintaining oxygen saturaiton on room air. CONSTITUTIONAL: No apparent distress. HEENT: Head is normocephalic. Pupils are equal, round. Sclerae anicteric. Mucous membranes of the mouth are moist. No JVD. No carotid bruit. CHEST EXAMINATION: Lungs are clear to auscultation. No chest wall tenderness is noted on palpation or with deep breathing. HEART EXAMINATION: Regular rate and rhythm. S1, S2 heard. No murmurs, gallops or rub. ABDOMEN: Soft, nontender. Positive bowel sounds. EXTREMITIES: 2+ peripheral pulses, no lower extremity edema and no calf tenderness. NEUROLOGIC EXAMINATION: Patient is awake, alert and oriented x3. ASSESSMENT Palpitations, no arrhythmia noted on telemetry or EKG. Resolved History of coronary artery disease status post bypass grafting Hypertension Dyslipidemia Diabetes mellitus PLAN No evidence of acute arrhythmia on telemetry tracings. Symptoms have resolved. Stable for discharge from a cardiac perspective, she has an appointment scheduled in the office every [address] Smith on . We've advised her to keep that appointment. May require outpatient event monitoring if her symptoms persist. Thank you kindly for this consultation. Nurse Practitioner note has been reviewed, I agree with a documented findings and plan of care. Patient was seen and examined. Past Medical History Past Medical History: Coronary Artery Disease (CAD), Chest Pain / Angina, Diabetes Mellitus, Fibromyalgia, GERD/Reflux, Hyperlipidemia, Hypertension, Osteoarthritis (OA), Renal Disease, Respiratory Disorder, Thyroid Disorder Additional Past Medical History / Comment(s): sarcoidosis, chronic kidney disease stage III, diverticulosis, colon polyps neuropathy-balance issues, reccurring UTI, upper/lower bridges. VARICOSE VEINS. RT INDEX TRIGGER FINGER CURRENTLY. History of Any Multi-Drug Resistant Organisms: None Reported Past Surgical History: Back Surgery, Section, Cholecystectomy, Coronary Bypass/CABG, Heart Catheterization, Joint Replacement, Tonsillectomy, Tubal Ligation Additional Past Surgical History / Comment(s): C-S X2, left shoulder rotator cuff, bilateral knee replacement 2014, 4 vessel CABG in 2002, bilateral cataract extraction and intraocular lens implants, picc line -since removed. Colonoscopy in 2016. BRONCHOSCOPY, BIOPSY. Past Anesthesia/Blood Transfusion Reactions: Motion Sickness, Postoperative Nausea & Vomiting (PONV) Past Psychological History: No Psychological Hx Reported Smoking Status: Never smoker Past Alcohol Use History: None Reported Past Drug Use History: None Reported - Past Family History Mother Family Medical History: Diabetes Mellitus Additional Family Medical History / Comment(s): Mother at age 70 with history of coronary artery disease status post CABG 2 and diabetes. Father Family Medical History: Diabetes Mellitus Additional Family Medical History / Comment(s): Father at age 83 with history of coronary artery disease status post CABG and diabetes. Daughter(s) Additional Family Medical History / Comment(s): Patient has one daughter with hyperlipidemia. Patient has one son with diabetes. Patient is an only child. Medications and Allergies Home Medications Medication Instructions Recorded Confirmed Type ALPRAZolam [Xanax] 0.25 mg PO BID PRN 06/07/16 03/28/19 History Allopurinol [Zyloprim] 100 mg PO DAILY 06/07/16 03/28/19 History Atorvastatin [Lipitor] 10 mg PO HS 06/07/16 03/28/19 History Clopidogrel [Plavix] 75 mg PO HS 06/07/16 03/28/19 History Esomeprazole Magnesium [NexIUM] 40 mg PO BID 06/07/16 03/28/19 History Hydrocodone/Acetaminophen [[place] 1 tab PO BID PRN 06/07/16 03/28/19 History 10-325] Hydroxychloroquine Sulfate 200 mg PO BID 06/07/16 03/28/19 History [Plaquenil] Isosorbide Mononitrate ER [Imdur] 60 mg PO DAILY 06/07/16 03/28/19 History INSULIN LISPRO (HumaLOG) [humaLOG] See Protocol SQ ACHS 06/08/16 03/28/19 History Insulin NPH Hum/Reg Insulin Hm See Protocol SQ AC-TID 06/08/16 03/28/19 History [NovoLIN 70-30 100 UNIT/ML VIAL] Levothyroxine Sodium [Synthroid] 50 mcg PO TUTH 05/21/17 03/28/19 History Nitroglycerin Sl Tabs [Nitrostat] 0.4 mg SUBLINGUAL Q5M PRN 09/24/17 03/28/19 History Levothyroxine Sodium [Synthroid] 100 mcg PO SUMOWEFRSA 11/08/17 03/28/19 History Metoprolol Succinate (ER) [Toprol 100 mg PO BID 11/08/17 03/28/19 History XL] Aspirin [Adult Low Dose Aspirin EC] 81 mg PO HS 12/10/17 03/28/19 History Clobetasol Propionate [Temovate 1 applic TOPICAL DAILY 03/28/19 03/28/19 History 0.05% Cream] Clotrimazole/Betamethasone Dip 1 applic TOPICAL BID 03/28/19 03/28/19 History [Lotrisone Cream] Cyclobenzaprine [Flexeril] 10 mg PO TID PRN 03/28/19 03/28/19 History Estradiol [Vagifem] 10 mcg VAGINAL MOTH 03/28/19 03/28/19 History Triamcinolone 0.1% Cream [Kenalog 1 applic TOPICAL DAILY 03/28/19 03/28/19 History 0.1% Cream] Allergies Allergy/AdvReac Type Severity Reaction Status Date / Time Penicillins Allergy Rash/Hives Verified 03/28/19 16:56 prednisone Allergy Rapid Verified 03/28/19 16:56 Heart Rate Sulfa (Sulfonamide Allergy Rash/Hives Verified 03/28/19 16:56 Antibiotics) gabapentin [From Neurontin] AdvReac Unknown Verified 03/28/19 16:56 methylprednisolone AdvReac Rapid Verified 03/28/19 16:56 [From Medrol] Heart Rate Physical Exam Vitals: Vital Signs Temp Pulse Pulse Resp BP BP Pulse Ox 03/29/19 08:15 98.7 F 75 17 118/63 03/29/19 03:55 97.3 F L 77 18 140/68 97 03/29/19 00:00 97.8 F 91 18 125/65 98 03/28/19 20:00 98.6 F 97 18 135/76 100 03/28/19 18:50 98 F 93 18 126/64 99 03/28/19 17:14 98.7 F 03/28/19 17:00 98 18 141/74 97 03/28/19 16:00 88 16 149/71 98 03/28/19 15:00 84 18 149/71 96 03/28/19 14:00 85 18 149/71 98 03/28/19 13:21 98 F 89 18 124/89 98 Intake and Output 03/28/19 03/29/19 03/29/19 22:59 06:59 14:59 Intake Total 600 472 Output Total 1300 Balance 600 -1300 472 Intake: Oral 600 472 Output: Urine 1300 Other: Voiding Method Toilet Toilet Weight 100.7 kg Results 03/28/19 13:55 03/28/19 13:55 Cardiac Enzymes 03/28/19 03/28/19 03/28/19 Range/Units 13:55 13:55 20:38 AST 27 (14-36) U/L Troponin I 0.015 0.016 (0.000-0.034) ng/mL 03/29/19 Range/Units 01:32 AST (14-36) U/L Troponin I 0.022 (0.000-0.034) ng/mL Coagulation 03/28/19 Range/Units 13:55 PT 9.5 (9.0-12.0) sec APTT 23.3 (22.0-30.0) sec CBC 03/28/19 Range/Units 13:55 WBC 6.6 (3.8-10.6) k/uL RBC 4.13 (3.80-5.40) m/uL Hgb 12.6 (11.4-16.0) gm/dL Hct 39.4 (34.0-46.0) % Plt Count 172 (150-450) k/uL Comprehensive Metabolic Panel 03/28/19 Range/Units 13:55 Sodium 140 (137-145) mmol/L Potassium 4.9 (3.5-5.1) mmol/L Chloride 102 (98-107) mmol/L Carbon Dioxide 28 (22-30) mmol/L BUN 33 H (7-17) mg/dL Creatinine 1.43 H (0.52-1.04) mg/dL Glucose 202 H (74-99) mg/dL Calcium 10.3 H (8.4-10.2) mg/dL AST 27 (14-36) U/L ALT 21 (9-52) U/L Alkaline Phosphatase 104 (38-126) U/L Total Protein 7.6 (6.3-8.2) g/dL Albumin 4.3 (3.5-5.0) g/dL Current Medications Generic Name Dose Route Start Last Admin Trade Name Freq PRN Reason Stop Dose Admin Hydrocodone Bitart/Acetaminophen 1 each 03/28/19 19:04 03/28/19 22:52 [place] 10 PO 1 each BID PRN Administration Pain Allopurinol 100 mg 03/29/19 09:00 03/29/19 08:46 Zyloprim PO 100 mg DAILY JET Administration Alprazolam 0.25 mg 03/28/19 19:04 03/28/19 22:52 Xanax PO 0.25 mg BID PRN Administration Anxiety Aspirin 81 mg 03/28/19 21:00 03/28/19 21:21 Aspirin PO 81 mg HS JET Administration Atorvastatin Calcium 10 mg 03/28/19 21:00 03/28/19 21:20 Lipitor PO 10 mg HS JET Administration Betamethasone/Clotrimazole 1 applic 03/28/19 21:00 03/29/19 08:47 Lotrisone TOPICAL Not Given BID [facility] Clobetasol Propionate 1 applic 03/29/19 09:00 03/29/19 08:46 Temovate TOPICAL 1 applic DAILY [facility] Administration Clopidogrel Bisulfate 75 mg 03/28/19 21:00 03/28/19 21:20 Plavix PO 75 mg HS [facility] Administration Cyclobenzaprine HCl 10 mg 03/28/19 19:04 Flexeril PO TID PRN Muscle Spasm Heparin Sodium (Porcine) 5,000 unit 03/29/19 08:00 03/29/19 08:48 Heparin SQ Not Given Q8HR [facility] Hydroxychloroquine Sulfate 200 mg 03/28/19 21:00 03/29/19 08:46 Plaquenil PO 200 mg BID JET Administration Insulin Aspart 0 unit 03/28/19 21:00 03/29/19 06:12 Novolog SQ Not Given ACHS [facility] Protocol Insulin Human NPH 25 unit 03/28/19 21:00 03/29/19 06:13 Humulin N SQ Not Given AC-TID [facility] Isosorbide Mononitrate 60 mg 03/29/19 09:00 03/29/19 08:46 Imdur PO 60 mg DAILY JET Administration Levothyroxine Sodium 50 mcg 03/31/19 06:30 Synthroid PO TUTH [facility] Levothyroxine Sodium 100 mcg 03/29/19 06:30 11/10/19 06:24 Synthroid PO 100 mcg SUMOWEFRSA JET Administration Metoprolol Succinate 100 mg 03/28/19 21:00 03/29/19 08:46 Toprol Xl PO 100 mg BID JET Administration Naloxone HCl 0.2 mg 03/28/19 16:33 Narcan IV Q2M PRN Opioid Reversal Nitroglycerin 0.4 mg 03/28/19 19:04 Nitrostat SUBLINGUAL Q5M PRN Chest Pain Pantoprazole Sodium 40 mg 03/28/19 21:00 03/29/19 06:24 Protonix PO 40 mg AC-BID JET Administration Triamcinolone Acetonide 1 applic 03/29/19 09:00 03/29/19 08:45 Kenalog TOPICAL 1 applic DAILY JET Administration Intake and Output 03/28/19 03/29/19 03/29/19 22:59 06:59 14:59 Intake Total 600 472 Output Total 1300 Balance 600 -1300 472 Intake: Oral 600 472 Output: Urine 1300 Other: Voiding Method Toilet Toilet Weight 100.7 kg 03/28/19 13:55 03/28/19 13:55
[2019-03-29 11:26] LABS: Glucose,Whole Blood 212 mg/dL (75-99)
[2019-03-29 12:15] VITALS: BP 125/90; PULSE 92; RESP 19
[2019-03-31] MEDS ORDERED: LEVOTHYROXINE 50 MCG TAB PO SCH (06:30)
== END 2019-03-29 13:24 | disposition home or self-care (01) ==
LOC: EC 13:15 → 3SCARD 16:33
PROVIDERS: ADMIT Internal Medicine; ATTEND Internal Medicine
DX: R07.89 Other chest pain (principal); R00.2 Palpitations; R79.89 Other specified abnormal findings of blood chemistry; D86.0 Sarcoidosis of lung; I13.10 Hypertensive heart and chronic kidney disease without heart failure, with stage 1 through stage 4 chronic kidney disease, or unspecified chronic kidney disease; N18.3 Chronic kidney disease, stage 3 (moderate); I25.119 Atherosclerotic heart disease of native coronary artery with unspecified angina pectoris; E78.5 Hyperlipidemia, unspecified; E03.9 Hypothyroidism, unspecified; M10.9 Gout, unspecified; G89.4 Chronic pain syndrome; M54.5 Low back pain; K21.9 Gastro-esophageal reflux disease without esophagitis; E11.22 Type 2 diabetes mellitus with diabetic chronic kidney disease; M79.7 Fibromyalgia; M19.90 Unspecified osteoarthritis, unspecified site; K57.90 Diverticulosis of intestine, part unspecified, without perforation or abscess without bleeding; F41.9 Anxiety disorder, unspecified; E11.42 Type 2 diabetes mellitus with diabetic polyneuropathy; Z79.891 Long term (current) use of opiate analgesic; Z79.02 Long term (current) use of antithrombotics/antiplatelets; Z79.82 Long term (current) use of aspirin; Z79.890 Hormone replacement therapy; Z79.4 Long term (current) use of insulin; Z79.899 Other long term (current) drug therapy; Z95.1 Presence of aortocoronary bypass graft; Z88.0 Allergy status to penicillin; Z88.2 Allergy status to sulfonamides; Z88.8 Allergy status to other drugs, medicaments and biological substances; Z87.440 Personal history of urinary (tract) infections; Z86.010 Personal history of colon polyps; I83.90 Asymptomatic varicose veins of unspecified lower extremity; Z90.49 Acquired absence of other specified parts of digestive tract; Z98.41 Cataract extraction status, right eye; Z98.42 Cataract extraction status, left eye; Z82.49 Family history of ischemic heart disease and other diseases of the circulatory system; Z96.653 Presence of artificial knee joint, bilateral; Z96.1 Presence of intraocular lens; Z87.19 Personal history of other diseases of the digestive system; Z98.51 Tubal ligation status; Z83.3 Family history of diabetes mellitus; Z83.42 Family history of familial hypercholesterolemia
CPT/HCPCS: 99285; 36415; 93005; 85379; 83880; 80053; 84443; 83735; 84484 ×2; 85025; 85610; 85730; 71046; 78582; G0378 ×2; A9540; A9567

== ENCOUNTER 2019-11-11 22:02 | Emergency (ER) | payer MEDICARE ==
[2019-11-11 22:18] VITALS: BP 143/53; PULSE 57; RESP 18; TEMP 98.2
--- NOTE | 2019-11-11 23:56 | CT ---
EXAMINATION TYPE: CT brain elana wo con DATE OF EXAM: 11/11/2019 COMPARISON: None HISTORY: FALL CT DLP: 1568.8 mGycm Automated exposure control for dose reduction was used. Ventricles and sulci appear normal. There is no mass effect nor midline shift. There is no sign of in tracranial hemorrhage. There is minimal thalamic calcification. The calvarium is intact. There is no evidence of cerebral edema. Cervical vertebra have normal alignment. There is some spurring of the endplates from C4 to C7. Facet joints are intact. The skull base is intact. There is normal aeration of the temporal bones. IMPRESSION: Mild spondylotic changes in the cervical spine. No fracture. Brain CT scan appears normal for age. Possible 5 mm scalp hematoma at the right posterior frontal region.
--- NOTE | 2019-11-12 00:54 | ED ---
General Adult HPI - General Chief complaint: Fall Stated complaint: Fall, Head Injury Source: patient, RN notes reviewed Mode of arrival: ambulatory Limitations: no limitations - History of Present Illness Initial comments: 69-year-old female presents to the emergency department for head injury. Patient had a mechanical trip and fall earlier today at about 4:30 PM or 6 hours prior to arrival. Patient tripped over her shoe and hit her head on the door frame. She does have a mild headache. States that her children's told her she should be evaluated because she takes Plavix. Patient does not take any other blood thinners. Patient denies any visual changes or difficulty walking.Patient has no other complaints at this time including shortness of breath, chest pain, abdominal pain, nausea or vomiting, or visual changes. - Related Data Home Medications Medication Instructions Recorded Confirmed ALPRAZolam [Xanax] 0.25 mg PO BID PRN 06/07/16 03/28/19 Allopurinol [Zyloprim] 100 mg PO DAILY 06/07/16 03/28/19 Atorvastatin [Lipitor] 10 mg PO HS 06/07/16 03/28/19 Clopidogrel [Plavix] 75 mg PO HS 06/07/16 03/28/19 Esomeprazole Magnesium [NexIUM] 40 mg PO BID 06/07/16 03/28/19 Hydrocodone/Acetaminophen [[place] 1 tab PO BID PRN 06/07/16 03/28/19 10-325] Hydroxychloroquine Sulfate 200 mg PO BID 06/07/16 03/28/19 [Plaquenil] Isosorbide Mononitrate ER [Imdur] 60 mg PO DAILY 06/07/16 03/28/19 INSULIN LISPRO (HumaLOG) [humaLOG] See Protocol SQ ACHS 06/08/16 03/28/19 Insulin NPH Hum/Reg Insulin Hm See Protocol SQ AC-TID 06/08/16 03/28/19 [NovoLIN 70-30 100 UNIT/ML VIAL] Levothyroxine Sodium [Synthroid] 50 mcg PO TUTH 05/21/17 03/28/19 Nitroglycerin Sl Tabs [Nitrostat] 0.4 mg SUBLINGUAL Q5M PRN 09/24/17 03/28/19 Levothyroxine Sodium [Synthroid] 100 mcg PO SUMOWEFRSA 11/08/17 03/28/19 Metoprolol Succinate (ER) [Toprol 100 mg PO BID 11/08/17 03/28/19 XL] Aspirin [Adult Low Dose Aspirin EC] 81 mg PO HS 12/10/17 03/28/19 Clobetasol Propionate [Temovate 1 applic TOPICAL DAILY 03/28/19 03/28/19 0.05% Cream] Clotrimazole/Betamethasone Dip 1 applic TOPICAL BID 03/28/19 03/28/19 [Lotrisone Cream] Cyclobenzaprine [Flexeril] 10 mg PO TID PRN 03/28/19 03/28/19 Estradiol [Vagifem] 10 mcg VAGINAL MOTH 03/28/19 03/28/19 Triamcinolone 0.1% Cream [Kenalog 1 applic TOPICAL DAILY 03/28/19 03/28/19 0.1% Cream] Allergies Allergy/AdvReac Type Severity Reaction Status Date / Time Penicillins Allergy Rash/Hives Verified 11/11/19 22:18 prednisone Allergy Rapid Verified 11/11/19 22:18 Heart Rate Sulfa (Sulfonamide Allergy Rash/Hives Verified 11/11/19 22:18 Antibiotics) gabapentin [From Neurontin] AdvReac Unknown Verified 11/11/19 22:18 methylprednisolone AdvReac Rapid Verified 11/11/19 22:18 [From Medrol] Heart Rate Review of Systems ROS Statement: Those systems with pertinent positive or pertinent negative responses have been documented in the HPI. ROS Other: All systems not noted in ROS Statement are negative. Past Medical History Past Medical History: Coronary Artery Disease (CAD), Chest Pain / Angina, Diabetes Mellitus, Fibromyalgia, GERD/Reflux, Hyperlipidemia, Hypertension, Osteoarthritis (OA), Renal Disease, Respiratory Disorder, Thyroid Disorder Additional Past Medical History / Comment(s): sarcoidosis, chronic kidney disease stage III, diverticulosis, colon polyps neuropathy-balance issues, reccurring UTI, upper/lower bridges. VARICOSE VEINS. RT INDEX TRIGGER FINGER CURRENTLY. History of Any Multi-Drug Resistant Organisms: None Reported Past Surgical History: Back Surgery, Section, Cholecystectomy, Coronary Bypass/CABG, Heart Catheterization, Joint Replacement, Tonsillectomy, Tubal Liga tion Additional Past Surgical History / Comment(s): C-S X2, left shoulder rotator cuff, bilateral knee replacement 2014, 4 vessel CABG in 2002, bilateral cataract extraction and intraocular lens implants, picc line -since removed. Colonoscopy in 2016. BRONCHOSCOPY, BIOPSY. Past Anesthesia/Blood Transfusion Reactions: Motion Sickness, Postoperative Nausea & Vomiting (PONV) Past Psychological History: No Psychological Hx Reported Smoking Status: Never smoker Past Alcohol Use History: None Reported Past Drug Use History: None Reported - Past Family History Mother Family Medical History: Diabetes Mellitus Additional Family Medical History / Comment(s): Mother at age 70 with history of coronary artery disease status post CABG 2 and diabetes. Father Family Medical History: Diabetes Mellitus Additional Family Medical History / Comment(s): Father at age 83 with history of coronary artery disease status post CABG and diabetes. Daughter(s) Additional Family Medical History / Comment(s): Patient has one daughter with hyperlipidemia. Patient has one son with diabetes. Patient is an only child. General Exam Limitations: no limitations General appearance: alert, in no apparent distress Head exam: Present: normocephalic, normal inspection. Absent: atraumatic (Patient does have a 3 cm x 3 cm hematoma noted to the right frontal scalp.) Eye exam: Present: normal appearance, PERRL, EOMI. Absent: scleral icterus, conjunctival injection, periorbital swelling, other (negative raccoon sign) ENT exam: Present: normal exam, mucous membranes moist, TM's normal bilaterally (Negative hemotympanum), normal external ear exam (Negative Waldron sign) Neck exam: Present: normal inspection, full ROM. Absent: tenderness, meningismus, lymphadenopathy Respiratory exam: Present: normal lung sounds bilaterally. Absent: respiratory distress, wheezes, rales, rhonchi, stridor Cardiovascular Exam: Present: regular rate, normal rhythm, normal heart sounds. Absent: systolic murmur, diastolic murmur, rubs, gallop, clicks GI/Abdominal exam: Present: soft, normal bowel sounds. Absent: distended, tenderness, guarding, rebound, rigid Neurological exam: Present: alert, oriented X3, CN II-XII intact, normal gait, other (GCS 15) Psychiatric exam: Present: normal affect, normal mood Course Vital Signs 11/11/19 22:16 Temperature 98.2 F Pulse Rate 57 L Respiratory 18 Rate Blood Pressure 143/53 O2 Sat by Pulse 97 Oximetry Medical Decision Making - Medical Decision Making CT cervical spine shows spondylitic changes without fracture. CT brain scan appears normal for age. There is a 5 mm scalp hematoma noted of the right posterior frontal region. No neurologic deficits. At this time she'll be discharged home. She will follow up with primary care and return for any worsening symptoms. Disposition Clinical Impression: Head injury Disposition: HOME SELF-CARE Condition: Good Instructions (If sedation given, give patient instructions): Head Injury (ED) Additional Instructions: Please follow up with primary care. Return to the emergency room for any worsening symptoms. Is patient prescribed a controlled substance at d/c from ED?: No Referrals: Sam Quiñonez MD [Primary Care Provider] - 1-2 days Time of Disposition: 00:53
== END 2019-11-12 01:12 | disposition home or self-care (01) ==
LOC: EC 22:02
DX: S00.03XA Contusion of scalp, initial encounter (principal); I25.119 Atherosclerotic heart disease of native coronary artery with unspecified angina pectoris; E11.22 Type 2 diabetes mellitus with diabetic chronic kidney disease; K21.9 Gastro-esophageal reflux disease without esophagitis; E78.5 Hyperlipidemia, unspecified; I12.9 Hypertensive chronic kidney disease with stage 1 through stage 4 chronic kidney disease, or unspecified chronic kidney disease; N18.3 Chronic kidney disease, stage 3 (moderate); M19.90 Unspecified osteoarthritis, unspecified site; E07.9 Disorder of thyroid, unspecified; E11.40 Type 2 diabetes mellitus with diabetic neuropathy, unspecified; Z79.82 Long term (current) use of aspirin; Z79.01 Long term (current) use of anticoagulants; Z79.4 Long term (current) use of insulin; Z79.899 Other long term (current) drug therapy; Z96.653 Presence of artificial knee joint, bilateral; Z98.42 Cataract extraction status, left eye; Z98.41 Cataract extraction status, right eye; Z96.1 Presence of intraocular lens; Z95.5 Presence of coronary angioplasty implant and graft; Z95.1 Presence of aortocoronary bypass graft; Z88.0 Allergy status to penicillin; Z88.2 Allergy status to sulfonamides; Z88.8 Allergy status to other drugs, medicaments and biological substances; W01.198A Fall on same level from slipping, tripping and stumbling with subsequent striking against other object, initial encounter; Y92.009 Unspecified place in unspecified non-institutional (private) residence as the place of occurrence of the external cause
CPT/HCPCS: 70450; 72125; 99283

== ENCOUNTER → 2020-02-04 | Outpatient (CLI) | payer MEDICARE ==
--- NOTE | 2020-02-10 09:10 | P.ARTDOP ---
Arterial Doppler LOWER EXTREMITY ARTERIAL DOPPLER: DATE OF SERVICE: 02/04/2020 Reason for study: Right great toe ulcer. Doppler waveforms: Multiphasic bilaterally throughout. Pulse volume recording: []. Pressure gradients: None. Ankle-brachial indices: Cannot be occluded. Toe brachial indices: Cannot occlude on the right, 0.89 on the left. Waveforms look good on both sides. Impression: Normal flow patterns. Significantly elevated pressures suggests calcific wall disease..
== END | disposition home or self-care (01) ==
LOC: RADUSWWP 13:23
PROVIDERS: ATTEND Podiatrist
DX: I73.89 Other specified peripheral vascular diseases (principal); L97.512 Non-pressure chronic ulcer of other part of right foot with fat layer exposed; E11.621 Type 2 diabetes mellitus with foot ulcer; Z88.0 Allergy status to penicillin; Z88.2 Allergy status to sulfonamides; Z88.8 Allergy status to other drugs, medicaments and biological substances
CPT/HCPCS: 93922

== ENCOUNTER 2020-02-12 10:24 | Emergency (ER) | payer MEDICARE ==
[2020-02-12] MEDS ORDERED: METOPROLOL SUCCINATE (ER) 100 MG TAB.ER.24H PO STA (10:38)
--- NOTE | 2020-02-12 10:50 | ED ---
General Adult HPI - General Chief complaint: Recheck/Abnormal Lab/Rx Stated complaint: High BP Time Seen by Provider: 02/12/20 10:37 Source: patient Mode of arrival: wheelchair Limitations: no limitations - History of Present Illness Initial comments: Dictation was produced using [employer] dictation software. please excuse any grammatical, word or spelling errors. This patient was cared for during a federal and state declared state of emergency secondary to Covid 19 Chief Complaint: 70-year-old female sent here to the emergency room for elevated blood pressure. History of Present Illness: His 70-year-old female she was directly sent over here from the [facility] for elevated blood pressure. Patient had a blood pressure of 224/74 at [facility]. Denies any symptoms. Denies any chest pain, headache, shortness of breath or strokelike symptoms. Patient has history of hypertension. She did not take her blood pressure medicines this morning because she did any breakfast. She did have salty foods last night in [place] for dinner. It have couple of coffee this morning. She recently started drinking coffee in the morning. Patient has no complaints at this time. The ROS documented in this emergency department record has been reviewed and confirmed by me. Those systems with pertinent positive or negative responses have been documented in the HPI. All other systems are other negative and/or noncontributory. PHYSICAL EXAM: General Impression: Alert and oriented x3, not in acute distress HEENT: Normocephalic atraumatic, extra-ocular movements intact, pupils equal and reactive to light bilaterally, mucous membranes moist. Cardiovascular: Heart regular rate and rhythm Chest: Able to complete full sentences, no retractions, no tachypnea Abdomen: abdomen soft, non-tender, non-distended, no organomegaly Musculoskeletal: Pulses present and equal in all extremities, no peripheral edema Motor: no focal deficits noted Neurological: CN II-XII grossly intact, no focal motor or sensory deficits noted Skin: Intact with no visualized rashes Psych: Normal affect and mood ED course:70 -year-old female presents with clinical presentation consistent with asymptomatic hypertension. Signs upon arrival shows blood pressure 151/74 cumbersome vital signs within acceptable limits. Physical examination is samuel gn. EKG interpretation: Ventricular rate 53, bradycardia,. Interval T12, QRS 122, QTC 390. No SD prolongation, no QTC prolongation. Repeat EKG was performed to evaluate for that amount changes with no changes. Ventricular rate 53, bradycardia,. Interval to 24, QRS 114, QTc 416 patient observed in the emergency department for several minutes. She continues to be asymptomatic. Patient's EKG does appear to be slightly different from 2019. However considering patient's current presentation these changes are nonspecific. She is told to follow-up with her primary care physician. Return Prevacid discussed. Patient was discharged. - Related Data Home Medications Medication Instructions Recorded Confirmed ALPRAZolam [Xanax] 0.25 mg PO BID PRN 06/07/16 03/28/19 Atorvastatin [Lipitor] 10 mg PO HS 06/07/16 03/28/19 Clopidogrel [Plavix] 75 mg PO HS 06/07/16 03/28/19 Esomeprazole Magnesium [NexIUM] 40 mg PO BID 06/07/16 03/28/19 Hydrocodone/Acetaminophen [[place] 1 tab PO BID PRN 06/07/16 03/28/19 10-325] Hydroxychloroquine Sulfate 200 mg PO BID 06/07/16 03/28/19 [Plaquenil] Isosorbide Mononitrate ER [Imdur] 60 mg PO DAILY 06/07/16 03/28/19 allopurinoL [Zyloprim] 100 mg PO DAILY 06/07/16 03/28/19 INSULIN LISPRO (HumaLOG) [humaLOG] See Protocol SQ ACHS 06/08/16 03/28/19 Insulin NPH Hum/Reg Insulin Hm See Protocol SQ AC-TID 06/08/16 03/28/19 [NovoLIN 70-30 100 UNIT/ML VIAL] Levothyroxine Sodium [Synthroid] 50 mcg PO TUTH 05/21/17 03/28/19 Nitroglycerin Sl Tabs [Nitrostat] 0.4 mg SUBLINGUAL Q5M PRN 09/24/17 03/28/19 Levothyroxine Sodium [Synthroid] 100 mcg PO SUMOWEFRSA 11/08/17 03/28/19 Metoprolol Succinate (ER) [Toprol 100 mg PO BID 11/08/17 03/28/19 XL] Aspirin [Adult Low Dose Aspirin EC] 81 mg PO HS 12/10/17 03/28/19 Clobetasol Propionate [Temovate 1 applic TOPICAL DAILY 03/28/19 03/28/19 0.05% Cream] Clotrimazole/Betamethasone Dip 1 applic TOPICAL BID 03/28/19 03/28/19 [Lotrisone Cream] Cyclobenzaprine [Flexeril] 10 mg PO TID PRN 03/28/19 03/28/19 Estradiol [Vagifem] 10 mcg VAGINAL MOTH 03/28/19 03/28/19 Triamcinolone 0.1% Cream [Kenalog 1 applic TOPICAL DAILY 03/28/19 03/28/19 0.1% Cream] Allergies Allergy/AdvReac Type Severity Reaction Status Date / Time Penicillins Allergy Rash/Hives Verified 02/12/20 10:36 prednisone Allergy Rapid Verified 02/12/20 10:36 Heart Rate Sulfa (Sulfonamide Allergy Rash/Hives Verified 02/12/20 10:36 Antibiotics) gabapentin [From Neurontin] AdvReac Unknown Verified 02/12/20 10:36 methylprednisolone AdvReac Rapid Verified 02/12/20 10:36 [From Medrol] Heart Rate Review of Systems ROS Statement: Those systems with pertinent positive or pertinent negative responses have been documented in the HPI. ROS Other: All systems not noted in ROS Statement are negative. Past Medical History Past Medical History: Coronary Artery Disease (CAD), Chest Pain / Angina, Diabetes Mellitus, Fibromyalgia, GERD/Reflux, Hyperlipidemia, Hypertension, Osteoarthritis (OA), Renal Disease, Respiratory Disorder, Thyroid Disorder Additional Past Medical History / Comment(s): sarcoidosis, chronic kidney disease stage III, diverticulosis, colon polyps neuropathy-balance issues, reccurring UTI, upper/lower bridges. VARICOSE VEINS. Current right toe infection History of Any Multi-Drug Resistant Organisms: None Reported Past Surgical History: Back Surgery, Section, Cholecystectomy, Coronary Bypass/CABG, Heart Catheterization, Joint Replacement, Tonsillectomy, Tubal Ligation Additional Past Surgical History / Comment(s): C-S X2, left shoulder rotator cuff, bilateral knee replacement 2014, 4 vessel CABG in 2002, bilateral cataract extraction and intraocular lens implants, picc line -since removed. Colonoscopy in 2015. BRONCHOSCOPY, BIOPSY. Past Anesthesia/Blood Transfusion Reactions: Motion Sickness, Postoperative Na usea & Vomiting (PONV) Past Psychological History: No Psychological Hx Reported Smoking Status: Never smoker Past Alcohol Use History: None Reported Past Drug Use History: None Reported - Past Family History Mother Family Medical History: Diabetes Mellitus Additional Family Medical History / Comment(s): Mother at age 70 with history of coronary artery disease status post CABG 2 and diabetes. Father Family Medical History: Diabetes Mellitus Additional Family Medical History / Comment(s): Father at age 83 with history of coronary artery disease status post CABG and diabetes. Daughter(s) Additional Family Medical History / Comment(s): Patient has one daughter with hyperlipidemia. Patient has one son with diabetes. Patient is an only child. General Exam Limitations: no limitations Course Vital Signs 02/12/20 02/12/20 10:33 11:24 Temperature 98.2 F Pulse Rate 57 L 55 L Respiratory 18 16 Rate Blood Pressure 151/74 143/117 O2 Sat by Pulse 99 97 Oximetry Disposition Clinical Impression: Hypertension Disposition: HOME SELF-CARE Condition: Good Instructions (If sedation given, give patient instructions): Hypertension (ED) Is patient prescribed a controlled substance at d/c from ED?: No Referrals: Sam Quiñonez MD [Primary Care Provider] - 1-2 days Time of Disposition: 11:56
[2020-02-12 11:56] VITALS: BP 164/71; PULSE 53; RESP 12
[2020-02-12 12:11] VITALS: TEMP 97
== END 2020-02-12 12:11 | disposition home or self-care (01) ==
LOC: EC 10:24
DX: I12.9 Hypertensive chronic kidney disease with stage 1 through stage 4 chronic kidney disease, or unspecified chronic kidney disease (principal); I25.119 Atherosclerotic heart disease of native coronary artery with unspecified angina pectoris; E11.22 Type 2 diabetes mellitus with diabetic chronic kidney disease; K21.9 Gastro-esophageal reflux disease without esophagitis; E78.5 Hyperlipidemia, unspecified; M19.90 Unspecified osteoarthritis, unspecified site; N18.3 Chronic kidney disease, stage 3 (moderate); E07.9 Disorder of thyroid, unspecified; Z79.4 Long term (current) use of insulin; Z79.890 Hormone replacement therapy; Z79.02 Long term (current) use of antithrombotics/antiplatelets; Z79.82 Long term (current) use of aspirin; Z79.899 Other long term (current) drug therapy; Z95.5 Presence of coronary angioplasty implant and graft; Z95.1 Presence of aortocoronary bypass graft; Z96.653 Presence of artificial knee joint, bilateral; Z98.42 Cataract extraction status, left eye; Z98.41 Cataract extraction status, right eye; Z96.1 Presence of intraocular lens; Z88.0 Allergy status to penicillin; Z88.2 Allergy status to sulfonamides; Z88.8 Allergy status to other drugs, medicaments and biological substances
CPT/HCPCS: 93005; 99283

== ENCOUNTER 2020-06-02 20:02 | Emergency (ER) | payer MEDICARE ==
[2020-06-02] MEDS ORDERED: ACETAMINOPHEN TAB 500 MG TAB PO STA (21:12)
--- NOTE | 2020-06-02 22:03 | CT ---
EXAMINATION TYPE: CT brain cspine wo con DATE OF EXAM: 06/02/2020 COMPARISON: 11/11/2019. HISTORY: Fall with head injury CT DLP: 1620.9 mGycm Automated exposure control for dose reduction was used. TECHNIQUE: CT scan of the head and cervical spine are performed without contrast. FINDINGS: There is no acute intracranial hemorrhage, mass effect, or midline shift identified. The ventricles and sulci are within normal limits in size. The globes are intact and the visualized sin uses are clear. Cervical spine is visualized in its entirety from C1 through upper thoracic levels and demonstrates s atisfactory alignment without evidence of acute fracture or dislocation. Prevertebral soft tissue ap pears within normal limits. The C1-C2 articulation is unremarkable. There is multilevel moderate ce rvical spondylosis. IMPRESSION: 1. There is no acute fracture or dislocation evident in the cervical spine. 2. No acute intracranial hemorrhage, mass effect, or midline shift is seen.
--- NOTE | 2020-06-02 22:16 | ED ---
General Adult HPI - General Chief complaint: Head Injury Stated complaint: Fall-R Arm/Head injury Time Seen by Provider: 06/02/20 20:55 Source: patient, RN notes reviewed Mode of arrival: wheelchair Limitations: no limitations - History of Present Illness Initial comments: 70-year-old female with a complicated past medical history on Plavix for history of CABG presents to the emergency department for head injury. Patient states that she got new shoes to help liver out her balance today. States that one of them stuck to the hardwood floor and she fell. Patient hit the right posterior aspect of her head on the ground. No loss of consciousness. No neck pain. Slight headache. She did have some slight nausea earlier however this has since resolved. No vomiting associated with this. No visual changes. Patient did also fall on her right shoulder. Has chronic pain in the right shoulder for which she sees orthopedics. States that she does not have any increased pain in the right shoulder and does not want imaging of this at this time. She is concerned about her head.Patient has no other complaints at this time including shortness of breath, chest pain, abdominal pain, nausea or vomiting, or visual changes. - Related Data Home Medications Medication Instructions Recorded Confirmed ALPRAZolam [Xanax] 0.25 mg PO BID PRN 06/07/16 03/28/19 Atorvastatin [Lipitor] 10 mg PO HS 06/07/16 03/28/19 Clopidogrel [Plavix] 75 mg PO HS 06/07/16 03/28/19 Esomeprazole Magnesium [NexIUM] 40 mg PO BID 06/07/16 03/28/19 Hydrocodone/Acetaminophen [[place] 1 tab PO BID PRN 06/07/16 03/28/19 10-325] Hydroxychloroquine Sulfate 200 mg PO BID 06/07/16 03/28/19 [Plaquenil] Isosorbide Mononitrate ER [Imdur] 60 mg PO DAILY 06/07/16 03/28/19 allopurinoL [Zyloprim] 100 mg PO DAILY 06/07/16 03/28/19 INSULIN LISPRO (HumaLOG) [humaLOG] See Protocol SQ ACHS 06/08/16 03/28/19 Insulin NPH Hum/Reg Insulin Hm See Protocol SQ AC-TID 06/08/16 03/28/19 [NovoLIN 70-30 100 UNIT/ML VIAL] Levothyroxine Sodium [Synthroid] 50 mcg PO TUTH 05/21/17 03/28/19 Nitroglycerin Sl Tabs [Nitrostat] 0.4 mg SUBLINGUAL Q5M PRN 09/24/17 03/28/19 Levothyroxine Sodium [Synthroid] 100 mcg PO SUMOWEFRSA 11/08/17 03/28/19 Metoprolol Succinate (ER) [Toprol 100 mg PO BID 11/08/17 03/28/19 XL] Aspirin [Adult Low Dose Aspirin EC] 81 mg PO HS 12/10/17 03/28/19 Clobetasol Propionate [Temovate 1 applic TOPICAL DAILY 03/28/19 03/28/19 0.05% Cream] Clotrimazole/Betamethasone Dip 1 applic TOPICAL BID 03/28/19 03/28/19 [Lotrisone Cream] Cyclobenzaprine [Flexeril] 10 mg PO TID PRN 03/28/19 03/28/19 Estradiol [Vagifem] 10 mcg VAGINAL MOTH 03/28/19 03/28/19 Triamcinolone 0.1% Cream [Kenalog 1 applic TOPICAL DAILY 03/28/19 03/28/19 0.1% Cream] Allergies Allergy/AdvReac Type Severity Reaction Status Date / Time Penicillins Allergy Rash/Hives Verified 06/02/20 20:44 prednisone Allergy Rapid Verified 06/02/20 20:44 Heart Rate Sulfa (Sulfonamide Allergy Rash/Hives Verified 06/02/20 20:44 Antibiotics) gabapentin [From Neurontin] AdvReac Unknown Verified 06/02/20 20:44 methylprednisolone AdvReac Rapid Verified 06/02/20 20:44 [From Medrol] Heart Rate Review of Systems ROS Statement: Those systems with pertinent positive or pertinent negative responses have been documented in the HPI. ROS Other: All systems not noted in ROS Statement are negative. Past Medical History Past Medical History: Coronary Artery Disease (CAD), Chest Pain / Angina, Diabetes Mellitus, Fibromyalgia, GERD/Reflux, Hyperlipidemia, Hypertension, Osteoarthritis (OA), Renal Disease, Respiratory Disorder, Thyroid Disorder Additional Past Medical History / Comment(s): sarcoidosis, chronic kidney disease stage III, diverticulosis, colon polyps neuropathy-balance issues, reccurring UTI, upper/lower bridges. VARICOSE VEINS. Current right toe infection History of Any Multi-Drug Resistant Organisms: None Reported Past Surgical History: Back Surgery, Section, Cholecystectomy, Coronary Bypass/CABG, Heart Catheterization, Joint Replacement, Tonsillectomy, Tubal Ligation Additional Past Surgical History / Comment(s): C-S X2, left shoulder rotator cuff, bilateral knee replacement 2014, 4 vessel CABG in 2002, bilateral cataract extraction and intraocular lens implants, picc line -since removed. Colonoscopy in 2016. BRONCHOSCOPY, BIOPSY. Past Anesthesia/Blood Transfusion Reactions: Motion Sickness, Postoperative Nausea & Vomiting (PONV) Past Psychological History: No Psychological Hx Reported Smoking Status: Never smoker - Past Family History Mother Family Medical History: Diabetes Mellitus Additional Family Medical History / Comment(s): Mother at age 70 with history of coronary artery disease status post CABG 2 and diabetes. Father Family Medical History: Diabetes Mellitus Additional Family Medical History / Comment(s): Father at age 83 with history of coronary artery disease status post CABG and diabetes. Daughter(s) Additional Family Medical History / Comment(s): Patient has one daughter with hyperlipidemia. Patient has one son with diabetes. Patient is an only child. General Exam Limitations: no limitations General appearance: alert, in no apparent distress Head exam: Absent: atraumatic (Patient has a hematoma right posterior parietal scalp) Eye exam: Present: normal appearance, PERRL, EOMI. Absent: scleral icterus, conjunctival injection, other (Negative raccoon sign) ENT exam: Present: normal exam, mucous membranes moist, TM's normal bilaterally (Negative hemotympanum), normal external ear exam (Negative Waldron sign) Neck exam: Present: normal inspection, full ROM. Absent: tenderness (No cervical spine tenderness) Respiratory exam: Present: normal lung sounds bilaterally. Absent: respiratory distress, wheezes, rales, rhonchi, stridor Cardiovascular Exam: Present: regular rate, normal rhythm, normal heart sounds. Absent: systolic murmur, diastolic murmur, rubs, gallop, clicks GI/Abdominal exam: Present: soft, normal bowel sounds. Absent: distended, tenderness, guarding, rebound, rigid Back exam: Absent: CVA tenderness (R), CVA tenderness (L), vertebral tenderness (No thoracic or lumbar spine tenderness) Neurological exam: Present: alert, oriented X3, normal gait, other (GCS 15) Course Vital Signs 06/02/20 20:39 Temperature 98.0 F Pulse Rate 54 L Respiratory 18 Rate Blood Pressure 141/44 O2 Sat by Pulse 99 Oximetry Medical Decision Making - Medical Decision Making Vitals are stable. Small contusion noted to the right posterior scalp. No focal neurologic deficits. CT cervical spine shows no acute fracture or dislocation. CT brain shows no acute intracranial hemorrhage, mass effect, or midline shift. At this time patient can be discharged home to follow up with primary care. She'll should return here for any worsening symptoms. She should monitor for concussion symptoms Disposition Clinical Impression: Head injury Disposition: HOME SELF-CARE Condition: Good Instructions (If sedation given, give patient instructions): Head Injury (ED), Concussion (ED) Additional Instructions: Please take Tylenol for pain. Please follow-up with your doctor in one to 2 days. Return to the emergency room if you have any worsening symptoms. Is patient prescribed a controlled substance at d/c from ED?: No Referrals: Sam Quiñonez MD [Primary Care Provider] - 1-2 days Time of Disposition: 22:16
[2020-06-02 22:25] VITALS: BP 154/79; PULSE 87; RESP 20; TEMP 97
== END 2020-06-02 22:25 | disposition home or self-care (01) ==
LOC: EC 20:02
DX: S00.03XA Contusion of scalp, initial encounter (principal); M25.511 Pain in right shoulder; N18.30 Chronic kidney disease, stage 3 unspecified; Z79.899 Other long term (current) drug therapy; Z79.02 Long term (current) use of antithrombotics/antiplatelets; Z88.0 Allergy status to penicillin; Z88.2 Allergy status to sulfonamides; Z88.8 Allergy status to other drugs, medicaments and biological substances; Z96.1 Presence of intraocular lens; Z95.1 Presence of aortocoronary bypass graft; Z95.5 Presence of coronary angioplasty implant and graft; Z90.49 Acquired absence of other specified parts of digestive tract; Z96.653 Presence of artificial knee joint, bilateral; Z98.42 Cataract extraction status, left eye; Z98.41 Cataract extraction status, right eye; W01.198A Fall on same level from slipping, tripping and stumbling with subsequent striking against other object, initial encounter
CPT/HCPCS: 70450; 72125; 99283

== ENCOUNTER → 2020-06-14 | Outpatient (CLI) | payer MEDICARE ==
--- NOTE | 2020-06-14 14:06 | BD ---
EXAMINATION TYPE: Axial Bone Density DATE OF EXAM: 06/14/2020 COMPARISON: NONE CLINICAL HISTORY: Height: 63 Weight: 237.5 FRAX RISK QUESTIONS: Alcohol (3 or more units per day): no Family History (Parent hip fracture): no Glucocorticoids (More than 3mos): no (Ex: prednisone, prednisolone, methylprednisolone, dexamethasone, and hydrocortisone). History of Fracture in Adulthood: yes Secondary Osteoporosis: 1. Type 1 Diabetes: no 2. Hyperthyroidism: no 3. Menopause before 45: no 4. Malnutrition: no 5. Chronic liver disease: no Rheumatoid Arthritis: no Current Tobacco Use: no RISK FACTORS HISTORY OF: Surgery to Spine/Hip(right/left)/Wrist (right/left): l-5 s-1 When: 2009 Family History of Osteoporosis: no Active: yes Diet low in dairy products/other sources of calcium: no Postmenopausal woman: age 49 Take estrogen and/or progesterone medications: yes Lost more than 2 inches in height since high school: yes MEDICATIONS: blood pressure , heart meds, nexium, sarcoid meds, diabetic meds Thyroid Medications: synthroid How Lon years Additional History: EXAM MEASUREMENTS: Bone mineral densitometry was performed using the [employer] System. Bone mineral density about the R hip (g/cm2): 1.211 Bone mineral density about the L hip (g/cm2): 1.252 T Score values are as follows: -----R Neck: 1.2 -----L Neck: 1.5 -----R Total: 1.2 -----L Total: 1.7 Bone mineral density has: increased 0.8 % since study of: 4.9.2017 Bone mineral density about the L Wrist (g/cm2): 0.659 T Score values are as follows: -----Dist. R+U: 0.7 -----Prox. R+U: 0.0 -----Radius total: -0.3 Bone mineral density : baseline IMPRESSION: No evidence for osteoporosis or osteopenia. NOTE: T-SCORE=SD OF THE YOUNG ADULT MEAN.
--- NOTE | 2020-06-15 09:43 | MM ---
Reason for exam: screening (asymptomatic). Last mammogram was performed 1 year and 9 months ago. History: Patient is postmenopausal. Taking progesterone for 3 years. Physical Findings: A clinical breast exam by your physician is recommended on an annual basis and results should be correlated with mammographic findings. MG Screening Mammo w CAD Bilateral CC and MLO view(s) were taken. Prior study comparison: September 02, 2018, bilateral MG screening mammo w CAD. August 26, 2017, bilateral MG screening mammo w CAD. There are scattered fibroglandular densities. Finding: There are typically benign vascular, linear calcifications in both breasts. There is no discrete abnormality. ASSESSMENT: Benign, BI-RAD 2 RECOMMENDATION: Routine screening mammogram of both breasts in 1 year.
== END | disposition home or self-care (01) ==
LOC: RADMAMWWP 07:26
PROVIDERS: ATTEND Internal Medicine Geriatric Medicine
DX: Z12.31 Encounter for screening mammogram for malignant neoplasm of breast (principal); M81.0 Age-related osteoporosis without current pathological fracture
CPT/HCPCS: 77067; 77080

== ENCOUNTER 2020-06-27 11:10 | Day surgery (SDC) | payer MEDICARE ==
[2020-06-24 10:26] VITALS: BMI 42.0
[~2020-06-27 11:10] MED LIST changes: +ALBUTEROL NEB (CONC) 2.5 MG/0.5 ML INHALATION ONE; +ATROPINE SULFATE 0.4 MG/ML 1 ML VIAL IM ONE; -HYDROmorphone 0.5 MG/0.5 ML SYRINGE IVP PRN; -LACTATED RINGERS 1,000 ML IV SCH; +LIDOCAINE 1% (10MG/ML) FOR IV START INTRADERMA ONE; +LIDOCAINE 2% (PF) 20 MG/ML 5 ML VIAL INHALATION ONE; +LIDOCAINE VISCOUS 300 MG/15 ML CUP MUCOUS MEM ONE; -MIDAZOLAM 2 MG/2 ML VIAL IV PRN; -ONDANSETRON 4 MG/2 ML VIAL IVP ONE; +Pre Op ABX Message 1 EACH MISC MISCELLANE ONE; +SODIUM CHLORIDE 0.9% 1,000 ML IV SCH; -ceFAZolin IN SWFI 2 GM/20 ML SYRINGE IVP ONE
[2020-06-27 11:49] VITALS: TEMP 97.2
[2020-06-27] MEDS ORDERED: LACTATED RINGERS 1,000 ML IV ONE (11:50)
[2020-06-27] MEDS ORDERED: ONDANSETRON 4 MG/2 ML VIAL IVP ONE (11:52)
[2020-06-27] MEDS ORDERED: ONDANSETRON 4 MG/2 ML VIAL ONE (11:55)
[2020-06-27 11:59] LABS: Glucose,Whole Blood 241 mg/dL (75-99)
[2020-06-27] MEDS ORDERED: LIDOCAINE 1% INJ 10MG/ML (20 ML MDV) ONE (12:12)
[2020-06-27] MEDS ORDERED: KETAMINE 10 MG/ML 20 ML VIAL ONE (12:12)
[2020-06-27] MEDS ORDERED: MIDAZOLAM 2 MG/2 ML VIAL ONE (12:12)
[2020-06-27] MEDS ORDERED: PROPOFOL 10 MG/ML 20 ML VIAL IV ONE (12:12)
[2020-06-27] MEDS ORDERED: fentaNYL (PF) 50 MCG/ML 2 ML AMP ONE (12:12)
[2020-06-27] MEDS ORDERED: GLYCOPYRROLATE 0.2 MG/ML 2 ML VIAL ONE (12:12)
[2020-06-27 12:54] LABS: Glucose,Whole Blood 277 mg/dL (75-99)
--- NOTE | 2020-06-27 13:02 | PCN ---
PROCEDURE NOTE PULMONARY/CRITICAL CARE PROCEDURE NOTE: PROCEDURE: Bronchoscopy, airway examination, therapeutic lavage, BAL. PREOPERATIVE DIAGNOSIS: Pneumonia and retained secretions. POSTOPERATIVE DIAGNOSIS: Pneumonia and retained secretions. WELDING MACHINE TENDER: Dr. Goodson. DESCRIPTION OF PROCEDURE: The patient's procedure was done in room #1. There was informed consent and universal timeout. Anesthesia provided general anesthesia to the patient. After the patient was adequately sedated, the bronchoscope was inserted through the right nostril. It passed through the right nasopharynx into the oropharynx. The hypopharynx was identified and topicalized. The hypopharyngeal structures, including anterior commissure, true cords, false cords, arytenoids, piriform sinuses, right and left valleculae and epiglottis, all appeared relatively normal. The glottic opening was topicalized. The bronchoscope was pushed through the glottic opening into the trachea. The trachea appeared normal. Tracheal minerva was sharp. The right and left mainstem were topicalized. The right upper lobe and its 3 segments, right middle lobe and its 2 segments, right lower lobe and its 5 segments, the left upper lobe proper and its 2 segments, the lingula and its 2 segments and the left lower lobe and its 4 segments were all evaluated. Findings were similar throughout, including diffuse moderate bronchitis with erythema and hyperemia of the airways. The airways were friable. They bled easily. There was vascular engorgement. There were secretions noted throughout. They were somewhat thick. They were suctioned with the aid of saline lavage. Next the bronchoscope was wedged into the right middle lobe. A BAL took place. Thirty mL was recovered. It will be sent to the laboratory for analysis. There was no dominant mass or growth. There was no significant bleeding. The patient tolerated the procedure well and the bronchoscope was withdrawn after all secretions had been suctioned. The patient will be recovered. MMODL / IJN: [id number] /
[2020-06-27 13:07] VITALS: RESP 20
[2020-06-27 13:12] VITALS: BP 116/72; PULSE 70
[2020-06-27 16:15] LABS: Appearance,BF Hazy; Nucleated Cells, Body Fluid 44 /uL; RBC, Body Fluid 38 /uL
[2020-06-27 16:59] LABS: Mononuclear WBC,Body Fluid 74 %; Polynuclear WBC,Body Fluid 26 %; Total Cells Counted,Body Fluid 100
== END 2020-06-27 13:20 | disposition home or self-care (01) ==
LOC: ORWHC2ENDO 11:10
PROVIDERS: ATTEND Internal Medicine Critical Care Medicine
DX: J18.9 Pneumonia, unspecified organism (principal); E11.22 Type 2 diabetes mellitus with diabetic chronic kidney disease; N18.9 Chronic kidney disease, unspecified; I25.810 Atherosclerosis of coronary artery bypass graft(s) without angina pectoris; E03.9 Hypothyroidism, unspecified; E78.5 Hyperlipidemia, unspecified; K21.9 Gastro-esophageal reflux disease without esophagitis; M10.9 Gout, unspecified; D86.9 Sarcoidosis, unspecified; M54.9 Dorsalgia, unspecified; G89.29 Other chronic pain; M79.7 Fibromyalgia; Z79.82 Long term (current) use of aspirin; Z79.890 Hormone replacement therapy; Z79.4 Long term (current) use of insulin; Z79.891 Long term (current) use of opiate analgesic; Z79.899 Other long term (current) drug therapy; Z79.02 Long term (current) use of antithrombotics/antiplatelets; Z79.52 Long term (current) use of systemic steroids; Z88.0 Allergy status to penicillin; Z88.2 Allergy status to sulfonamides; Z88.8 Allergy status to other drugs, medicaments and biological substances; Z96.653 Presence of artificial knee joint, bilateral; Z90.49 Acquired absence of other specified parts of digestive tract; Z90.89 Acquired absence of other organs; Z98.890 Other specified postprocedural states; Z82.49 Family history of ischemic heart disease and other diseases of the circulatory system; Z83.3 Family history of diabetes mellitus
CPT/HCPCS: 87798 ×3; 87496; 87498; 87529; 88108; 88305; 89050; 87252; 87502; 87634; 87070; 87205; 87116; 87102; 87206; 31624; J2250; J0461; J2405; J2001; J3010; J2704

== ENCOUNTER → 2021-05-29 | Outpatient (CLI) | payer MEDICARE ==
--- NOTE | 2021-05-29 10:22 | CT ---
EXAMINATION TYPE: CT lumbar spine wo con DATE OF EXAM: 05/29/2021 8:58 AM COMPARISON: CT lumbar spine February 17, 2015 HISTORY: lumbar disc displacement CT DLP: 843 mGycm Automated exposure control for dose reduction was used. Unenhanced CT of the lumbar spine was performed. Bone and soft tissue window settings are submitted as well as coronal and sagittal reconstructions. There are 5 lumbar type vertebra are redemonstrated. There is redemonstration of posterior interpedic ular rods and screws bilaterally at L4-S1 levels with artificial disc material L4-L5 level. Stable sl ight grade 1 anterolisthesis L4 and L5. Persistent severe disc space narrowing with vacuum disc pheno roselyn at L5-S1 level. New slight grade 1 retrolisthesis T12 on L1 and L1 on L2. More prominent Modera te to severe disc space narrowing and spurring L1-L2 level. Mild to moderate disc space narrowing and spurring L2-L3 level vacuum disc phenomenon is new from prior. Mild disc space narrowing and spurrin g T12-L1 level is new from prior. Axial images at T12-L1 level show new posterior spur disc complex effacing the anterior thecal sac. M ild facet arthropathy bilaterally. Patent bilateral neural foramina. Axial images at L1-L2 level shows more prominent posterior spurring effacing the anterior thecal sac with right foraminal disc protrusion redemonstrated. There is moderate to advanced right-sided neural foraminal narrowing identified. Findings more prominent from prior. Axial images at L2-L3 level show spondylolisthesis with mild to moderate facet arthropathy and ligame ntum flavum hypertrophy effacing posterior lateral thecal sac. There is moderate broad-based posterio r disc protrusion effacing the anterior thecal sac. There is [id number] bilateral neural forami nal narrowing. Axial images at L3-L4 level show artifact from surgical change. Spinal canal grossly preserved. Paten t bilateral neural foramina is thought present. Axial images at L4-L5 level show artifact from surgical change. Spinal canal grossly preserved. Bilat eral neural foramina likely patent. Axial images at L5-S1 level show artifact from surgical change. Spinal canal grossly preserved. Subop timal evaluation of the neural foramina which are likely patent. Some diverticula in the sigmoid colon are partially imaged. Small vessel arterial calcification sugge sting long-standing chronic medical renal disease is noted. IMPRESSION: Postsurgical change L4-S1 level bilaterally redemonstrated. Stable alignment noted. Incre asing multilevel degenerative changes present upper to mid lumbar spine from 2015 CT.
== END | disposition home or self-care (01) ==
LOC: RADCTMAIN 08:34
PROVIDERS: ATTEND Psychiatry & Neurology Neurology
DX: M51.26 Other intervertebral disc displacement, lumbar region (principal); M47.816 Spondylosis without myelopathy or radiculopathy, lumbar region; M43.16 Spondylolisthesis, lumbar region
CPT/HCPCS: 72131

== ENCOUNTER 2021-10-24 08:21 | Emergency (ER) | payer MEDICARE ==
[2021-10-24 08:28] VITALS: TEMP 97.9
--- NOTE | 2021-10-24 08:41 | ED ---
General Adult HPI - General Chief complaint: Extremity Problem,Nontraumatic Stated complaint: Hip pain Time Seen by Provider: 10/24/21 08:33 Source: patient, RN notes reviewed, old records reviewed Mode of arrival: wheelchair Limitations: physical limitation - History of Present Illness Initial comments: 71-year-old female presenting for evaluation of right hip pain. Patient states she was bending forward to filler picker some paper, she felt the sudden increase in her pain in the right hip. She is scheduled for replacement on the with Dr. Smith. She denies a fall. Pain is both medial and lateral right hip. Worse with ambulation worse with movement. - Related Data Home Medications Medication Instructions Recorded Confirmed ALPRAZolam [Xanax] 0.25 mg PO BID PRN 06/07/16 06/24/20 Atorvastatin [Lipitor] 10 mg PO HS 06/07/16 06/24/20 Clopidogrel [Plavix] 75 mg PO HS 06/07/16 06/24/20 Esomeprazole Magnesium [NexIUM] 40 mg PO BID 06/07/16 06/24/20 Hydrocodone/Acetaminophen [Asotin 1 tab PO BID PRN 06/07/16 06/24/20 10-325] Hydroxychloroquine Sulfate 200 mg PO BID 06/07/16 06/24/20 [Plaquenil] Isosorbide Mononitrate ER [Imdur] 60 mg PO DAILY 06/07/16 06/24/20 allopurinoL [Zyloprim] 100 mg PO DAILY 06/07/16 06/24/20 INSULIN LISPRO (HumaLOG) [humaLOG] See Protocol SQ ACHS 06/08/16 06/24/20 Insulin NPH Hum/Reg Insulin Hm See Protocol SQ AC-TID 06/08/16 06/24/20 [NovoLIN 70-30 100 UNIT/ML VIAL] Levothyroxine Sodium [Synthroid] 50 mcg PO TUTH 05/21/17 06/24/20 Nitroglycerin Sl Tabs [Nitrostat] 0.4 mg SUBLINGUAL Q5M PRN 09/24/17 06/24/20 Levothyroxine Sodium [Synthroid] 100 mcg PO SUMOWEFRSA 11/08/17 06/24/20 Metoprolol Succinate (ER) [Toprol 100 mg PO BID 11/08/17 06/24/20 XL] Aspirin [Adult Low Dose Aspirin EC] 81 mg PO HS 12/10/17 06/24/20 Clobetasol Propionate [Temovate 1 applic TOPICAL DAILY PRN 03/28/19 06/24/20 0.05% Cream] Clotrimazole/Betamethasone Dip 1 applic TOPICAL BID PRN 03/28/19 06/24/20 [Lotrisone Cream] Cyclobenzaprine [Flexeril] 10 mg PO TID PRN 03/28/19 06/24/20 Estradiol [Vagifem] 10 mcg VAGINAL MOTH 03/28/19 06/24/20 Triamcinolone 0.1% Cream [Kenalog 1 applic TOPICAL DAILY 03/28/19 06/24/20 0.1% Cream] Allergies Allergy/AdvReac Type Severity Reaction Status Date / Time Penicillins Allergy Rash/Hives Verified 06/24/20 09:34 Sulfa (Sulfonamide Allergy Rash/Hives Verified 06/24/20 09:34 Antibiotics) gabapentin [From Neurontin] AdvReac Unknown Verified 06/24/20 09:34 Review of Systems ROS Statement: Those systems with pertinent positive or pertinent negative responses have been documented in the HPI. ROS Other: All systems not noted in ROS Statement are negative. Past Medical History Past Medical History: Coronary Artery Disease (CAD), Chest Pain / Angina, Diabetes Mellitus, Fibromyalgia, GERD/Reflux, Hyperlipidemia, Hypertension, Osteoarthritis (OA), Renal Disease, Respiratory Disorder, Thyroid Disorder Additional Past Medical History / Comment(s): sarcoidosis, chronic kidney disease stage III, diverticulosis, colon polyps neuropathy-balance issues, reccurring UTI, upper/lower bridges. VARICOSE VEINS. BRONCHITIS History of Any Multi-Drug Resistant Organisms: None Reported Past Surgical History: Back Surgery, Section, Cholecystectomy, Coronary Bypass/CABG, Heart Catheterization, Joint Replacement, Tonsillectomy, Tubal Ligation Additional Past Surgical History / Comment(s): C-S X2, left shoulder rotator cuff, bilateral knee replacement 2014, 4 vessel CABG in 2002, bilateral cataract extraction and intraocular lens implants, picc line -since removed. Colonoscopy in 2015. BRONCHOSCOPY, BIOPSY. Past Anesthesia/Blood Transfusion Reactions: Motion Sickness, Postoperative Nausea & Vomiting (PONV) Past Psychological History: No Psychological Hx Reported Smoking Status: Never smoker Past Alcohol Use History: None Reported Past Drug Use History: None Reported - Past Family History Mother Family Medical History: Diabetes Mellitus Additional Family Medical History / Comment(s): Mother at age 70 with history of coronary artery disease status post CABG 2 and diabetes. Father Family Medical History: Diabetes Mellitus Additional Family Medical History / Comment(s): Father at age 83 with history of coronary artery disease status post CABG and diabetes. Daughter(s) Additional Family Medical History / Comment(s): Patient has one daughter with hyperlipidemia. Patient has one son with diabetes. Patient is an only child. General Exam Limitations: physical limitation General appearance: alert, in no apparent distress Head exam: Present: atraumatic, normocephalic Eye exam: Present: normal appearance, PERRL ENT exam: Present: normal exam Neck exam: Present: normal inspection. Absent: tenderness, meningismus Respiratory exam: Present: normal lung sounds bilaterally. Absent: respiratory distress, wheezes Cardiovascular Exam: Present: regular rate, normal rhythm GI/Abdominal exam: Present: soft. Absent: distended, tenderness, guarding Extremities exam: Present: other (Right lower extremity, distal pulses intact, range of motion at the knee is intact, range of motion of the right hip significantly limited including internal rotation. Leg length discrepancy of 1 cm.) Back exam: Present: normal inspection Neurological exam: Present: alert, oriented X3, CN II-XII intact. Absent: motor sensory deficit Psychiatric exam: Present: normal affect, normal mood Skin exam: Present: warm, dry, intact. Absent: cyanosis, diaphoretic Course Vital Signs 10/24/21 08:25 Temperature 97.9 F Pulse Rate 77 Respiratory 16 Rate Blood Pressure 157/81 O2 Sat by Pulse 98 Oximetry Medical Decision Making - Medical Decision Making 71-year-old female with acute right hip pain. History of chronic hip pain. X- ray negative for fracture dislocation. There is no specific trauma. I did discuss case with the orthopedist surgeon Dr. Smith who is planning to replace his hip on November 15. Patient has family at home who is able to assist. She will use her walker. She will follow-up with orthopedics on . Disposition Clinical Impression: Osteoarthritis of right hip Disposition: HOME SELF-CARE Condition: Fair Instructions (If sedation given, give patient instructions): Osteoarthritis (ED) Is patient prescribed a controlled substance at d/c from ED?: No Referrals: Sam Quiñonez MD [Primary Care Provider] - 1-2 days Sha Smith MD [Family Provider] - 1-2 days Time of Disposition: 10:32
--- NOTE | 2021-10-24 09:33 | XR ---
EXAMINATION TYPE: XR Hip Complete RT DATE OF EXAM: 10/24/2021 COMPARISON: CT dated 12/05/2017 INDICATION: Right hip pain. No injury. TECHNIQUE: 2 views of the right hip. FINDINGS: Moderate to marked degenerative changes of the right hip joint with narrowing of the joint space, latanya nly superiorly, subchondral sclerotic changes and osteophytosis. Right femoral greater trochanteric e nthesophytosis. No definite acute fracture line identified. Soft tissue calcification superimposed on the right hip j oint, appreciated on the previous CT scan. Arterial atherosclerotic calcification. Right pelvic phleb oliths. IMPRESSION: Degenerative changes of the right hip joint as described above.
[2021-10-24] MEDS ORDERED: MORPHINE SULFATE 4 MG/ML SYRINGE IM STA (10:32)
[2021-10-24 11:04] VITALS: BP 142/84; PULSE 74; RESP 18
== END 2021-10-24 11:04 | disposition home or self-care (01) ==
LOC: EC 08:21
DX: M16.11 Unilateral primary osteoarthritis, right hip (principal); G89.29 Other chronic pain; I25.10 Atherosclerotic heart disease of native coronary artery without angina pectoris; E11.22 Type 2 diabetes mellitus with diabetic chronic kidney disease; I12.9 Hypertensive chronic kidney disease with stage 1 through stage 4 chronic kidney disease, or unspecified chronic kidney disease; N18.30 Chronic kidney disease, stage 3 unspecified; E78.5 Hyperlipidemia, unspecified; E11.36 Type 2 diabetes mellitus with diabetic cataract; Z79.82 Long term (current) use of aspirin; Z79.4 Long term (current) use of insulin; K21.9 Gastro-esophageal reflux disease without esophagitis; Z79.899 Other long term (current) drug therapy; X50.9XXA Other and unspecified overexertion or strenuous movements or postures, initial encounter; Z88.2 Allergy status to sulfonamides; Z88.0 Allergy status to penicillin; Z88.8 Allergy status to other drugs, medicaments and biological substances
CPT/HCPCS: 99283; 96372; 73502; J2270

== ENCOUNTER → 2021-10-24 | Outpatient (CLI) | payer MEDICARE ==
--- NOTE | 2021-10-24 17:27 | XR ---
EXAMINATION TYPE: XR cervical spine comp DATE OF EXAM: 10/24/2021 COMPARISON: NONE HISTORY: Neck pain TECHNIQUE: 5 views FINDINGS: Cervical vertebra have Normal alignment. Posterior elements are intact. Neural foramina are fairly we ll maintained. Atlantoaxial facet joint is normal. There are no cervical ribs. There is anterior hype rtrophic spurring in the mid and lower cervical spine. IMPRESSION: Spondylotic changes in the lower cervical spine. No fracture seen.
--- NOTE | 2021-10-24 23:44 | CT ---
EXAMINATION TYPE: CT brain wo con DATE OF EXAM: 10/24/2021 COMPARISON: CT dated 06/02/2020 HISTORY: CEREBRAL INFARCTION, UNSPECIFIED CT DLP: 1075.7 mGycm Automated exposure control for dose reduction was used. TECHNIQUE: CT scan of the brain is performed without IV contrast administration. FINDINGS: Brain volume loss changes, likely age-related. Bilateral cerebral white matter hypodensities, likely representing chronic microvascular ischemic changes. Tiny right thalamocapsular lacunar infarcts, pos sibly chronic. Scattered arterial atherosclerotic calcifications. Partially empty sella. No acute intracranial hemorrhage. No gross acute cortical infarct. No midline shift, herniation or ventriculomegaly. Unremarkable solorio-white matter differentiation, basal cisterns and CP angles. No gross space-occupyin g lesion, vasogenic edema or mass effect. Unremarkable orbits. Clear visualized paranasal sinuses and mastoid air cells. Osteopenia. Degenerati ve changes of the TMJs. Deviated bony nasal septum convex to the right side. 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 No acute intracranial abnormality or gross space-occupying lesion by this nonenhanced CT scan. Other incidental findings as described above.
== END | disposition home or self-care (01) ==
LOC: RADCTMAIN 16:11
PROVIDERS: ATTEND Internal Medicine Geriatric Medicine
DX: M47.812 Spondylosis without myelopathy or radiculopathy, cervical region (principal); I67.82 Cerebral ischemia
CPT/HCPCS: 70450; 72050

== ENCOUNTER → 2021-11-08 | Outpatient (CLI) | payer MEDICARE ==
--- NOTE | 2021-11-08 13:27 | US ---
EXAMINATION TYPE: US bladder DATE OF EXAM: 11/08/2021 COMPARISON: NONE CLINICAL HISTORY: N18.3 CKD. pre and post void EXAM MEASUREMENTS: Post Void Residual Volume: 133 mL Normal Post Void Residual (less than 50ml): no IMPRESSION: Normal post void residual.
== END | disposition home or self-care (01) ==
LOC: RADUSWWP 11:51
PROVIDERS: ATTEND Internal Medicine Nephrology
DX: N18.30 Chronic kidney disease, stage 3 unspecified (principal)
CPT/HCPCS: 76857

== ENCOUNTER → 2021-11-08 | Outpatient (CLI) | payer MEDICARE ==
--- NOTE | 2021-11-09 14:57 | MM ---
Reason for Exam: Screening (asymptomatic). Last mammogram was performed 1 year(s) and 5 month(s) ago. Patient History: Menarche at age 9. First Full-Term at age 17. Postmenopausal. Currently using Progesterone, for 3 years. Risk Values: [place] 5 year model risk: 1.4%. NCI Lifetime model risk: 3.6%. Prior Study Comparison: 08/26/2017 Bilateral Screening Mammogram, [facility]. 09/02/2018 Bilateral Screening Mammogram, [facility]. 06/14/2020 Bilateral Screening Mammogram, [facility]. Tissue Density: There are scattered fibroglandular densities. Findings: Analyzed By CAD. There is a new 1.8 cm mass upper outer right breast 7 cm from the nipple. I recommend ultrasound for further evaluation. Vascular calcifications are noted bilaterally. Overall Assessment: Incomplete: need additional imaging evaluation, BI-RAD 0 Management: Diagnostic Breast Ultrasound of the right breast. A clinical breast exam by your physician is recommended on an annual basis and results should be correlated with mammographic findings. Electronically signed and approved by: Salbador Rosales M.D. Radiologis
== END | disposition home or self-care (01) ==
LOC: RADMAMWWP 11:52
PROVIDERS: ATTEND Obstetrics & Gynecology
DX: Z12.31 Encounter for screening mammogram for malignant neoplasm of breast (principal); Z78.0 Asymptomatic menopausal state
CPT/HCPCS: 77067

== ENCOUNTER → 2021-11-08 | Outpatient (CLI) | payer MEDICARE ==
[2021-11-08 13:21] LABS: Appearance,Urine Clear (Clear); Bilirubin,Urine Negative (Negative); Blood,Urine Negative (Negative); Color,Urine Colorless; Glucose,Urine (UA) Negative (Negative); Ketones,Urine Negative (Negative); Leukocyte Esterase,Urine Negative (Negative); Nitrite,Urine Negative (Negative); PH, Urine 6.5 (5.0-8.0); Protein,Urine Negative (Negative); Specific Gravity,Urine 1.004 (1.001-1.035); Urobilinogen,Urine <2.0 mg/dL (<2.0)
[2021-11-08 13:27] LABS: INR 0.9 (<1.2); Partial Thromboplastin Time 22.3 sec (22.0-30.0); Prothrombin Time 9.6 sec (9.0-12.0)
[2021-11-08 18:12] LABS: HCT 39.3 % (37.2-46.3); HGB 11.9 g/dL (12.0-15.0); MCH 29.5 pg (27.0-32.0); MCHC 30.3 g/dL (32.0-37.0); MCV 97.5 fL (80.0-97.0); Mean Platelet Volume 11.4 fL (9.5-12.2); NRBC Per 100 WBC 0 /100 WBCS (0.0-0.0); Platelet Count 242 X 10*3/uL (140-440); RBC 4.03 X 10*6/uL (4.10-5.20); RDW 14.1 % (11.5-14.5); WBC 6.91 X 10*3/uL (4.50-10.00)
[2021-11-08 18:18] LABS: African American GFR (CKD) 50.8 (60.0-200.0); Albumin 4.1 g/dL (3.8-4.9); Albumin/Globulin Ratio 1.37 (1.60-3.17); BUN/Creat Ratio 15.93 Ratio (12.00-20.00); Blood Urea Nitrogen 19.6 mg/dL (9.0-27.0); Calcium 10.1 mg/dL (8.7-10.3); Carbon Dioxide 28.6 mmol/L (20.0-27.5); Non-African American GFR(CKD) 43.8 (60.0-200.0); Potassium 4.2 mmol/L (3.5-5.5); Total Bilirubin 0.3 mg/dL (0.30-1.20); Total Protein 7.2 g/dL (6.2-8.2)
== END | disposition home or self-care (01) ==
LOC: LABPAT 11:45
PROVIDERS: ATTEND Orthopaedic Surgery
DX: Z01.812 Encounter for preprocedural laboratory examination (principal); M16.11 Unilateral primary osteoarthritis, right hip
CPT/HCPCS: 80053; 81003; 85027; 85610; 85730; 87070; 93005

== ENCOUNTER 2021-11-15 08:08 | Day surgery (SDC) | payer MEDICARE ==
[~2021-11-15 08:08] MED LIST changes: +ACETAMINOPHEN TAB 500 MG TAB PO PRN; -ALBUTEROL NEB (CONC) 2.5 MG/0.5 ML INHALATION ONE; -ATROPINE SULFATE 0.4 MG/ML 1 ML VIAL IM ONE; +DEXAMETHASONE SOD PHOSPHATE 10 MG/ML 1 ML VIAL IV PRN; +DEXAMETHASONE SOD PHOSPHATE 4 MG/ML 1 ML VIAL IV ONE; +DOCUSATE 100 MG CAP PO PRN; +FAMOTIDINE 20 MG/2 ML VIAL IVP PRN; +HYDROmorphone 0.5 MG/0.5 ML SYRINGE IVP PRN; +KETOROLAC 15 MG/ML 1 ML VIAL IVP PRN; +LACTATED RINGERS 1,000 ML IV SCH; -LIDOCAINE 1% (10MG/ML) FOR IV START INTRADERMA ONE; +LIDOCAINE 1% (10MG/ML) FOR IV START INTRADERMA PRN; -LIDOCAINE 2% (PF) 20 MG/ML 5 ML VIAL INHALATION ONE; -LIDOCAINE VISCOUS 300 MG/15 ML CUP MUCOUS MEM ONE; +MIDAZOLAM 2 MG/2 ML VIAL IV PRN; +ONDANSETRON 4 MG/2 ML VIAL IVP PRN; -Pre Op ABX Message 1 EACH MISC MISCELLANE ONE; -SODIUM CHLORIDE 0.9% 1,000 ML IV SCH; +TRANEXAMIC ACID IN NACL,ISO-OS 1,000 MG in SALINE 1 100ML.BAG IVPB PRN; +fentaNYL (PF) 50 MCG/ML 2 ML AMP IVP PRN; +oxyCODONE ER 10 MG TAB.ER.12H PO PRN
[2021-11-15 09:09] VITALS: BP 158/72; PULSE 68; RESP 20; TEMP 98.2
[2021-11-15 09:52] LABS: Glucose,Whole Blood 217 mg/dL (70-110)
--- NOTE | 2021-11-15 10:37 | P.PN ---
Progress Note - Text Progress Note Date: 11/15/21 I was called by nursing and Dr. Miguel (anesthesia) to evaluate patient prior to surgery. The patient has had increasing lower back and buttock pain for the past 2 days to the point that she has had a hard time ambulating or getting comfortable. She has a history of lumbar fusion by Dr. 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 Nursing noted that she had an extremely difficult time getting out of her car or onto the [facility] due to her back pain. At the time of my evaluation she is having severe back pain and pain into her legs. She denies left hip pain, but continues to have her chronic, arthritis related right hip pain. She denies bowel or bladder dysfunction. Due to her increasing back pain, difficulty ambulating and known history of lumbar spine issues I do not think it is safe to proceed with an elective total hip replacement. We cancelled her case for today. She feels safe going home and has a walker which I encouraged her to use. She will be scheduled to see Dr. Jean Baptiste this Saturday. She was instructed to go to the ED if her back pain worsens.
== END 2021-11-15 10:24 | disposition home or self-care (01) ==
LOC: OR 08:08
PROVIDERS: ATTEND Orthopaedic Surgery
DX: M16.11 Unilateral primary osteoarthritis, right hip (principal); Z53.8 Procedure and treatment not carried out for other reasons; M54.50 Low back pain, unspecified; Z98.1 Arthrodesis status
CPT/HCPCS: 86850; 86900; 86901

== ENCOUNTER → 2021-11-28 | Outpatient (CLI) | payer MEDICARE ==
[2021-11-28 11:09] LABS: INR 0.9 (<1.2); Partial Thromboplastin Time 23.1 sec (22.0-30.0); Prothrombin Time 9.9 sec (9.0-12.0)
[2021-11-28 15:15] LABS: HCT 40.1 % (37.2-46.3); HGB 11.9 g/dL (12.0-15.0); MCH 28.9 pg (27.0-32.0); MCHC 29.7 g/dL (32.0-37.0); MCV 97.3 fL (80.0-97.0); Mean Platelet Volume 11.1 fL (9.5-12.2); NRBC Per 100 WBC 0 /100 WBCS (0.0-0.0); Platelet Count 323 X 10*3/uL (140-440); RBC 4.12 X 10*6/uL (4.10-5.20); RDW 14.5 % (11.5-14.5); WBC 7.73 X 10*3/uL (4.50-10.00)
[2021-11-28 16:52] LABS: African American GFR (CKD) 53.4 (60.0-200.0); Albumin/Globulin Ratio 1.06 (1.60-3.17); Anion Gap 11.3 mmol/L (10.00-18.00); BUN/Creat Ratio 16.61 Ratio (12.00-20.00); Blood Urea Nitrogen 19.6 mg/dL (9.0-27.0); Calcium 10.1 mg/dL (8.7-10.3); Carbon Dioxide 29.7 mmol/L (20.0-27.5); Globulin 3.8 g/dL (1.6-3.3); Potassium 4.5 mmol/L (3.5-5.5); Total Bilirubin 0.2 mg/dL (0.30-1.20); Total Protein 7.8 g/dL (6.2-8.2)
[2021-11-28 20:14] LABS: Appearance,Urine Clear (Clear); Bilirubin,Urine Negative (Negative); Blood,Urine Negative (Negative); Color,Urine Yellow (Yellow); Ketones,Urine Negative (Negative); Nitrite,Urine Negative (Negative); Specific Gravity,Urine 1.007 (1.001-1.030); Urobilinogen,Urine 0.2 (0.2,1.0)
== END | disposition home or self-care (01) ==
LOC: LABPAT 10:02
PROVIDERS: ATTEND Orthopaedic Surgery
DX: Z01.812 Encounter for preprocedural laboratory examination (principal)
CPT/HCPCS: 80053; 81003; 85027; 85610; 85730

== ENCOUNTER 2021-12-06 13:07 | Day surgery (SDC) | payer MEDICARE ==
[2021-12-04 12:10] VITALS: BMI 34.5
[~2021-12-06 13:07] MED LIST changes: -LIDOCAINE 1% (10MG/ML) FOR IV START INTRADERMA PRN; -MIDAZOLAM 2 MG/2 ML VIAL IV PRN; +ONDANSETRON 4 MG/2 ML VIAL IVP ONE; +ROPIVACAINE/EPI/CLONIDINE/KET 50 ML SYRINGE MISCELLANE PRN; -fentaNYL (PF) 50 MCG/ML 2 ML AMP IVP PRN
[2021-12-06 14:07] LABS: Glucose,Whole Blood 190 mg/dL (70-110)
[2021-12-06] MEDS ORDERED: MIDAZOLAM 2 MG/2 ML VIAL IVP ONE (14:21)
[2021-12-06] MEDS ORDERED: fentaNYL (PF) 50 MCG/ML 2 ML AMP ONE (15:09)
[2021-12-06] MEDS ORDERED: LIDOCAINE 2% INJ 20 MG/ML (2 ML VIAL) ONE (15:09)
[2021-12-06] MEDS ORDERED: TRANEXAMIC ACID IN NACL,ISO-OS 1,000 MG/100 ML BAG ONE (15:09)
[2021-12-06] MEDS ORDERED: ROCURONIUM 10 MG/ML (5 ML VIAL) IV ONE (15:09)
[2021-12-06] MEDS ORDERED: ROPIVACAINE 5 MG/ML 30 ML VIAL ONE (15:09)
[2021-12-06] MEDS ORDERED: MIDAZOLAM 2 MG/2 ML VIAL ONE (15:09)
[2021-12-06] MEDS ORDERED: PROPOFOL 10 MG/ML 20 ML VIAL IV ONE ×2 (15:09)
[2021-12-06] MEDS ORDERED: SUCCINYLCHOLINE CHLORIDE VIAL 200 MG/10 ML VIAL IV ONE (15:09)
[2021-12-06] MEDS ORDERED: LABETALOL 5 MG/ML VIAL MDV ONE (15:09)
[2021-12-06] MEDS ORDERED: LACTATED RINGERS 1,000 ML IV ONE (16:54)
[2021-12-06] MEDS ORDERED: HYDROcodone/APAP 5-325MG 1 EACH TAB PO PRN ×2 (17:46)
[2021-12-06] MEDS ORDERED: hydrOXYzine pamoate 25 MG CAP PO PRN (17:46)
[2021-12-06] MEDS ORDERED: HYDROmorphone 0.5 MG/0.5 ML SYRINGE IVP PRN ×3 (17:46)
[2021-12-06] MEDS ORDERED: NALOXONE 0.4 MG/ML 1 ML VIAL IV PRN (17:46)
[2021-12-06] MEDS ORDERED: ONDANSETRON 4 MG/2 ML VIAL IVP PRN (17:46)
--- NOTE | 2021-12-06 17:54 | P.OP ---
Date of Procedure: 12/06/21 Preoperative Diagnosis: 1. Severe right hip osteoarthritis 2. 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 DM2, A1c 6.4 preoperatively 4. Coronary disease 5. History of coronary bypass on Plavix 6. BMI of 33.5 Postoperative Diagnosis: Same Procedure(s) Performed: Right direct anterior total hip arthroplasty Implants: 1. [place] Trident II Acetabular Cup, Size #48 2. [place] Accolade C Size # 3 Femoral Stem, Standard Offset 3. Dual Mobility OD 36 mm, ID 22mm, +0 neck Anesthesia: GETA Surgeon: Sha Smith Maintenance Mechanic [place] #1: Sima Rodriguez Estimated Blood Loss (ml): 200 IV fluids (ml): 1,200 Pathology: none sent Condition: stable Disposition: PACU Indications for Procedure: I had a long discussion with the patient in the office on the potential risks a nd complications of an elective total hip replacement through a direct anterior approach. We discussed her body habitus and how it affected choice of approach. My preference was to still perform a direct anterior approach to allow for intraoperative imaging, facilitate postoperative mobilization and rehabilitation, and lower dislocation risk given her history of lumbar spine fusion. We discussed using a Prevena wound VAC and suppressive antibiotics until her incision heals. Risks discussed include, but are certainly not limited to, risks from anesthesia, superficial infection requiring local wound care or antibiotics, deep natalia-prosthetic joint infection and the treatment required to eradicate infection, intraoperative fracture, postoperative periprosthetic fracture, damage to local blood vessels or nerves particularly the lateral femoral cutaneous nerve, delayed wound healing requiring local wound care or possibly surgical debridement, hip dislocation, leg length discrepancy, soft tissue irritation around the total hip implant such as iliopsoas tendinitis or trochanteric bursitis, wear and osteolysis from the implants, squeaking or audible noises, groin pain, thigh pain, heterotopic ossification, stiffness, aseptic loosening of the implants, dissatisfaction with surgical outcome, need for revision surgery, DVT, PE, swelling of the operative extremity, acute coronary event, stroke, failure to thrive, and possibly loss of life or limb. The patient understands that while these are the most common complications after an elective hip replacement there are certainly other less common complications possible. They were given ample time to ask questions regarding the potential complications of a hip replacement. Following our discussion the patient provided their verbal and written consent to go forward with an elective total hip replacement. Description of Procedure: The patient was identified in the preoperative holding area and the correct hip was marked with my initials. I reviewed the procedure and consent with the patient. All of their questions were answered. The patient was then brought back into the operating room by anesthesia. While on the [facility] anesthesia was administered by the anesthesia team. Preoperative antibiotics and tranexamic acid were also given. After the patient was under anesthesia I examined their ankles to determine their preoperative leg length discrepancy. The skin over the anterior aspect of the hip was shaved to remove hair over the site of planned incision. Both feet and ankles were padded with webril and boots for the [place] were applied. The patient was then carefully transferred onto the [place] table. A perineal post was immediately placed. The arms were placed on arm holders and were well-padded. Both boots were secured to the spars on the [place] table. The patient was positioned so that the pelvis was centered over the post. Nonsterile drapes were applied. A timeout was performed identifying the correct patient, operative extremity, and procedure. At this point fluoroscopy was brought in to take preoperative images of the pelvis and operative hip. Using the standing AP pelvis from the office as a template, a comparable image was obtained with fluoroscopy. A metallic bar was used to create a bi-ischial line for use as a reference to leg length adjustments during the procedure. Global offset was also measured on both the operative and nonoperative leg. Fluoroscopy was then brought out and a pre-scrub using a chlorhexidine scrub brush was performed. The operative limb was then prepped and draped in the standard sterile fashion. An anterior longitudinal incision was made lateral and distal to the ASIS. The skin and subcutaneous tissues were incised sharply. The underlying tensor fascia was identified and incised in its midportion. The fascia was dissected free from the underlying muscle and the muscle belly was retracted. A blunt tipped cobra retractor was placed over the superior neck under the muscle fibers of the gluteus minimus. The deep enveloping fascia of the tensor was incised. The anterior leash of vessels were then identified and cauterized. The fascia between the rectus and the capsule was then incised and the pre-capsular fat was excised. A second Cobra was placed inferior to the neck. The interval between the rectus and iliocapsularis and the hip capsule was developed and a retractor was placed carefully over the anterior rim of the acetabulum. A T-shaped anterior capsulotomy was performed. The superior capsular leaflet was left in place in the inferior capsular flap was excised. The Cobra retractors were placed intracapsularly. We then made a femoral neck osteotomy according to preoperative and intraoperative templating and confirmed the level of the osteotomy using fluoroscopic imaging. The femoral head was removed, passed off to the back table, and sized. The superior capsular flap was excised. Retract ors were placed circumferentially exposing the acetabulum. We then circumferentially debrided the acetabulum free of labrum and osteophytes. The pulvinar was removed to fully visualize the cotyloid fossa. We then sequentially reamed to achieve peripheral fit and excellent bleeding subchondral bone. The socket was thoroughly irrigated. The acetabular component was impacted into the appropriate position using fluoroscopy to guide version, inclination, and depth of insertion taking care to have a comparable image of the AP pelvis to the standing image taken in the office. An excellent press-fit was achieved and final position was confirmed using fluoroscopy. The press fit was augmented with bony cancellus dome screws. The liner was then impacted into the socket. Attention was then turned to the femur. The remnant dorsal lateral capsule was excised. The short external rotators were visible and protected. A bone hook was used to confirm appropriate translation of the trochanter away from the acetabulum. The leg was then extended and adducted and the bone hook was used to elevate the femur for broaching. On inspection of the patient's proximal femur, they appeared to have poor bone quality so I elected to proceed with cemented fixation of the femoral component. A box osteotome and blunt tipped canal sound was then utilized to gain access to the femoral canal. We then sequentially broached the femur in appropriate anteversion until torsional stability was achieved and the implant was felt to have reached the appropriate size to allow trialing. The neck cut was brought flush to the trial broach with a calcar planar. A trial neck and head were then placed onto the broach and the hip was atraumatically reduced under direct visualization. External rotation to 90 was performed to assess stability. Fluoroscopy was brought in. An AP and lateral fluoroscopic image of the proximal femur was obtained to assess position and fill of the trial broach. An AP of the pelvis was then obtained and matched to the preoperative image taken. A bi-ischial bar was then placed and measurements were taken to assess changes in length and offset. The hip was then carefully dislocated, the proximal femur was exposed, and the trial implants were removed. The proximal femur was then prepared for cementing. The canal was thoroughly irrigated with pulsatile lavage to remove blood and marrow contents. A cement restrictor was placed to a depth just distal to the tip of the final implant. Epinephrine-soaked gauze was then packed into the proximal femur. 2 bags of cement were then mixed using a centrifuge and placed into a cement gun. Anesthesia was notified that cementing was about to commence to make sure the patient was appropriately ventilated and hydrated. Once the cement had reached appropriate consistency, the cement gun was used to fill the canal in a retrograde fashion starting at the restrictor. Cement was then pressurized into the canal with a blue tipped energy manager. The stem was then carefully introduced into the cement taking care to guide the implant into appropriate version. The stem was held in position until the cement had fully set. All extra cement was removed while the cement was hardening. The trunnion was cleansed and the final head was tapped into place to engage the Torrez taper. The acetabulum was irrigated and visualized to be free of debris. The hip was carefully reduced. Stability was checked clinically with external rotation to 90 and there was no evidence of instability. Final fluoroscopic images were taken. The wound was then thoroughly irrigated and soaked with a dilute Betadine rinse for 3 minutes. 3 L of sterile saline was irrigated through the wound using pulsatile lavage. Local anesthetic cocktail was injected into the soft tissues around the surgical field. A deep drain was placed. The wound was then closed in layers with 3-0 nylon interrupted horizontal mattress sutures placed to reinforce the closure. A sterile Prevena incisional wound vac (13-cm) dressing was placed over the surgical incision and drain site. The drapes were taken down and the patient was carefully transferred off of the [place] table. Following removal of the boots the leg lengths felt acceptable. The patient was then taken to recovery room having tolerated the procedure well. iSma Rodriguez PA-C was required as a skilled assistant banquet manager for patient positioning, surgical exposure, retraction, placement of implants, and closure of the surgical wound. PLAN: The patient can weight-bear as tolerated on the operative extremity. 2 doses of postoperative antibiotics. DVT prophylaxis with aspirin 81 mg twice a day for 1 week. After 1 week she can resume her Plavix and go back down to 81 mg daily. Physical therapy for gait training. Discontinue drain postoperative day #1 if output is less than 100 mL per shift.
[2021-12-06 19:13] LABS: Glucose,Whole Blood 284 mg/dL (70-110)
[2021-12-06] MEDS ORDERED: INSULIN ASPART (NovoLOG) 100 UNIT/ML VIAL SQ ONE (19:17)
--- NOTE | 2021-12-06 19:58 | FL ---
Fluoroscopy HISTORY: Total hip arthroplasty 31 seconds fluoroscopy time supplied to the referring clinician. 5 intraoperative C-arm images docum ent the procedure. See dictated report from orthopedic surgery.
--- NOTE | 2021-12-06 20:08 | P.ANPRN ---
Procedure Note - Anesthesia - Nerve Block Performed Right Erector Spinae Single Time Out Performed: Yes Date of Procedure: 12/06/21 Procedure Start Time: 14:20 Procedure Stop Time: 14:33 Location of Patient: PreOp Indication: Acute Post-Operative Pain, Requested by Surgeon Sedation Type: Sedate with meaningful contact maintained Preparation: Sterile Prep, Sterile Dressing Position: Prone Catheter: None Needle Types: Pajunk Needle Gauge: 20 Ultrasound used to visualize needle placement: Yes Ultrasound used to observe medication spread: Yes Injectate: 0.5% Ropivacaine (see comment for volume) (30 ml) Blood Aspirated: No Pain Paresthesia on Injection Noted: No Resistance on Injection: Normal Image Stored and Saved: Yes Events: Uneventful and Well Tolerated
[2021-12-06] MEDS ORDERED: SENNOSIDES-DOCUSATE SODIUM 1 EACH TAB PO SCH (21:00)
[2021-12-06] MEDS: ASPIRIN 81 MG PO SCH (22:24)
[2021-12-07] MEDS ORDERED: NITROGLYCERIN SL TABS 0.4 MG TAB SUBLINGUAL PRN (05:58)
[2021-12-07] MEDS ORDERED: INSULN ASP PRT/INSULIN ASPART 100 UNIT/ML 10 ML VIAL SQ PRN (05:58)
[2021-12-07] MEDS ORDERED: INSULIN ASPART (NovoLOG) 100 UNIT/ML VIAL SQ PRN (05:58)
[2021-12-07] MEDS ORDERED: BACLOFEN 10 MG TAB PO PRN (05:58)
[2021-12-07] MEDS ORDERED: HYDROcodone/APAP 10-325MG 1 EACH TAB PO PRN (05:58)
[2021-12-07] MEDS ORDERED: ALPRAZolam 0.25 MG TAB PO PRN (05:58)
[2021-12-07] MEDS ORDERED: ESTRADIOL 10 MCG VAGINAL SCH (06:00)
[2021-12-07] MEDS ORDERED: LEVOTHYROXINE 100 MCG TAB PO SCH (06:30)
[2021-12-07 07:56] VITALS: BP 161/68; PULSE 79; RESP 16; TEMP 98.2
[2021-12-07 08:55] LABS: Basophils # (A) 0.01 X 10*3/uL (0.00-0.10); Basophils % (A) 0.1 %; Eosinophils # (A) 0 X 10*3/uL (0.04-0.35); Eosinophils % (A) 0 %; HCT 29.9 % (37.2-46.3); HGB 9.2 g/dL (12.0-15.0); Immature Grans, Automated 0.7 %; Lymphocytes # (A) 1.06 X 10*3/uL (0.90-5.00); Lymphocytes % (A) 8.1 %; MCH 29.2 pg (27.0-32.0); MCHC 30.8 g/dL (32.0-37.0); MCV 94.9 fL (80.0-97.0); Mean Platelet Volume 12.2 fL (9.5-12.2); Monocytes # (A) 0.75 X 10*3/uL (0.20-1.00); Monocytes % (A) 5.7 %; NRBC Per 100 WBC 0 /100 WBCS (0.0-0.0); Neutrophils # (A) 11.23 X 10*3/uL (1.80-7.70); Neutrophils % (A) 85.4 %; Platelet Count 172 X 10*3/uL (140-440); RBC 3.15 X 10*6/uL (4.10-5.20); RDW 14.8 % (11.5-14.5); WBC 13.14 X 10*3/uL (4.50-10.00)
[2021-12-07] MEDS ORDERED: HYDROXYCHLOROQUINE SULFATE 200 MG TAB PO SCH (09:00)
[2021-12-07] MEDS ORDERED: MAGNESIUM OXIDE 400 MG TAB PO SCH (09:00)
[2021-12-07] MEDS ORDERED: PANTOPRAZOLE 40 MG TABLET PO SCH (09:00)
[2021-12-07] MEDS ORDERED: ASCORBIC ACID 500 MG TAB PO SCH (09:00)
[2021-12-07] MEDS ORDERED: METOPROLOL SUCCINATE (ER) 100 MG TAB.ER.24H PO SCH (09:00)
[2021-12-07] MEDS ORDERED: ISOSORBIDE MONONITRATE ER 60 MG TAB.ER.24H PO SCH (09:00)
[2021-12-07] MEDS ORDERED: NON FORMULARY DRUG (Omega-3 Fatty Acids [Omega-3] 1,000 MG Capsule) PO SCH (09:00)
[2021-12-07] MEDS ORDERED: allopurinoL 100 MG TAB PO SCH (09:00)
[2021-12-07] MEDS ORDERED: INSULN ASP PRT/INSULIN ASPART 100 UNIT/ML 10 ML VIAL SQ SCH (09:00)
[2021-12-07] MEDS: ASPIRIN 81 MG PO SCH (09:05)
--- NOTE | 2021-12-07 09:33 | P.DS ---
Providers Expected date of discharge: 12/07/21 Attending physician: Sha Smith Consults: 12/06/21 17:46 Consult Physician Routine Consulting Provider: Sam Quiñonez Reason/Comments: medical management Do you want consulting provider notified?: Yes Primary care physician: Sam Quiñonez [place] Course: This is a 71-year-old female who has been followed in our office by Dr. Smith for continued complaints of right hip pain due to right hip osteoarthritis. Treatment options were discussed, and patient elected to undergo a right total hip arthroplasty. Patient was seen pre-operatively by Dr. Quiñonez, Dr. Smith and cleared for surgery. Patient underwent a right total hip arthroplasty on 12/06/21. The procedure was performed without complication or sequelae. The patient is doing fairly well postoperatively. Vital signs and labs are stable on postoperative day #1. Patient was examined bedside today. Patient states she is overall doing very well and the pain in her right hip is well-controlled. Hemovac drain removed bedside today. She has been ambulating with a walker with minimal assistance. She has worked with physical therapy this morning and has been cleared to return home. Patient is comfortable being discharged home today. Patient denies chest pain, shortness of breath, nausea, vomiting, fevers, chills. On examination, the patient is sitting up in the bedside chair in no apparent distress. She is alert and orientated 3. On inspection of the right hip, there is a clean, dry, intact surgical dressing in place. There is no bleeding or drainage the dressing. Patient has good strength and ROM of the right ankle and toes. Motor and sensory function is intact of the right lower extremity. Femoral nerve function intact. The dorsalis pedis pulse is easily palpable, the right lower extremity is warm and well perfused with brisk capillary refill. Calf is soft and non-tender to palpation. Patient is discharged home with home health in good condition, pending medical clearance. Patient will follow-up with Dr. Smith in the office on Saturday12/12/21. Please see med rec for accurate list of discharge medication. Plan - Discharge Summary Discharge Rx Participant: No New Discharge Prescriptions: New Aspirin 81 mg PO BID 7 Days #14 tab Doxycycline Monohydrate 100 mg PO BID 14 Days #28 cap Docusate [Colace] 100 mg PO BID #60 capsule Continue ALPRAZolam [Xanax] 0.25 mg PO HS PRN PRN Reason: Anxiety Isosorbide Mononitrate ER [Imdur] 120 mg PO DAILY Hydrocodone/Acetaminophen [Newell 10-325] 1 tab PO BID PRN PRN Reason: Pain Esomeprazole Magnesium [NexIUM] 40 mg PO BID Atorvastatin [Lipitor] 10 mg PO HS allopurinoL [Zyloprim] 100 mg PO BID Hydroxychloroquine Sulfate [Plaquenil] 200 mg PO BID Clopidogrel [Plavix] 75 mg PO HS INSULIN LISPRO (HumaLOG) [humaLOG] 1 dose SQ ACHS PRN PRN Reason: Blood Sugar - High Insulin NPH Hum/Reg Insulin Hm [NovoLIN 70-30 100 UNIT/ML VIAL] 1 dose SQ AC- TID PRN PRN Reason: Blood Sugar - High Levothyroxine Sodium [Synthroid] 50 mcg PO TUTH Nitroglycerin Sl Tabs [Nitrostat] 0.4 mg SUBLINGUAL Q5M PRN PRN Reason: Chest Pain Metoprolol Succinate (ER) [Toprol XL] 100 mg PO BID Levothyroxine Sodium [Synthroid] 100 mcg PO SUMOWEFR Clobetasol Propionate [Temovate 0.05% Cream] 1 applic TOPICAL DAILY PRN PRN Reason: ABD FOLD, UNDER BREAST, RASH Clotrimazole/Betamethasone Dip [Lotrisone Cream] 1 applic TOPICAL BID PRN PRN Reason: RED SKIN UNDER BREAST, ABD estradioL [Vagifem] 10 mcg VAGINAL DIRECTED Triamcinolone 0.1% Cream [Kenalog 0.1% Cream] 1 applic TOPICAL DAILY Ascorbic Acid [Vitamin C] 1,000 mg PO DAILY Baclofen 5 mg PO TID PRN PRN Reason: Muscle Spasm Vitamin E 100 unit PO DAILY Quercetin 800 mg PO DAILY Clinton-3 Fatty Acids [Clinton-3] 1,000 mg PO DAILY Magnesium Oxide [Magnesium] 500 mg PO BID Lactulose (Unknown Dose) 1 dose PO DIRECTED Discontinued Aspirin [Adult Low Dose Aspirin EC] 81 mg PO HS Discharge Medication List ALPRAZolam [Xanax] 0.25 mg PO HS PRN 06/07/16 [History] Atorvastatin [Lipitor] 10 mg PO HS 06/07/16 [History] Clopidogrel [Plavix] 75 mg PO HS 06/07/16 [History] Esomeprazole Magnesium [NexIUM] 40 mg PO BID 06/07/16 [History] Hydrocodone/Acetaminophen [Newell 10-325] 1 tab PO BID PRN 06/07/16 [History] Hydroxychloroquine Sulfate [Plaquenil] 200 mg PO BID 06/07/16 [History] Isosorbide Mononitrate ER [Imdur] 120 mg PO DAILY 06/07/16 [History] allopurinoL [Zyloprim] 100 mg PO BID 06/07/16 [History] INSULIN LISPRO (HumaLOG) [humaLOG] 1 dose SQ ACHS PRN 06/08/16 [History] Insulin NPH Hum/Reg Insulin Hm [NovoLIN 70-30 100 UNIT/ML VIAL] 1 dose SQ AC-TID PRN 06/08/16 [History] Levothyroxine Sodium [Synthroid] 50 mcg PO TUTH 05/21/17 [History] Nitroglycerin Sl Tabs [Nitrostat] 0.4 mg SUBLINGUAL Q5M PRN 09/24/17 [History] Levothyroxine Sodium [Synthroid] 100 mcg PO SUMOWEFRSA 11/08/17 [History] Metoprolol Succinate (ER) [Toprol XL] 100 mg PO BID 11/08/17 [History] Clobetasol Propionate [Temovate 0.05% Cream] 1 applic TOPICAL DAILY PRN 03/28/19 [History] Clotrimazole/Betamethasone Dip [Lotrisone Cream] 1 applic TOPICAL BID PRN 03/28/19 [History] Triamcinolone 0.1% Cream [Kenalog 0.1% Cream] 1 applic TOPICAL DAILY 03/28/19 [History] estradioL [Vagifem] 10 mcg VAGINAL DIRECTED 03/28/19 [History] Ascorbic Acid [Vitamin C] 1,000 mg PO DAILY 11/13/21 [History] Magnesium Oxide [Magnesium] 500 mg PO BID 11/13/21 [History] Clinton-3 Fatty Acids [Clinton-3] 1,000 mg PO DAILY 11/13/21 [History] Quercetin 800 mg PO DAILY 11/13/21 [History] Vitamin E 100 unit PO DAILY 11/13/21 [History] Baclofen 5 mg PO TID PRN 12/04/21 [History] Lactulose (Unknown Dose) 1 dose PO DIRECTED 07/18/22 [History] Doxycycline Monohydrate 100 mg PO BID 14 Days #28 cap 12/06/21 [Rx] Aspirin 81 mg PO BID 7 Days #14 tab 12/07/21 [Rx] Docusate [Colace] 100 mg PO BID #60 capsule 12/07/21 [Rx] Follow up Appointment(s)/Referral(s): Sam Quiñonez MD [Primary Care Provider] - 1 Week Sha Smith MD [Medical Doctor] - 12/12/21 Activity/Diet/Wound Care/Special Instructions: Weight bear as tolerated on operative extremity with a walker. Keep Prevena wound vac in place until follow-up appointment in the office. Take pain medications as needed, which have been prescribed by Dr. Quiñonez. Take aspirin 81mg BID x 1 week, do not resume Plavix until 1 week post-op. May resume Plavix after 1 week post-op. Once Plavix has been re-started, may go back to taking aspirin 81mg QD. Follow-up at [facility] on Saturday12/12/21 for an incision check and dressing change. Call the office with any questions or concerns, Discharge Disposition: HOME WITH HOME HEALTH SERVICES
--- NOTE | 2021-12-07 10:02 | P.HPIM ---
History of Present Illness H&P Date: 12/07/21 HISTORY OF PRESENT ILLNESS This is a 71-year-old female with past medical history of coronary artery disease status post CABG in 2002, sarcoidosis, hypertension, hyperlipidemia, chronic gout, hypothyroidism, diabetes mellitus type 2 insulin requiring chronic back pain status post lumbar surgery, generalized osteoarthritis, chronic kidney disease under the care of Dr. Robles. Patient has been brought into the hospital under the care of Dr. Smith status post right anterior total hip arthroplasty. Patient is seen postop day #1 ambulating in the hallway with physical therapy and occupational therapy. Pain is currently controlled. Patient's only concern is regarding her diabetes medications which will be addressed. Patient has been afebrile, heart rate in the 60s and 70s, blood pressure 161/68, pulse ox 97% on room air. She is reaching 1500 on incentive spirometry. WBC 13.1, hemoglobin 9.2, platelet count 172. The patient has been seen by orthopedics this morning and plan is for discharge home. Medication reconciliation reviewed. REVIEW OF SYSTEMS Constitutional: No fever, no chills, no night sweats. No weight change. No w eakness, fatigue or lethargy. No daytime sleepiness. EENT: No headache. No blurred vision or double vision, no loss of vision. No loss of Hearing, no ringing in the ears, no dizziness. No nasal drainage or congestion. No epistaxis. No sore throat. Lungs: No shortness of breath, cough, no sputum production. No wheezing. Cardiovascular: No chest pain, no lower extremity edema. No palpitations. No paroxysmal nocturnal dyspnea. No orthopnea. No lightheadedness or dizziness. No syncopal episodes. Abdominal: No abdominal pain. No nausea, vomiting. No diarrhea. No constipation. No bloody or tarry stools. No loss of appetite. Genitourinary: No dysuria, increased frequency, urgency. No urinary retention. Musculoskeletal: No myalgias. No muscle weakness, no gait dysfunction, no fr equent falls. No back pain. No neck pain. Mild right hip discomfort. Integumentary: No wounds, no lesions. No rash or pruritus. No unusual bruising. No change in hair or nails. Neurologic: No aphasia. No facial droop. No change in mentation. No head injury. No headache. No paralysis. No paresthesia. Psychiatric: No depression. No anxiety. No mood swings. Endocrine: No abnormal blood sugars. No weight change. No excessive sweating or thirst. No cold intolerance. SOCIAL HISTORY Patient is a lifelong nonsmoker, no alcohol use, illicit drug use, marijuana use . FAMILY HISTORY Father around age 85 from myocardial infarction with history of coronary artery disease and diabetes. Mother from ischemic bowel at age 70 with hi story of coronary artery disease with CABG 2 and diabetes. Patient is an only child. She has one son with diabetes and one daughter with hyperlipidemia. PHYSICAL EXAMINATION Gen: This is a 71-year-old female. She is seen ambulating in the hallway, she is resting in a chair without any acute distress. Pain seems to be controlled. HEENT: Head is atraumatic, normocephalic. Pupils equal, round. Sclerae is anicteric. NECK: Supple. No JVD. No lymphadenopathy. No thyromegaly. LUNGS: Clear to auscultation. No wheezes or rhonchi. No intercostal retractions. HEART: Regular rate and rhythm. No murmur. ABDOMEN: Soft. Bowel sounds are present. No masses. No tenderness. EXTREMITIES: No pedal edema. No calf tenderness. NEUROLOGICAL: Patient is awake, alert and oriented x3. Cranial nerves 2 through 12 are grossly intact. ASSESSMENT AND PLAN Osteoarthritis status post right anterior total hip arthroplasty 12/05. Continue current pain management, aspirin for DVT prophylaxis, continue incentive spirometry to decrease risk of hospital-acquired pneumonia and atelectasis. Diabetes mellitus type 2 insulin requiring. Patient will be resumed on 7030 10 units twice daily and NovoLog scale before meals and at bedtime. Sarcoidosis. Continue Plaquenil 200 mg twice daily. Hypertension. Continue Toprol-XL. Hyperlipidemia. Continue Lipitor 10 mg at bedtime. Hypothyroidism. Continue levothyroxine at home dosing. History of coronary artery disease. Continue Imdur 120 mg daily, Toprol-XL 100 mg twice daily, aspirin 81 mg increased to twice daily for DVT prophylaxis and continue Lipitor 10 mg at bedtime, Plavix 75 mg daily. Chronic gout. Continue allopurinol 100 mg twice daily. Chronic back pain. Continue baclofen 5 mg 3 times daily as needed Gastroesophageal reflux disease. Continue Nexium 40 mg twice daily. DISCHARGE PLAN Home. Impression and plan of care have been directed as dictated by the signing physician. Clarice Sommers nurse practitioner acting as scribe for signing physici an. Past Medical History Past Medical History: Coronary Artery Disease (CAD), Chest Pain / Angina, Diabetes Mellitus, Fibromyalgia, GERD/Reflux, Hyperlipidemia, Hypertension, Osteoarthritis (OA), Renal Disease, Respiratory Disorder, Thyroid Disorder Additional Past Medical History / Comment(s): sarcoidosis, chronic kidney disease stage III, diverticulosis, colon polyps neuropathy-balance issues, reccurring UTI, upper/lower bridges. VARICOSE VEINS. BRONCHITIS ., STATES NO MRI'S DUE TO WIRE LEFT IN WITH CABG., occasional blurry vision. History of Any Multi-Drug Resistant Organisms: None Reported Past Surgical History: Back Surgery, Section, Cholecystectomy, Coronary Bypass/CABG, Heart Catheterization, Joint Replacement, Tonsillectomy, Tubal Ligation Additional Past Surgical History / Comment(s): C-S X2, left shoulder rotator cu ff, bilateral knee replacement 2014, 4 vessel CABG in 2002, bilateral cataract extraction and intraocular lens implants, picc line -since removed. Colonoscopy in 2015. BRONCHOSCOPY, BIOPSY. Past Anesthesia/Blood Transfusion Reactions: Motion Sickness, Postoperative Nausea & Vomiting (PONV) Past Psychological History: No Psychological Hx Reported Additional Psychological History / Comment(s): TAKES XANAX TO HELP HER SLEEP AT NIGHT Smoking Status: Never smoker Past Alcohol Use History: Rare Additional Past Alcohol Use History / Comment(s): . Past Drug Use History: None Reported Additional Drug Use History / Comment(s): . - Past Family History Mother Family Medical History: Diabetes Mellitus Additional Family Medical History / Comment(s): Mother at age 70 with history of coronary artery disease status post CABG 2 and diabetes. Father Family Medical History: Diabetes Mellitus Additional Family Medical History / Comment(s): Father at age 83 with history of coronary artery disease status post CABG and diabetes. Daughter(s) Additional Family Medical History / Comment(s): Patient has one daughter with hyperlipidemia. Patient has one son with diabetes. Patient is an only child. Medications and Allergies Home Medications Medication Instructions Recorded Confirmed Type ALPRAZolam [Xanax] 0.25 mg PO HS PRN 06/07/16 12/06/21 History Atorvastatin [Lipitor] 10 mg PO HS 06/07/16 12/06/21 History Clopidogrel [Plavix] 75 mg PO HS 06/07/16 12/04/21 History Esomeprazole Magnesium [NexIUM] 40 mg PO BID 06/07/16 12/06/21 History Hydrocodone/Acetaminophen [[place] 1 tab PO BID PRN 06/07/16 12/06/21 History 10-325] Hydroxychloroquine Sulfate 200 mg PO BID 06/07/16 12/06/21 History [Plaquenil] Isosorbide Mononitrate ER [Imdur] 120 mg PO DAILY 06/07/16 12/06/21 History allopurinoL [Zyloprim] 100 mg PO BID 06/07/16 12/06/21 History INSULIN LISPRO (HumaLOG) [humaLOG] 1 dose SQ ACHS PRN 06/08/16 12/06/21 History Insulin NPH Hum/Reg Insulin Hm 1 dose SQ AC-TID PRN 06/08/16 12/06/21 History [NovoLIN 70-30 100 UNIT/ML VIAL] Levothyroxine Sodium [Synthroid] 50 mcg PO TUTH 05/21/17 12/06/21 History Nitroglycerin Sl Tabs [Nitrostat] 0.4 mg SUBLINGUAL Q5M PRN 09/24/17 12/04/21 History Levothyroxine Sodium [Synthroid] 100 mcg PO SUMOWEFRSA 11/08/17 12/06/21 History Metoprolol Succinate (ER) [Toprol 100 mg PO BID 11/08/17 12/06/21 History XL] Clobetasol Propionate [Temovate 1 applic TOPICAL DAILY PRN 03/28/19 12/04/21 History 0.05% Cream] Clotrimazole/Betamethasone Dip 1 applic TOPICAL BID PRN 03/28/19 12/06/21 History [Lotrisone Cream] Triamcinolone 0.1% Cream [Kenalog 1 applic TOPICAL DAILY 03/28/19 12/04/21 History 0.1% Cream] estradioL [Vagifem] 10 mcg VAGINAL DIRECTED 03/28/19 12/04/21 History Ascorbic Acid [Vitamin C] 1,000 mg PO DAILY 11/13/21 12/04/21 History Magnesium Oxide [Magnesium] 500 mg PO BID 11/13/21 12/04/21 History Laporte-3 Fatty Acids [L[place]orte-3] 1,000 mg PO DAILY 11/13/21 12/04/21 History Quercetin 800 mg PO DAILY 11/13/21 12/04/21 History Vitamin E 100 unit PO DAILY 11/13/21 12/04/21 History Baclofen 5 mg PO TID PRN 12/04/21 12/06/21 History Lactulose (Unknown Dose) 1 dose PO DIRECTED 12/04/21 History Doxycycline Monohydrate 100 mg PO BID 14 Days #28 cap 12/06/21 Rx Aspirin 81 mg PO BID 7 Days #14 tab 12/07/21 Rx Docusate [Colace] 100 mg PO BID #60 capsule 12/07/21 Rx Allergies Allergy/AdvReac Type Severity Reaction Status Date / Time Penicillins Allergy Rash/Hives Verified 12/06/21 13:54 Sulfa (Sulfonamide Allergy Rash/Hives Verified 12/06/21 13:54 Antibiotics) gabapentin [From Neurontin] AdvReac Unknown Verified 12/06/21 13:54 steroid AdvReac made heart Uncoded 12/04/21 11:27 pound, anxious w/dose pack Physical Exam Vitals: Vital Signs Temp Pulse Pulse Resp BP BP Pulse Ox 12/07/21 01:34 98.5 F 63 18 126/66 91 L 12/06/21 22:30 66 148/69 96 12/06/21 22:15 73 141/52 94 L 12/06/21 22:00 69 160/71 93 L 12/06/21 21:45 75 154/72 97 12/06/21 21:30 75 143/61 12/06/21 21:15 74 131/72 95 12/06/21 21:00 70 136/60 96 12/06/21 20:45 77 130/61 95 12/06/21 20:30 66 151/70 95 12/06/21 19:30 65 16 111/55 96 12/06/21 19:01 68 16 131/60 96 12/06/21 18:47 66 16 133/60 96 12/06/21 18:30 66 16 121/57 98 12/06/21 18:15 65 16 115/63 98 12/06/21 17:56 96.9 F L 71 14 119/53 98 12/06/21 14:41 75 16 174/87 96 12/06/21 13:50 97.4 F L 70 18 184/81 100 Intake and Output 12/06/21 12/07/21 12/07/21 22:59 06:59 14:59 Intake Total 850 Output Total 200 80 Balance 650 -80 Intake: IV 850 Output: Drainage 80 Right hip 80 Estimated Blood Loss 200 Other: Voiding Method Toilet # Voids 0 Weight 85.7 kg Results CBC & Chem 7: 12/07/21 06:28 Labs: Abnormal Lab Results - Last 24 Hours (Table) 12/06/21 12/06/21 Range/Units 14:05 19:09 POC Glucose (mg/dL) 190 H 284 H (70-110) mg/dL Thrombosis Risk Factor Assmnt - Choose All That Apply Each Risk Factor Represents 2 Points: Age 61-74 years Other congenital or acquired thrombophilia - If yes, enter type in comment: No Each Risk Factor Represents 5 Points: Elective major lower extremity arthoplasty Thrombosis Risk Factor Assessment Total Risk Factor Score: 7 Thrombosis Risk Factor Assessment Level: High Risk
[2021-12-07] MEDS ORDERED: INSULIN ASPART (NovoLOG) 100 UNIT/ML VIAL SQ SCH (12:30)
[2021-12-07] MEDS ORDERED: CLOPIDOGREL 75 MG TAB PO SCH (21:00)
[2021-12-07] MEDS ORDERED: ASPIRIN 81 MG PO SCH (21:00)
[2021-12-07] MEDS ORDERED: ATORVASTATIN 10 MG TAB PO SCH (21:00)
[2021-12-08] MEDS ORDERED: LEVOTHYROXINE 100 MCG TAB PO SCH (06:30)
== END 2021-12-07 11:02 | disposition home health service (06) ==
LOC: OR 13:07 → 4SSUR 17:56 → OR 12-07 11:02
PROVIDERS: ATTEND Orthopaedic Surgery
DX: M16.11 Unilateral primary osteoarthritis, right hip (principal); G89.18 Other acute postprocedural pain; Z98.1 Arthrodesis status; Z95.1 Presence of aortocoronary bypass graft; I25.119 Atherosclerotic heart disease of native coronary artery with unspecified angina pectoris; I10 Essential (primary) hypertension; E11.69 Type 2 diabetes mellitus with other specified complication; E78.5 Hyperlipidemia, unspecified; J44.9 Chronic obstructive pulmonary disease, unspecified; E03.9 Hypothyroidism, unspecified; D86.9 Sarcoidosis, unspecified; Z88.0 Allergy status to penicillin; Z88.2 Allergy status to sulfonamides; Z88.8 Allergy status to other drugs, medicaments and biological substances; Z79.4 Long term (current) use of insulin; Z79.899 Other long term (current) drug therapy; Z79.01 Long term (current) use of anticoagulants; Z79.890 Hormone replacement therapy; Z79.82 Long term (current) use of aspirin; Z83.3 Family history of diabetes mellitus; Z82.49 Family history of ischemic heart disease and other diseases of the circulatory system
CPT/HCPCS: 97161; 97535; 97165; 64999; 86900; 86901; 85025; 86850; 73501; 27130; C1776; C1713; J2250; J0171; J0330; J1100; J0690; J2405; J3010; J2795; J1885; J2704; J1170; J2001

== ENCOUNTER → 2022-01-23 | Outpatient (CLI) | payer MEDICARE ==
--- NOTE | 2022-01-23 09:34 | USB ---
Reason for Exam: Additional evaluation requested from abnormal screening. Patient History: Menarche at age 9. First Full-Term at age 17. Postmenopausal. Currently using Progesterone, for 3 years. Risk Values: Alisia 5 year model risk: 1.4%. NCI Lifetime model risk: 3.6%. Technique: Method: Targeted. Prior Study Comparison: 09/02/2018 Bilateral Screening Mammogram, [facility]. 06/14/2020 Bilateral Screening Mammogram, [facility]. 11/08/2021 Bilateral MG screening mammo w CAD, [facility]. Findings: The upper outer quadrant of the right breast and the axilla of the right breast were scanned. At 11:00 position 8 cm distance from nipple there is ill-defined heterogeneous hyperechoic oval lesion just below the dermal layer measuring 1.2 x 0.9 x 0.6 cm. Finding could correlate with new area of concern on mammogram. Overall Assessment: Incomplete: need additional imaging evaluation, BI-RAD 0 Management: Diagnostic Mammogram of the right breast. Additional mammogram views to see if ultrasound finding correlates with new area of concern on mammogram. Electronically signed and approved by: Tawanda Claros M.D.
--- NOTE | 2022-01-23 11:24 | MM ---
Reason for Exam: Additional evaluation requested from abnormal screening. Last screening mammogram was performed 3 month(s) ago. Patient History: Menarche at age 9. First Full-Term at age 17. Postmenopausal. Patient used Progesterone for 3 years. Risk Values: Alisia 5 year model risk: 1.4%. NCI Lifetime model risk: 3.6%. Prior Study Comparison: 05/03/2011 Bilateral Screening Mammogram, [facility]. 08/23/2016 Bilateral Screening Mammogram, [facility]. 08/26/2017 Bilateral Screening Mammogram, [facility]. 09/02/2018 Bilateral Screening Mammogram, [facility]. 06/14/2020 Bilateral Screening Mammogram, [facility]. 11/08/2021 Bilateral MG screening mammo w CAD, [facility]. Tissue Density: Right: The breast tissue is almost entirely fat. Findings: Analyzed By CAD. Area of concern heterogeneous oval mass in the right breast upper outer quadrant has diminished in size from prior mammogram correlating with same day ultrasound. Patient states history of traumatic injury 4-6 months earlier. Resolving hematoma is favored. Overall Assessment: Probably benign, BI-RAD 3 Management: Diagnostic Breast Ultrasound of the right breast in 4 months. Targeted ultrasound follow-up in 3-6 months time to document complete resolution of abnormality. Results were given to the patient verbally at the time of exam. Electronically signed and approved by: Tawanda Claros M.D.
== END | disposition home or self-care (01) ==
LOC: RADUSWWP 08:37
PROVIDERS: ATTEND Obstetrics & Gynecology
DX: R92.8 Other abnormal and inconclusive findings on diagnostic imaging of breast (principal); Z78.0 Asymptomatic menopausal state
CPT/HCPCS: 77065; 76642; G0279; 77061

== ENCOUNTER 2022-03-07 15:04 | Emergency (ER) | payer MEDICARE ==
[2022-03-07] MEDS ORDERED: SODIUM CHLORIDE 0.9% 500 ML 500 ML IV STA (15:11)
--- NOTE | 2022-03-07 15:14 | ED ---
Fall HPI - General Chief Complaint: Fall Stated Complaint: fall Time Seen by Provider: 03/07/22 15:06 Source: patient, EMS Mode of arrival: EMS - History of Present Illness Initial Comments: This patient is a 72-year-old woman who presents to have evaluation after she had a fall at home. The patient was reportedly standing and then went to put on her socks. She lost her balance and fell striking her head and neck. She states she did lose consciousness in the fall. She complains of some generalized headache as well as a little bit of posterior neck pain. She denies neurologic symptoms. The patient states she has been having months of dizziness and has seen her physician but they do not have a definite etiology yet. MD Complaint: fall -: minutes(s) Fall From: standing When Fall Occurred: just prior to arrival Fall Witnessed: no Place Fall Occurred: home Loss of Consciousness: yes Prolonged Down Time?: no Symptoms Prior to Fall: dizziness Location: head, neck Severity: moderate Quality: aching Associated Symptoms: headache, neck pain - Related Data Home Medications Medication Instructions Recorded Confirmed ALPRAZolam [Xanax] 0.25 mg PO HS PRN 06/07/16 12/06/21 Atorvastatin [Lipitor] 10 mg PO HS 06/07/16 12/06/21 Clopidogrel [Plavix] 75 mg PO HS 06/07/16 12/04/21 Esomeprazole Magnesium [NexIUM] 40 mg PO BID 06/07/16 12/06/21 Hydrocodone/Acetaminophen [[place] 1 tab PO BID PRN 06/07/16 12/06/21 10-325] Hydroxychloroquine Sulfate 200 mg PO BID 06/07/16 12/06/21 [Plaquenil] Isosorbide Mononitrate ER [Imdur] 120 mg PO DAILY 06/07/16 12/06/21 allopurinoL [Zyloprim] 100 mg PO BID 06/07/16 12/06/21 INSULIN LISPRO (HumaLOG) [humaLOG] 1 dose SQ ACHS PRN 06/08/16 12/06/21 Insulin NPH Hum/Reg Insulin Hm 1 dose SQ AC-TID PRN 06/08/16 12/06/21 [NovoLIN 70-30 100 UNIT/ML VIAL] Levothyroxine Sodium [Synthroid] 50 mcg PO TUTH 05/21/17 12/06/21 Nitroglycerin Sl Tabs [Nitrostat] 0.4 mg SUBLINGUAL Q5M PRN 09/24/17 12/04/21 Levothyroxine Sodium [Synthroid] 100 mcg PO SUMOWEFRSA 11/08/17 12/06/21 Metoprolol Succinate (ER) [Toprol 100 mg PO BID 11/08/17 12/06/21 XL] Clobetasol Propionate [Temovate 1 applic TOPICAL DAILY PRN 03/28/19 12/04/21 0.05% Cream] Clotrimazole/Betamethasone Dip 1 applic TOPICAL BID PRN 03/28/19 12/06/21 [Lotrisone Cream] Triamcinolone 0.1% Cream [Kenalog 1 applic TOPICAL DAILY 03/28/19 12/04/21 0.1% Cream] estradioL [Vagifem] 10 mcg VAGINAL DIRECTED 03/28/19 12/04/21 Ascorbic Acid [Vitamin C] 1,000 mg PO DAILY 11/13/21 12/04/21 Magnesium Oxide [Magnesium] 500 mg PO BID 11/13/21 12/04/21 [place]-3 Fatty Acids [[place]-3] 1,000 mg PO DAILY 11/13/21 12/04/21 Quercetin 800 mg PO DAILY 11/13/21 12/04/21 Vitamin E (Dl,Tocopheryl Acet) 100 unit PO DAILY 11/13/21 12/04/21 [Vitamin E] Baclofen 5 mg PO TID PRN 12/04/21 12/06/21 Lactulose (Unknown Dose) 1 dose PO DIRECTED 12/04/21 Previous Rx's Medication Instructions Recorded Doxycycline Monohydrate 100 mg PO BID 14 Days #28 cap 12/06/21 Aspirin 81 mg PO BID 7 Days #14 tab 12/07/21 Docusate [Colace] 100 mg PO BID #60 capsule 12/07/21 Allergies Allergy/AdvReac Type Severity Reaction Status Date / Time Penicillins Allergy Rash/Hives Verified 03/07/22 15:11 Sulfa (Sulfonamide Allergy Rash/Hives Verified 03/07/22 15:11 Antibiotics) gabapentin [From Neurontin] AdvReac Unknown Verified 03/07/22 15:11 steroid AdvReac made heart Uncoded 03/07/22 15:11 pound, anxious w/dose pack Review of Systems ROS Statement: Those systems with pertinent positive or pertinent negative responses have been documented in the HPI. ROS Other: All systems not noted in ROS Statement are negative. Constitutional: Denies: fever, chills Respiratory: Denies: cough, dyspnea Cardiovascular: Denies: chest pain, palpitations Gastrointestinal: Reports: abdominal pain. Denies: nausea, vomiting, melena, hematochezia Genitourinary: Denies: dysuria, hematuria Musculoskeletal: Reports: back pain Skin: Denies: rash Neurological: Reports: headache. Denies: weakness, numbness, confusion Hematological/Lymphatic: Denies: easy bleeding Past Medical History Past Medical History: Coronary Artery Disease (CAD), Chest Pain / Angina, Diabetes Mellitus, Fibromyalgia, GERD/Reflux, Hyperlipidemia, Hypertension, Osteoarthritis (OA), Renal Disease, Respiratory Disorder, Thyroid Disorder Additional Past Medical History / Comment(s): sarcoidosis, chronic kidney disease stage III, diverticulosis, colon polyps neuropathy-balance issues, reccurring UTI, upper/lower bridges. VARICOSE VEINS. BRONCHITIS History of Any Multi-Drug Resistant Organisms: None Reported Past Surgical History: Back Surgery, Section, Cholecystectomy, Coronary Bypass/CABG, Heart Catheterization, Joint Replacement, Tonsillectomy, Tubal Ligation Additional Past Surgical History / Comment(s): C-S X2, left shoulder rotator cuff, bilateral knee replacement 2014, 4 vessel CABG in 2002, bilateral cataract extraction and intraocular lens implants, picc line -since removed. Colonoscopy in 2016. BRONCHOSCOPY, BIOPSY. Past Anesthesia/Blood Transfusion Reactions: Motion Sickness, Postoperative Nausea & Vomiting (PONV) Past Psychological History: No Psychological Hx Reported Past Alcohol Use History: None Reported - Past Family History Mother Family Medical History: Diabetes Mellitus Additional Family Medical History / Comment(s): Mother at age 70 with history of coronary artery disease status post CABG 2 and diabetes. Father Family Medical History: Diabetes Mellitus Additional Family Medical History / Comment(s): Father at age 83 with history of coronary artery disease status post CABG and diabetes. Daughter(s) Additional Family Medical History / Comment(s): Patient has one daughter with hyperlipidemia. Patient has one son with diabetes. Patient is an only child. General Exam Limitations: no limitations General appearance: alert, in no apparent distress Head exam: Present: atraumatic, normocephalic Eye exam: Present: normal appearance, PERRL, EOMI. Absent: scleral icterus, conjunctival injection Neck exam: Present: normal inspection, other (Cervical collar) Respiratory exam: Present: normal lung sounds bilaterally. Absent: respiratory distress, wheezes, rales, rhonchi, stridor, chest wall tenderness Cardiovascular Exam: Present: regular rate, normal rhythm, normal heart sounds. Absent: systolic murmur, diastolic murmur, rubs, gallop GI/Abdominal exam: Present: soft. Absent: distended, tenderness, guarding, rebound, rigid, mass Extremities exam: Present: normal inspection, normal capillary refill. Absent: pedal edema, calf tenderness Back exam: Present: normal inspection. Absent: CVA tenderness (R), CVA tenderness (L), vertebral tenderness Neurological exam: Present: alert, oriented X3, CN II-XII intact. Absent: motor sensory deficit Skin exam: Present: warm, dry, intact, normal color. Absent: rash Course Vital Signs 03/07/22 15:06 Temperature 98.0 F Pulse Rate 63 Respiratory 16 Rate Blood Pressure 193/88 O2 Sat by Pulse 98 Oximetry Medical Decision Making - Lab Data Result diagrams: 03/07/22 15:27 03/07/22 15:27 Lab Results 03/07/22 03/07/22 03/07/22 Range/Units 14:55 15:27 15:27 WBC 7.1 (3.8-10.6) k/uL RBC 3.72 L (3.80-5.40) m/uL Hgb 11.0 L (11.4-16.0) gm/dL Hct 33.9 L (34.0-46.0) % MCV 91.2 (80.0-100.0) fL MCH 29.5 (25.0-35.0) pg MCHC 32.4 (31.0-37.0) g/dL RDW 15.3 (11.5-15.5) % Plt Count 197 (150-450) k/uL MPV 9.6 Neutrophils % 64 % Lymphocytes % 22 % Monocytes % 6 % Eosinophils % 5 % Basophils % 1 % Neutrophils # 4.5 (1.3-7.7) k/uL Lymphocytes # 1.6 (1.0-4.8) k/uL Monocytes # 0.4 (0-1.0) k/uL Eosinophils # 0.3 (0-0.7) k/uL Basophils # 0.1 (0-0.2) k/uL Hypochromasia Slight Sodium 138 (137-145) mmol/L Potassium 4.2 (3.5-5.1) mmol/L Chloride 97 L (98-107) mmol/L Carbon Dioxide 28 (22-30) mmol/L Anion Gap 13 mmol/L BUN 31 H (7-17) mg/dL Creatinine 1.45 H (0.52-1.04) mg/dL Est GFR (CKD-EPI)AfAm 41 (>60 ml/min/1.73 sqM) Est GFR (CKD-EPI)NonAf 36 (>60 ml/min/1.73 sqM) Glucose 164 H (74-99) mg/dL Calcium 9.4 (8.4-10.2) mg/dL Total Bilirubin 0.3 (0.2-1.3) mg/dL AST 29 (14-36) U/L ALT 19 (4-34) U/L Alkaline Phosphatase 118 (38-126) U/L Troponin I (0.000-0.034) ng/mL Total Protein 6.9 (6.3-8.2) g/dL Albumin 4.0 (3.5-5.0) g/dL Urine Color Colorless Urine Appearance Clear (Clear) Urine pH 6.5 (5.0-8.0) Ur Specific [place] 1.006 (1.001-1.035) Urine Protein Negative (Negative) Urine Glucose (UA) Negative (Negative) Urine Ketones Negative (Negative) Urine Blood Negative (Negative) Urine Nitrite Negative (Negative) Urine Bilirubin Negative (Negative) Urine Urobilinogen <2.0 (<2.0) mg/dL Ur Leukocyte Esterase Large H (Negative) Urine RBC 2 (0-5) /hpf Urine WBC 3 (0-5) /hpf Ur Squamous Epith Cells 2 (0-4) /hpf Urine Mucus Rare H (None) /hpf 03/07/22 Range/Units 15:27 WBC (3.8-10.6) k/uL RBC (3.80-5.40) m/uL Hgb (11.4-16.0) gm/dL Hct (34.0-46.0) % MCV (80.0-100.0) fL MCH (25.0-35.0) pg MCHC (31.0-37.0) g/dL RDW (11.5-15.5) % Plt Count (150-450) k/uL MPV Neutrophils % % Lymphocytes % % Monocytes % % Eosinophils % % Basophils % % Neutrophils # (1.3-7.7) k/uL Lymphocytes # (1.0-4.8) k/uL Monocytes # (0-1.0) k/uL Eosinophils # (0-0.7) k/uL Basophils # (0-0.2) k/uL Hypochromasia Sodium (137-145) mmol/L Potassium (3.5-5.1) mmol/L Chloride (98-107) mmol/L Carbon Dioxide (22-30) mmol/L Anion Gap mmol/L BUN (7-17) mg/dL Creatinine (0.52-1.04) mg/dL Est GFR (CKD-EPI)AfAm (>60 ml/min/1.73 sqM) Est GFR (CKD-EPI)NonAf (>60 ml/min/1.73 sqM) Glucose (74-99) mg/dL Calcium (8.4-10.2) mg/dL Total Bilirubin (0.2-1.3) mg/dL AST (14-36) U/L ALT (4-34) U/L Alkaline Phosphatase (38-126) U/L Troponin I 0.012 (0.000-0.034) ng/mL Total Protein (6.3-8.2) g/dL Albumin (3.5-5.0) g/dL Urine Color Urine Appearance (Clear) Urine pH (5.0-8.0) Ur Specific [place] (1.001-1.035) Urine Protein (Negative) Urine Glucose (UA) (Negative) Urine Ketones (Negative) Urine Blood (Negative) Urine Nitrite (Negative) Urine Bilirubin (Negative) Urine Urobilinogen (<2.0) mg/dL Ur Leukocyte Esterase (Negative) Urine RBC (0-5) /hpf Urine WBC (0-5) /hpf Ur Squamous Epith Cells (0-4) /hpf Urine Mucus (None) /hpf Disposition Clinical Impression: Fall Disposition: HOME SELF-CARE Condition: Good Instructions (If sedation given, give patient instructions): Fall Prevention for Older Adults (ED) Is patient prescribed a controlled substance at d/c from ED?: No Referrals: Sam Quiñonez MD [Primary Care Provider] - 1-2 days Sussy Ortega MD [REFERRING] - 1-2 days
[2022-03-07 15:41] LABS: Basophils # (A) 0.1 k/uL (0-0.2); Basophils % (A) 1 %; Eosinophils # (A) 0.3 k/uL (0-0.7); Eosinophils % (A) 5 %; HCT 33.9 % (34.0-46.0); Hypochromasia Slight; Lymphocytes # (A) 1.6 k/uL (1.0-4.8); Lymphocytes % (A) 22 %; MCH 29.5 pg (25.0-35.0); MCHC 32.4 g/dL (31.0-37.0); MCV 91.2 fL (80.0-100.0); Mean Platelet Volume 9.6; Monocytes # (A) 0.4 k/uL (0-1.0); Monocytes % (A) 6 %; Neutrophils # (A) 4.5 k/uL (1.3-7.7); Neutrophils % (A) 64 %; Platelet Count 197 k/uL (150-450); RBC 3.72 m/uL (3.80-5.40); RDW 15.3 % (11.5-15.5); WBC 7.1 k/uL (3.8-10.6)
[2022-03-07 15:51] LABS: Calcium 9.4 mg/dL (8.4-10.2); Potassium 4.2 mmol/L (3.5-5.1); Total Bilirubin 0.3 mg/dL (0.2-1.3); Total Protein 6.9 g/dL (6.3-8.2)
--- NOTE | 2022-03-07 15:59 | CT ---
EXAMINATION TYPE: CT brain cspine wo con DATE OF EXAM: 03/07/2022 COMPARISON: Brain 10/24/2021 HISTORY: 72-year-old female syncope, fell hitting head CT DLP: 1438.6 mGycm Automated exposure control for dose reduction was used. Technique: Examination of the head was done in axial plane without intravenous contrast. Coronal and sagittal reconstructions performed. CT of the cervical spine was obtained in axial plane without intravenous injection of contrast mater ial. Coronal and sagittal reformatted images were obtained from the axial views for evaluation of f ractures, spinal alignment and canal. FINDINGS: Head: There is no evidence of acute intracranial hemorrhage, acute ischemic changes, mass, mass-effect, or extra-axial fluid collection. There is no effacement of cerebral sulci or basal subarachnoid cister ns. There is no hydrocephalus. There is no midline shift. Nichole-white matter distinction is preserv ed. Dense apical scarring calcifications in the carotid siphons. Prominent benign basal ganglionic calcif ications noted. Mild to moderate patchy periventricular white matter hypodensities suggesting changes of chronic small vessel ischemic disease. Rightward nasal septal deviation. Paranasal sinuses and mastoid air cells are well pneumatized. Orbit s and globes are intact. Some nonspecific scleral calcifications noted posteriorly. Cervical spine: Calcified lymph nodes at the viji compatible with prior granulomatous disease. Median sternotomy wire s. Suspect hazy atelectasis visualized upper lungs. No craniocervical junction abnormality, predental space widening, or prevertebral soft tissue swellin g. Degenerative changes of the C1 dens articulation. Mild degenerative disc disease C4-C6 levels. Disc osteophyte complex at C5-C6 mildly narrows the spin al canal. Mild facet and uncovertebral joint spurring. Degenerative grade 1 anterolisthesis C3-C4. Remaining alignment is maintained. No acute fracture of the cervical spine. Sagittal and coronal reformatted images confirm above findings. COMBINED IMPRESSION: 1. No acute intracranial abnormality seen. Mild to moderate burden of chronic small vessel ischemic d isease. 2. No acute fracture of the cervical spine. Prominent degenerative change at the C1 dens articulation . Mild spondylotic change elsewhere in the cervical spine. Degenerative grade 1 anterolisthesis C3-C4 .
[2022-03-07 17:08] LABS: Appearance,Urine Clear (Clear); Bilirubin,Urine Negative (Negative); Blood,Urine Negative (Negative); Color,Urine Colorless; Glucose,Urine (UA) Negative (Negative); Ketones,Urine Negative (Negative); Leukocyte Esterase,Urine Large (Negative); Mucus,Urine Rare /hpf; Nitrite,Urine Negative (Negative); PH, Urine 6.5 (5.0-8.0); Protein,Urine Negative (Negative); RBC,Urine 2 /hpf (0-5); Specific Gravity,Urine 1.006 (1.001-1.035); Squamous Epithelial Cell,Urine 2 /hpf (0-4); Urobilinogen,Urine <2.0 mg/dL (<2.0); WBC,Urine 3 /hpf (0-5)
[2022-03-07 18:13] VITALS: BP 155/69; PULSE 64; RESP 17; TEMP 97.9
== END 2022-03-07 18:05 | disposition home or self-care (01) ==
LOC: EC 15:04
DX: R51.9 Headache, unspecified (principal); I25.10 Atherosclerotic heart disease of native coronary artery without angina pectoris; E11.9 Type 2 diabetes mellitus without complications; K21.9 Gastro-esophageal reflux disease without esophagitis; E78.5 Hyperlipidemia, unspecified; M19.90 Unspecified osteoarthritis, unspecified site; E07.9 Disorder of thyroid, unspecified; I12.9 Hypertensive chronic kidney disease with stage 1 through stage 4 chronic kidney disease, or unspecified chronic kidney disease; N18.9 Chronic kidney disease, unspecified; Z88.0 Allergy status to penicillin; Z88.2 Allergy status to sulfonamides; Z88.8 Allergy status to other drugs, medicaments and biological substances; Z79.4 Long term (current) use of insulin; Z79.890 Hormone replacement therapy; W01.198A Fall on same level from slipping, tripping and stumbling with subsequent striking against other object, initial encounter
CPT/HCPCS: 36415; 70450; 72125; 80053; 81001; 84484; 85025; 96360; 99284

== ENCOUNTER → 2022-04-16 | Day surgery (SDC) | payer MEDICARE ==
[~2022-04-16] MED LIST changes: -ACETAMINOPHEN TAB 500 MG TAB PO PRN; -DEXAMETHASONE SOD PHOSPHATE 10 MG/ML 1 ML VIAL IV PRN; -DEXAMETHASONE SOD PHOSPHATE 4 MG/ML 1 ML VIAL IV ONE; -DOCUSATE 100 MG CAP PO PRN; -FAMOTIDINE 20 MG/2 ML VIAL IVP PRN; -HYDROmorphone 0.5 MG/0.5 ML SYRINGE IVP PRN; -KETOROLAC 15 MG/ML 1 ML VIAL IVP PRN; -LACTATED RINGERS 1,000 ML IV SCH; -ONDANSETRON 4 MG/2 ML VIAL IVP ONE; -ONDANSETRON 4 MG/2 ML VIAL IVP PRN; -ROPIVACAINE/EPI/CLONIDINE/KET 50 ML SYRINGE MISCELLANE PRN; +SODIUM CHLORIDE 0.9% 1,000 ML IV SCH; +SODIUM CHLORIDE 0.9% 500 ML 500 ML IV ONE; -TRANEXAMIC ACID IN NACL,ISO-OS 1,000 MG in SALINE 1 100ML.BAG IVPB PRN; -oxyCODONE ER 10 MG TAB.ER.12H PO PRN
[2022-04-16 12:39] LABS: Glucose,Whole Blood 140 mg/dL (70-110)
[2022-04-16 12:51] VITALS: RESP 16; TEMP 98.1
[2022-04-16 14:29] VITALS: PULSE 72
[2022-04-16 14:31] VITALS: BP 163/78
--- NOTE | 2022-04-16 14:54 | P.EPPROC ---
- EP Procedure Note Electrophysiology Procedure Note: Diagnosis Recurrent syncope Twelve-lead EKG shows sinus rhythm with a mildly prolonged IN interval IN is 244 ms IVCD URS with is 120 ms Tilt table test per protocol Baseline blood pressure elevated at 187/80 mmHg Patient was tilted upright Left 70 per protocol This is in immediate drop in her blood pressure 259/74 mmHg Thereafter there was a progressive decline in her blood pressure associated with nausea or shortness of breath and lightheadedness without any change in heart rate in the heart rate remained in the 60s sinus mechanism She became extremely lightheaded at 88/50 May with his mercury and his blood vision When she was laid supine her blood pressure immediately charis to 194/87 mmHg Impression Baseline abnormal EKG with a mildly prolonged IN interval and an IVCD with LVH Supine severe hypertension Orthostatic hypotension syndrome, symptomatic/dysautonomia
== END ==
LOC: CATHEP 12:15
PROVIDERS: ATTEND Internal Medicine Clinical Cardiac Electrophysiology
DX: R55 Syncope and collapse (principal); G90.1 Familial dysautonomia [Riley-Day]; R94.31 Abnormal electrocardiogram [ECG] [EKG]; E11.9 Type 2 diabetes mellitus without complications; I11.9 Hypertensive heart disease without heart failure; N28.9 Disorder of kidney and ureter, unspecified; Z98.51 Tubal ligation status; Z90.49 Acquired absence of other specified parts of digestive tract; Z95.5 Presence of coronary angioplasty implant and graft; Z98.891 History of uterine scar from previous surgery; Z88.0 Allergy status to penicillin; Z88.2 Allergy status to sulfonamides; Z88.1 Allergy status to other antibiotic agents; Z79.899 Other long term (current) drug therapy; Z79.4 Long term (current) use of insulin
CPT/HCPCS: 93660

== ENCOUNTER → 2022-06-07 | Outpatient (CLI) | payer MEDICARE ==
--- NOTE | 2022-06-07 13:22 | CT ---
EXAMINATION TYPE: CT brain wo con DATE OF EXAM: 06/07/2022 COMPARISON: 03/07/2010 HISTORY: Dizziness and unsteady gait. CT DLP: 1144 mGycm Automated exposure control for dose reduction was used. FINDINGS: There is no evidence of acute intracranial hemorrhage, acute ischemic changes, mass, mass-effect, or extra-axial fluid collection. Nichole-white matter distinction is preserved. Dense calcifications in the carotid siphons. Prominent benign basal ganglionic calcifications noted. Mild to moderate patchy periventricular white matter hypodensities suggesting changes of chronic smal l vessel ischemic disease. Hypodensity within the thalamus on the right and external capsule bilaterally suggestive of remote in farct. Rightward nasal septal deviation. Paranasal sinuses and mastoid air cells are well pneumatized. Orbit s and globes are intact. Some nonspecific scleral calcifications noted posteriorly. IMPRESSION: 1. DEGENERATIVE AND NONSPECIFIC WHITE MATTER CHANGES MOST TYPICAL OF NOTE ISCHEMIA
== END | disposition home or self-care (01) ==
LOC: RADCTMAIN 12:40
PROVIDERS: ATTEND Psychiatry & Neurology Neurology
DX: I63.9 Cerebral infarction, unspecified (principal); R90.82 White matter disease, unspecified; I67.82 Cerebral ischemia
CPT/HCPCS: 70450

== ENCOUNTER 2023-03-09 15:43 | Emergency (ER) | payer MEDICARE ==
--- NOTE | 2023-03-09 15:54 | ED ---
Abdominal Pain HPI - General Chief Complaint: Abdominal Pain Stated Complaint: Abd Pain Time Seen by Provider: 03/09/23 15:51 Source: patient, RN notes reviewed, old records reviewed Mode of arrival: EMS Limitations: no limitations - History of Present Illness Initial Comments: This is a 73-year-old female to the emergency department for evaluation. Sami Beck for evaluation abdominal pain flank pain back pain groin pain. Maybe worse with palpation. No nausea no vomiting no diarrhea no difficulty with urination or other complaints MD Complaint: abdominal pain, flank pain, other (Back pain) -: days(s) Location: diffuse, periumbilical, suprapubic, R flank Radiation: R flank Migration to: suprapubic Severity: moderate Severity scale (1-10): 6 Quality: cramping, stabbing, aching Consistency: constant Improves With: nothing, eating Worsens With: nothing Associated Symptoms: nausea Treatments Prior to Arrival: other (0) - Related Data Home Medications Medication Instructions Recorded Confirmed ALPRAZolam [Xanax] 0.25 mg PO HS PRN 06/07/16 04/16/22 Atorvastatin [Lipitor] 10 mg PO HS 06/07/16 04/16/22 Clopidogrel [Plavix] 75 mg PO HS 06/07/16 04/16/22 Esomeprazole Magnesium [NexIUM] 40 mg PO BID 06/07/16 04/16/22 Hydrocodone/Acetaminophen [[place] 1 tab PO BID PRN 06/07/16 04/16/22 10-325] Hydroxychloroquine Sulfate 200 mg PO BID 06/07/16 04/16/22 [Plaquenil] Isosorbide Mononitrate ER [Imdur] 120 mg PO DAILY 06/07/16 04/16/22 allopurinoL [Zyloprim] 100 mg PO BID 06/07/16 04/16/22 INSULIN LISPRO (HumaLOG) [humaLOG] 1 dose SQ ACHS PRN 06/08/16 04/16/22 Insulin NPH Hum/Reg Insulin Hm 1 dose SQ AC-TID PRN 06/08/16 04/16/22 [NovoLIN 70-30 100 UNIT/ML VIAL] Levothyroxine Sodium [Synthroid] 50 mcg PO TUTH 05/21/17 04/16/22 Nitroglycerin Sl Tabs [Nitrostat] 0.4 mg SUBLINGUAL Q5M PRN 09/24/17 04/10/22 Levothyroxine Sodium [Synthroid] 100 mcg PO SUMOWEFRSA 11/08/17 04/16/22 Metoprolol Succinate (ER) [Toprol 100 mg PO BID 11/08/17 04/16/22 XL] Clobetasol Propionate [Temovate 1 applic TOPICAL DAILY PRN 03/28/19 04/10/22 0.05% Cream] Clotrimazole/Betamethasone Dip 1 applic TOPICAL BID PRN 03/28/19 04/10/22 [Lotrisone Cream] Triamcinolone 0.1% Cream [Kenalog 1 applic TOPICAL DAILY 03/28/19 04/10/22 0.1% Cream] estradioL [Vagifem] 10 mcg VAGINAL DIRECTED 03/28/19 04/16/22 Ascorbic Acid [Vitamin C] 1,000 mg PO DAILY 11/13/21 04/16/22 Magnesium Oxide [Magnesium] 500 mg PO BID 11/13/21 04/10/22 [place]-3 Fatty Acids [[place]-3] 1,000 mg PO DAILY 11/13/21 04/16/22 Quercetin 800 mg PO DAILY 11/13/21 04/16/22 Vitamin E (Dl,Tocopheryl Acet) 100 unit PO DAILY 11/13/21 04/16/22 [Vitamin E] Lactulose (Unknown Dose) 1 dose PO DIRECTED 12/04/21 04/16/22 Previous Rx's Medication Instructions Recorded Aspirin 81 mg PO BID 7 Days #14 tab 12/07/21 Allergies Allergy/AdvReac Type Severity Reaction Status Date / Time Penicillins Allergy Rash/Hives Verified 04/16/22 12:49 Sulfa (Sulfonamide Allergy Rash/Hives Verified 04/16/22 12:49 Antibiotics) gabapentin [From Neurontin] AdvReac Unknown Verified 04/16/22 12:49 steroid AdvReac made heart Uncoded 04/16/22 12:49 pound, anxious w/dose pack Review of Systems ROS Statement: Those systems with pertinent positive or pertinent negative responses have been documented in the HPI. ROS Other: All systems not noted in ROS Statement are negative. Past Medical History Past Medical History: Coronary Artery Disease (CAD), Chest Pain / Angina, Diabetes Mellitus, Fibromyalgia, GERD/Reflux, Hyperlipidemia, Hypertension, Osteoarthritis (OA), Renal Disease, Respiratory Disorder, Thyroid Disorder Additional Past Medical History / Comment(s): sarcoidosis, chronic kidney disease stage III, diverticulosis, colon polyps neuropathy-balance issues, Hx reccurring UTI, upper/lower bridges permanent. VARICOSE VEINS. BRONCHITI. occasional yeast issues under panis, recent fall felt dizzy and ER visit History of Any Multi-Drug Resistant Organisms: None Reported Past Surgical History: Back Surgery, Section, Cholecystectomy, Coronary Bypass/CABG, Heart Catheterization, Joint Replacement, Orthopedic Surgery, Tonsillectomy, Tubal Ligation Additional Past Surgical History / Comment(s): C-S X2, left shoulder rotator cuff, bilateral knee replacement 2014, 4 vessel CABG in 2002, bilateral cataract extraction and intraocular lens implants, picc line -since removed. Colonoscopy in 2015. BRONCHOSCOPY, BIOPSY. rt hip relaced Past Anesthesia/Blood Transfusion Reactions: Motion Sickness, Postoperative Nausea & Vomiting (PONV) Additional Past Anesthesia/Blood Transfusion Reaction / Comment(s): no blood transfusions Past Psychological History: No Psychological Hx Reported Smoking Status: Never smoker - Past Family History Mother Family Medical History: Diabetes Mellitus Additional Family Medical History / Comment(s): Mother at age 70 with history of coronary artery disease status post CABG 2 and diabetes. Father Family Medical History: Coronary Artery Disease (CAD), Diabetes Mellitus Additional Family Medical History / Comment(s): cabg Daughter(s) Additional Family Medical History / Comment(s): Patient has one daughter with hyperlipidemia. Patient has one son with diabetes. Patient is an only child. General Exam Limitations: no limitations General appearance: alert, in no apparent distress Head exam: Present: atraumatic, normocephalic, normal inspection Eye exam: Present: normal appearance, PERRL, EOMI. Absent: scleral icterus, con junctival injection, periorbital swelling ENT exam: Present: normal exam, mucous membranes moist Neck exam: Present: normal inspection. Absent: tenderness, meningismus, lymphadenopathy Respiratory exam: Present: normal lung sounds bilaterally. Absent: respiratory distress, wheezes, rales, rhonchi, stridor Cardiovascular Exam: Present: regular rate, normal rhythm, normal heart sounds. Absent: systolic murmur, diastolic murmur, rubs, gallop, clicks GI/Abdominal exam: Present: soft, normal bowel sounds. Absent: distended, tenderness, guarding, rebound, rigid Extremities exam: Present: normal inspection, full ROM, normal capillary refill. Absent: tenderness, pedal edema, joint swelling, calf tenderness Back exam: Present: normal inspection Neurological exam: Present: alert, oriented X3, CN II-XII intact Psychiatric exam: Present: normal affect, normal mood Skin exam: Present: warm, dry, intact, normal color. Absent: rash Course Vital Signs 03/09/23 15:45 Temperature 97.8 F Pulse Rate 68 Respiratory 18 Rate Blood Pressure 135/71 O2 Sat by Pulse 100 Oximetry - Reevaluation(s) Reevaluation #1: 03/09/23 17:24 Medical records reviewed Reevaluation #2: 03/09/23 17:24 Patient symptoms are improved Reevaluation #3: 03/09/23 17:24 A patient is informed of results and questions answered Reevaluation #4: 03/09/23 15:55 Was pt. sent in by a medical professional or institution (, PA, SENIOR ASSISTANT MANAGER, urgent care, hospital, or fpc...) When possible be specific @ -no Did you speak to anyone other than the patient for history (EMS, parent, family, police, friend...)? What history was obtained from this source @ -no Did you review nursing and triage notes (agree or disagree)? Why? @ -agree Are old charts reviewed (outside hosp., previous admission, EMS record, old EKG, old radiological studies, urgent care reports/EKG's, fpc records)? Report findings @ -yes Differential Diagnosis (chest pain, altered mental status, abdominal pain women, abdominal pain men, vaginal bleeding, weakness, fever, dyspnea, syncope, headache, dizziness, GI bleed, back pain, seizure, CVA, palpatations, mental health, musculoskeletal)? @ -prior EKG interpreted by me (3pts min.). @ -no X-rays interpreted by me (1pt min.). @ -no CT interpreted by me (1pt min.). @ -yes U/S interpreted by me (1pt. min.). @ -no What testing was considered but not performed or refused? (CT, X-rays, U/S, labs)? Why? @ -none What meds were considered but not given or refused? Why? @ -none Did you discuss the management of the patient with other professionals (professionals i.e. DrInderjit, PA, SENIOR ASSISTANT MANAGER, lab, RT, psych nurse, social services analyst, mid level game designer, teacher, global chief creative officer, director case management)? Give summary @ -no Was smoking cessation discussed for >3mins.? @ -no Was critical care preformed (if so, how long)? @ -no Were there social determinants of health that impacted care today? How? (Homelessness, low income, unemployed, alcoholism, drug addiction, transportation, low edu. Level, literacy, decrease access to med. care, assisted, rehab)? @ -none Was there de-escalation of care discussed even if they declined (Discuss DNR or withdrawal of care, Hospice)? DNR status @ -no What co-morbidities impacted this encounter? (DM, HTN, Smoking, COPD, CAD, Cancer, CVA, ARF, Chemo, Hep., AIDS, mental health diagnosis, sleep apnea, morbid obesity)? @ -none Was patient admitted / discharged? Hospital course, mention meds given and route, prescriptions, significant lab abnormalities, going to OR and other pertinent info. @ - 73 female with nonspecific abdominal pain. No acute cause for abdominal pain is found here in the ER patient can be discharged home Discharge Undiagnosed new problem with uncertain prognosis? @ -no Drug Therapy requiring intensive monitoring for toxicity (Heparin, Nitro, Insulin, Cardizem)? @ -no Were any procedures done? @ -no Diagnosis/symptom? @ -Abdominal pain Acute, or Chronic, or Acute on Chronic? @ -Acute Uncomplicated (without systemic symptoms) or Complicated (systemic symptoms)? @ -Complicated Side effects of treatment? @ -no Exacerbation, Progression, or Severe Exacerbation? @ -exacerbation Poses a threat to life or bodily function? How? (Chest pain, USA, NV, pneumonia, PE, COPD, DKA, ARF, appy, cholecystitis, CVA, Diverticulitis, Homicidal, Suicidal, threat to staff... and all critical care pts) @ -no Reevaluation #5: 03/09/23 17:25 Differential Abdominal Pain Men: Appendicitis, cholecystitis, diverticulosis, ischemic bowel, pancreatitis, hepatitis, UTI, gastroenteritis, AAA, incarcerated hernia, bowel obstruction, constipation, inflammatory bowel, hepatitis, peptic ulcer disease, splenic infarction, perforated viscus, testicular torsion, this is not meant to be an all-inclusive list Differential Back Pain: Strain, zoster, cauda equina syndrome, epidural abscess, vertebral osteomyelitis, discitis, fracture, subluxation, disc herniation, DJD, spinal stenosis, dissection, AAA, pancreatitis, peptic ulcer disease, pyelonephritis, kidney stone, this is not meant to be an all-inclusive list. Medical Decision Making - Medical Decision Making 73 female with nonspecific abdominal pain. No acute cause for abdominal pain is found here in the ER patient can be discharged home - Lab Data Result diagrams: 03/09/23 16:03 03/09/23 16:03 Lab Results 03/09/23 03/09/23 03/09/23 Range/Units 16:03 16:03 16:03 WBC 6.9 (3.8-10.6) k/uL RBC 4.18 (3.80-5.40) m/uL Hgb 12.6 (11.4-16.0) gm/dL Hct 39.9 (34.0-46.0) % MCV 95.4 (80.0-100.0) fL MCH 30.1 (25.0-35.0) pg MCHC 31.5 (31.0-37.0) g/dL RDW 14.7 (11.5-15.5) % Plt Count 223 (150-450) k/uL MPV 8.3 Neutrophils % 67 % Lymphocytes % 21 % Monocytes % 5 % Eosinophils % 5 % Basophils % 0 % Neutrophils # 4.6 (1.3-7.7) k/uL Lymphocytes # 1.5 (1.0-4.8) k/uL Monocytes # 0.4 (0-1.0) k/uL Eosinophils # 0.3 (0-0.7) k/uL Basophils # 0.0 (0-0.2) k/uL Sodium 137 (137-145) mmol/L Potassium 4.1 (3.5-5.1) mmol/L Chloride 99 (98-107) mmol/L Carbon Dioxide 27 (22-30) mmol/L Anion Gap 11 mmol/L BUN 30 H (7-17) mg/dL Creatinine 1.46 H (0.52-1.04) mg/dL Est GFR (CKD-EPI)AfAm 41 (>60 ml/min/1.73 sqM) Est GFR (CKD-EPI)NonAf 35 (>60 ml/min/1.73 sqM) Glucose 138 H (74-99) mg/dL Plasma Lactic Acid Ameya 1.6 (0.7-2.0) mmol/L Calcium 9.3 (8.4-10.2) mg/dL Phosphorus 4.1 (2.5-4.5) mg/dL Magnesium 1.6 (1.6-2.3) mg/dL Total Bilirubin 0.4 (0.2-1.3) mg/dL AST 28 (14-36) U/L ALT 18 (4-34) U/L Alkaline Phosphatase 103 (38-126) U/L Total Protein 7.0 (6.3-8.2) g/dL Albumin 3.8 (3.5-5.0) g/dL Amylase 39 (30-110) U/L Lipase 79 (23-300) U/L - EKG Data -: EKG Interpreted by [facility] - Radiology Data Radiology results: report reviewed (CT head and pelvis is negative for acute disease), image reviewed Disposition Clinical Impression: Abdominal colic, Abdominal pain Disposition: HOME SELF-CARE Condition: Good Instructions (If sedation given, give patient instructions): Abdominal Pain (ED) Is patient prescribed a controlled substance at d/c from ED?: No Referrals: Sam Quiñonez MD [Primary Care Provider] - 1-2 days Time of Disposition: 17:25
[2023-03-09 16:20] VITALS: BP 135/71; PULSE 68; RESP 18; TEMP 97.8
[2023-03-09 16:34] LABS: ALT 18 U/L (4-34); AST 28 U/L (14-36); African American GFR (CKD) 41 (>60 ml/min/1.73 sqM); Albumin 3.8 g/dL (3.5-5.0); Alkaline Phosphatase 103 U/L (38-126); Amylase 39 U/L (30-110); Anion Gap 11 mmol/L; Blood Urea Nitrogen 30 mg/dL (7-17); Calcium 9.3 mg/dL (8.4-10.2); Carbon Dioxide 27 mmol/L (22-30); Chloride 99 mmol/L (98-107); Glucose 138 mg/dL (74-99); Lipase 79 U/L (23-300); Magnesium 1.6 mg/dL (1.6-2.3); Non-African American GFR(CKD) 35 (>60 ml/min/1.73 sqM); Phosphorus 4.1 mg/dL (2.5-4.5); Potassium 4.1 mmol/L (3.5-5.1); Sodium 137 mmol/L (137-145); Total Bilirubin 0.4 mg/dL (0.2-1.3)
[2023-03-09 16:53] LABS: Basophils % (A) 0 %; Eosinophils # (A) 0.3 k/uL (0-0.7); Eosinophils % (A) 5 %; HCT 39.9 % (34.0-46.0); HGB 12.6 gm/dL (11.4-16.0); Lymphocytes # (A) 1.5 k/uL (1.0-4.8); Lymphocytes % (A) 21 %; MCH 30.1 pg (25.0-35.0); MCHC 31.5 g/dL (31.0-37.0); MCV 95.4 fL (80.0-100.0); Mean Platelet Volume 8.3; Monocytes # (A) 0.4 k/uL (0-1.0); Monocytes % (A) 5 %; Neutrophils # (A) 4.6 k/uL (1.3-7.7); Neutrophils % (A) 67 %; Platelet Count 223 k/uL (150-450); RBC 4.18 m/uL (3.80-5.40); RDW 14.7 % (11.5-15.5); WBC 6.9 k/uL (3.8-10.6)
--- NOTE | 2023-03-09 16:59 | CT ---
EXAMINATION TYPE: CT abdomen pelvis wo con DATE OF EXAM: 03/09/2023 COMPARISON: 12/05/2017. HISTORY: RIGHT FLANK PAIN CT DLP: 1053.4 mGycm Automated exposure control for dose reduction was used. TECHNIQUE: Helical acquisition of images was performed from the lung bases through the pelvis. FINDINGS: Lung bases are clear. There are surgical absence of gallbladder. There is no organomegaly involving the solid visceral organs. There is marked splenic artery calcific ation. There are diffuse renal calcifications but no renal stones or hydronephrosis. Caliber the abdominal aorta is normal. The bowel loops are normal in caliber and there is no evidence of obstruction. There is no free intra cranial air or fluid. There is a right hip prosthesis and laminectomy and fusion in the lumbar spine. There are multiple soft tissue calcifications in the anterior abdominal wall soft tissues. There is no pelvic mass or adenopathy. There are surgical absence of the uterus. IMPRESSION: 1. No acute changes within the abdomen. 2. Postsurgical changes as described above. 3. No significant interval change compared to prior study.
[2023-03-09] MEDS ORDERED: KETOROLAC 15 MG/ML 1 ML VIAL IVP STA (17:23)
[2023-03-09] MEDS ORDERED: MORPHINE SULFATE 4 MG/ML SYRINGE IVP STA (17:23)
== END 2023-03-09 17:48 | disposition home or self-care (01) ==
LOC: EC 15:43
DX: R10.31 Right lower quadrant pain (principal); I25.10 Atherosclerotic heart disease of native coronary artery without angina pectoris; E78.5 Hyperlipidemia, unspecified; E11.22 Type 2 diabetes mellitus with diabetic chronic kidney disease; I12.9 Hypertensive chronic kidney disease with stage 1 through stage 4 chronic kidney disease, or unspecified chronic kidney disease; N18.30 Chronic kidney disease, stage 3 unspecified; M19.90 Unspecified osteoarthritis, unspecified site; K21.9 Gastro-esophageal reflux disease without esophagitis; E07.9 Disorder of thyroid, unspecified; Z88.2 Allergy status to sulfonamides; Z88.8 Allergy status to other drugs, medicaments and biological substances; Z88.0 Allergy status to penicillin; Z90.49 Acquired absence of other specified parts of digestive tract; Z79.02 Long term (current) use of antithrombotics/antiplatelets; Z79.4 Long term (current) use of insulin; Z79.890 Hormone replacement therapy; Z79.899 Other long term (current) drug therapy
CPT/HCPCS: 36415; 80053; 82150; 83605; 83690; 83735; 84100; 85025; 74176; 99285; 96374; 96375; J2270; J1885

== ENCOUNTER 2023-04-01 13:15 | Emergency (ER) | payer MEDICARE ==
[2023-04-01 13:33] VITALS: RESP 18; TEMP 97.8
--- NOTE | 2023-04-01 13:56 | CT ---
EXAMINATION TYPE: CT brain cspine wo con, CT facial bones wo con CT DLP: 1200.4 mGycm, Automated exposure control for dose reduction was used. DATE OF EXAM: 04/01/2023 1:47 PM COMPARISON: CT brain 06/07/2022, CT brain C-spine 03/07/2022 CLINICAL INDICATION:Female, 73 years old with history of Trauma; Trauma. Fall face forward TECHNIQUE: Brain: Multiple axial CT images of the brain were obtained without IV contrast. Cspine: Axial CT images from the skull base to the inferior aspect of T2 we obtained without intraven ous contrast. Coronal and sagittal reformatted images were also reviewed. Facial bones; axial CT images of the facial bones were obtained without contrast and soft tissue and bone windows. Coronal and sagittal reformatted images were also reviewed. FINDINGS: Brain: Extra-axial spaces: No abnormal extra-axial fluid collections. Ventricular system: Within normal limits Cerebral parenchyma: No acute intraparenchymal hemorrhage or mass effect. The solorio-white junction is well differentiated. Scattered hypoattenuating areas are seen within the periventricular white matte r. Nonspecific bilateral basal ganglia calcifications. Cerebellum: Unremarkable. Mass effect: No evidence of midline shift. Intracranial vasculature: Atherosclerotic calcifications of the intracranial vessels. Soft tissues: Normal. Calvarium/osseous structures: No depressed skull fracture. Paranasal sinuses and mastoid air cells: Clear. Visualized orbits: Bilateral aphakia Cervical spine: Fracture: None. Osseous structures: Multilevel degenerative disc disease changes with endplate spurring and anterior osteophytosis. Median sternotomy wires. Vertebral alignment: Within normal limits. Spinal canal/Neural Foramina: Disc osteophyte complexes at C4-C5 and C5-C6 with at least mild spinal canal stenosis. No evidence for significant neural foraminal stenosis. Neck soft tissues: Prevertebral soft tissues are within normal limits. Other: The airway is patent. The lung apices are clear. Bilateral carotid bulb calcifications. Post C ABG changes. Facial Bones: Dental amalgam increased streak artifact which limits evaluation. There is no evidence of fracture, s ubluxation, or dislocation. Left frontal soft tissue hematoma measuring up to 1.4 cm in thickness. Bi lateral retrobulbar fat is clear. Bilateral aphakia. Bilateral posterior scleral calcifications redem onstrated. Nasal septal deviation to the right. The temporal-mandibular joints appear symmetric. Mild degenerative changes of both temporal mandibular joints. The visualized portion of the paranasal sin uses appear clear. IMPRESSION: 1. No acute intracranial process. 2. Nonspecific white matter changes, likely secondary to chronic small vessel ischemic disease. 3. No evidence of cervical spine fracture. 4. Mild multilevel degenerative disc disease. 5. Moderate left forehead soft tissue hematoma.
--- NOTE | 2023-04-01 13:57 | ED ---
General Adult HPI - General Chief complaint: Fall Stated complaint: Fall Time Seen by Provider: 04/01/23 13:15 Source: patient, EMS, RN notes reviewed, old records reviewed Mode of arrival: EMS Limitations: no limitations - History of Present Illness Initial comments: This is a 73-year-old female who presents emergency department stating she tripped on her foot because she has foot drop and she fell forward and hit her head on the floor per patient denies any loss of consciousness or being days per patient denies any neck pain. Patient denies numbness weakness. Patient does states she has a mild headache. Denies any injury to her extremities. Patient denies any back or chest injury patient denies any abdominal injury - Related Data Home Medications Medication Instructions Recorded Confirmed ALPRAZolam [Xanax] 0.25 mg PO HS PRN 06/07/16 04/16/22 Atorvastatin [Lipitor] 10 mg PO HS 06/07/16 04/16/22 Clopidogrel [Plavix] 75 mg PO HS 06/07/16 04/16/22 Esomeprazole Magnesium [NexIUM] 40 mg PO BID 06/07/16 04/16/22 Hydrocodone/Acetaminophen [[place] 1 tab PO BID PRN 06/07/16 04/16/22 10-325] Hydroxychloroquine Sulfate 200 mg PO BID 06/07/16 04/16/22 [Plaquenil] Isosorbide Mononitrate ER [Imdur] 120 mg PO DAILY 06/07/16 04/16/22 allopurinoL [Zyloprim] 100 mg PO BID 06/07/16 04/16/22 INSULIN LISPRO (HumaLOG) [humaLOG] 1 dose SQ ACHS PRN 06/08/16 04/16/22 Insulin NPH Hum/Reg Insulin Hm 1 dose SQ AC-TID PRN 06/08/16 04/16/22 [NovoLIN 70-30 100 UNIT/ML VIAL] Levothyroxine Sodium [Synthroid] 50 mcg PO TUTH 05/21/17 04/16/22 Nitroglycerin Sl Tabs [Nitrostat] 0.4 mg SUBLINGUAL Q5M PRN 09/24/17 04/10/22 Levothyroxine Sodium [Synthroid] 100 mcg PO SUMOWEFRSA 11/08/17 04/16/22 Metoprolol Succinate (ER) [Toprol 100 mg PO BID 11/08/17 04/16/22 XL] Clobetasol Propionate [Temovate 1 applic TOPICAL DAILY PRN 03/28/19 04/10/22 0.05% Cream] Clotrimazole/Betamethasone Dip 1 applic TOPICAL BID PRN 03/28/19 04/10/22 [Lotrisone Cream] Triamcinolone 0.1% Cream [Kenalog 1 applic TOPICAL DAILY 03/28/19 04/10/22 0.1% Cream] estradioL [Vagifem] 10 mcg VAGINAL DIRECTED 03/28/19 04/16/22 Ascorbic Acid [Vitamin C] 1,000 mg PO DAILY 11/13/21 04/16/22 Magnesium Oxide [Magnesium] 500 mg PO BID 11/13/21 04/10/22 Corydon-3 Fatty Acids [Corydon-3] 1,000 mg PO DAILY 11/13/21 04/16/22 Quercetin 800 mg PO DAILY 11/13/21 04/16/22 Vitamin E (Dl,Tocopheryl Acet) 100 unit PO DAILY 11/13/21 04/16/22 [Vitamin E] Lactulose (Unknown Dose) 1 dose PO DIRECTED 12/04/21 04/16/22 Previous Rx's Medication Instructions Recorded Aspirin 81 mg PO BID 7 Days #14 tab 12/07/21 Allergies Allergy/AdvReac Type Severity Reaction Status Date / Time Penicillins Allergy Rash/Hives Verified 04/01/23 13:21 Sulfa (Sulfonamide Allergy Rash/Hives Verified 04/01/23 13:21 Antibiotics) gabapentin [From Neurontin] AdvReac Unknown Verified 04/01/23 13:21 steroid AdvReac made heart Uncoded 04/01/23 13:21 pound, anxious w/dose pack Review of Systems ROS Statement: Those systems with pertinent positive or pertinent negative responses have been documented in the HPI. ROS Other: All systems not noted in ROS Statement are negative. Past Medical History Past Medical History: Coronary Artery Disease (CAD), Chest Pain / Angina, Diabetes Mellitus, Fibromyalgia, GERD/Reflux, Hyperlipidemia, Hypertension, Osteoarthritis (OA), Renal Disease, Respiratory Disorder, Thyroid Disorder Additional Past Medical History / Comment(s): sarcoidosis, chronic kidney disease stage III, diverticulosis, colon polyps neuropathy-balance issues, Hx reccurring UTI, upper/lower bridges permanent. VARICOSE VEINS. BRONCHITI. occasional yeast issues under panis, recent fall felt dizzy and ER visit History of Any Multi-Drug Resistant Organisms: None Reported Past Surgical History: Back Surgery, Section, Cholecystectomy, Coronary Bypass/CABG, Heart Catheterization, Joint Replacement, Orthopedic Surgery, Tonsillectomy, Tubal Ligation Additional Past Surgical History / Comment(s): C-S X2, left shoulder rotator cuff, bilateral knee replacement 2014, 4 vessel CABG in 2002, bilateral cataract extraction and intraocular lens implants, picc line -since removed. Colonoscopy in 2016. BRONCHOSCOPY, BIOPSY. rt hip relaced Past Anesthesia/Blood Transfusion Reactions: Motion Sickness, Postoperative Nausea & Vomiting (PONV) Additional Past Anesthesia/Blood Transfusion Reaction / Comment(s): no blood transfusions Past Psychological History: No Psychological Hx Reported Smoking Status: Never smoker - Past Family History Mother Family Medical History: Diabetes Mellitus Additional Family Medical History / Comment(s): Mother at age 70 with history of coronary artery disease status post CABG 2 and diabetes. Father Family Medical History: Coronary Artery Disease (CAD), Diabetes Mellitus Additional Family Medical History / Comment(s): cabg Daughter(s) Additional Family Medical History / Comment(s): Patient has one daughter with hyperlipidemia. Patient has one son with diabetes. Patient is an only child. General Exam - General Exam Comments Initial Comments: GENERAL: Patient is well-developed and well-nourished. Patient is nontoxic and well- hydrated and is in mild distress. ENT: Neck is soft and supple. No significant lymphadenopathy is noted. Oropharynx is clear. Moist mucous membranes. Neck has full range of motion without eliciting any pain. Patient has a hematoma above the left eye on the eyebrow. There is no laceration EYES: The sclera were anicteric and conjunctiva were pink and moist. Extraocular movements were intact and pupils were equal round and reactive to light. Eyelids were unremarkable. PULMONARY: Unlabored respirations. Good breath sounds bilaterally. No audible rales rhonchi or wheezing was noted. CARDIOVASCULAR: There is a regular rate and rhythm without any murmurs gallops or rubs. ABDOMEN: Soft and nontender with normal bowel sounds. SKIN: Skin is clear with no lesions or rashes and otherwise unremarkable. NEUROLOGIC: Patient is alert and oriented x3. Cranial nerves II through XII are grossly intact. Motor and sensory are also intact. Normal speech, volume and content. Symmetrical smile. MUSCULOSKELETAL: Normal extremities with adequate strength and full range of motion. LYMPHATICS: No significant lymphadenopathy is noted PSYCHIATRIC: Normal psychiatric evaluation. Limitations: no limitations Course Vital Signs 04/01/23 04/01/23 13:17 13:19 Temperature 97.8 F Pulse Rate 66 Respiratory 18 Rate Blood Pressure 171/103 O2 Sat by Pulse 97 Oximetry Medical Decision Making - Medical Decision Making Was pt. sent in by a medical professional or institution ([facility] Dior, MILK INSPECTOR, urgent care, hospital, or [facility]...) When possible be specific @ -No Did you speak to anyone other than the patient for history (EMS, parent, family, police, friend...)? What history was obtained from this source @ -No Did you review nursing and triage notes (agree or disagree)? Why? @ -I reviewed and agree with nursing and triage notes Were old charts reviewed (outside hosp., previous admission, EMS record, old EKG, old radiological studies, urgent care reports/EKG's, [facility] records)? Report findings @ -No old charts were reviewed Differential Diagnosis (chest pain, altered mental status, abdominal pain women, abdominal pain men, vaginal bleeding, weakness, fever, dyspnea, syncope, headache, dizziness, GI bleed, back pain, seizure, CVA, palpatations, mental health, musculoskeletal)? @ -Skull fracture, subarachnoid, subdural, intraparenchymal hemorrhage, epidural, cervical spine fracture, facial bone fracture this is not all inclusive list EKG interpreted by me (3pts min.). @ -As above X-rays interpreted by me (1pt min.). @ -None done CT interpreted by me (1pt min.). @ -CT of the brain and C-spine and facial bones showed no acute abnormality U/S interpreted by me (1pt. min.). @ -None done What testing was considered but not performed or refused? (CT, X-rays, U/S, labs)? Why? @ -None What meds were considered but not given or refused? Why? @ -None Did you discuss the management of the patient with other professionals (professionals i.e. [facility] Dior, MILK INSPECTOR, lab, RT, psych nurse, social sciences research scientist, marine cargo surveyor, teacher, foreign service officer, hospice case manager)? Give summary @ -No Was smoking cessation discussed for >3mins.? @ -No Was critical care preformed (if so, how long)? @ -No Were there social determinants of health that impacted care today? How? (Homelessness, low income, unemployed, alcoholism, drug addiction, transportation, low edu. Level, literacy, decrease access to med. care, [facility], rehab)? @ -No Was there de-escalation of care discussed even if they declined (Discuss DNR or withdrawal of care, Hospice)? DNR status @ -No What co-morbidities impacted this encounter? (DM, HTN, Smoking, COPD, CAD, Cancer, CVA, ARF, Chemo, Hep., AIDS, mental health diagnosis, sleep apnea, morbid obesity)? @ -None Was patient admitted / discharged? Hospital course, mention meds given and route, prescriptions, significant lab abnormalities, going to OR and other pertinent info. @ -Patient was given Toradol and 0.5 of Dilaudid for pain she was doing considerably better. Patient was able to ambulate at her baseline. Undiagnosed new problem with uncertain prognosis? @ -No Drug Therapy requiring intensive monitoring for toxicity (Heparin, Nitro, Insulin, Cardizem)? @ -No Were any procedures done? @ -No Diagnosis/symptom? @ -Fall Acute, or Chronic, or Acute on Chronic? @ -Acute Uncomplicated (without systemic symptoms) or Complicated (systemic symptoms)? @ -Complicated Side effects of treatment? @ -No Exacerbation, Progression, or Severe Exacerbation? @ -No Poses a threat to life or bodily function? How? (Chest pain, [place], [place], pneumonia, PE, COPD, DKA, ARF, appy, cholecystitis, CVA, Diverticulitis, Homicidal, Suicidal, threat to staff... and all critical care pts) @ -No Diagnosis/symptom? @ -Hematoma forehead Acute, or Chronic, or Acute on Chronic? @ -Acute Uncomplicated (without systemic symptoms) or Complicated (systemic symptoms)? @ -Uncomplicated Side effects of treatment? @ -none Exacerbation, Progression, or Severe Exacerbation] @ -no Poses a threat to life or bodily function? @ -no Diagnosis/symptom? @ -Head injury Acute, or Chronic, or Acute on Chronic? @ -Acute Uncomplicated (without systemic symptoms) or Complicated (systemic symptoms)? @ -Complicated Side effects of treatment? @ -None Exacerbation, Progression, or Severe Exacerbation] @ -no Poses a threat to life or bodily function? @ -no Disposition Clinical Impression: Fall, Head injury, Hematoma Disposition: HOME SELF-CARE Instructions (If sedation given, give patient instructions): Fall Prevention for Older Adults (ED), Hematoma (ED) Is patient prescribed a controlled substance at d/c from ED?: No Referrals: Sam Quiñonez MD [Primary Care Provider] - 1-2 days Time of Disposition: 14:32
[2023-04-01] MEDS ORDERED: ACETAMINOPHEN IV (For NPO) 1,000 MG in EMPTY BAG 1 BAG IVPB STA (13:58)
[2023-04-01] MEDS ORDERED: KETOROLAC 15 MG/ML 1 ML VIAL IVP STA (14:00)
[2023-04-01] MEDS ORDERED: HYDROmorphone 0.5 MG/0.5 ML SYRINGE IVP STA (14:30)
[2023-04-01 15:14] VITALS: BP 164/89; PULSE 62
== END 2023-04-01 14:54 | disposition home or self-care (01) ==
LOC: EC 13:15
DX: S00.12XA Contusion of left eyelid and periocular area, initial encounter (principal); S00.83XA Contusion of other part of head, initial encounter; E07.9 Disorder of thyroid, unspecified; E11.22 Type 2 diabetes mellitus with diabetic chronic kidney disease; E78.5 Hyperlipidemia, unspecified; I12.9 Hypertensive chronic kidney disease with stage 1 through stage 4 chronic kidney disease, or unspecified chronic kidney disease; N18.30 Chronic kidney disease, stage 3 unspecified; I25.10 Atherosclerotic heart disease of native coronary artery without angina pectoris; K21.9 Gastro-esophageal reflux disease without esophagitis; Z79.4 Long term (current) use of insulin; Z79.890 Hormone replacement therapy; Z79.02 Long term (current) use of antithrombotics/antiplatelets; Z79.899 Other long term (current) drug therapy; Z95.1 Presence of aortocoronary bypass graft; Z88.0 Allergy status to penicillin; Z88.2 Allergy status to sulfonamides; Z88.8 Allergy status to other drugs, medicaments and biological substances; W01.10XA Fall on same level from slipping, tripping and stumbling with subsequent striking against unspecified object, initial encounter
CPT/HCPCS: 99285 ×2; 96374 ×2; 96375 ×2; 72125; 70486; 70450; J1885; J1170

== ENCOUNTER 2023-07-31 10:22 | Inpatient (IN) | payer MEDICARE ==
[2023-07-31 11:10] LABS: Basophils % (A) 1 %; Eosinophils # (A) 0.2 k/uL (0-0.7); Eosinophils % (A) 4 %; HCT 41.1 % (34.0-46.0); HGB 13.6 gm/dL (11.4-16.0); Lymphocytes # (A) 1.4 k/uL (1.0-4.8); Lymphocytes % (A) 30 %; MCH 33.2 pg (25.0-35.0); MCV 100.6 fL (80.0-100.0); Macrocytosis Slight; Mean Platelet Volume 8.8; Monocytes # (A) 0.3 k/uL (0-1.0); Monocytes % (A) 5 %; Neutrophils # (A) 2.8 k/uL (1.3-7.7); Neutrophils % (A) 58 %; Platelet Count 157 k/uL (150-450); RBC 4.08 m/uL (3.80-5.40); WBC 4.8 k/uL (3.8-10.6)
[2023-07-31 11:23] LABS: ALT 21 U/L (4-34); AST 32 U/L (14-36); African American GFR (CKD) 62 (>60 ml/min/1.73 sqM); Albumin 3.3 g/dL (3.5-5.0); Alkaline Phosphatase 105 U/L (38-126); Anion Gap 6 mmol/L; Blood Urea Nitrogen 27 mg/dL (7-17); Calcium 9.3 mg/dL (8.4-10.2); Carbon Dioxide 28 mmol/L (22-30); Chloride 104 mmol/L (98-107); Glucose 179 mg/dL (74-99); Magnesium 1.3 mg/dL (1.6-2.3); Non-African American GFR(CKD) 54 (>60 ml/min/1.73 sqM); Potassium 4.2 mmol/L (3.5-5.1); Sodium 138 mmol/L (137-145); Total Bilirubin 0.5 mg/dL (0.2-1.3); Total Protein 6.2 g/dL (6.3-8.2)
--- NOTE | 2023-07-31 11:29 | XR ---
EXAMINATION TYPE: XR chest 2V DATE OF EXAM: 07/31/2023 COMPARISON: 03/28/2019 HISTORY: 73-year-old female with chest pain TECHNIQUE: AP and lateral views FINDINGS: Median sternotomy wires are present with post-CABG clips. Heart upper limits of normal in size. [facility] throughout the mid and lower thoracic spine. Bilateral chronic rotator cuff arthropathy. This appears new on the right compared to 2019. No consolidation or pleural effusion. Eventration anterior right hemidiaphragm. IMPRESSION: Borderline cardiomegaly. No definite acute process.
[2023-07-31 11:30] LABS: NT-Pro-B-Type Natriuretic Pept 1650 pg/mL
[2023-07-31 11:44] LABS: INR 0.9 (<1.2); Partial Thromboplastin Time 22.5 sec (22.0-30.0); Prothrombin Time 9.8 sec (10.0-12.5)
[2023-07-31] MEDS: ASPIRIN 81 MG PO STA (12:05)
--- NOTE | 2023-07-31 12:11 | ED ---
Chest Pain HPI - General Chief Complaint: Chest Pain Stated Complaint: weakness Time Seen by Provider: 07/31/23 10:25 Source: patient, EMS, RN notes reviewed Mode of arrival: EMS Limitations: no limitations - History of Present Illness Initial Comments: 73-year-old female presents emergency department with chief complaint of chest pain, shortness of breath. Patient states has been having worsening symptoms over the last several weeks. Patient states that she saw Dr. Levi last week at cardiology in which they recommended heart cath. Patient states that she was not sure at that time but symptoms have worsened and she feels she may need heart cath. Patient states she continues to have chest pain, tremoring, shortness of breath. She does have a history of quadruple bypass. Patient is a diabetic history of hyperlipidemia hypertension - Related Data Home Medications Medication Instructions Recorded Confirmed ALPRAZolam [Xanax] 0.25 mg PO HS 06/07/16 07/31/23 Atorvastatin [Lipitor] 10 mg PO HS 06/07/16 07/31/23 Clopidogrel [Plavix] 75 mg PO HS 06/07/16 07/31/23 Esomeprazole Magnesium [NexIUM] 40 mg PO BID 06/07/16 07/31/23 Hydrocodone/Acetaminophen [[place] 1 tab PO Q8H PRN 06/07/16 07/31/23 10-325] Hydroxychloroquine Sulfate 200 mg PO BID 06/07/16 07/31/23 [Plaquenil] Isosorbide Mononitrate ER [Imdur] 60 mg PO DAILY 06/07/16 07/31/23 allopurinoL [Zyloprim] 100 mg PO DAILY 06/07/16 07/31/23 INSULIN LISPRO (HumaLOG) [humaLOG] See Protocol SQ ACHS PRN 06/08/16 07/31/23 Levothyroxine Sodium [Synthroid] 50 mcg PO TUTH 05/21/17 07/31/23 Nitroglycerin Sl Tabs [Nitrostat] 0.4 mg SUBLINGUAL Q5M PRN 09/24/17 07/31/23 Levothyroxine Sodium [Synthroid] 100 mcg PO SUMOWEFRSA 11/08/17 07/31/23 Metoprolol Succinate (ER) [Toprol 100 mg PO BID 11/08/17 07/31/23 XL] Ascorbic Acid [Vitamin C] 1,000 mg PO DAILY 11/13/21 07/31/23 Magnesium Oxide [Magnesium] 500 mg PO DAILY 11/13/21 07/31/23 Acetaminophen/Diphenhydramine 2 tab PO HS 07/31/23 07/31/23 [Tylenol PM 500-25mg] Aspirin 81 mg PO DAILY 07/31/23 07/31/23 Clobetasol Propionate [Temovate 1 applic TOPICAL BID 07/31/23 07/31/23 0.05% Oint] Cyclobenzaprine [Flexeril] 10 mg PO BID PRN 07/31/23 07/31/23 Furosemide [Lasix] 40 mg PO SUMOWEFR 07/31/23 07/31/23 Insulin NPH/Reg Insulin 70/30 20 unit SQ DAILY 07/31/23 07/31/23 [humuLIN 70/30 VIAL] Insulin NPH/Reg Insulin 70/30 20 unit SQ DAILY PRN 07/31/23 07/31/23 [humuLIN 70/30 VIAL] Isosorbide Mononitrate ER [Imdur] 30 mg PO HS 07/31/23 07/31/23 Sennosides [Senokot] 8.6 mg PO HS 07/31/23 07/31/23 Allergies Allergy/AdvReac Type Severity Reaction Status Date / Time Penicillins Allergy Rash/Hives Verified 07/31/23 13:52 Sulfa (Sulfonamide Allergy Rash/Hives Verified 07/31/23 13:52 Antibiotics) gabapentin [From Neurontin] AdvReac Unknown Verified 07/31/23 13:52 steroid AdvReac made heart Uncoded 04/18/23 12:12 pound, anxious w/dose pack Review of Systems ROS Statement: Those systems with pertinent positive or pertinent negative responses have been documented in the HPI. ROS Other: All systems not noted in ROS Statement are negative. EKG Findings - EKG Comments: EKG Findings:: EKG performed at 10: 38 sinus with a rate of 83 QRS 114 QT/QTc 376/416 - EKG Results: EKG: interpreted by NANCY Past Medical History Past Medical History: Coronary Artery Disease (CAD), Chest Pain / Angina, Diabetes Mellitus, Fibromyalgia, GERD/Reflux, Hyperlipidemia, Hypertension, Osteoarthritis (OA), Renal Disease, Respiratory Disorder, Thyroid Disorder Additional Past Medical History / Comment(s): sarcoidosis, chronic kidney disease stage III, diverticulosis, colon polyps neuropathy-balance issues, Hx reccurring UTI, upper/lower bridges permanent. VARICOSE VEINS. BRONCHITI. occasional yeast issues under panis, recent fall felt dizzy and ER visit History of Any Multi-Drug Resistant Organisms: None Reported Past Surgical History: Back Surgery, Section, Cholecystectomy, Coronary Bypass/CABG, Heart Catheterization, Joint Replacement, Orthopedic Surgery, Tonsillectomy, Tubal Ligation Additional Past Surgical History / Comment(s): C-S X2, left shoulder rotator cuff, bilateral knee replacement 2014, 4 vessel CABG in 2002, bilateral cataract extraction and intraocular lens implants, picc line -since removed. Colonoscopy in 2016. BRONCHOSCOPY, BIOPSY. rt hip relaced Past Anesthesia/Blood Transfusion Reactions: Motion Sickness, Postoperative Nausea & Vomiting (PONV) Additional Past Anesthesia/Blood Transfusion Reaction / Comment(s): no blood transfusions Past Psychological History: No Psychological Hx Reported Smoking Status: Never smoker Past Alcohol Use History: Rare - Past Family History Mother Family Medical History: Diabetes Mellitus Additional Family Medical History / Comment(s): Mother at age 70 with history of coronary artery disease status post CABG 2 and diabetes. Father Family Medical History: Coronary Artery Disease (CAD), Diabetes Mellitus Additional Family Medical History / Comment(s): cabg Daughter(s) Additional Family Medical History / Comment(s): Patient has one daughter with hyperlipidemia. Patient has one son with diabetes. Patient is an only child. General Exam Limitations: no limitations General appearance: alert, in no apparent distress Head exam: Present: atraumatic, normocephalic, normal inspection Eye exam: Present: normal appearance, PERRL, EOMI. Absent: scleral icterus, conjunctival injection, periorbital swelling ENT exam: Present: normal exam, mucous membranes moist Neck exam: Present: normal inspection, full ROM. Absent: tenderness, meningismus, lymphadenopathy Respiratory exam: Present: normal lung sounds bilaterally. Absent: respiratory distress, wheezes, rales, rhonchi, stridor Cardiovascular Exam: Present: regular rate, normal rhythm, normal heart sounds. Absent: systolic murmur, diastolic murmur, rubs, gallop, clicks GI/Abdominal exam: Present: soft, normal bowel sounds. Absent: distended, tenderness, guarding, rebound, rigid Course Vital Signs 03/07/31/23 07/31/23 10:23 10:29 10:30 Temperature 97.7 F Pulse Rate 82 85 Respiratory 20 Rate Blood Pressure 196/89 O2 Sat by Pulse 100 97 99 Oximetry 07/31/23 07/31/23 07/31/23 10:40 11:30 11:45 Temperature Pulse Rate 81 79 80 Respiratory Rate Blood Pressure 196/89 186/99 154/89 O2 Sat by Pulse 99 99 100 Oximetry 07/31/23 07/31/23 12:00 13:00 Temperature Pulse Rate 80 101 H Respiratory 20 19 Rate Blood Pressure 149/71 159/85 O2 Sat by Pulse 98 94 L Oximetry Chest Pain MDM - MDM Was pt. sent in by a medical professional or institution (, [facility], RAILS DEVELOPER, urgent care, hospital, or assisted...) When possible be specific @ -PCP, cardiology Did you speak to anyone other than the patient for history (EMS, parent, family, police, friend...)? What history was obtained from this source @ -No Did you review nursing and triage notes (agree or disagree)? Why? @ -I reviewed and agree with nursing and triage notes Were old charts reviewed (outside hosp., previous admission, EMS record, old EKG, old radiological studies, urgent care reports/EKG's, assisted records)? Report findings @ -No old charts were reviewed Differential Diagnosis (chest pain, altered mental status, abdominal pain women, abdominal pain men, vaginal bleeding, weakness, fever, dyspnea, syncope, headache, dizziness, GI bleed, back pain, seizure, CVA, palpatations, mental health, musculoskeletal)? @ -[Differential chest pain EKG interpreted by me (3pts min.). @ -As above X-rays interpreted by me (1pt min.). @ -[Chest x-ray shows no acute cardiopulmonary process CT interpreted by me (1pt min.). @ -None done U/S interpreted by me (1pt. min.). @ -None done What testing was considered but not performed or refused? (CT, X-rays, U/S, labs)? Why? @ -None What meds were considered but not given or refused? Why? @ -None Did you discuss the management of the patient with other professionals (professionals i.e. , EDEN, RAILS DEVELOPER, lab, RT, psych nurse, social economist, curing machine operator, teacher, unarmed security officer, director of casework services)? Give summary @ -Dr. gifford for admission with cardiology consult cardiology was notified Was smoking cessation discussed for >3mins.? @ -No Was critical care preformed (if so, how long)? @ -No Were there social determinants of health that impacted care today? How? (Homelessness, low income, unemployed, alcoholism, drug addiction, transportation, low edu. Level, literacy, decrease access to med. care, fdc, rehab)? @ -No Was there de-escalation of care discussed even if they declined (Discuss DNR or withdrawal of care, Hospice)? DNR status @ -No What co-morbidities impacted this encounter? (DM, HTN, Smoking, COPD, CAD, Cancer, CVA, ARF, Chemo, Hep., AIDS, mental health diagnosis, sleep apnea, morbid obesity)? @ -CAD, diabetes, hypertension and hyperlipidemia Was patient admitted / discharged? Hospital course, mention meds given and route, prescriptions, significant lab abnormalities, going to OR and other pertinent info. @ -[Admit due to patient's initial troponin is negative. Patient was seen by cardiology recently so that she may require heart cath patient will be admitted for observation and cardiology evaluation. Undiagnosed new problem with uncertain prognosis? @ -No Drug Therapy requiring intensive monitoring for toxicity (Heparin, Nitro, Insulin, Cardizem)? @ -No Were any procedures done? @ -No Diagnosis/symptom? @ -[Chest pain Acute, or Chronic, or Acute on Chronic? @ -Acute Uncomplicated (without systemic symptoms) or Complicated (systemic symptoms)? @ -Uncomplicated Side effects of treatment? @ -[No Exacerbation, Progression, or Severe Exacerbation? @ -No Poses a threat to life or bodily function? How? (Chest pain, [place], [place], pneumonia, PE, COPD, DKA, ARF, appy, cholecystitis, CVA, Diverticulitis, Homicidal, Suicidal, threat to staff... and all critical care pts) @ -Yes possible ACS Disposition Clinical Impression: Chest pain, Shortness of breath Disposition: ADMITTED IP TO THIS [facility] Condition: Fair Time of Disposition: 12:11
[2023-07-31] MEDS: MAGNESIUM OXIDE 400 MG TAB PO STA (13:17)
[2023-07-31] MEDS: NITROGLYCERIN SL TABS 0.4 MG TAB SUBLINGUAL PRN (14:37)
[2023-07-31] MEDS ORDERED: INSULIN REGULAR SQ PRN (17:38)
[2023-07-31] MEDS ORDERED: INSULIN ISOPHANE SQ PRN (17:38)
[2023-07-31] MEDS ORDERED: NITROGLYCERIN SL TABS 0.4 MG TAB SUBLINGUAL PRN ×2 (17:38→17:55)
[2023-07-31] MEDS ORDERED: CYCLOBENZAPRINE 10 MG TAB PO PRN (17:38)
[2023-07-31] MEDS ORDERED: INSULIN LISPRO 100 UNIT/ML SQ PRN (17:38)
[2023-07-31] MEDS ORDERED: HEPARIN SODIUM 1,000 UN/ML (10ML VL) IV PRN (17:55)
[2023-07-31] MEDS: ASPIRIN 325 MG TAB PO STA (18:02)
[2023-07-31] MEDS ORDERED: DEXTROSE 50% SYRINGE 50 ML IVP PRN ×2 (18:12)
[2023-07-31 18:13] LABS: Basophils % (A) 1 %; Eosinophils # (A) 0.2 k/uL (0-0.7); Eosinophils % (A) 3 %; HCT 40.8 % (34.0-46.0); HGB 13.4 gm/dL (11.4-16.0); Lymphocytes # (A) 1.9 k/uL (1.0-4.8); Lymphocytes % (A) 31 %; MCH 33.1 pg (25.0-35.0); MCHC 32.7 g/dL (31.0-37.0); Macrocytosis Slight; Mean Platelet Volume 8.7; Monocytes # (A) 0.3 k/uL (0-1.0); Monocytes % (A) 5 %; Neutrophils # (A) 3.6 k/uL (1.3-7.7); Neutrophils % (A) 59 %; Platelet Count 155 k/uL (150-450); RBC 4.04 m/uL (3.80-5.40); RDW 13.8 % (11.5-15.5); WBC 6.1 k/uL (3.8-10.6)
--- NOTE | 2023-07-31 18:22 | P.CRDCN ---
History of Present Illness Consult date: 07/31/23 History of present illness: History of Present Illness: The patient is a 73-year-old female with a known history of coronary artery disease status post CABG history of sarcoidosis, hypertension, hyperlipidemia, chronic tobacco use who presented with symptoms of shivering, progressive dyspnea and chest discomfort. She has been followed by Dr. Levi and was evaluated recently and because of abnormal changes on her EKG she was scheduled to undergo cardiac catheterization on August 08. She has been complaining of episode of chest discomfort while in the emergency room that resolved with sublingual nitroglycerin. Her EKG shows left bundle branch block that has been noted in the past. She had mild troponin elevation. She continues to be dyspneic on exertion with minimal physical activity. She has no peripheral edema, PND or orthopnea. Her last cardiac catheterization was in 2016 and at that time received a HANNAH to the LAD SVG to the diagonal and radial artery to the OM. On her cardiac catheterization she had patent graft, mild disease in the RCA with chronically occluded left circumflex and LAD. She has a history of dysautonomia with dizziness on standing. Her systolic function has been stable and preserved. She is pain-free at the time of my evaluation. Her risk factors are positive for hypertension, hyperlipidemia and diabetes mellitus. She is a non-smoker. Medications: Aspirin, Plavix 75 mg daily, Lipitor 10 mg daily, insulin, metopro lol succinate 100 mg twice a day, isosorbide mononitrate 60 mg daily, Lasix 40 mg daily, levothyroxine, magnesium, Flexeril Review of Systems: Respiratory: She has dyspnea on exertion and history of sarcoidosis GI: No nausea or vomiting . No history of peptic ulcer disease. No recent GI bleed. : No hematuria or dysuria. Nervous System: No stroke or seizure. Physical Examination: 73-year-old female alert oriented no apparent distress,Blood pressure 137/80, Heart rate 90 Head: Normocephalic. Eyes: Sclerae nonicteric. Neck: Good carotid upstroke, no bruit, no jugular venous distention. Lungs: Clear to auscultation. Heart: Regular rate and rhythm, S1-S2, no S3, no rub. Systolic ejection murmur. Abdomen: Soft nontender, positive bowel sounds no organomegaly. Extremities: No edema, intact distal pulses. Labs: Hemoglobin 13.4, BUN 27, creatinine 1.03, troponin 0.034, 0.048, 0.072. NT p roBNP 1650. Chest x-ray with no acute infiltrate EKG: Sinus mechanism with left bundle branch block Impression: 1. Symptoms of chest discomfort with troponin elevation consistent with non- STEMI in a patient with known history of CAD, status post CABG 2. History of hypertension 3. History of hyperlipidemia 4. History of diabetes 5. History of sarcoidosis 6. Chronic kidney disease, stable 7. History of dysautonomia and dizziness Plan: 1. Obtain an echocardiogram with Doppler 2. Add IV heparin 3. Proceed with cardiac catheterization tomorrow, to be done by Dr. Diehl. The risks and the complications were discussed with the patient and her family 4. Depending on her progress further recommendations will be made 5. Thank you for this consult we will follow with you Past Medical History Past Medical History: Coronary Artery Disease (CAD), Chest Pain / Angina, Diabetes Mellitus, Fibromyalgia, GERD/Reflux, Hyperlipidemia, Hypertension, Osteoarthritis (OA), Renal Disease, Respiratory Disorder, Thyroid Disorder Additional Past Medical History / Comment(s): sarcoidosis, chronic kidney disease stage III, diverticulosis, colon polyps neuropathy-balance issues, Hx reccurring UTI, upper/lower bridges permanent. VARICOSE VEINS. BRONCHITI. occasional yeast issues under panis, recent fall felt dizzy and ER visit History of Any Multi-Drug Resistant Organisms: None Reported Past Surgical History: Back Surgery, Section, Cholecystectomy, Coronary Bypass/CABG, Heart Catheterization, Joint Replacement, Orthopedic Surgery, Tonsillectomy, Tubal Ligation Additional Past Surgical History / Comment(s): C-S X2, left shoulder rotator cuff, bilateral knee replacement 2014, 4 vessel CABG in 2002, bilateral cataract extraction and intraocular lens implants, picc line -since removed. Colonoscopy in 2016. BRONCHOSCOPY, BIOPSY. rt hip relaced Past Anesthesia/Blood Transfusion Reactions: Motion Sickness, Postoperative Nausea & Vomiting (PONV) Additional Past Anesthesia/Blood Transfusion Reaction / Comment(s): no blood transfusions Past Psychological History: No Psychological Hx Reported Smoking Status: Never smoker Past Alcohol Use History: Rare - Past Family History Mother Family Medical History: Diabetes Mellitus Additional Family Medical History / Comment(s): Mother at age 70 with history of coronary artery disease status post CABG 2 and diabetes. Father Family Medical History: Coronary Artery Disease (CAD), Diabetes Mellitus Additional Family Medical History / Comment(s): cabg Daughter(s) Additional Family Medical History / Comment(s): Patient has one daughter with hyperlipidemia. Patient has one son with diabetes. Patient is an only child. Medications and Allergies Home Medications Medication Instructions Recorded Confirmed Type ALPRAZolam [Xanax] 0.25 mg PO HS 06/07/16 07/31/23 History Atorvastatin [Lipitor] 10 mg PO HS 06/07/16 07/31/23 History Clopidogrel [Plavix] 75 mg PO HS 06/07/16 07/31/23 History Esomeprazole Magnesium [NexIUM] 40 mg PO BID 06/07/16 07/31/23 History Hydrocodone/Acetaminophen [[place] 1 tab PO Q8H PRN 06/07/16 07/31/23 History 10-325] Hydroxychloroquine Sulfate 200 mg PO BID 06/07/16 07/31/23 History [Plaquenil] Isosorbide Mononitrate ER [Imdur] 60 mg PO DAILY 06/07/16 07/31/23 History allopurinoL [Zyloprim] 100 mg PO DAILY 06/07/16 07/31/23 History INSULIN LISPRO (HumaLOG) [humaLOG] See Protocol SQ ACHS PRN 06/08/16 07/31/23 History Levothyroxine Sodium [Synthroid] 50 mcg PO TUTH 05/21/17 07/31/23 History Nitroglycerin Sl Tabs [Nitrostat] 0.4 mg SUBLINGUAL Q5M PRN 09/24/17 07/31/23 History Levothyroxine Sodium [Synthroid] 100 mcg PO SUMOWEFRSA 11/08/17 07/31/23 History Metoprolol Succinate (ER) [Toprol 100 mg PO BID 11/08/17 07/31/23 History XL] Ascorbic Acid [Vitamin C] 1,000 mg PO DAILY 11/13/21 07/31/23 History Magnesium Oxide [Magnesium] 500 mg PO DAILY 11/13/21 07/31/23 History Acetaminophen/Diphenhydramine 2 tab PO HS 07/31/23 07/31/23 History [Tylenol PM 500-25mg] Aspirin 81 mg PO DAILY 07/31/23 07/31/23 History Clobetasol Propionate [Temovate 1 applic TOPICAL BID 07/31/23 07/31/23 History 0.05% Oint] Cyclobenzaprine [Flexeril] 10 mg PO BID PRN 07/31/23 07/31/23 History Furosemide [Lasix] 40 mg PO SUMOWEFR 07/31/23 07/31/23 History Insulin NPH/Reg Insulin 70/30 20 unit SQ DAILY 07/31/23 07/31/23 History [humuLIN 70/30 VIAL] Insulin NPH/Reg Insulin 70/30 20 unit SQ DAILY PRN 07/31/23 07/31/23 History [humuLIN 70/30 VIAL] Isosorbide Mononitrate ER [Imdur] 30 mg PO HS 07/31/23 07/31/23 History Sennosides [Senokot] 8.6 mg PO HS 07/31/23 07/31/23 History Allergies Allergy/AdvReac Type Severity Reaction Status Date / Time Penicillins Allergy Rash/Hives Verified 07/31/23 13:52 Sulfa (Sulfonamide Allergy Rash/Hives Verified 07/31/23 13:52 Antibiotics) gabapentin [From Neurontin] AdvReac Unknown Verified 07/31/23 13:52 steroid AdvReac made heart Uncoded 04/18/23 12:12 pound, anxious w/dose pack Physical Exam Vitals: Vital Signs Temp Pulse Resp BP Pulse Ox 07/31/23 17:00 95 19 137/83 97 07/31/23 16:30 96 20 167/83 95 07/31/23 15:00 94 112/70 95 07/31/23 14:30 94 147/93 96 07/31/23 14:00 97 136/84 94 L 07/31/23 13:00 101 H 19 159/85 94 L 07/31/23 12:00 80 20 149/71 98 07/31/23 11:45 80 154/89 100 07/31/23 11:30 79 186/99 99 07/31/23 10:40 81 196/89 99 07/31/23 10:30 85 99 07/31/23 10:29 97 07/31/23 10:23 97.7 F 82 20 196/89 100 Intake and Output 07/31/23 07/31/23 07/31/23 06:59 14:59 22:59 Other: Weight 92.986 kg Results 07/31/23 18:03 07/31/23 10:42 Cardiac Enzymes 07/31/23 07/31/23 07/31/23 Range/Units 10:42 10:42 12:32 AST 32 (14-36) U/L Troponin I 0.034 0.048 H* (0.000-0.034) ng/mL 07/31/23 Range/Units 15:30 AST (14-36) U/L Troponin I 0.072 H* (0.000-0.034) ng/mL Coagulation 07/31/23 Range/Units 10:42 PT 9.8 L (10.0-12.5) sec APTT 22.5 (22.0-30.0) sec CBC 07/31/23 07/31/23 Range/Units 10:42 18:03 WBC 4.8 6.1 (3.8-10.6) k/uL RBC 4.08 4.04 (3.80-5.40) m/uL Hgb 13.6 13.4 (11.4-16.0) gm/dL Hct 41.1 40.8 (34.0-46.0) % Plt Count 157 155 (150-450) k/uL Comprehensive Metabolic Panel 07/31/23 Range/Units 10:42 Sodium 138 (137-145) mmol/L Potassium 4.2 (3.5-5.1) mmol/L Chloride 104 (98-107) mmol/L Carbon Dioxide 28 (22-30) mmol/L BUN 27 H (7-17) mg/dL Creatinine 1.03 (0.52-1.04) mg/dL Glucose 179 H (74-99) mg/dL Calcium 9.3 (8.4-10.2) mg/dL AST 32 (14-36) U/L ALT 21 (4-34) U/L Alkaline Phosphatase 105 (38-126) U/L Total Protein 6.2 L (6.3-8.2) g/dL Albumin 3.3 L (3.5-5.0) g/dL Current Medications Generic Name Dose Route Start Last Admin Trade Name Freq PRN Reason Stop Dose Admin Acetaminophen 1,000 mg 07/31/23 21:00 Acetaminophen Tab 500 Mg Tab PO HS JET Hydrocodone Bitart/Acetaminophen 1 each 07/31/23 17:38 Hydrocodone/Apap 10-325mg 1 Each Tab PO Q8H PRN Pain Allopurinol 100 mg 08/01/23 09:00 Allopurinol 100 Mg Tab PO DAILY REPLACED BY [facility] Alprazolam 0.25 mg 07/31/23 21:00 Alprazolam 0.25 Mg Tab PO HS REPLACED BY [facility] Alprazolam 0.25 mg 07/31/23 17:55 Alprazolam 0.25 Mg Tab PO Q6HR PRN Mild Anxiety Alprazolam 0.5 mg 07/31/23 17:55 Alprazolam 0.5 Mg Tab PO Q6HR PRN Moderate Anxiety Ascorbic Acid 1,000 mg 08/01/23 09:00 Ascorbic Acid 500 Mg Tab PO DAILY REPLACED BY [facility] Aspirin 81 mg 08/01/23 09:00 Aspirin 81 Mg PO DAILY REPLACED BY [facility] Aspirin 325 mg 08/01/23 05:00 Aspirin 325 Mg Tab PO 08/01/23 05:01 ONCE ONE Atorvastatin Calcium 10 mg 07/31/23 21:00 Atorvastatin 10 Mg Tab PO HS REPLACED BY [facility] Atorvastatin Calcium 80 mg 08/01/23 05:00 Atorvastatin 80 Mg Tab PO 08/01/23 05:01 ONCE ONE Clopidogrel Bisulfate 75 mg 07/31/23 21:00 Clopidogrel 75 Mg Tab PO HS REPLACED BY [facility] Cyclobenzaprine HCl 10 mg 07/31/23 17:38 Cyclobenzaprine 10 Mg Tab PO BID PRN Muscle Pain Diphenhydramine HCl 50 mg 07/31/23 21:00 Diphenhydramine 25 Mg Cap PO HS REPLACED BY [facility] Heparin Sodium (Porcine) 0 unit 07/31/23 17:55 Heparin Sodium 1,000 Un/Ml (10ml Vl) IV PER PROTOCOL PRN Low PTT Protocol Heparin Sodium/Sodium Chloride 250 mls @ 9.996 mls/hr 07/31/23 18:00 25,000 unit/ Sodium Chloride IV .Q24H REPLACED BY [facility] Protocol 10.75 UNITS/KG/HR Heparin Sodium (Porcine) 10, 1,001 mls @ 999 mls/hr 08/01/23 07:00 000 unit/ Sodium Chloride IRRIGATION 08/01/23 23:00 ONCE PRN INTRA-OP Heparin Sodium (Porcine) 2,500 250.5 mls @ 250 mls/hr 08/01/23 07:00 unit/ Sodium Chloride IRRIGATION 08/01/23 23:00 ONCE PRN INTRA-OP Insulin Aspart 20 unit 08/01/23 07:30 Insuln Asp Prt/Insulin Aspart 100 Unit/Ml 10 Ml Vial SQ DAILY@0730 REPLACED BY [facility] Isosorbide Mononitrate 30 mg 07/31/23 21:00 Isosorbide Mononitrate Er 30 Mg Tab.Er.24h PO HS REPLACED BY [facility] Isosorbide Mononitrate 60 mg 08/01/23 09:00 Isosorbide Mononitrate Er 60 Mg Tab.Er.24h PO DAILY REPLACED BY [facility] Levothyroxine Sodium 50 mcg 08/01/23 06:30 Levothyroxine 50 Mcg Tab PO TuTh@0630 REPLACED BY [facility] Levothyroxine Sodium 100 mcg 08/02/23 06:30 Levothyroxine 100 Mcg Tab PO SuMoWeFrSa@0630 REPLACED BY [facility] Magnesium Oxide 400 mg 08/01/23 09:00 Magnesium Oxide 400 Mg Tab PO DAILY REPLACED BY [facility] Metoprolol Succinate 100 mg 07/31/23 21:00 Metoprolol Succinate (Er) 100 Mg Tab.Er.24h PO BID REPLACED BY [facility] Nitroglycerin 0.4 mg 07/31/23 17:55 Nitroglycerin Sl Tabs 0.4 Mg Tab SUBLINGUAL Q5M PRN Chest Pain Non-Formulary Medication 0 units 07/31/23 17:38 Insulin Lispro (Humalog) SQ ACHS PRN Blood Sugar - High Non-Formulary Medication 20 unit 07/31/23 17:38 Insulin Nph/Reg Insulin 70/30 SQ DAILY PRN high blood sugar Pantoprazole Sodium 40 mg 07/31/23 21:00 Pantoprazole 40 Mg Tablet PO BID REPLACED BY [facility] Senna 8.6 mg 07/31/23 21:00 Sennosides 8.6 Mg Tab PO HS JET Intake and Output 07/31/23 07/31/23 07/31/23 06:59 14:59 22:59 Other: Weight 92.986 kg Patient Weight 08/01/23 06:59 Weight 92.986 kg 07/31/23 18:03 07/31/23 10:42
[2023-07-31 18:35] LABS: INR 0.9 (<1.2); Partial Thromboplastin Time 22.8 sec (22.0-30.0); Prothrombin Time 9.7 sec (10.0-12.5)
[2023-07-31] MEDS: HEPARIN SOD,PORK IN 0.45% NACL 25,000 UNIT in 0.45% NACL 1 250ML.BAG IV SCH (18:55)
[2023-07-31] MEDS: HEPARIN SODIUM 1,000 UN/ML (10ML VL) IV ONE (18:55)
[2023-07-31 20:01] LABS: Glucose,Whole Blood 172 mg/dL (70-110)
[2023-07-31] MEDS: PANTOPRAZOLE 40 MG TABLET PO SCH (20:25)
[2023-07-31] MEDS: diphenhydrAMINE 25 MG CAP PO SCH (20:25)
[2023-07-31] MEDS: CLOPIDOGREL 75 MG TAB PO SCH (20:25)
[2023-07-31] MEDS: SENNOSIDES 8.6 MG TAB PO SCH (20:26)
[2023-07-31] MEDS: METOPROLOL SUCCINATE (ER) 100 MG TAB.ER.24H PO SCH (20:26)
[2023-07-31] MEDS: ISOSORBIDE MONONITRATE ER 30 MG TAB.ER.24H PO SCH (20:26)
[2023-07-31] MEDS: ATORVASTATIN 10 MG TAB PO SCH (20:26)
[2023-07-31] MEDS: ACETAMINOPHEN TAB 500 MG TAB PO SCH (20:26)
[2023-07-31] MEDS: ALPRAZolam 0.25 MG TAB PO SCH (20:27)
[2023-07-31] MEDS ORDERED: NON FORMULARY DRUG (Acetaminophen/Diphenhydramine [Tylenol Pm 500-25mg] 1 EACH Tablet) PO SCH (21:00)
[2023-07-31] MEDS: HYDROcodone/APAP 10-325MG 1 EACH TAB PO PRN (21:54)
[2023-07-31] MEDS: INSULIN ASPART (NovoLOG) 100 UNIT/ML VIAL SQ SCH (21:55)
--- NOTE | 2023-07-31 23:28 | P.HPIM ---
History of Present Illness H&P Date: 07/31/23 Chief Complaint: Unstable angina, recurrent angina and chest pain, HISTORY OF PRESENT ILLNESS: 73-year-old from my office patient with multiple medical problems known to have type 2 diabetes on insulin, history of sarcoidosis, history of hypertension, hyperlipidemia, chronic history of neuropathy, chronic history of lower back pain who had severe coronary artery disease post CABG in the past with restenosis last heart catheter was done in July 2021 with finding consistent with mild disease was on medical management only. Patient has been complaining for the last 2 months of worsening exertional chest pain with worsening shortness of breath with minimal exertion. She apparently had seen cardiology her EKG had significant change compared to before was scheduled to have electrical heart catheter on August 09, 2023. She presented to the emergency department today at [facility] with complaint of recurrent angina and chest pain but symptoms are not improving, she is taking some nitroglycerin which had helped her symptoms some but the chest tightness and shortness of breath recurred shortly after. Was seen and evaluated in the emergency room Testing with EKG showed Q waves in V1 and V2 also showed some sign of left ventricular hypertrophy. Laboratory value initial troponin was 0.034 which increased to 0.048 less than 2 hours. BNP was 1650. Fortunately her creatinine was down to 1.03 with GFR of 54. Her baseline GFR was in the 40s initially and patient was seen for stage IIIb chronic kidney disease. Patient was seen and evaluated by cardiology and decided to consider doing heart catheter tomorrow morning. Will keep patient on medical management for now still was not requiring any nitroglycerin drip but will continue isosorbide mononitrate and Nitropaste till the morning. REVIEW OF SYSTEMS: CONSTITUTIONAL: Well-developed no acute respiratory distress. EYES: No icterus sclerae, no conjunctivitis. EARS, NOSE, MOUTH, THROAT, and FACE: No sore throat, lymphadenopathy, carotid bruits or deformity. RESPIRATORY: Slight shortness of breath no cough or wheezes. CARDIOVASCULAR: Positive chest pain, angina, palpitation and orthopnea. GASTROINTESTINAL: No Abd pain, Nausea or vomiting, no Diarrhea or constipation, No GI Bleed, no distention or masses. GENITOURINARY: Negative for Hematuria or UTI, no kidney stones. INTEGUMENT/BREAST: Negative for any muscular injury with mild osteoarthritis.. HEMATOLOGIC/LYMPHATIC: Negative for bleed or purpura. MUSCULOSKELTAL: Generalized back and muscle pain. NEURLOGICAL: No LOC, Sz or syncope, blurred vision dizziness or abnormality.. BEHAVIORAL/PSYCH: Negative. ENDOCRINE: Negative. PHYSICAL EXAMINATION: General Appearance: Alert, cooperative, no distress, appears stated age. Neck HEENT: Supple, no lymphadenopathy, no thyroid enlargement, no carotid bruits. Lungs: Clear to auscultation without crackles positive rhonchi no wheezes. Chest Wall: Decreased expansion with deep inspiration no tenderness and no deformity was found on exam, no costochondral pain or discomfort. Heart: Regular rate and rhythm, S1, S2 normal, no murmur, rub or gallop. Back: Symmetric, no curvature, ROM normal, no CVA tenderness. Abdomen: Soft, non-tender, bowel sounds active all four quadrants, no masses, no organomegaly. Extremities: Extremities normal, atraumatic, no cyanosis or edema. Slight discoloration lower part of her leg with chronic varicose vein. Pulses: 2+ and symmetric. Skin: Skin color, texture, tugor normal, no rashes or lesions. Neurologic: Alert oriented x3 cranial nerves II through XII intact, no motor deficit, no abnormal balance or gait. ASSESSMENT AND PLAN: _Unstable angina: Recurrent symptoms with slight change with elevated troponin, patient will be hospitalized seeing cardiology plan for heart catheter tomorrow morning. _Non-ST elevation type IIb myocardial infarction with impressive symptoms, patient will be going for heart cath for the diagnostic and possible need intervention afterward. Patient was started on heparin drip continue aspirin Plavix and nitro _Type 2 diabetes: Resume insulin along with Accu-Chek sliding scale coverage. With patient's current symptoms and medical problems she will benefit from SGLT2 product which should be added while patient is in the hospital product like Jardiance 10 mg a day. Continue sliding scale coverage statically of her blood sugar below 120. _Hypertension: Still not controlled resume home meds continue to watch systolic blood pressure to keep it below 130 will add in addition ARB or beta-isidro if she is able to tolerate on as-needed basis. _Hyperlipidemia: Continue atorvastatin 10 mg a day which should be titrated up to 40 or 80 mg just depend on the finding of her heart cath tomorrow. _Stage III chronic kidney disease: Has been much better so far and kidney function is much better today repeat CMP in the morning and will be rechecked again after the heart cath. _History of sarcoidosis: Has been on Plaquenil and still seen pulmonary. _Diastolic dysfunction congestive heart failure: Resume furosemide 40 mg continue isosorbide, metoprolol, and consider to add at least losartan 25 mg a day. _Chronic pain syndrome: Mostly degenerative disc disease has been on hydrocodone along with muscle relaxer. _Hypothyroidism: Continue patient on levothyroxine 50 mcg daily. _History of gout: Still on allopurinol no flareup lately. _DVT prophylaxis: Patient be on heparin drip. _GI prophylaxis: Remain on Nexium 40 mg daily. CODE STATUS: Full code. Admit patient to the inpatient service for more than 2 night stay. Past Medical History Past Medical History: Coronary Artery Disease (CAD), Chest Pain / Angina, Diabetes Mellitus, Fibromyalgia, GERD/Reflux, Hyperlipidemia, Hypertension, Osteoarthritis (OA), Renal Disease, Respiratory Disorder, Thyroid Disorder Additional Past Medical History / Comment(s): sarcoidosis, chronic kidney disease stage III, diverticulosis, colon polyps neuropathy-balance issues, Hx reccurring UTI, upper/lower bridges permanent. VARICOSE VEINS. BRONCHITI. occasional yeast issues under panis, recent fall felt dizzy and ER visit History of Any Multi-Drug Resistant Organisms: None Reported Past Surgical History: Back Surgery, Section, Cholecystectomy, Coronary Bypass/CABG, Heart Catheterization, Joint Replacement, Orthopedic Surgery, Tonsillectomy, Tubal Ligation Additional Past Surgical History / Comment(s): C-S X2, left shoulder rotator cuff, bilateral knee replacement 2014, 4 vessel CABG in 2002, bilateral cataract extraction and intraocular lens implants, picc line -since removed. Colonoscopy in 2016. BRONCHOSCOPY, BIOPSY. rt hip relaced Past Anesthesia/Blood Transfusion Reactions: Motion Sickness, Postoperative Nausea & Vomiting (PONV) Additional Past Anesthesia/Blood Transfusion Reaction / Comment(s): no blood transfusions Past Psychological History: No Psychological Hx Reported Smoking Status: Never smoker Past Alcohol Use History: Rare - Past Family History Mother Family Medical History: Diabetes Mellitus Additional Family Medical History / Comment(s): Mother at age 70 with history of coronary artery disease status post CABG 2 and diabetes. Father Family Medical History: Coronary Artery Disease (CAD), Diabetes Mellitus Additional Family Medical History / Comment(s): cabg Daughter(s) Additional Family Medical History / Comment(s): Patient has one daughter with hyperlipidemia. Patient has one son with diabetes. Patient is an only child. Medications and Allergies Home Medications Medication Instructions Recorded Confirmed Type ALPRAZolam [Xanax] 0.25 mg PO HS 06/07/16 07/31/23 History Atorvastatin [Lipitor] 10 mg PO HS 06/07/16 07/31/23 History Clopidogrel [Plavix] 75 mg PO HS 06/07/16 07/31/23 History Esomeprazole Magnesium [NexIUM] 40 mg PO BID 06/07/16 07/31/23 History Hydrocodone/Acetaminophen [[place] 1 tab PO Q8H PRN 06/07/16 07/31/23 History 10-325] Hydroxychloroquine Sulfate 200 mg PO BID 06/07/16 07/31/23 History [Plaquenil] Isosorbide Mononitrate ER [Imdur] 60 mg PO DAILY 06/07/16 07/31/23 History allopurinoL [Zyloprim] 100 mg PO DAILY 06/07/16 07/31/23 History INSULIN LISPRO (HumaLOG) [humaLOG] See Protocol SQ ACHS PRN 06/08/16 07/31/23 History Levothyroxine Sodium [Synthroid] 50 mcg PO TUTH 05/21/17 07/31/23 History Nitroglycerin Sl Tabs [Nitrostat] 0.4 mg SUBLINGUAL Q5M PRN 09/24/17 07/31/23 History Levothyroxine Sodium [Synthroid] 100 mcg PO SUMOWEFRSA 11/08/17 07/31/23 History Metoprolol Succinate (ER) [Toprol 100 mg PO BID 11/08/17 07/31/23 History XL] Ascorbic Acid [Vitamin C] 1,000 mg PO DAILY 11/13/21 07/31/23 History Magnesium Oxide [Magnesium] 500 mg PO DAILY 11/13/21 07/31/23 History Acetaminophen/Diphenhydramine 2 tab PO HS 07/31/23 07/31/23 History [Tylenol PM 500-25mg] Aspirin 81 mg PO DAILY 07/31/23 07/31/23 History Clobetasol Propionate [Temovate 1 applic TOPICAL BID 07/31/23 07/31/23 History 0.05% Oint] Cyclobenzaprine [Flexeril] 10 mg PO BID PRN 07/31/23 07/31/23 History Furosemide [Lasix] 40 mg PO SUMOWEFR 07/31/23 07/31/23 History Insulin NPH/Reg Insulin 70/30 20 unit SQ DAILY 07/31/23 07/31/23 History [humuLIN 70/30 VIAL] Insulin NPH/Reg Insulin 70/30 20 unit SQ DAILY PRN 07/31/23 07/31/23 History [humuLIN 70/30 VIAL] Isosorbide Mononitrate ER [Imdur] 30 mg PO HS 07/31/23 07/31/23 History Sennosides [Senokot] 8.6 mg PO HS 07/31/23 07/31/23 History Allergies Allergy/AdvReac Type Severity Reaction Status Date / Time Penicillins Allergy Rash/Hives Verified 07/31/23 13:52 Sulfa (Sulfonamide Allergy Rash/Hives Verified 07/31/23 13:52 Antibiotics) gabapentin [From Neurontin] AdvReac Unknown Verified 07/31/23 13:52 steroid AdvReac made heart Uncoded 04/18/23 12:12 pound, anxious w/dose pack Physical Exam Vitals: Vital Signs Temp Pulse Resp BP Pulse Ox 07/31/23 16:30 96 20 167/83 95 07/31/23 15:00 94 112/70 95 07/31/23 14:30 94 147/93 96 07/31/23 14:00 97 136/84 94 L 07/31/23 13:00 101 H 19 159/85 94 L 07/31/23 12:00 80 20 149/71 98 07/31/23 11:45 80 154/89 100 07/31/23 11:30 79 186/99 99 07/31/23 10:40 81 196/89 99 07/31/23 10:30 85 99 07/31/23 10:29 97 07/31/23 10:23 97.7 F 82 20 196/89 100 Intake and Output 07/31/23 07/31/23 07/31/23 06:59 14:59 22:59 Other: Weight 92.986 kg Results CBC & Chem 7: 07/31/23 18:03 07/31/23 10:42 Labs: Abnormal Lab Results - Last 24 Hours (Table) 07/31/23 07/31/23 07/31/23 Range/Units 10:42 10:42 10:42 MCV 100.6 H (80.0-100.0) fL PT 9.8 L (10.0-12.5) sec BUN 27 H (7-17) mg/dL Glucose 179 H (74-99) mg/dL Magnesium 1.3 L (1.6-2.3) mg/dL Troponin I (0.000-0.034) ng/mL Total Protein 6.2 L (6.3-8.2) g/dL Albumin 3.3 L (3.5-5.0) g/dL 07/31/23 07/31/23 Range/Units 12:32 15:30 MCV (80.0-100.0) fL PT (10.0-12.5) sec BUN (7-17) mg/dL Glucose (74-99) mg/dL Magnesium (1.6-2.3) mg/dL Troponin I 0.048 H* 0.072 H* (0.000-0.034) ng/mL Total Protein (6.3-8.2) g/dL Albumin (3.5-5.0) g/dL
[2023-08-01] MEDS: ATORVASTATIN 80 MG TAB PO ONE (05:36)
[2023-08-01] MEDS: ISOSORBIDE MONONITRATE ER 60 MG TAB.ER.24H PO SCH (05:36)
[2023-08-01] MEDS: LEVOTHYROXINE 50 MCG TAB PO SCH (05:36)
[2023-08-01] MEDS: MAGNESIUM OXIDE 400 MG TAB PO SCH (05:36)
[2023-08-01] MEDS: ASPIRIN 325 MG TAB PO ONE (05:36)
[2023-08-01] MEDS: allopurinoL 100 MG TAB PO SCH (05:36)
[2023-08-01] MEDS: LOSARTAN 25 MG TAB PO SCH (05:36)
[2023-08-01] MEDS: ASCORBIC ACID 500 MG TAB PO SCH (05:36)
[2023-08-01] MEDS: ASPIRIN 81 MG PO SCH (05:37)
[2023-08-01 06:09] LABS: Glucose,Whole Blood 155 mg/dL (70-110)
[2023-08-01] MEDS ORDERED: HEPARIN SODIUM,PORCINE (1 ML) 2,500 UNIT in SODIUM CHLORIDE 0.9% 250 ML IRRIGATION PRN (07:00)
[2023-08-01] MEDS ORDERED: HEPARIN SODIUM,PORCINE 10,000 UNIT in SODIUM CHLORIDE 0.9% 1,000 ML IRRIGATION PRN (07:00)
[2023-08-01] MEDS: INSULN ASP PRT/INSULIN ASPART 100 UNIT/ML 10 ML VIAL SQ SCH (07:29)
[2023-08-01] MEDS ORDERED: ASPIRIN 325 MG TAB PO SCH (09:00)
--- NOTE | 2023-08-01 09:52 | CA ---
Transthoracic Echo Report Name: Danni Oswald Age: 73 Gender: F : 1950 Exam Date: 07/31/2023 14:58 Exam Location: [facility] Ht (in): 61 Wt (lb): 205 Ordering Physician: Renee Johnson Attending/Referring Phys: [id number], Alex Signal Circuit Designer Deandra Villaseñor RCS Procedure CPT: Indications: Chest Pain Cardiac Hx: Technical Quality: Technically difficult study Contrast 1: Definity Total Dose (mL): 4 Contrast 2: Total Dose (mL): MEASUREMENTS (Male / Female) Normal Values 2D ECHO LV Diastolic Diameter PLAX 4.5 cm 4.2 - 5.9 / 3.9 - 5.3 cm LV Systolic Diameter PLAX 3.4 cm IVS Diastolic Thickness 1.2 cm 0.6 - 1.0 / 0.6 - 0.9 cm LVPW Diastolic Thickness 0.9 cm 0.6 - 1.0 / 0.6 - 0.9 cm LV Relative Wall Thickness 0.5 RV Internal Dim ED PLAX 2.2 cm LVOT Diameter 2.1 cm LV Diastolic Volume MOD BP 63.6 cm??? 67 - 155 / 56 - 104 cm??? LV Systolic Volume MOD BP 23.3 cm??? 22 - 58 / 19 - 49 cm??? LV Ejection Fraction MOD BP 63.3 % >= 55 % LV Cardiac Index MOD BP 1924.9 cm???/min???m??? LV Diastolic Volume MOD 4C 83.6 cm??? LV Systolic Volume MOD 4C 29.0 cm??? LV Ejection Fraction MOD 4C 65.3 % LV Cardiac Index MOD 4C 2607.2 cm???/min???m??? LV Diastolic Length 4C 7.4 cm LV Systolic Length 4C 5.4 cm LV Diastolic Volume MOD 2C 42.5 cm??? LV Systolic Volume MOD 2C 18.0 cm??? LV Ejection Fraction MOD 2C 57.8 % LV Cardiac Index MOD 2C 1174.5 cm???/min???m??? LV Diastolic Length 2C 6.5 cm LV Systolic Length 2C 5.0 cm LA Volume 80.5 cm??? 18 - 58 / 22 - 52 cm??? LA Volume Index 39.2 cm???/m??? 16 - 28 cm???/m??? Ascending Aorta Diameter 3.1 cm DOPPLER AV Peak Velocity 123.1 cm/s AV Peak Gradient 6.1 mmHg AV Mean Velocity 80.0 cm/s AV Mean Gradient 3.0 mmHg AV Velocity Time Integral 18.6 cm LVOT Peak Velocity 101.5 cm/s LVOT Peak Gradient 4.1 mmHg LVOT Velocity Time Integral 15.5 cm LVOT Stroke Volume 52.3 cm??? LVOT Stroke Volume Index 27.4 ml/m??? LVOT Cardiac Index 2501.5 cm???/min???m??? AV Area Cont Eq vti 2.8 cm??? AV Area Cont Eq pk 2.8 cm??? PV Peak Velocity 109.4 cm/s PV Peak Gradient 4.8 mmHg FINDINGS Left Ventricle Left ventricular ejection fraction is estimated at 45-50 %. Mildly increased septal wall thickness. Left ventricular cavity size normal. No obvious regional wall motion abnormalities. Right Ventricle Normal right ventricular size with mildly reduced function. Right Atrium Normal right atrial size. Left Atrium Moderately increased left atrial volume. Mildly increased left atrial area. Mitral Valve Structurally normal mitral valve. No evidence for mitral valve prolapse. No mitral stenosis. No mitral regurgitation. Aortic Valve Trileaflet aortic valve. No aortic stenosis. Trace aortic regurgitation. Tricuspid Valve Structurally normal tricuspid valve. No tricuspid stenosis, regurgitation or prolapse. Pulmonic Valve Pulmonic valve not well visualized. No pulmonic stenosis. Trace pulmonic regurgitation. Pericardium No pericardial effusion. Aorta Normal size aortic root and proximal ascending aorta. CONCLUSIONS Technically difficult study for interpretation The ejection fraction is difficult to be assessed but appeared to be in the range of 45-50% Overall poorly visualized intracardiac valves Previewed by: Dr. Bo Diehl MD (Electronically Signed) Final Date: 01 August 2023 09:51
[2023-08-01 11:29] LABS: Glucose,Whole Blood 123 mg/dL (70-110)
[2023-08-01] MEDS: SODIUM CHLORIDE 0.9% 1,000 ML IV ONE (11:36)
[2023-08-01] MEDS ORDERED: LIDOCAINE 1% INJ 10MG/ML (20 ML MDV) ONE (11:45)
[2023-08-01] MEDS: MIDAZOLAM 2 MG/2 ML VIAL IVP ONE ×4 (12:00→12:55)
[2023-08-01] MEDS: LIDOCAINE 1% INJ 10MG/ML (20 ML MDV) SQ ONE (12:03)
[2023-08-01] MEDS ORDERED: HEPARIN SODIUM 1,000 UN/ML (10ML VL) ONE (12:22)
[2023-08-01] MEDS: HEPARIN SODIUM 1,000 UN/ML (10ML VL) IV ONE (12:23)
[2023-08-01] MEDS ORDERED: niCARdipine 25 MG/10 ML VIAL ONE (12:23)
[2023-08-01] MEDS: IOPAMIDOL-370 100ML BTL INJ ONE ×2 (13:08→13:09)
[2023-08-01] MEDS ORDERED: ZOLPIDEM 5 MG TAB PO PRN (13:10)
[2023-08-01] MEDS ORDERED: ATROPINE SULFATE 0.1 MG/ML 10ML SYRINGE IV PRN (13:10)
[2023-08-01] MEDS ORDERED: NITROGLYCERIN SL TABS 0.4 MG TAB SUBLINGUAL PRN (13:10)
[2023-08-01] MEDS ORDERED: CLOPIDOGREL 75 MG TAB ONE (13:10)
[2023-08-01] MEDS ORDERED: MAG HYDROX/AL HYDROX/SIMETH 30 ML CUP PO PRN (13:10)
[2023-08-01] MEDS ORDERED: RX INFO: IV CONTRAST WAS GIVEN 1 EACH MISC MISCELLANE PRN (13:10)
[2023-08-01] MEDS: CLOPIDOGREL 75 MG TAB PO ONE (13:12)
[2023-08-01] MEDS ORDERED: MORPHINE SULFATE 4 MG/ML SYRINGE ONE (13:14)
[2023-08-01] MEDS ORDERED: NITROGLYCERIN SL TABS 0.4 MG TAB SUBLINGUAL ONE (13:15)
[2023-08-01] MEDS: MORPHINE SULFATE 4 MG/ML SYRINGE IVP ONE (13:18)
--- NOTE | 2023-08-01 13:22 | P.PCN ---
Date of Procedure: 08/01/23 Operative Findings: CARDIAC CATHETERIZATION PERFORMING PHYSICIAN: Bo Diehl MD, RPVI PROCEDURE PERFORMED: 1. Selective right and left coronary angiogram 2. HANNAH to LAD angiogram and SVG to diagonal angiogram and SVG to OM angiogram 3. Successful stenting of the SVG to diagonal with adjunctive use of intravascular imaging 3. Ultrasound-guided access of the right common femoral artery and selective right common femoral artery angiogram INDICATION: Acute coronary syndrome COMPLICATION: None APPROACH: Right common femoral artery LEVEL OF SEDATION: Moderate with sedation in length of 60 minutes PROCEDURE DESCRIPTION: After obtaining an informed consent, the patient was brought to cardiac cytology laboratory manager. Local anesthesia was performed using lidocaine subcutaneously. The right common femoral artery was cannulated using Seldinger technique, the guidewire passed easily, following that we advanced a 6 Estonian sheath dilator assembly, the wire and dilator were removed and sheath was flushed. Selective right and left coronary angiogram using a 6-Estonian JR4 and JL catheters. HANNAH to LAD angiogram and SVG to diagonal angiogram and SVG to OM angiogram performed using the JR4 catheter. After that selective right common femoral artery angiogram was performed after the intervention on the SVG to diagonal The procedure was completed there was no complication. SELECTIVE CORONARY ANGIOGRAM: The right coronary artery: Large-caliber vessel and calcified vessel with mild to moderate nonobstructive coronary artery disease. Left main: Extremely calcified The left circumflex: Is chronically occluded The left anterior descending artery: Extremely calcified with severe disease in the proximal portion Coronary bypass angiogram The HANNAH to LAD is patent The SVG to diagonal has ostial lesion appears to be in the range of 70 to 80% and lesion in the body of the graft appeared to be thrombotic lesion in the range of 70 to 80% as well The SVG to OM is occluded PCI of the SVG to diagonal: Anticoagulation was initiated using heparin with continuous ACT monitoring. Subsequently I did engage the graft using JR4 guiding catheter. After that I did wire the graft using a Runthrough wire. Subsequently attempting advancing an IVUS catheter was unsuccessful but I was able to advance the catheter only to the very proximal portion of the graft which was extremely calcified with ostial lesion appearing in the range of 70 to 80%. Balloon angioplasty was performed to the lesion in the body of the graft using 3 mm semicompliant balloon. After that attempting advancing 3.0 x 15 mm stent was unsuccessful because the stent would not cross the ostial lesion. At that point I attempted again using a lang wire and that was also unsuccessful. It was also unsuccessful in spite of using guide liner. At that point I realized that the ostial lesion need to be treated. So I ballooned it using 3 mm noncompliant balloon after that I was able to advance a 3.0 x 12 mm stent to the body lesion of the graft and I deployed the stent under 14 alvaro for 20 seconds. For the ostial lesion I deployed 3.5 x 15 mm stent where the stent again was positioned under fluoroscopy guidance and deployed under fluoroscopy guidance. I did flare the ostium using the stent balloon. Final angiogram showed excellent angiographic results with ADAM-3 flow and the procedure was completed with no complication. Finally selective right common femoral artery angiogram showed that the stick was on the low side with severe disease involving the common femoral artery and for that reason we decided to do manual hemostasis CONCLUSION: 1. Occluded left anterior descending artery. Patent HANNAH to LAD. The SVG to diagonal has severe thrombotic lesion in the mid portion of the graft as well as the proximal anastomosis. I performed successful stenting of both lesions 2. Occluded left circumflex. Occluded SVG to left circumflex 3. Mild to moderate disease involving the right coronary artery appears to be unchanged compared to before POSTPROCEDURE MANAGEMENT: Dual antiplatelet therapy using aspirin and Plavix for 12-month
[2023-08-01] MEDS: SODIUM CHLORIDE 0.9% 1,000 ML in EMPTY BAG 1 BAG IV SCH (14:32)
[2023-08-01] MEDS: DAPAGLIFLOZIN PROPANEDIOL 5 MG TABLET PO SCH (14:34)
[2023-08-01 14:40] VITALS: BMI 38.7
[2023-08-01 14:54] LABS: Basophils # (A) 0.1 k/uL (0-0.2); Basophils % (A) 1 %; Eosinophils # (A) 0.3 k/uL (0-0.7); Eosinophils % (A) 5 %; HCT 38.2 % (34.0-46.0); HGB 12.4 gm/dL (11.4-16.0); Lymphocytes % (A) 34 %; MCH 33.4 pg (25.0-35.0); MCHC 32.5 g/dL (31.0-37.0); MCV 102.6 fL (80.0-100.0); Macrocytosis Slight; Mean Platelet Volume 8.6; Monocytes # (A) 0.3 k/uL (0-1.0); Monocytes % (A) 5 %; Neutrophils # (A) 3.1 k/uL (1.3-7.7); Neutrophils % (A) 54 %; Platelet Count 160 k/uL (150-450); RBC 3.72 m/uL (3.80-5.40); RDW 13.9 % (11.5-15.5); WBC 5.7 k/uL (3.8-10.6)
[2023-08-01] MEDS: FAMOTIDINE 20 MG TAB PO SCH (14:58)
[2023-08-01 15:15] LABS: Prothrombin Time 10.6 sec (10.0-12.5)
[2023-08-01 15:21] LABS: Partial Thromboplastin Time 127.2 sec (22.0-30.0)
[2023-08-01] MEDS: HYDROmorphone 1 MG/ML 1 ML SYRINGE IVP PRN (15:42)
[2023-08-01 16:27] LABS: Glucose,Whole Blood 148 mg/dL (70-110)
[2023-08-01 17:02] LABS: ALT 21 U/L (4-34); AST 38 U/L (14-36); African American GFR (CKD) 59 (>60 ml/min/1.73 sqM); Alkaline Phosphatase 85 U/L (38-126); Anion Gap 8 mmol/L; Blood Urea Nitrogen 28 mg/dL (7-17); Carbon Dioxide 22 mmol/L (22-30); Chloride 108 mmol/L (98-107); Glucose 148 mg/dL (74-99); Non-African American GFR(CKD) 51 (>60 ml/min/1.73 sqM); Potassium 3.9 mmol/L (3.5-5.1); Sodium 138 mmol/L (137-145); Total Bilirubin 0.5 mg/dL (0.2-1.3); Total Protein 5.8 g/dL (6.3-8.2)
[2023-08-01] MEDS: ONDANSETRON 4 MG/2 ML VIAL IVP PRN (17:08)
[2023-08-01 19:42] LABS: Chol/HDL Ratio 2.76 Ratio; LDL Cholesterol,Calculated 71.3 mg/dL (0.0-131.0); VLDL Calculation 16.06 mg/dL (5.00-40.00)
[2023-08-01 19:57] LABS: Glucose,Whole Blood 199 mg/dL (70-110)
[2023-08-01] MEDS: ALPRAZolam 0.25 MG TAB PO PRN (21:04)
--- NOTE | 2023-08-01 22:14 | P.PN ---
Subjective Progress Note Date: 08/01/23 HISTORY OF PRESENT ILLNESS: 73-year-old from my office patient with multiple medical problems known to have type 2 diabetes on insulin, history of sarcoidosis, history of hypertension, hyperlipidemia, chronic history of neuropathy, chronic history of lower back pain who had severe coronary artery disease post CABG in the past with restenosis last heart catheter was done in July 2021 with finding consistent with mild disease was on medical management only. Patient has been complaining for the last 2 months of worsening exertional chest pain with worsening shortness of breath with minimal exertion. She apparently had seen cardiology her EKG had significant change compared to before was scheduled to have electrical heart catheter on August 09, 2023. She presented to the emergency department today at [facility] with complaint of recurrent angina and chest pain but symptoms are not improving, she is taking some nitroglycerin which had helped her symptoms some but the chest tightness and shortness of breath recurred shortly after. Was seen and evaluated in the emergency room Testing with EKG showed Q waves in V1 and V2 also showed some sign of left ventricular hypertrophy. Laboratory value initial troponin was 0.034 which increased to 0.048 less than 2 hours. BNP was 1650. Fortunately her creatinine was down to 1.03 with GFR of 54. Her baseline GFR was in the 40s initially and patient was seen for stage IIIb chronic kidney disease. Patient was seen and evaluated by cardiology and decided to consider doing heart catheter tomorrow morning. Will keep patient on medical management for now still was not requiring any nitroglycerin drip but will continue isosorbide mononitrate and Nitropaste till the morning. 08/01/2023:The night was peaceful in the hospital, patient was on heparin drip, still waiting for heart catheter this morning to decide on further management afterward., Remained stable at this point chest pain and discomfort slightly better through the night. REVIEW OF SYSTEMS: CONSTITUTIONAL: Well-developed no acute respiratory distress. EYES: No icterus sclerae, no conjunctivitis. EARS, NOSE, MOUTH, THROAT, and FACE: No sore throat, lymphadenopathy, carotid bruits or deformity. RESPIRATORY: Slight shortness of breath no cough or wheezes. CARDIOVASCULAR: Positive chest pain, angina, palpitation and orthopnea. GASTROINTESTINAL: No Abd pain, Nausea or vomiting, no Diarrhea or constipation, No GI Bleed, no distention or masses. GENITOURINARY: Negative for Hematuria or UTI, no kidney stones. INTEGUMENT/BREAST: Negative for any muscular injury with mild osteoarthritis.. HEMATOLOGIC/LYMPHATIC: Negative for bleed or purpura. MUSCULOSKELTAL: Generalized back and muscle pain. NEURLOGICAL: No LOC, Sz or syncope, blurred vision dizziness or abnormality.. BEHAVIORAL/PSYCH: Negative. ENDOCRINE: Negative. PHYSICAL EXAMINATION: General Appearance: Alert, cooperative, no distress, appears stated age. Neck HEENT: Supple, no lymphadenopathy, no thyroid enlargement, no carotid bruits. Lungs: Clear to auscultation without crackles positive rhonchi no wheezes. Chest Wall: Decreased expansion with deep inspiration no tenderness and no deformity was found on exam, no costochondral pain or discomfort. Heart: Regular rate and rhythm, S1, S2 normal, no murmur, rub or gallop. Back: Symmetric, no curvature, ROM normal, no CVA tenderness. Abdomen: Soft, non-tender, bowel sounds active all four quadrants, no masses, no organomegaly. Extremities: Extremities normal, atraumatic, no cyanosis or edema. Slight discoloration lower part of her leg with chronic varicose vein. Pulses: 2+ and symmetric. Skin: Skin color, texture, tugor normal, no rashes or lesions. Neurologic: Alert oriented x3 cranial nerves II through XII intact, no motor deficit, no abnormal balance or gait. ASSESSMENT AND PLAN: _Unstable angina: Enzyme was slightly bit positive patient will be going for heart cath this morning. _Non-ST elevation type IIb myocardial infarction with impressive symptoms, patient will be going for heart cath for the diagnostic and possible need intervention afterward. Patient was started on heparin drip continue aspirin Plavix and nitro _Type 2 diabetes: Resume insulin along with Accu-Chek sliding scale coverage. With patient's current symptoms and medical problems she will benefit from SGLT2 product which should be added while patient is in the hospital product like Jardiance 10 mg a day. Continue sliding scale coverage statically of her blood sugar below 120. _Hypertension: Still not controlled resume home meds continue to watch systolic blood pressure to keep it below 130 will add in addition ARB or beta-isidro if she is able to tolerate on as-needed basis. _Hyperlipidemia: Continue atorvastatin 10 mg a day which should be titrated up to 40 or 80 mg just depend on the finding of her heart cath tomorrow. _Stage III chronic kidney disease: Has been downgraded to stage II stable so far continue hydration and going for heart cath this morning will watch kidney function 24 hours after the catheter. _History of sarcoidosis: Has been on Plaquenil and still seen pulmonary. _Diastolic dysfunction congestive heart failure: Resume furosemide 40 mg continue isosorbide, metoprolol, and consider to add at least losartan 25 mg a day. _Chronic pain syndrome: Mostly degenerative disc disease has been on hydrocodone along with muscle relaxer. _Hypothyroidism: Continue patient on levothyroxine 50 mcg daily. _History of gout: Still on allopurinol no flareup lately. Planning: Patient is going for heart cath depending on the result further management to be determined that she will be probably in the hospital in the next 24 hours. Objective - Vital Signs Vital signs: Vital Signs Temp 97.8 F 08/01/23 04:35 Pulse 77 08/01/23 04:35 Resp 18 08/01/23 04:35 BP 138/82 08/01/23 04:35 Pulse Ox 100 08/01/23 04:35 FiO2 Intake & Output 07/31/23 07/31/23 08/01/23 06:59 18:59 06:59 Weight 92.986 kg 92.986 kg Other: Voiding Method Toilet # Voids 1 - Labs CBC & Chem 7: 08/01/23 14:37 08/01/23 14:37 Labs: Abnormal Lab Results - Last 24 Hours (Table) 07/31/23 07/31/23 07/31/23 Range/Units 10:42 10:42 10:42 MCV 100.6 H (80.0-100.0) fL PT 9.8 L (10.0-12.5) sec APTT (22.0-30.0) sec BUN 27 H (7-17) mg/dL Glucose 179 H (74-99) mg/dL POC Glucose (mg/dL) (70-110) mg/dL Magnesium 1.3 L (1.6-2.3) mg/dL Troponin I (0.000-0.034) ng/mL Total Protein 6.2 L (6.3-8.2) g/dL Albumin 3.3 L (3.5-5.0) g/dL 07/31/23 07/31/2324 Range/Units 12:32 15:30 18:03 MCV 101.0 H (80.0-100.0) fL PT (10.0-12.5) sec APTT (22.0-30.0) sec BUN (7-17) mg/dL Glucose (74-99) mg/dL POC Glucose (mg/dL) (70-110) mg/dL Magnesium (1.6-2.3) mg/dL Troponin I 0.048 H* 0.072 H* (0.000-0.034) ng/mL Total Protein (6.3-8.2) g/dL Albumin (3.5-5.0) g/dL 07/31/23 07/31/23 07/31/23 Range/Units 18:03 20:00 23:38 MCV (80.0-100.0) fL PT 9.7 L (10.0-12.5) sec APTT 61.4 H (22.0-30.0) sec BUN (7-17) mg/dL Glucose (74-99) mg/dL POC Glucose (mg/dL) 172 H (70-110) mg/dL Magnesium (1.6-2.3) mg/dL Troponin I (0.000-0.034) ng/mL Total Protein (6.3-8.2) g/dL Albumin (3.5-5.0) g/dL 08/01/23 Range/Units 06:08 MCV (80.0-100.0) fL PT (10.0-12.5) sec APTT (22.0-30.0) sec BUN (7-17) mg/dL Glucose (74-99) mg/dL POC Glucose (mg/dL) 155 H (70-110) mg/dL Magnesium (1.6-2.3) mg/dL Troponin I (0.000-0.034) ng/mL Total Protein (6.3-8.2) g/dL Albumin (3.5-5.0) g/dL
[2023-08-02] MEDS: LEVOTHYROXINE 100 MCG TAB PO SCH (06:16)
[2023-08-02 06:32] LABS: Glucose,Whole Blood 115 mg/dL (70-110)
[2023-08-02] MEDS: ALPRAZolam 0.5 MG TAB PO PRN (08:11)
[2023-08-02] MEDS: DAPAGLIFLOZIN PROPANEDIOL 5 MG TABLET PO SCH (08:12)
[2023-08-02 08:34] VITALS: RESP 16; TEMP 98.2
[2023-08-02] MEDS ORDERED: FUROSEMIDE 40 MG TAB PO SCH (09:00)
[2023-08-02 11:23] LABS: Glucose,Whole Blood 154 mg/dL (70-110)
--- NOTE | 2023-08-02 12:07 | P.PN ---
Subjective Progress Note Date: 08/02/23 History of Present Illness: The patient is a 73-year-old female with a known history of coronary artery di sease status post CABG history of sarcoidosis, hypertension, hyperlipidemia, chronic tobacco use who presented with symptoms of shivering, progressive dyspnea and chest discomfort. She has been followed by Dr. Levi and was evaluated recently and because of abnormal changes on her EKG she was scheduled to undergo cardiac catheterization on August 08. She has been complaining of episode of chest discomfort while in the emergency room that resolved with sublingual nitroglycerin. Her EKG shows left bundle branch block that has been noted in the past. She had mild troponin elevation. She continues to be dyspneic on exertion with minimal physical activity. She has no peripheral edema, PND or orthopnea. Her last cardiac catheterization was in 2016 and at that time received a HANNAH to the LAD SVG to the diagonal and radial artery to the OM. On her cardiac catheterization she had patent graft, mild disease in the RCA with chronically occluded left circumflex and LAD. She has a history of dysautonomia with dizziness on standing. Her systolic function has been stable and preserved. She is pain-free at the time of my evaluation. Her risk factors are positive for hypertension, hyperlipidemia and diabetes mellitus. She is a non-smoker. Medications: Aspirin, Plavix 75 mg daily, Lipitor 10 mg daily, insulin, metoprolol succinate 100 mg twice a day, isosorbide mononitrate 60 mg daily, Lasix 40 mg daily, levothyroxine, magnesium, Flexeril Labs: Hemoglobin 13.4, BUN 27, creatinine 1.03, troponin 0.034, 0.048, 0.072. NT proBNP 1650. Chest x-ray with no acute infiltrate EKG: Sinus mechanism with left bundle branch block 08/01 Yesterday, patient underwent cardiac catheterization with Dr. Diehl which revealed occluded left anterior descending artery. Patent HANNAH to LAD. The SVG to diagonal has severe thrombotic lesion in the mid portion of the graft as well as the proximal anastomosis. Patient underwent successful stenting of both lesions. Occluded left circumflex. Occluded SVG to left circumflex. Mild to moderate disease involving the right coronary artery appears to be unchanged compared to before. Patient is seen today in follow-up. She denies having any chest pain no shortness of breath. She plans to walk in the hallway. Blood pressure 143/64, heart rate 59, pulse ox 100% on room air. Echocardiogram reveals EF of 45 to 50%. Overall poorly visualized intracardiac valves. Physical Examination: 73-year-old female alert oriented no apparent distress Head: Normocephalic. Eyes: Sclerae nonicteric. Neck: Good carotid upstroke, no bruit, no jugular venous distention. Lungs: Clear to auscultation. Heart: Regular rate and rhythm, S1-S2, no S3, no rub. Systolic ejection murmur. Abdomen: Soft nontender, positive bowel sounds no organomegaly. Extremities: No edema, intact distal pulses. Impression: 1. Symptoms of chest discomfort with troponin elevation consistent with non- STEMI in a patient with known history of CAD, status post CABG 2. Coronary artery disease as listed above 3. History of hypertension 4. History of hyperlipidemia 5. History of diabetes 6. History of sarcoidosis 7. Chronic kidney disease, stable 8. History of dysautonomia and dizziness Plan: Continue patient her home cardiac medications Continue patient on aspirin 81 mg daily and Plavix 75 mg daily for 12 months Patient is cleared for discharge from cardiology and may follow-up with Dr. Levi in 1 week. Nurse practitioner note has been reviewed, I agree with documented findings and plan of care. Patient was seen and examined. Objective - Vital Signs Vital signs: Vital Signs Temp 98.2 F 08/02/23 08:09 Pulse 59 L 08/02/23 08:09 Resp 16 08/02/23 08:09 BP 143/64 08/02/23 08:09 Pulse Ox 100 08/02/23 08:09 FiO2 Intake & Output 08/01/23 08/02/23 08/02/23 18:59 06:59 18:59 Intake Total 1126.088 240 Output Total 200 200 Balance 926.088 -200 240 Weight 92.986 kg Intake: IV 150 Intake, IV Titration 196.088 Amount Heparin Sod,Pork in 0.45% 196.088 NaCl 25,000 unit In 0.45 % NaCl 1 250ml.bag @ 10. 75 UNITS/KG/HR 9.996 mls/ hr IV .Q24H JET Rx#: [id number] Oral 780 240 Output: Emesis 200 200 Other: Voiding Method Toilet Toilet # Voids 1 1 - Labs CBC & Chem 7: 08/01/23 14:37 08/01/23 14:37 Labs: Abnormal Lab Results - Last 24 Hours (Table) 08/01/23 08/01/23 08/01/23 Range/Units 11:27 14:37 14:37 RBC 3.72 L (3.80-5.40) m/uL MCV 102.6 H (80.0-100.0) fL APTT 127.2 H* (22.0-30.0) sec Chloride (98-107) mmol/L BUN (7-17) mg/dL Creatinine (0.52-1.04) mg/dL Glucose (74-99) mg/dL POC Glucose (mg/dL) 123 H (70-110) mg/dL AST (14-36) U/L Total Protein (6.3-8.2) g/dL Albumin (3.5-5.0) g/dL 08/01/23 08/01/23 08/01/23 Range/Units 14:37 16:20 19:57 RBC (3.80-5.40) m/uL MCV (80.0-100.0) fL APTT (22.0-30.0) sec Chloride 108 H (98-107) mmol/L BUN 28 H (7-17) mg/dL Creatinine 1.08 H (0.52-1.04) mg/dL Glucose 148 H (74-99) mg/dL POC Glucose (mg/dL) 148 H 199 H (70-110) mg/dL AST 38 H (14-36) U/L Total Protein 5.8 L (6.3-8.2) g/dL Albumin 3.0 L (3.5-5.0) g/dL 08/02/23 Range/Units 06:30 RBC (3.80-5.40) m/uL MCV (80.0-100.0) fL APTT (22.0-30.0) sec Chloride (98-107) mmol/L BUN (7-17) mg/dL Creatinine (0.52-1.04) mg/dL Glucose (74-99) mg/dL POC Glucose (mg/dL) 115 H (70-110) mg/dL AST (14-36) U/L Total Protein (6.3-8.2) g/dL Albumin (3.5-5.0) g/dL
[2023-08-02 12:34] VITALS: BP 163/56; PULSE 55
[2023-08-02 12:58] LABS: African American GFR (CKD) 69 (>60 ml/min/1.73 sqM); Anion Gap 4 mmol/L; Blood Urea Nitrogen 21 mg/dL (7-17); Calcium 8.9 mg/dL (8.4-10.2); Carbon Dioxide 28 mmol/L (22-30); Chloride 104 mmol/L (98-107); Glucose 167 mg/dL (74-99); Non-African American GFR(CKD) 60 (>60 ml/min/1.73 sqM); Potassium 4.6 mmol/L (3.5-5.1); Sodium 136 mmol/L (137-145)
--- NOTE | 2023-08-02 20:58 | P.DS ---
Providers Date of admission: 07/31/23 12:13 Attending physician: Sam Quiñonez Consults: 07/31/23 11:59 Consult Physician Urgent Consulting Provider: Madhav Smith Consult Reason/Comments: chest pain Do you want consulting provider notified?: Yes 08/01/23 13:10 Consult Physician Routine Consulting Provider: Cardiology Leslie Consult Reason/Comments: Post Interventional patient Do you want consulting provider notified?: Already Contacted Primary care physician: [facility] Course: HISTORY OF PRESENT ILLNESS: 73-year-old from my office patient with multiple medical problems known to have type 2 diabetes on insulin, history of sarcoidosis, history of hypertension, hyperlipidemia, chronic history of neuropathy, chronic history of lower back pain who had severe coronary artery disease post CABG in the past with restenosis last heart catheter was done in July 2021 with finding consistent with mild disease was on medical management only. Patient has been complaining for the last 2 months of worsening exertional chest pain with worsening shortness of breath with minimal exertion. She apparently had seen cardiology her EKG had significant change compared to before was scheduled to have electrical heart catheter on August 09, 2023. She presented to the emergency department today at [facility] with complaint of recurrent angina and chest pain but symptoms are not improving, she is taking some nitroglycerin which had helped her symptoms some but the chest tightness and shortness of breath recurred shortly after. Was seen and evaluated in the emergency room Testing with EKG showed Q waves in V1 and V2 also showed some sign of left ventricular hypertrophy. Laboratory value initial troponin was 0.034 which increased to 0.048 less than 2 hours. BNP was 1650. Fortunately her creatinine was down to 1.03 with GFR of 54. Her baseline GFR was in the 40s initially and patient was seen for stage IIIb chronic kidney disease. Patient was seen and evaluated by cardiology and decided to consider doing heart catheter tomorrow morning. Will keep patient on medical management for now still was not requiring any nitroglycerin drip but will continue isosorbide mononitrate and Nitropaste till the morning. 08/01/2023:The night was peaceful in the hospital, patient was on heparin drip, still waiting for heart catheter this morning to decide on further management afterward., Remained stable at this point chest pain and discomfort slightly better through the night. 08/02/2023: Patient is feeling much better today, yesterday went to [facility] and had heart catheterization showed occluded left anterior descending artery with patent HANNAH to the LAD the SVG to the diagonal has severe thrombotic lesion in the midportion of the graft as well as the proximal anastomosis. Patient ended up having successful stenting both lesion occluded left circumflex and occluded SVG to the left circumflex mild to moderate disease involving the right coronary artery unchanged from 2 years ago. Also surprisingly the ejection fraction was 45 to 50% on echocardiogram was done yesterday which is significantly declined from before which patient hopefully will do better after her angioplasty and with medical management will correct it. REVIEW OF SYSTEMS: CONSTITUTIONAL: Well-developed no acute respiratory distress. EYES: No icterus sclerae, no conjunctivitis. EARS, NOSE, MOUTH, THROAT, and FACE: No sore throat, lymphadenopathy, carotid bruits or deformity. RESPIRATORY: Slight shortness of breath no cough or wheezes. CARDIOVASCULAR: Positive chest pain, angina, palpitation and orthopnea. GASTROINTESTINAL: No Abd pain, Nausea or vomiting, no Diarrhea or constipation, No GI Bleed, no distention or masses. GENITOURINARY: Negative for Hematuria or UTI, no kidney stones. INTEGUMENT/BREAST: Negative for any muscular injury with mild osteoarthritis.. HEMATOLOGIC/LYMPHATIC: Negative for bleed or purpura. MUSCULOSKELTAL: Generalized back and muscle pain. NEURLOGICAL: No LOC, Sz or syncope, blurred vision dizziness or abnormality.. BEHAVIORAL/PSYCH: Negative. ENDOCRINE: Negative. PHYSICAL EXAMINATION: General Appearance: Alert, cooperative, no distress, appears stated age. Neck HEENT: Supple, no lymphadenopathy, no thyroid enlargement, no carotid bru its. Lungs: Clear to auscultation without crackles positive rhonchi no wheezes. Chest Wall: Decreased expansion with deep inspiration no tenderness and no deformity was found on exam, no costochondral pain or discomfort. Heart: Regular rate and rhythm, S1, S2 normal, no murmur, rub or gallop. Back: Symmetric, no curvature, ROM normal, no CVA tenderness. Abdomen: Soft, non-tender, bowel sounds active all four quadrants, no masses, no organomegaly. Extremities: Extremities normal, atraumatic, no cyanosis or edema. Slight discoloration lower part of her leg with chronic varicose vein. Pulses: 2+ and symmetric. Skin: Skin color, texture, tugor normal, no rashes or lesions. Neurologic: Alert oriented x3 cranial nerves II through XII intact, no motor deficit, no abnormal balance or gait. ASSESSMENT AND PLAN: _Severe coronary artery disease: With angioplasty and stent placement of SVG to the diagonal in the midportion of the graft as well as the proximal. _Unstable angina: Enzyme was slightly bit positive patient will be going for heart cath this morning. _Non-ST elevation type IIb myocardial infarction with impressive symptoms, patient will be going for heart cath for the diagnostic and possible need intervention afterward. Patient was started on heparin drip continue aspirin Plavix and nitro. _Type 2 diabetes: Resume insulin along with Accu-Chek sliding scale coverage. With patient's current symptoms and medical problems she will benefit from SGLT2 product which should be added while patient is in the hospital product like Jardiance 10 mg a day. Continue sliding scale coverage statically of her blood sugar below 120. _Hypertension: Still not controlled resume home meds continue to watch systolic blood pressure to keep it below 130 will add in addition ARB or beta-isidro if she is able to tolerate on as-needed basis. _Hyperlipidemia: Continue atorvastatin 10 mg a day which should be titrated up to 40 or 80 mg just depend on the finding of her heart cath tomorrow. _Stage III chronic kidney disease: Has been downgraded to stage II stable so far continue hydration and going for heart cath this morning will watch kidney function 24 hours after the catheter. _History of sarcoidosis: Has been on Plaquenil and still seen pulmonary. _Diastolic dysfunction congestive heart failure: Resume furosemide 40 mg continue isosorbide, metoprolol, and consider to add at least losartan 25 mg a day. _Chronic pain syndrome: Mostly degenerative disc disease has been on hydrocodone along with muscle relaxer. _Hypothyroidism: Continue patient on levothyroxine 50 mcg daily. _History of gout: Still on allopurinol no flareup lately. Hospital course: Patient was admitted with unstable angina along with type IIb myocardial infarction. Echocardiogram performed showed ejection fraction to be 45 to 50% significant reduction, patient was continued on heparin drip initially along with nitro ended up going to [facility] and had 2 stent placement and of the SVG to the diagonal and midportion and proximal. With a successful result she had a quite big bruise from her procedure and anticoagulation but did well. While patient is in the hospital and reduce SGLT2 product which patient tolerated well also her statin was increased up to 40 mg of atorvastatin which patient will continue on as an outpatient. She is very stable will be discha rging patient home today follow in the office next few days. Time spent on discharging patient was more than 35 minutes. Patient Condition at Discharge: Fair Plan - Discharge Summary Discharge Rx Participant: No New Discharge Prescriptions: New Losartan [Cozaar] 25 mg PO DAILY #90 tab Dapagliflozin Propanediol [Farxiga] 5 mg PO DAILY #30 tab Atorvastatin [Lipitor] 40 mg PO HS #90 tab Continue ALPRAZolam [Xanax] 0.25 mg PO HS Isosorbide Mononitrate ER [Imdur] 60 mg PO DAILY Hydrocodone/Acetaminophen [[place] 10-325] 1 tab PO Q8H PRN PRN Reason: Pain Esomeprazole Magnesium [NexIUM] 40 mg PO BID allopurinoL [Zyloprim] 100 mg PO DAILY Hydroxychloroquine Sulfate [Plaquenil] 200 mg PO BID Clopidogrel [Plavix] 75 mg PO HS INSULIN LISPRO (HumaLOG) [humaLOG] See Protocol SQ ACHS PRN PRN Reason: Blood Sugar - High Levothyroxine Sodium [Synthroid] 50 mcg PO TUTH Nitroglycerin Sl Tabs [Nitrostat] 0.4 mg SUBLINGUAL Q5M PRN PRN Reason: Chest Pain Metoprolol Succinate (ER) [Toprol XL] 100 mg PO BID Levothyroxine Sodium [Synthroid] 100 mcg PO SUMOWEFRSA Ascorbic Acid [Vitamin C] 1,000 mg PO DAILY Furosemide [Lasix] 40 mg PO SUMOWEFR Isosorbide Mononitrate ER [Imdur] 30 mg PO HS Clobetasol Propionate [Temovate 0.05% Oint] 1 applic TOPICAL BID Insulin NPH/Reg Insulin 70/30 [humuLIN 70/30 VIAL] 20 unit SQ DAILY Aspirin 81 mg PO DAILY Sennosides [Senokot] 8.6 mg PO HS Magnesium Oxide [Magnesium] 500 mg PO DAILY Acetaminophen/Diphenhydramine [Tylenol PM 500-25mg] 2 tab PO HS Cyclobenzaprine [Flexeril] 10 mg PO BID PRN PRN Reason: Muscle Pain Discontinued Atorvastatin [Lipitor] 10 mg PO HS Insulin NPH/Reg Insulin 70/30 [humuLIN 70/30 VIAL] 20 unit SQ DAILY PRN PRN Reason: high blood sugar Discharge Medication List ALPRAZolam [Xanax] 0.25 mg PO HS 06/07/16 [History] Clopidogrel [Plavix] 75 mg PO HS 06/07/16 [History] Esomeprazole Magnesium [NexIUM] 40 mg PO BID 06/07/16 [History] Hydrocodone/Acetaminophen [[place] 10-325] 1 tab PO Q8H PRN 06/07/16 [History] Hydroxychloroquine Sulfate [Plaquenil] 200 mg PO BID 06/07/16 [History] Isosorbide Mononitrate ER [Imdur] 60 mg PO DAILY 06/07/16 [History] allopurinoL [Zyloprim] 100 mg PO DAILY 06/07/16 [History] INSULIN LISPRO (HumaLOG) [humaLOG] See Protocol SQ ACHS PRN 06/08/16 [History] Levothyroxine Sodium [Synthroid] 50 mcg PO TUTH 05/21/17 [History] Nitroglycerin Sl Tabs [Nitrostat] 0.4 mg SUBLINGUAL Q5M PRN 09/24/17 [History] Levothyroxine Sodium [Synthroid] 100 mcg PO SUMOWEFRSA 11/08/17 [History] Metoprolol Succinate (ER) [Toprol XL] 100 mg PO BID 11/08/17 [History] Ascorbic Acid [Vitamin C] 1,000 mg PO DAILY 11/13/21 [History] Magnesium Oxide [Magnesium] 500 mg PO DAILY 11/13/21 [History] Acetaminophen/Diphenhydramine [Tylenol PM 500-25mg] 2 tab PO HS 07/31/23 [History] Aspirin 81 mg PO DAILY 07/31/23 [History] Clobetasol Propionate [Temovate 0.05% Oint] 1 applic TOPICAL BID 07/31/23 [History] Cyclobenzaprine [Flexeril] 10 mg PO BID PRN 07/31/23 [History] Furosemide [Lasix] 40 mg PO SUMOWEFR 07/31/23 [History] Insulin NPH/Reg Insulin 70/30 [humuLIN 70/30 VIAL] 20 unit SQ DAILY 07/31/23 [History] Isosorbide Mononitrate ER [Imdur] 30 mg PO HS 07/31/23 [History] Sennosides [Senokot] 8.6 mg PO HS 07/31/23 [History] Atorvastatin [Lipitor] 40 mg PO HS #90 tab 08/02/23 [Rx] Dapagliflozin Propanediol [Farxiga] 5 mg PO DAILY #30 tab 08/02/23 [Rx] Losartan [Cozaar] 25 mg PO DAILY #90 tab 08/02/23 [Rx] Follow up Appointment(s)/Referral(s): Willie Levi DO [STAFF PHYSICIAN] - 08/12/23 9:30 am Sam Quiñonez MD [Primary Care Provider] - 08/05/23 9:15 am Patient Instructions/Handouts: *Sur[facility] - After Heart Catheterization - [facility] Instructions Discharge Disposition: HOME SELF-CARE
[2023-08-02] MEDS ORDERED: ATORVASTATIN 40 MG TAB PO SCH (21:00)
[2023-08-03] MEDS ORDERED: FAMOTIDINE 20 MG TAB PO SCH (09:00)
== END 2023-08-02 13:29 | disposition home or self-care (01) | DRG 321 ==
LOC: EC 10:22 → 6NMEDSUR 12:12 → OBSVTOIN 12:13 → 6NMEDSUR 14:40 → 3SCARD 16:29
PROVIDERS: ADMIT Internal Medicine Geriatric Medicine; ATTEND Internal Medicine Geriatric Medicine
PROC: 027035Z Dilation of Coronary Artery, One Artery with Two Drug-eluting Intraluminal Devices, Percutaneous Approach (ICD-10-PCS; principal; 2023-08-01 10:30)
PROC: 4A023N7 Measurement of Cardiac Sampling and Pressure, Left Heart, Percutaneous Approach (ICD-10-PCS; principal; 2023-08-01 10:30)
PROC: B240ZZ3 Ultrasonography of Single Coronary Artery, Intravascular (ICD-10-PCS; principal; 2023-08-01 10:30)
PROC: B2121ZZ Fluoroscopy of Single Coronary Artery Bypass Graft using Low Osmolar Contrast (ICD-10-PCS; principal; 2023-08-01 10:30)
PROC: B2111ZZ Fluoroscopy of Multiple Coronary Arteries using Low Osmolar Contrast (ICD-10-PCS; principal; 2023-08-01 10:30)
DX: I25.110 Atherosclerotic heart disease of native coronary artery with unstable angina pectoris (principal); I21.A1 Myocardial infarction type 2; I13.0 Hypertensive heart and chronic kidney disease with heart failure and stage 1 through stage 4 chronic kidney disease, or unspecified chronic kidney disease; I50.30 Unspecified diastolic (congestive) heart failure; I25.700 Atherosclerosis of coronary artery bypass graft(s), unspecified, with unstable angina pectoris; I25.710 Atherosclerosis of autologous vein coronary artery bypass graft(s) with unstable angina pectoris; I25.84 Coronary atherosclerosis due to calcified coronary lesion; Z95.1 Presence of aortocoronary bypass graft; D86.9 Sarcoidosis, unspecified; E03.9 Hypothyroidism, unspecified; E11.22 Type 2 diabetes mellitus with diabetic chronic kidney disease; E78.5 Hyperlipidemia, unspecified; G89.4 Chronic pain syndrome; M79.7 Fibromyalgia; N18.32 Chronic kidney disease, stage 3b; Z79.4 Long term (current) use of insulin; Z79.82 Long term (current) use of aspirin; Z79.84 Long term (current) use of oral hypoglycemic drugs; Z79.890 Hormone replacement therapy; Z79.899 Other long term (current) drug therapy; Z82.49 Family history of ischemic heart disease and other diseases of the circulatory system; Z83.3 Family history of diabetes mellitus; Z86.010 Personal history of colon polyps; Z96.653 Presence of artificial knee joint, bilateral; Z96.649 Presence of unspecified artificial hip joint
CPT/HCPCS: 36415; 71046; 76937; 80048; 80053; 80061; 83735; 83880; 84484; 85025; 85610; 85730; 92978; 93005; 93306; 93455; 94760; 99285

== ENCOUNTER 2023-11-17 10:11 | Emergency (ER) | payer MEDICARE ==
[2023-11-17 10:19] VITALS: PULSE 55; TEMP 97.1
[2023-11-17 10:29] LABS: Glucose,Whole Blood 84 mg/dL (70-110)
[2023-11-17 11:42] LABS: Glucose,Whole Blood 92 mg/dL (70-110)
--- NOTE | 2023-11-17 12:04 | ED ---
General Adult HPI - General Chief complaint: Recheck/Abnormal Lab/Rx Stated complaint: Diabetic Issue Time Seen by Provider: 11/17/23 10:15 Source: patient, EMS Mode of arrival: EMS - History of Present Illness Initial comments: 73-year-old female presents emergency department after she accidentally took too much insulin. States that she takes 70/30 insulin twice a day. She went to take 18 units of this insulin and she accidentally took her rapid acting. She states that she normally only takes a rapid acting when she absolutely needs to which is not very frequent. When she does have to utilize the rapid acting it is usually only 2 to 3 units. Patient's glucose and mental status were stable upon transport to the hospital and therefore EMS did not administer any dext charis. Patient denies intentionally trying to harm herself. She feels a little bit lightheaded at this time but denies any other symptoms. No other alleviating, precipitating or modifying factors - Related Data Home Medications Medication Instructions Recorded Confirmed ALPRAZolam [Xanax] 0.25 mg PO HS 06/07/16 07/31/23 Clopidogrel [Plavix] 75 mg PO HS 06/07/16 07/31/23 Esomeprazole Magnesium [NexIUM] 40 mg PO BID 06/07/16 07/31/23 Hydrocodone/Acetaminophen [[place] 1 tab PO Q8H PRN 06/07/16 07/31/23 10-325] Hydroxychloroquine Sulfate 200 mg PO BID 06/07/16 07/31/23 [Plaquenil] Isosorbide Mononitrate ER [Imdur] 60 mg PO DAILY 06/07/16 07/31/23 allopurinoL [Zyloprim] 100 mg PO DAILY 06/07/16 07/31/23 INSULIN LISPRO (HumaLOG) [humaLOG] See Protocol SQ ACHS PRN 06/08/16 07/31/23 Levothyroxine Sodium [Synthroid] 50 mcg PO TUTH 05/21/17 07/31/23 Nitroglycerin Sl Tabs [Nitrostat] 0.4 mg SUBLINGUAL Q5M PRN 09/24/17 07/31/23 Levothyroxine Sodium [Synthroid] 100 mcg PO SUMOWEFRSA 11/08/17 07/31/23 Metoprolol Succinate (ER) [Toprol 100 mg PO BID 11/08/17 07/31/23 XL] Ascorbic Acid [Vitamin C] 1,000 mg PO DAILY 11/13/21 07/31/23 Magnesium Oxide [Magnesium] 500 mg PO DAILY 11/13/21 07/31/23 Acetaminophen/Diphenhydramine 2 tab PO HS 07/31/23 07/31/23 [Tylenol PM 500-25mg] Aspirin 81 mg PO DAILY 07/31/23 07/31/23 Clobetasol Propionate [Temovate 1 applic TOPICAL BID 07/31/23 07/31/23 0.05% Oint] Cyclobenzaprine [Flexeril] 10 mg PO BID PRN 07/31/23 07/31/23 Furosemide [Lasix] 40 mg PO SUMOWEFR 07/31/23 07/31/23 Insulin NPH/Reg Insulin 70/30 20 unit SQ DAILY 07/31/23 07/31/23 [humuLIN 70/30 VIAL] Isosorbide Mononitrate ER [Imdur] 30 mg PO HS 07/31/23 07/31/23 Sennosides [Senokot] 8.6 mg PO HS 07/31/23 07/31/23 Previous Rx's Medication Instructions Recorded Atorvastatin [Lipitor] 40 mg PO HS #90 tab 08/02/23 Dapagliflozin Propanediol [Farxiga] 5 mg PO DAILY #30 tab 08/02/23 Losartan [Cozaar] 25 mg PO DAILY #90 tab 08/02/23 Allergies Allergy/AdvReac Type Severity Reaction Status Date / Time Penicillins Allergy Rash/Hives Verified 11/17/23 10:19 Sulfa (Sulfonamide Allergy Rash/Hives Verified 11/17/23 10:19 Antibiotics) gabapentin [From Neurontin] AdvReac Unknown Verified 11/17/23 10:19 steroid AdvReac made heart Uncoded 11/17/23 10:19 pound, anxious w/dose pack Review of Systems ROS Statement: Those systems with pertinent positive or pertinent negative responses have been documented in the HPI. ROS Other: All systems not noted in ROS Statement are negative. Past Medical History Past Medical History: Coronary Artery Disease (CAD), Chest Pain / Angina, Carla betes Mellitus, Fibromyalgia, GERD/Reflux, Hyperlipidemia, Hypertension, Myocardial Infarction (NV), Osteoarthritis (OA), Renal Disease, Respiratory Disorder, Thyroid Disorder Additional Past Medical History / Comment(s): sarcoidosis, chronic kidney disease stage III, diverticulosis, colon polyps neuropathy-balance issues, Hx reccurring UTI, upper/lower bridges permanent. VARICOSE VEINS. BRONCHITI. occasional yeast issues under panis, recent fall felt dizzy and ER visit, NV 07/2023 History of Any Multi-Drug Resistant Organisms: None Reported Past Surgical History: Back Surgery, Section, Cholecystectomy, Coronary Bypass/CABG, Heart Catheterization, Joint Replacement, Orthopedic Surgery, Tonsillectomy, Tubal Ligation Additional Past Surgical History / Comment(s): C-S X2, left shoulder rotator cuff, bilateral knee replacement 2014, 4 vessel CABG in 2002, bilateral cataract extraction and intraocular lens implants, picc line -since removed. Colonoscopy in 2015. BRONCHOSCOPY, BIOPSY. rt hip relaced, stent placement 07/2023 Past Anesthesia/Blood Transfusion Reactions: Motion Sickness, Postoperative Nausea & Vomiting (PONV) Additional Past Anesthesia/Blood Transfusion Reaction / Comment(s): no blood transfusions Past Psychological History: No Psychological Hx Reported Smoking Status: Never smoker Past Alcohol Use History: Rare Past Drug Use History: None Reported - Past Family History Mother Family Medical History: Diabetes Mellitus Additional Family Medical History / Comment(s): Mother at age 70 with history of coronary artery disease status post CABG 2 and diabetes. Father Family Medical History: Coronary Artery Disease (CAD), Diabetes Mellitus Additional Family Medical History / Comment(s): cabg Daughter(s) Additional Family Medical History / Comment(s): Patient has one daughter with hyperlipidemia. Patient has one son with diabetes. Patient is an only child. General Exam General appearance: alert, in no apparent distress Head exam: Present: atraumatic, normocephalic, normal inspection Eye exam: Present: normal appearance, PERRL, EOMI. Absent: scleral icterus, conjunctival injection, periorbital swelling ENT exam: Present: normal exam, mucous membranes moist Neck exam: Present: normal inspection. Absent: tenderness, meningismus, lymphadenopathy Respiratory exam: Present: normal lung sounds bilaterally. Absent: respiratory distress, wheezes, rales, rhonchi, stridor Cardiovascular Exam: Present: regular rate, normal rhythm, normal heart sounds. Absent: systolic murmur, diastolic murmur, rubs, gallop, clicks GI/Abdominal exam: Present: soft, normal bowel sounds. Absent: distended, tenderness, guarding, rebound, rigid Extremities exam: Present: normal inspection, full ROM, normal capillary refill. Absent: tenderness, pedal edema, joint swelling, calf tenderness Back exam: Present: normal inspection Neurological exam: Present: alert, oriented X3, CN II-XII intact Psychiatric exam: Present: normal affect, normal mood Skin exam: Present: warm, dry, intact, normal color. Absent: rash Course Vital Signs 11/17/23 11/17/23 10:13 12:30 Temperature 97.1 F L Pulse Rate 55 L 55 L Respiratory 18 16 Rate Blood Pressure 199/66 163/82 O2 Sat by Pulse 98 98 Oximetry Medical Decision Making - Medical Decision Making Was pt. sent in by a medical professional or institution ([facility], [employer], urgent care, hospital, or longterm...) When possible be specific @ -No Did you speak to anyone other than the patient for history (EMS, parent, family, police, friend...)? What history was obtained from this source @ -Spoke with EMS for history Did you review nursing and triage notes (agree or disagree)? Why? @ -I reviewed and agree with nursing and triage notes Were old charts reviewed (outside hosp., previous admission, EMS record, old EKG, old radiological studies, urgent care reports/EKG's, longterm records)? Report findings @ -No old charts were reviewed Differential Diagnosis (chest pain, altered mental status, abdominal pain women, abdominal pain men, vaginal bleeding, weakness, fever, dyspnea, syncope, headache, dizziness, GI bleed, back pain, seizure, CVA, palpatations, mental health, musculoskeletal)? @ -Intentional overdose, accidental overdose, hypoglycemia EKG interpreted by me (3pts min.). @ -Yes and demonstrates sinus bradycardia with a rate of 50. CT interval 233. QRS 127. QTc of 393. No acute ST segment elevations or depressions X-rays interpreted by me (1pt min.). @ -None done CT interpreted by me (1pt min.). @ -None done U/S interpreted by me (1pt. min.). @ -None done What testing was considered but not performed or refused? (CT, X-rays, U/S, labs)? Why? @ -None What meds were considered but not given or refused? Why? @ -Dextrose was considered however patient does have improvement in her glucose level with eating Did you discuss the management of the patient with other professionals (professionals i.e. , PA, CUSTOM WOOD STAIR BUILDER, lab, RT, psych nurse, child welfare social worker, director of curriculum and instruction, teacher, air defence officer, case hardener)? Give summary @ -No Was smoking cessation discussed for >3mins.? @ -No Was critical care preformed (if so, how long)? @ -No Were there social determinants of health that impacted care today? How? (Homelessness, low income, unemployed, alcoholism, drug addiction, transportation, low edu. Level, literacy, decrease access to med. care, correction, rehab)? @ -No Was there de-escalation of care discussed even if they declined (Discuss DNR or withdrawal of care, Hospice)? DNR status @ -No What co-morbidities impacted this encounter? (DM, HTN, Smoking, COPD, CAD, Cancer, CVA, ARF, Chemo, Hep., AIDS, mental health diagnosis, sleep apnea, morbid obesity)? @ -Diabetes Was patient admitted / discharged? Hospital course, mention meds given and route, prescriptions, significant lab abnormalities, going to OR and other pertinent info. @ -Upon arrival patient seen and evaluated in room 20. Thorough history and physical exam was performed. IV access had been established. Patient is given something to eat. We did perform 230-minute Accu-Cheks. Patient does go down into the 60s upon arrival however she is given food to eat and something to drink. Patient is able to bring up her glucose on its own. At this time the patient is stable for discharge home. Instructed to follow-up with her doctor return for any new or worsening symptoms. Patient agreeable plan was discharged in stable condition Undiagnosed new problem with uncertain prognosis? @ -No Drug Therapy requiring intensive monitoring for toxicity (Heparin, Nitro, Insulin, Cardizem)? @ -No Were any procedures done? @ -No Diagnosis/symptom? @ -Acute hypoglycemia, status post accidental insulin administration Acute, or Chronic, or Acute on Chronic? @ -Acute Uncomplicated (without systemic symptoms) or Complicated (systemic symptoms)? @ -Complicated Side effects of treatment? @ -No Exacerbation, Progression, or Severe Exacerbation? @ -No Poses a threat to life or bodily function? How? (Chest pain, USA, NV, pneumonia, PE, COPD, DKA, ARF, appy, cholecystitis, CVA, Diverticulitis, Homicidal, Suicidal, threat to staff... and all critical care pts) @ -No - Lab Data Result diagrams: 11/17/23 11:54 11/17/23 11:54 Lab Results 11/17/23 11/17/23 11/17/23 Range/Units 10:27 11:41 11:54 WBC 6.5 (3.8-10.6) k/uL RBC 3.22 L (3.80-5.40) m/uL Hgb 10.9 L (11.4-16.0) gm/dL Hct 33.4 L (34.0-46.0) % MCV 103.7 H (80.0-100.0) fL MCH 34.0 (25.0-35.0) pg MCHC 32.8 (31.0-37.0) g/dL RDW 14.2 (11.5-15.5) % Plt Count 170 (150-450) k/uL MPV 9.2 Neutrophils % 64 % Lymphocytes % 20 % Monocytes % 7 % Eosinophils % 7 % Basophils % 1 % Neutrophils # 4.1 (1.3-7.7) k/uL Lymphocytes # 1.3 (1.0-4.8) k/uL Monocytes # 0.4 (0-1.0) k/uL Eosinophils # 0.4 (0-0.7) k/uL Basophils # 0.1 (0-0.2) k/uL Macrocytosis Slight Sodium (137-145) mmol/L Potassium (3.5-5.1) mmol/L Chloride (98-107) mmol/L Carbon Dioxide (22-30) mmol/L Anion Gap mmol/L BUN (7-17) mg/dL Creatinine (0.52-1.04) mg/dL Est GFR (CKD-EPI)AfAm (>60 ml/min/1.73 sqM) Est GFR (CKD-EPI)NonAf (>60 ml/min/1.73 sqM) Glucose (74-99) mg/dL POC Glucose (mg/dL) 84 92 (70-110) mg/dL POC Glu Speech And Drama Teacher Vasquez Blackman Kellyann Calcium (8.4-10.2) mg/dL Total Bilirubin (0.2-1.3) mg/dL AST (14-36) U/L ALT (4-34) U/L Alkaline Phosphatase (38-126) U/L Total Protein (6.3-8.2) g/dL Albumin (3.5-5.0) g/dL 11/16/ Range/Units 11:54 WBC (3.8-10.6) k/uL RBC (3.80-5.40) m/uL Hgb (11.4-16.0) gm/dL Hct (34.0-46.0) % MCV (80.0-100.0) fL MCH (25.0-35.0) pg MCHC (31.0-37.0) g/dL RDW (11.5-15.5) % Plt Count (150-450) k/uL MPV Neutrophils % % Lymphocytes % % Monocytes % % Eosinophils % % Basophils % % Neutrophils # (1.3-7.7) k/uL Lymphocytes # (1.0-4.8) k/uL Monocytes # (0-1.0) k/uL Eosinophils # (0-0.7) k/uL Basophils # (0-0.2) k/uL Macrocytosis Sodium 139 (137-145) mmol/L Potassium 4.3 (3.5-5.1) mmol/L Chloride 106 (98-107) mmol/L Carbon Dioxide 31 H (22-30) mmol/L Anion Gap 2 mmol/L BUN 35 H (7-17) mg/dL Creatinine 1.18 H (0.52-1.04) mg/dL Est GFR (CKD-EPI)AfAm 53 (>60 ml/min/1.73 sqM) Est GFR (CKD-EPI)NonAf 46 (>60 ml/min/1.73 sqM) Glucose 85 (74-99) mg/dL POC Glucose (mg/dL) (70-110) mg/dL POC Glu Speech And Drama Teacher ID Calcium 9.6 (8.4-10.2) mg/dL Total Bilirubin 0.4 (0.2-1.3) mg/dL AST 28 (14-36) U/L ALT 16 (4-34) U/L Alkaline Phosphatase 85 (38-126) U/L Total Protein 6.2 L (6.3-8.2) g/dL Albumin 3.6 (3.5-5.0) g/dL Disposition Clinical Impression: Hypoglycemia, Accidental medication overdose Disposition: HOME SELF-CARE Condition: Stable Instructions (If sedation given, give patient instructions): Hypoglycemia in a Person with Diabetes (DC) Additional Instructions: Please take your medications as they are directed and follow-up with your doctor. Return for any new or worsening symptoms Is patient prescribed a controlled substance at d/c from ED?: No Referrals: Sam Quiñonez MD [Primary Care Provider] - 1-2 days Time of Disposition: 12:08
[2023-11-17 12:16] LABS: Basophils # (A) 0.1 k/uL (0-0.2); Basophils % (A) 1 %; Eosinophils # (A) 0.4 k/uL (0-0.7); Eosinophils % (A) 7 %; HCT 33.4 % (34.0-46.0); HGB 10.9 gm/dL (11.4-16.0); Lymphocytes # (A) 1.3 k/uL (1.0-4.8); Lymphocytes % (A) 20 %; MCHC 32.8 g/dL (31.0-37.0); MCV 103.7 fL (80.0-100.0); Macrocytosis Slight; Mean Platelet Volume 9.2; Monocytes # (A) 0.4 k/uL (0-1.0); Monocytes % (A) 7 %; Neutrophils # (A) 4.1 k/uL (1.3-7.7); Neutrophils % (A) 64 %; Platelet Count 170 k/uL (150-450); RBC 3.22 m/uL (3.80-5.40); RDW 14.2 % (11.5-15.5); WBC 6.5 k/uL (3.8-10.6)
[2023-11-17 12:31] VITALS: BP 163/82; RESP 16
[2023-11-17 12:52] LABS: ALT 16 U/L (4-34); AST 28 U/L (14-36); African American GFR (CKD) 53 (>60 ml/min/1.73 sqM); Albumin 3.6 g/dL (3.5-5.0); Alkaline Phosphatase 85 U/L (38-126); Anion Gap 2 mmol/L; Blood Urea Nitrogen 35 mg/dL (7-17); Calcium 9.6 mg/dL (8.4-10.2); Carbon Dioxide 31 mmol/L (22-30); Chloride 106 mmol/L (98-107); Glucose 85 mg/dL (74-99); Non-African American GFR(CKD) 46 (>60 ml/min/1.73 sqM); Potassium 4.3 mmol/L (3.5-5.1); Sodium 139 mmol/L (137-145); Total Bilirubin 0.4 mg/dL (0.2-1.3); Total Protein 6.2 g/dL (6.3-8.2)
== END 2023-11-17 12:31 | disposition home or self-care (01) ==
LOC: EC 10:11
DX: T38.3X1A Poisoning by insulin and oral hypoglycemic [antidiabetic] drugs, accidental (unintentional), initial encounter (principal); E11.649 Type 2 diabetes mellitus with hypoglycemia without coma; R00.1 Bradycardia, unspecified; E11.22 Type 2 diabetes mellitus with diabetic chronic kidney disease; I12.9 Hypertensive chronic kidney disease with stage 1 through stage 4 chronic kidney disease, or unspecified chronic kidney disease; N18.30 Chronic kidney disease, stage 3 unspecified; Z79.4 Long term (current) use of insulin; Z79.899 Other long term (current) drug therapy; Z88.0 Allergy status to penicillin; Z88.2 Allergy status to sulfonamides; Z88.8 Allergy status to other drugs, medicaments and biological substances
CPT/HCPCS: 36415; 80053; 85025; 93005; 99284

== ENCOUNTER → 2024-01-10 | Outpatient (CLI) | payer MEDICARE ==
--- NOTE | 2024-01-29 06:35 | CT ---
Patient: Danni Oswald L Ordering Physician: Unknown, Unknown ID: [id number] Phone, Pager: Phone: N /A Pager: N/A : [phone] Age/Gender: 73Y, F Primary Location: N/A Procedure: CT brain wo con Stud y Date: 01/10/2024 8:33:00 AM EXAMINATION TYPE: CT brain wo con DATE OF EXAM: 01/10/2024 COMPARISON: Prior report dated 10/24/2021, 04/01/2023 INDICATION: Dizziness and balance DLP: 1108.40 mGycm, Automated exposure control for dose reduction was used. CONTRAST: None CT of the brain is performed utilizing 3 mm thick sections through the posterior fossa and 3 mm thick sections through the remaining calvarium. Study is performed within 24 hours of arrival to the hosp ital. No abnormal hyperdensity is present to suggest an acute intracranial hemorrhage. No mass lesion is evident. No acute infarcts are evident. There is a tiny prior right thalamic lacunar infarct present. Perivent ricular white matter hypodensity is present, likely on the basis of chronic white matter ischemic kimmie nge. Findings appear similar to comparison. Ventricles and sulci are prominent for the patient age. Paranasal sinuses and mastoid air cells within the [id number] are clear. IMPRESSION: 1. No acute intracranial process. Follow up MRI can be performed as clinically indicated. 2. Chronic periventricular white matter ischemic change, old tiny lacunar infarct right thalamus, and age-related atrophy, stable from prior study.
== END | disposition home or self-care (01) ==
LOC: RADCTMAIN 08:20
PROVIDERS: ATTEND Internal Medicine Geriatric Medicine
DX: I67.82 Cerebral ischemia (principal); G46.4 Cerebellar stroke syndrome; G31.9 Degenerative disease of nervous system, unspecified; R42 Dizziness and giddiness
CPT/HCPCS: 70450

== ENCOUNTER → 2024-03-05 | Outpatient (CLI) | payer MEDICARE ==
--- NOTE | 2024-03-06 09:22 | MM ---
Reason for Exam: Screening (asymptomatic). Last mammogram was performed 2 year(s) and 4 month(s) ago. Patient History: Menarche at age 9. First Full-Term at age 17. Postmenopausal. Previous chest radiation therapy. Patient used Progesterone for 3 years. Risk Values: Alisia 5 year model risk: 1.4%. NCI Lifetime model risk: 3.0%. Prior Study Comparison: 06/14/2020 Bilateral Screening Mammogram, LOC[facility]IN [facility]. 11/08/2021 Bilateral MG screening mammo w CAD, [facility]. 01/23/2022 Right MG 3D work up w/cad RT, LOC[facility]. Tissue Density: The breasts are almost entirely fatty. Findings: Analyzed By CAD. Right breast: There is no suspicious group of microcalcifications or new suspicious mass. Benign-appearing calcifications right breast. Left breast: There is no suspicious group of microcalcifications or new suspicious mass. Benign-appearing calcifications left breast. Overall Assessment: Benign, BI-RAD 2 Management: Screening Mammogram of both breasts in [address] [facility] will attempt to contact patient to return for supplemental views and ultrasound if indicated. Patient should continue monthly self-breast exams. A clinical breast exam by your physician is recommended on an annual basis. This exam should not preclude additional follow-up of suspicious palpable abnormalities. Note on Alisia scores and lifetime risk: 1. A Alisia score greater than 3% is considered moderate risk. If this is the case, consider specialist referral to assess eligibility for a risk reducing agent. 2. If overall lifetime risk for the development of breast cancer is 20% or higher, the patient may qualify for future screening with alternating mammogram and breast MRI. [facility], , 03/06/2024 9:19 AM. Electronically signed and approved by: Zack Lindsey DO
--- NOTE | 2024-03-06 12:46 | BD ---
EXAMINATION TYPE: Axial Bone Density DATE OF EXAM: 03/05/2024 CLINICAL HISTORY: 74 years old Female. ICD-10 CODE: M81.0 AGE RELATED OSTEO Height: 63 Weight: 195 FRAX RISK QUESTIONS: Alcohol (3 or more units per day): no Family History (Parent hip fracture): no Glucocorticoids (More than 3mos): no (Ex: prednisone, prednisolone, methylprednisolone, dexamethasone, and hydrocortisone). History of Fracture in Adulthood: yes Secondary Osteoporosis: 1. Type 1 Diabetes: no 2. Hyperthyroidism: no 3. Menopause before 45: no 4. Malnutrition: no 5. Chronic liver disease: no Rheumatoid Arthritis: yes Current Tobacco Use: no RISK FACTORS HISTORY OF: Surgery to Spine/Hip(right/left)/Wrist (right/left): lumbar spine MEDICATIONS: Thyroid Medications: synthroid How Lon plus years EXAM MEASUREMENTS: Bone mineral densitometry was performed using the [employer]. Bone mineral density about the L hip (g/cm2): 1.068 T Score values are as follows: -----L Neck: 0.7 -----L Total: 0.5 Z Score values are as follows: -----L Neck: 2.1 -----L Total: 1.7 Bone mineral density has: decreased -12.7 % since study of: 06.14.2020 Bone mineral density about the L Wrist (g/cm2): 0.601 T Score values are as follows: -----Dist. R+U: -0.9 -----Prox. R+U: -0.4 -----Radius total: -1.2 Z Score values are as follows: -----Dist. R+U: 1.4 -----Prox. R+U: 1.9 -----Radius total: 1.1 Bone mineral density has: decreased -3.8 % since study of: 06.14.2020 FRAX%s: The graph provided illustrates a 12.0% chance for a major osteoporotic fx and a 0.7% chance f or the hips probability for fx in 10 years time. IMPRESSION: Osteopenia (T Score between -2.5 and -1). There is slightly increased risk of fracture and the patient may be considered for treatment. Re-Screen 2-5 years. NOTE: T-SCORE=SD OF THE YOUNG ADULT MEAN. [facility], , 03/06/2024 12:44 PM
== END | disposition home or self-care (01) ==
LOC: RADMAMWWP 15:54
PROVIDERS: ATTEND Internal Medicine Geriatric Medicine
CPT/HCPCS: 77067; 77080

== ENCOUNTER 2024-08-11 09:56 | Observation (INO) | payer MEDICARE ==
--- NOTE | 2024-08-11 10:10 | ED ---
General Adult HPI - General Chief complaint: Recheck/Abnormal Lab/Rx Stated complaint: Cough, Afib, Low heart rate, hypertension Time Seen by Provider: 08/11/24 10:00 Source: patient, EMS, RN notes reviewed, old records reviewed Mode of arrival: EMS Limitations: no limitations - History of Present Illness Initial comments: This is a 74-year-old female who presents to the emergency department complaining of having a cough recently so she went to the urgent care to be evaluated when she got there her heart rate was 36. According to EMS there was a EKG that did show a heart rate of 36. Patient states at the time she was a little lightheaded but did not have any chest pain did not have any shortness of breath at difficulty breathing. Patient states she currently feels at her baseline. Patient denies any fevers or chills but she states her family has been sick around her recently. Patient denies any abdominal pain patient has nausea vomiting diarrhea. Patient does have a history of bypass surgery. - Related Data Home Medications Medication Instructions Recorded Confirmed ALPRAZolam [Xanax] 0.25 mg PO BID PRN 06/07/16 08/11/24 Clopidogrel [Plavix] 75 mg PO DAILY 06/07/16 08/11/24 Esomeprazole Magnesium [NexIUM] 40 mg PO DAILY PRN 06/07/16 08/11/24 Hydrocodone/Acetaminophen [[place] 1 tab PO BID PRN 06/07/16 08/11/24 10-325] Hydroxychloroquine Sulfate 200 mg PO BID 06/07/16 08/11/24 [Plaquenil] Isosorbide Mononitrate ER [Imdur] 60 mg PO DAILY 06/07/16 08/11/24 allopurinoL [Zyloprim] 100 mg PO DAILY 06/07/16 08/11/24 Levothyroxine Sodium [Synthroid] 50 mcg PO TUTH 05/21/17 08/11/24 Nitroglycerin Sl Tabs [Nitrostat] 0.4 mg SUBLINGUAL Q5M PRN 09/24/17 08/11/24 Levothyroxine Sodium [Synthroid] 100 mcg PO SUMOWEFRSA 11/08/17 08/11/24 Metoprolol Succinate (ER) [Toprol 100 mg PO BID 11/08/17 08/11/24 XL] Ascorbic Acid [Vitamin C] 1,000 mg PO DAILY 11/13/21 08/11/24 Magnesium Oxide [Magnesium] 500 mg PO BID 11/13/21 08/11/24 Acetaminophen/Diphenhydramine 2 tab PO HS 07/31/23 08/11/24 [Tylenol PM 500-25mg] Aspirin 81 mg PO DAILY 07/31/23 08/11/24 Cyclobenzaprine [Flexeril] 10 mg PO HS PRN 07/31/23 08/11/24 Furosemide [Lasix] 40 mg PO DAILY 07/31/23 08/11/24 Insulin NPH/Reg Insulin 70/30 2 - 4 unit SQ DAILY@1400 07/31/23 08/11/24 [humuLIN 70/30 VIAL] Isosorbide Mononitrate ER [Imdur] 30 mg PO HS 07/31/23 08/11/24 Sennosides [Senokot] 8.6 mg PO HS 07/31/23 08/11/24 Atorvastatin [Lipitor] 40 mg PO DAILY 08/11/24 08/11/24 Carboxymethylcellulose Sodium 1 drop BOTH EYES TID PRN 08/11/24 08/11/24 [Refresh Tears] Ipratropium-Albuterol Nebulize 3 ml INHALATION RT-TID PRN 08/11/24 08/11/24 [Duoneb 0.5 mg-3 mg/3 ml Soln] Quercetin 800mg 1 tab PO DAILY 08/11/24 08/11/24 estradioL [Vagifem] 10 mcg VAGINAL TUTH 08/11/24 08/11/24 Previous Rx's Medication Instructions Recorded Dapagliflozin Propanediol [Farxiga] 5 mg PO DAILY #30 tab 08/02/23 Losartan [Cozaar] 25 mg PO DAILY #90 tab 08/02/23 Allergies Allergy/AdvReac Type Severity Reaction Status Date / Time hydromorphone [From Dilaudid] Allergy Unknown Verified 08/11/24 12:03 Penicillins Allergy Rash/Hives Verified 08/11/24 11:54 Sulfa (Sulfonamide Allergy Rash/Hives Verified 08/11/24 11:54 Antibiotics) gabapentin [From Neurontin] AdvReac Unknown Verified 08/11/24 11:54 steroid AdvReac made heart Uncoded 08/11/24 11:55 pound, anxious w/dose pack Review of Systems ROS Statement: Those systems with pertinent positive or pertinent negative responses have been documented in the HPI. ROS Other: All systems not noted in ROS Statement are negative. Past Medical History Past Medical History: Coronary Artery Disease (CAD), Chest Pain / Angina, Diabetes Mellitus, Fibromyalgia, GERD/Reflux, Hyperlipidemia, Hypertension, Myocardial Infarction ([place]), Osteoarthritis (OA), Renal Disease, Respiratory Disorder, Thyroid Disorder Additional Past Medical History / Comment(s): sarcoidosis, chronic kidney disease stage III, diverticulosis, colon polyps neuropathy-balance issues, Hx reccurring UTI, upper/lower bridges permanent. VARICOSE VEINS. BRONCHITI. occasional yeast issues under panis, recent fall felt dizzy and ER visit, [place] 07/2023 Last Myocardial Infarction Date:: UNKNOWN History of Any Multi-Drug Resistant Organisms: None Reported Past Surgical History: Back Surgery, Section, Cholecystectomy, Coronary Bypass/CABG, Heart Catheterization, Joint Replacement, Orthopedic Surgery, Tonsillectomy, Tubal Ligation Additional Past Surgical History / Comment(s): C-S X2, left shoulder rotator cuff, bilateral knee replacement 2014, 4 vessel CABG in 2002, bilateral cataract extraction and intraocular lens implants, picc line -since removed. Colonoscopy in 2015. BRONCHOSCOPY, BIOPSY. rt hip relaced, stent placement 07/2023 Past Anesthesia/Blood Transfusion Reactions: Motion Sickness, Postoperative Nausea & Vomiting (PONV) Additional Past Anesthesia/Blood Transfusion Reaction / Comment(s): no blood transfusions Past Psychological History: No Psychological Hx Reported Smoking Status: Never smoker - Past Family History Mother Family Medical History: Diabetes Mellitus Additional Family Medical History / Comment(s): Mother at age 70 with history of coronary artery disease status post CABG 2 and diabetes. Father Family Medical History: Coronary Artery Disease (CAD), Diabetes Mellitus Additional Family Medical History / Comment(s): cabg Daughter(s) Additional Family Medical History / Comment(s): Patient has one daughter with hyperlipidemia. Patient has one son with diabetes. Patient is an only child. General Exam - General Exam Comments Initial Comments: GENERAL: Patient is well-developed and well-nourished. Patient is nontoxic and well- hydrated and is in mild distress. ENT: Neck is soft and supple. No significant lymphadenopathy is noted. Oropharynx is clear. Moist mucous membranes. Neck has full range of motion without eliciting any pain. EYES: The sclera were anicteric and conjunctiva were pink and moist. Extraocular movements were intact and pupils were equal round and reactive to light. Eyelids were unremarkable. PULMONARY: Unlabored respirations. Good breath sounds bilaterally. No audible rales rhonchi or wheezing was noted. CARDIOVASCULAR: There is a regular rate and rhythm without any murmurs gallops or rubs. ABDOMEN: Soft and nontender with normal bowel sounds. SKIN: Skin is clear with no lesions or rashes and otherwise unremarkable. NEUROLOGIC: Patient is alert and oriented x3. Cranial nerves II through XII are grossly intact. Motor and sensory are also intact. Normal speech, volume and content. Symmetrical smile. MUSCULOSKELETAL: Normal extremities with adequate strength and full range of motion. LYMPHATICS: No significant lymphadenopathy is noted PSYCHIATRIC: Normal psychiatric evaluation. Limitations: no limitations Course Vital Signs 08/11/24 08/11/24 09:58 11:58 Temperature 98.3 F Pulse Rate 59 L 53 L Respiratory 18 18 Rate Blood Pressure 152/89 192/80 O2 Sat by Pulse 100 97 Oximetry Medical Decision Making - Medical Decision Making EKG is interpreted by myself. EKG shows a sinus bradycardia 52 bpm VT was 153 QRS 133 QT interval is 463 QTc is 444. Patient's EKG shows T wave inversions in leads II, III and aVF as well as precordial leads V4 through V6 Was pt. sent in by a medical professional or institution ([facility], [facility], urgent care, hospital, or care home...) When possible be specific @ -No Did you speak to anyone other than the patient for history (EMS, parent, family, police, friend...)? What history was obtained from this source @ -No Did you review nursing and triage notes (agree or disagree)? Why? @ -I reviewed and agree with nursing and triage notes Were old charts reviewed (outside hosp., previous admission, EMS record, old EKG, old radiological studies, urgent care reports/EKG's, care home records)? Report findings @ -No old charts were reviewed Differential Diagnosis? @ -RSV, influenza A, influenza B, COVID, bronchitis, pneumonia, bradycardia, third-degree heart block, second-degree heart block, this is not an all- inclusive list EKG interpreted by me (3pts min.). @ -As above X-rays interpreted by me (1pt min.). @ -Chest x-ray shows no acute abnormality CT interpreted by me (1pt min.). @ -None done U/S interpreted by me (1pt. min.). @ -None done What testing was considered but not performed or refused? (CT, X-rays, U/S, labs)? Why? @ -None What meds were considered but not given or refused? Why? @ -None Did you discuss the management of the patient with other professionals (erik armando i.eInderjit Dior, PA, [facility], lab, RT, psych nurse, bilingual social worker, cns, teacher, security patrol officer, manager rn case)? Give summary @ -[facility] the patient wrote admitting orders Was smoking cessation discussed for >3mins.? @ -No Was critical care preformed (if so, how long)? @ -No Were there social determinants of health that impacted care today? How? (Homelessness, low income, unemployed, alcoholism, drug addiction, transportation, low edu. Level, literacy, decrease access to med. care, correction, rehab)? @ -No Was there de-escalation of care discussed even if they declined (Discuss DNR or withdrawal of care, Hospice)? DNR status @ -No What co-morbidities impacted this encounter? (DM, HTN, Smoking, COPD, CAD, Cancer, CVA, ARF, Chemo, Hep., AIDS, mental health diagnosis, sleep apnea, morbid obesity)? @ -None Was patient admitted / discharged? Hospital course, mention meds given and route, prescriptions, significant lab abnormalities, going to OR and other pertinent info. @ -Patient had a heart rate of 36 prior to arrival however in the emergency department her heart rate was in the 50s most of the time. She was only having slight lightheadedness on occasion. Other than that her lab work showed no acute abnormality and chest x-ray showed no acute dramality however with a heart rate of 36 she is going to be admitted and have a consult to cardiology Undiagnosed new problem with uncertain prognosis? @ -No Drug Therapy requiring intensive monitoring for toxicity (Heparin, Nitro, Insulin, Cardizem)? @ -No Were any procedures done? @ -No Diagnosis/symptom? @ -Bradycardia Acute, or Chronic, or Acute on Chronic? @ -Acute Uncomplicated (without systemic symptoms) or Complicated (systemic symptoms)? @ -Complicated Side effects of treatment? @ -No Exacerbation, Progression, or Severe Exacerbation? @ -No Poses a threat to life or bodily function? How? (Chest pain, [place], [place], pneumonia, PE, COPD, DKA, ARF, appy, cholecystitis, CVA, Diverticulitis, Homicidal, Suicidal, threat to staff... and all critical care pts) @ -Yes this can lead to poor perfusion and endorgan dysfunction - Lab Data Result diagrams: 08/11/24 10:22 08/11/24 10:22 Lab Results 08/11/24 08/11/24 08/11/24 Range/Units 10:22 10: 10:22 WBC 6.1 (3.8-10.6) k/uL RBC 3.66 L (3.80-5.40) m/uL Hgb 12.0 (11.4-16.0) gm/dL Hct 37.2 (34.0-46.0) % MCV 101.7 H (80.0-100.0) fL MCH 32.7 (25.0-35.0) pg MCHC 32.2 (31.0-37.0) g/dL RDW 13.5 (11.5-15.5) % Plt Count 162 (150-450) k/uL MPV 8.7 Neutrophils % 65 % Lymphocytes % 20 % Monocytes % 7 % Eosinophils % 6 % Basophils % 1 % Neutrophils # 3.9 (1.3-7.7) k/uL Lymphocytes # 1.2 (1.0-4.8) k/uL Monocytes # 0.4 (0-1.0) k/uL Eosinophils # 0.4 (0-0.7) k/uL Basophils # 0.0 (0-0.2) k/uL Hypochromasia Slight Macrocytosis Slight PT 10.2 (10.0-12.5) sec INR 0.9 (<1.2) APTT 21.9 L (22.0-30.0) sec Sodium 137 (137-145) mmol/L Potassium 3.9 (3.5-5.1) mmol/L Chloride 101 (98-107) mmol/L Carbon Dioxide 30 (22-30) mmol/L Anion Gap 6 mmol/L BUN 34 H (7-17) mg/dL Creatinine 1.17 H (0.52-1.04) mg/dL Est GFR (CKD-EPI)AfAm 53 (>60 ml/min/1.73 sqM) Est GFR (CKD-EPI)NonAf 46 (>60 ml/min/1.73 sqM) Glucose 97 (74-99) mg/dL POC Glucose (mg/dL) (70-110) mg/dL POC Glu Emulsion Coater ID Plasma Lactic Acid Ameya (0.7-2.0) mmol/L Calcium 9.7 (8.4-10.2) mg/dL Magnesium 1.5 L (1.6-2.3) mg/dL Total Bilirubin 0.5 (0.2-1.3) mg/dL AST 28 (14-36) U/L ALT 19 (4-34) U/L Alkaline Phosphatase 82 (38-126) U/L Troponin I (0.000-0.034) ng/mL NT-Pro-B Natriuret Pep 3420 pg/mL Total Protein 6.7 (6.3-8.2) g/dL Albumin 3.9 (3.5-5.0) g/dL Influenza Type A (PCR) (Not Detectd) Influenza Type B (PCR) (Not Detectd) RSV (PCR) (Not Detectd) SARS-CoV-2 (PCR) (Not Detectd) 08/11/24 08/11/24 08/11/24 Range/Units 10:22 10:22 10:22 WBC (3.8-10.6) k/uL RBC (3.80-5.40) m/uL Hgb (11.4-16.0) gm/dL Hct (34.0-46.0) % MCV (80.0-100.0) fL MCH (25.0-35.0) pg MCHC (31.0-37.0) g/dL RDW (11.5-15.5) % Plt Count (150-450) k/uL MPV Neutrophils % % Lymphocytes % % Monocytes % % Eosinophils % % Basophils % % Neutrophils # (1.3-7.7) k/uL Lymphocytes # (1.0-4.8) k/uL Monocytes # (0-1.0) k/uL Eosinophils # (0-0.7) k/uL Basophils # (0-0.2) k/uL Hypochromasia Macrocytosis PT (10.0-12.5) sec INR (<1.2) APTT (22.0-30.0) sec Sodium (137-145) mmol/L Potassium (3.5-5.1) mmol/L Chloride (98-107) mmol/L Carbon Dioxide (22-30) mmol/L Anion Gap mmol/L BUN (7-17) mg/dL Creatinine (0.52-1.04) mg/dL Est GFR (CKD-EPI)AfAm (>60 ml/min/1.73 sqM) Est GFR (CKD-EPI)NonAf (>60 ml/min/1.73 sqM) Glucose (74-99) mg/dL POC Glucose (mg/dL) (70-110) mg/dL POC Glu Emulsion Coater ID Plasma Lactic Acid Ameya 1.2 (0.7-2.0) mmol/L Calcium (8.4-10.2) mg/dL Magnesium (1.6-2.3) mg/dL Total Bilirubin (0.2-1.3) mg/dL AST (14-36) U/L ALT (4-34) U/L Alkaline Phosphatase (38-126) U/L Troponin I 0.019 (0.000-0.034) ng/mL NT-Pro-B Natriuret Pep pg/mL Total Protein (6.3-8.2) g/dL Albumin (3.5-5.0) g/dL Influenza Type A (PCR) Not Detected (Not Detectd) Influenza Type B (PCR) Not Detected (Not Detectd) RSV (PCR) Not Detected (Not Detectd) SARS-CoV-2 (PCR) Not Detected (Not Detectd) 08/11/24 Range/Units 11:29 WBC (3.8-10.6) k/uL RBC (3.80-5.40) m/uL Hgb (11.4-16.0) gm/dL Hct (34.0-46.0) % MCV (80.0-100.0) fL MCH (25.0-35.0) pg MCHC (31.0-37.0) g/dL RDW (11.5-15.5) % Plt Count (150-450) k/uL MPV Neutrophils % % Lymphocytes % % Monocytes % % Eosinophils % % Basophils % % Neutrophils # (1.3-7.7) k/uL Lymphocytes # (1.0-4.8) k/uL Monocytes # (0-1.0) k/uL Eosinophils # (0-0.7) k/uL Basophils # (0-0.2) k/uL Hypochromasia Macrocytosis PT (10.0-12.5) sec INR (<1.2) APTT (22.0-30.0) sec Sodium (137-145) mmol/L Potassium (3.5-5.1) mmol/L Chloride (98-107) mmol/L Carbon Dioxide (22-30) mmol/L Anion Gap mmol/L BUN (7-17) mg/dL Creatinine (0.52-1.04) mg/dL Est GFR (CKD-EPI)AfAm (>60 ml/min/1.73 sqM) Est GFR (CKD-EPI)NonAf (>60 ml/min/1.73 sqM) Glucose (74-99) mg/dL POC Glucose (mg/dL) 62 L (70-110) mg/dL POC Glu Emulsion Coater ID Thom Playcie Plasma Lactic Acid Ameya (0.7-2.0) mmol/L Calcium (8.4-10.2) mg/dL Magnesium (1.6-2.3) mg/dL Total Bilirubin (0.2-1.3) mg/dL AST (14-36) U/L ALT (4-34) U/L Alkaline Phosphatase (38-126) U/L Troponin I (0.000-0.034) ng/mL NT-Pro-B Natriuret Pep pg/mL Total Protein (6.3-8.2) g/dL Albumin (3.5-5.0) g/dL Influenza Type A (PCR) (Not Detectd) Influenza Type B (PCR) (Not Detectd) RSV (PCR) (Not Detectd) SARS-CoV-2 (PCR) (Not Detectd) Disposition Clinical Impression: Bradycardia Disposition: ADMITTED IP TO THIS HOSP Referrals: Sam Quiñonez MD [Primary Care Provider] - 1-2 days Time of Disposition: 13:11
[2024-08-11 10:32] LABS: Basophils % (A) 1 %; Eosinophils # (A) 0.4 k/uL (0-0.7); Eosinophils % (A) 6 %; HCT 37.2 % (34.0-46.0); Hypochromasia Slight; Lymphocytes # (A) 1.2 k/uL (1.0-4.8); Lymphocytes % (A) 20 %; MCH 32.7 pg (25.0-35.0); MCHC 32.2 g/dL (31.0-37.0); MCV 101.7 fL (80.0-100.0); Macrocytosis Slight; Mean Platelet Volume 8.7; Monocytes # (A) 0.4 k/uL (0-1.0); Monocytes % (A) 7 %; Neutrophils # (A) 3.9 k/uL (1.3-7.7); Neutrophils % (A) 65 %; Platelet Count 162 k/uL (150-450); RBC 3.66 m/uL (3.80-5.40); RDW 13.5 % (11.5-15.5); WBC 6.1 k/uL (3.8-10.6)
[2024-08-11] MEDS: SODIUM CHLORIDE 0.9% 500 ML 500 ML IV ONE (10:39)
[2024-08-11 10:42] LABS: ALT 19 U/L (4-34); AST 28 U/L (14-36); African American GFR (CKD) 53 (>60 ml/min/1.73 sqM); Albumin 3.9 g/dL (3.5-5.0); Alkaline Phosphatase 82 U/L (38-126); Anion Gap 6 mmol/L; Blood Urea Nitrogen 34 mg/dL (7-17); Calcium 9.7 mg/dL (8.4-10.2); Carbon Dioxide 30 mmol/L (22-30); Chloride 101 mmol/L (98-107); Glucose 97 mg/dL (74-99); Magnesium 1.5 mg/dL (1.6-2.3); Non-African American GFR(CKD) 46 (>60 ml/min/1.73 sqM); Potassium 3.9 mmol/L (3.5-5.1); Sodium 137 mmol/L (137-145); Total Bilirubin 0.5 mg/dL (0.2-1.3); Total Protein 6.7 g/dL (6.3-8.2)
[2024-08-11 10:50] LABS: NT-Pro-B-Type Natriuretic Pept 3420 pg/mL
--- NOTE | 2024-08-11 10:50 | XR ---
EXAMINATION TYPE: XR chest 2V DATE OF EXAM: 08/11/2024 10:36 AM COMPARISON: Chest radiographs from 07/31/2023 TECHNIQUE: XR chest 2V Frontal and lateral views of the chest. CLINICAL INDICATION:Female, 74 years old with history of difficulty breathing; FINDINGS: Lungs/Pleura: There is no evidence of pleural effusion, focal consolidation, or pneumothorax. Eventr ation of the right hemidiaphragm. Pulmonary vascularity: Unremarkable. Heart/mediastinum: Cardiomediastinal silhouette is enlarged and stable. Postsurgical changes. Atheros clerotic calcifications are seen in the aorta. Musculoskeletal: Multiple level degenerative disc disease changes seen throughout the spine. Midline sternotomy wires are noted and stable. Bilateral shoulder arthropathy. Other: Surgical clips in the upper abdomen. IMPRESSION: Chronic changes without acute pulmonary process. No significant change from prior. [facility], , 08/11/2024 10:47 AM
[2024-08-11 11:03] LABS: INR 0.9 (<1.2); Partial Thromboplastin Time 21.9 sec (22.0-30.0); Prothrombin Time 10.2 sec (10.0-12.5)
[2024-08-11 11:18] LABS: Influenza A Not Detected (Not Detectd); Influenza B Not Detected (Not Detectd); RSV Not Detected (Not Detectd)
[2024-08-11 11:32] LABS: Glucose,Whole Blood 62 mg/dL (70-110)
[2024-08-11] MEDS ORDERED: NITROGLYCERIN SL TABS 0.4 MG TAB SUBLINGUAL PRN ×2 (13:12→15:27)
[2024-08-11 15:06] LABS: Glucose,Whole Blood 70 mg/dL (70-110)
[2024-08-11] MEDS ORDERED: ARTIFICIAL TEARS-HYPROMELLOSE DROPS 15 ML BTL BOTH EYES PRN (15:27)
[2024-08-11] MEDS ORDERED: PANTOPRAZOLE 40 MG TABLET PO PRN (15:27)
[2024-08-11] MEDS ORDERED: IPRATROPIUM-ALBUTEROL 3 ML NEB INHALATION PRN (15:27)
[2024-08-11] MEDS ORDERED: CYCLOBENZAPRINE 10 MG TAB PO PRN (15:27)
[2024-08-11] MEDS ORDERED: diphenhydrAMINE 25 MG CAP PO PRN (15:40)
[2024-08-11 16:13] LABS: Glucose,Whole Blood 93 mg/dL (70-110)
[2024-08-11] MEDS: FUROSEMIDE 40 MG TAB PO SCH (18:05)
[2024-08-11] MEDS: hydrALAZINE HCL 50 MG TAB PO PRN (18:06)
[2024-08-11] MEDS: LOSARTAN 25 MG TAB PO SCH (18:06)
[2024-08-11] MEDS: guaiFENesin SYRUP 100MG/5ML 200 MG/10 ML CUP PO PRN (18:06)
[2024-08-11] MEDS: ISOSORBIDE MONONITRATE ER 60 MG TAB.ER.24H PO SCH (18:06)
[2024-08-11 20:09] LABS: Glucose,Whole Blood 105 mg/dL (70-110)
--- NOTE | 2024-08-11 20:55 | P.HPIM ---
History of Present Illness This is a pleasant 74 years old female with past medical history of multiple medical problems including hypertension, diabetes mellitus, hyperlipidemia. Patient presents to urgent care complaining with worsening coughing but with no chest pain or dyspnea. From urgent care they referred him to emergency room because of low heart rate, documented it was 36 and there was suspicion of atrial fibrillation associated with little lightheadedness. When I saw the patient she was sitting up in bed fully awake and oriented looks comfortable not tachypneic denies any chest pain or dyspnea. No headache or dizziness. She is complaining from burning in her epigastric area but this is not a new problem is going on for 1.5 months now and she has appointment with Dr. Diaz next week to address this problem She denies urinary symptoms no weakness or tingling. She has chronic balance problem with no recent worsening She denies smoking alcohol or illicit drugs. On admission heart rate was 59 blood pressure was increasing with urgency. She is afebrile. Labs including CBC, BMP, LFT, INR and troponin were negative at 0.019 Magnesium was low 1.5. proBNP is elevated 3420. EKG showing sinus bradycardia at 52 with sinus arrhythmia Chest x-ray showing chronic changes without acute changes although when I reviewed the chest x-ray shows some little vascular congestion but patient is asymptomatic Review of Systems Review of systems CONSTITUTIONAL: No fever, no malaise, no fatigue. HEENT: No recent visual problems or hearing problems. Denied any sore throat. CARDIOVASCULAR: No orthopnea, PND, no palpitations, no syncope. PULMONARY: No shortness of breath, no cough, no hemoptysis. GASTROINTESTINAL: No diarrhea, no nausea, no vomiting, no abdominal pain. Normoactive bowel sounds. NEUROLOGICAL: No headaches, no weakness, no numbness. HEMATOLOGICAL: Denies any bleeding or petechiae. GENITOURINARY: Denies any burning micturition, frequency, or urgency. MUSCULOSKELETAL/RHEUMATOLOGICAL: Denies any joint pain, swelling, or any muscle pain. ENDOCRINE: Denies any polyuria or polydipsia. Past Medical History Past Medical History: Coronary Artery Disease (CAD), Chest Pain / Angina, Diabetes Mellitus, Fibromyalgia, GERD/Reflux, Hyperlipidemia, Hypertension, Myocardial Infarction ([place]), Osteoarthritis (OA), Renal Disease, Respiratory Disorder, Thyroid Disorder Additional Past Medical History / Comment(s): sarcoidosis, chronic kidney disease stage III, diverticulosis, colon polyps neuropathy-balance issues, Hx reccurring UTI, upper/lower bridges permanent. VARICOSE VEINS. BRONCHITI. occasional yeast issues under panis, recent fall felt dizzy and ER visit, [place] 07/2023 Last Myocardial Infarction Date:: UNKNOWN History of Any Multi-Drug Resistant Organisms: None Reported Past Surgical History: Back Surgery, Section, Cholecystectomy, Coronary Bypass/CABG, Heart Catheterization, Joint Replacement, Orthopedic Surgery, Tonsillectomy, Tubal Ligation Additional Past Surgical History / Comment(s): C-S X2, left shoulder rotator cuff, bilateral knee replacement 2014, 4 vessel CABG in 2002, bilateral cataract extraction and intraocular lens implants, picc line -since removed. Colonoscopy in 2015. BRONCHOSCOPY, BIOPSY. rt hip relaced, stent placement 07/2023 Past Anesthesia/Blood Transfusion Reactions: Motion Sickness, Postoperative Nausea & Vomiting (PONV) Additional Past Anesthesia/Blood Transfusion Reaction / Comment(s): no blood transfusions Past Psychological History: No Psychological Hx Reported Additional Psychological History / Comment(s): TAKES XANAX TO HELP HER SLEEP AT NIGHT Smoking Status: Never smoker Past Alcohol Use History: Rare Additional Past Alcohol Use History / Comment(s): Patient is a lifelong nonsmoker. She denies any medical marijuana, marijuana, street drug use. She drinks occasional wine. Past Drug Use History: None Reported - Past Family History Mother Family Medical History: Diabetes Mellitus Additional Family Medical History / Comment(s): Mother at age 70 with history of coronary artery disease status post CABG 2 and diabetes. Father Family Medical History: Coronary Artery Disease (CAD), Diabetes Mellitus Additional Family Medical History / Comment(s): cabg Daughter(s) Additional Family Medical History / Comment(s): Patient has one daughter with hyperlipidemia. Patient has one son with diabetes. Patient is an only child. Medications and Allergies Home Medications Medication Instructions Recorded Confirmed Type ALPRAZolam [Xanax] 0.25 mg PO BID PRN 06/07/16 08/11/24 History Clopidogrel [Plavix] 75 mg PO DAILY 06/07/16 08/11/24 History Esomeprazole Magnesium [NexIUM] 40 mg PO DAILY PRN 06/07/16 08/11/24 History Hydrocodone/Acetaminophen [[place] 1 tab PO BID PRN 06/07/16 08/11/24 History 10-325] Hydroxychloroquine Sulfate 200 mg PO BID 06/07/16 08/11/24 History [Plaquenil] Isosorbide Mononitrate ER [Imdur] 60 mg PO DAILY 06/07/16 08/11/24 History allopurinoL [Zyloprim] 100 mg PO DAILY 06/07/16 08/11/24 History Levothyroxine Sodium [Synthroid] 50 mcg PO TUTH 05/21/17 08/11/24 History Nitroglycerin Sl Tabs [Nitrostat] 0.4 mg SUBLINGUAL Q5M PRN 09/24/17 08/11/24 History Levothyroxine Sodium [Synthroid] 100 mcg PO SUMOWEFRSA 11/08/17 08/11/24 History Metoprolol Succinate (ER) [Toprol 100 mg PO BID 11/08/17 08/11/24 History XL] Ascorbic Acid [Vitamin C] 1,000 mg PO DAILY 11/13/21 08/11/24 History Magnesium Oxide [Magnesium] 500 mg PO BID 11/13/21 08/11/24 History Acetaminophen/Diphenhydramine 2 tab PO HS 07/31/23 08/11/24 History [Tylenol PM 500-25mg] Aspirin 81 mg PO DAILY 07/31/23 08/11/24 History Cyclobenzaprine [Flexeril] 10 mg PO HS PRN 07/31/23 08/11/24 History Furosemide [Lasix] 40 mg PO DIRECTED 07/31/23 08/11/24 History Insulin NPH/Reg Insulin 70/30 2 - 4 unit SQ DAILY@1400 07/31/23 08/11/24 History [humuLIN 70/30 VIAL] Isosorbide Mononitrate ER [Imdur] 30 mg PO HS 07/31/23 08/11/24 History Sennosides [Senokot] 8.6 mg PO HS 07/31/23 08/11/24 History Dapagliflozin Propanediol [Farxiga] 5 mg PO DAILY #30 tab 08/02/23 08/11/24 Rx Losartan [Cozaar] 25 mg PO DAILY #90 tab 08/02/23 08/11/24 Rx Atorvastatin [Lipitor] 40 mg PO DAILY 08/11/24 08/11/24 History Carboxymethylcellulose Sodium 1 drop BOTH EYES TID PRN 08/11/24 08/11/24 History [Refresh Tears] Ipratropium-Albuterol Nebulize 3 ml INHALATION RT-TID PRN 08/11/24 08/11/24 History [Duoneb 0.5 mg-3 mg/3 ml Soln] Quercetin 800mg 1 tab PO DAILY 08/11/24 08/11/24 History estradioL [Vagifem] 10 mcg VAGINAL TUTH 08/11/24 08/11/24 History Allergies Allergy/AdvReac Type Severity Reaction Status Date / Time hydromorphone [From Dilaudid] Allergy Unknown Verified 08/11/24 12:03 Penicillins Allergy Rash/Hives Verified 08/11/24 11:54 Sulfa (Sulfonamide Allergy Rash/Hives Verified 08/11/24 11:54 Antibiotics) gabapentin [From Neurontin] AdvReac Unknown Verified 08/11/24 11:54 steroid AdvReac made heart Uncoded 08/11/24 11:55 pound, anxious w/dose pack Physical Exam Vitals: Vital Signs Temp Pulse Pulse Resp BP BP Pulse Ox 08/11/24 17:00 97.7 F 60 18 208/71 98 08/11/24 16:00 60 18 08/11/24 15:00 98.4 F 51 L 58 L 18 185/70 177/62 100 08/11/24 13:00 44 L 18 186/64 98 08/11/24 11:58 53 L 18 192/80 97 08/11/24 09:58 98.3 F 59 L 18 152/89 100 Intake and Output 08/11/24 08/11/24 08/11/24 06:59 14:59 22:59 Intake Total 240 Balance 240 Intake: Oral 240 Other: Weight 89.811 kg 89.811 kg GENERAL: The patient is alert and oriented x3, not in any acute distress. Well developed, well nourished. HEENT: Pupils are round and equally reacting to light. EOMI. No scleral icterus. No conjunctival pallor. Normocephalic, atraumatic. No pharyngeal erythema. No thyromegaly. CARDIOVASCULAR: S1 and S2 present. No murmurs, rubs, or gallops. PULMONARY: Chest is clear to auscultation, no wheezing , no crackles. ABDOMEN: Soft, nontender, nondistended, normoactive bowel sounds. No palpable organomegaly. MUSCULOSKELETAL: No joint swelling or deformity. EXTREMITIES: No cyanosis, clubbing, or pedal edema. NEUROLOGICAL: Gross neurological examination did not reveal any focal deficits. SKIN: No rashes. no petechiae. Results CBC & Chem 7: 08/11/24 10:22 08/11/24 10:22 Labs: Abnormal Lab Results - Last 24 Hours (Table) 08/11/24 08/11/24 08/11/24 Range/Units 10:22 10:22 10:22 RBC 3.66 L (3.80-5.40) m/uL MCV 101.7 H (80.0-100.0) fL APTT 21.9 L (22.0-30.0) sec BUN 34 H (7-17) mg/dL Creatinine 1.17 H (0.52-1.04) mg/dL POC Glucose (mg/dL) (70-110) mg/dL Magnesium 1.5 L (1.6-2.3) mg/dL 08/11/24 Range/Units 11:29 RBC (3.80-5.40) m/uL MCV (80.0-100.0) fL APTT (22.0-30.0) sec BUN (7-17) mg/dL Creatinine (0.52-1.04) mg/dL POC Glucose (mg/dL) 62 L (70-110) mg/dL Magnesium (1.6-2.3) mg/dL Thrombosis Risk Factor Assmnt - Choose All That Apply Any of the Below Risk Factors Present?: No Other Risk Factors: Yes Each Risk Factor Represents 3 Points: Age 75 years or older Other congenital or acquired thrombophilia - If yes, enter type in comment: Yes Thrombosis Risk Factor Assessment Total Risk Factor Score: 3 Thrombosis Risk Factor Assessment Level: Moderate Risk Assessment and Plan Assessment: Bradycardia is with sinus arrhythmia. There was suspicion of A-fib in the urgent care Hypertensive urgency Hypomagnesemia Chronic epigastric burning 1.5 months she follow-up with Dr. Diaz for GI assessment next week Diabetes mellitus Hyperlipidemia Fibromyalgia Gastroesophageal reflux disease Osteoarthritis Hypothyroidism Sarcoidosis Plan: Hold metoprolol Resume blood pressure medication including losartan Lasix and Imdur. Because patient received a bolus of 500 cc in emergency room we will give her another dose of Lasix tonight IV 40 mg Cardiology team consult Telemetry Hydralazine as needed for hypertensive urgency Labs and medication were reviewed.. Continue same treatment. Continue with symptomatic treatment. Resume home medication. Monitor labs and vitals. DVT and GI prophylaxis. Further recommendations as per clinical course of the pat ient DVT prophylaxis: Dual antiplatelet therapy with aspirin and Plavix which are home medication GI Prophylaxis: Protonix Prognosis is guarded
[2024-08-11] MEDS: ISOSORBIDE MONONITRATE ER 30 MG TAB.ER.24H PO SCH (21:22)
[2024-08-11] MEDS: MAGNESIUM SULFATE-D5W PMX 1 GM in DEXTROSE/WATER 1 100ML.BAG IVPB ONE (21:22)
[2024-08-11] MEDS: SENNOSIDES 8.6 MG TAB PO SCH (21:23)
[2024-08-11] MEDS: MAGNESIUM OXIDE 400 MG TAB PO SCH (21:23)
[2024-08-11] MEDS: ALPRAZolam 0.25 MG TAB PO PRN (21:24)
[2024-08-11] MEDS: ACETAMINOPHEN TAB 500 MG TAB PO PRN (21:24)
[2024-08-11] MEDS: FUROSEMIDE 10 MG/ML 4 ML VIAL IV STA (21:25)
[2024-08-11] MEDS: HYDROXYCHLOROQUINE SULFATE 200 MG TAB PO SCH (21:27)
[2024-08-12] MEDS: HYDROcodone/APAP 10-325MG 1 EACH TAB PO PRN (01:40)
[2024-08-12] MEDS: LEVOTHYROXINE 100 MCG TAB PO SCH (05:37)
[2024-08-12 06:04] LABS: Glucose,Whole Blood 143 mg/dL (70-110)
[2024-08-12 06:47] LABS: Basophils % (A) 1 %; Eosinophils # (A) 0.3 k/uL (0-0.7); Eosinophils % (A) 5 %; HCT 38.8 % (34.0-46.0); HGB 12.4 gm/dL (11.4-16.0); Hypochromasia Slight; Lymphocytes # (A) 1.4 k/uL (1.0-4.8); Lymphocytes % (A) 27 %; MCV 103.2 fL (80.0-100.0); Macrocytosis Slight; Mean Platelet Volume 8.6; Monocytes # (A) 0.4 k/uL (0-1.0); Monocytes % (A) 7 %; Neutrophils # (A) 3.2 k/uL (1.3-7.7); Neutrophils % (A) 59 %; Platelet Count 171 k/uL (150-450); RBC 3.76 m/uL (3.80-5.40); RDW 13.5 % (11.5-15.5); WBC 5.4 k/uL (3.8-10.6)
[2024-08-12 07:01] LABS: African American GFR (CKD) 45 (>60 ml/min/1.73 sqM); Anion Gap 6 mmol/L; Blood Urea Nitrogen 32 mg/dL (7-17); Calcium 9.9 mg/dL (8.4-10.2); Carbon Dioxide 32 mmol/L (22-30); Chloride 98 mmol/L (98-107); Glucose 148 mg/dL (74-99); Non-African American GFR(CKD) 39 (>60 ml/min/1.73 sqM); Potassium 4.2 mmol/L (3.5-5.1); Sodium 136 mmol/L (137-145)
[2024-08-12] MEDS: allopurinoL 100 MG TAB PO SCH (08:54)
[2024-08-12] MEDS: ASCORBIC ACID 500 MG TAB PO SCH (08:54)
[2024-08-12] MEDS: DAPAGLIFLOZIN PROPANEDIOL 5 MG TABLET PO SCH (08:54)
[2024-08-12] MEDS: ASPIRIN 325 MG TAB PO SCH (08:54)
[2024-08-12] MEDS: ATORVASTATIN 40 MG TAB PO SCH (08:55)
[2024-08-12] MEDS: CLOPIDOGREL 75 MG TAB PO SCH (08:55)
--- NOTE | 2024-08-12 09:57 | P.CRDCN ---
History of Present Illness Consult date: 08/12/24 History of present illness: The patient is a pleasant 74-year-old female patient who is known to our service from before with a past medical history significant for CAD status post CABG with a HANNAH to LAD as well as SVG to diagonal which was subsequently stented as well as SVG to LCx and mild disease involving the RCA based on heart catheterization in 2023 as well as cardiomyopathy with EF between 45 to 50% when she presented with acute coronary syndrome at that point as well as hypertension and dyslipidemia and chronic kidney disease and multiple comorbid conditions. She was in her usual state of health till yesterday when she went into an urgent care for a cough and she was noted to be bradycardic with a heart rate in the 30s. She did not have any symptoms related to bradycardia including dizziness or lightness or presyncope or syncope or weakness or any other cardiovascular symptoms of chest pain or chest discomfort or shortness of breath. She was on metoprolol at 100 mg p.o. twice daily and that has stopped at this point. Her current heart rate has been in the 50s as well as in the 60s. She is not on any other AV anny isidro agents at this point. Further evaluation was performed including chest x-ray came to be unremarkable and troponin came to be unremarkable and the rest of the blood work came into unremarkable besides mildly elevated creatinine which is known to her and she has chronic kidney disease. The physical examination is remarkable for regular rhythm with a systolic murmur at the right upper and left upper sternal border with clear breathing sounds bilaterally and no edema was noted in the lower extremities. Assessment Asymptomatic bradycardia CAD as described above History of coronary vascularization as described above Multiple comorbid conditions Plan Hold AV anny isidro agents at this point Monitor the patient for the next 12 to 24 hours Acute coronary event was ruled out The patient potentially can be discharged home Past Medical History Past Medical History: Coronary Artery Disease (CAD), Chest Pain / Angina, Diabetes Mellitus, Fibromyalgia, GERD/Reflux, Hyperlipidemia, Hypertension, Myocardial Infarction ([place]), Osteoarthritis (OA), Renal Disease, Respiratory Disorder, Thyroid Disorder Additional Past Medical History / Comment(s): sarcoidosis, chronic kidney disease stage III, diverticulosis, colon polyps neuropathy-balance issues, Hx reccurring UTI, upper/lower bridges permanent. VARICOSE VEINS. BRONCHITI. occasional yeast issues under panis, recent fall felt dizzy and ER visit, [place] 07/2023 Last Myocardial Infarction Date:: UNKNOWN History of Any Multi-Drug Resistant Organisms: None Reported Past Surgical History: Back Surgery, Section, Cholecystectomy, Coronary Bypass/CABG, Heart Catheterization, Joint Replacement, Orthopedic Surgery, Tonsillectomy, Tubal Ligation Additional Past Surgical History / Comment(s): C-S X2, left shoulder rotator cuff, bilateral knee replacement 2014, 4 vessel CABG in 2002, bilateral cataract extraction and intraocular lens implants, picc line -since removed. Colonoscopy in 2015. BRONCHOSCOPY, BIOPSY. rt hip relaced, stent placement 07/2023 Past Anesthesia/Blood Transfusion Reactions: Motion Sickness, Postoperative Nausea & Vomiting (PONV) Additional Past Anesthesia/Blood Transfusion Reaction / Comment(s): no blood transfusions Past Psychological History: No Psychological Hx Reported Additional Psychological History / Comment(s): TAKES XANAX TO HELP HER SLEEP AT NIGHT Smoking Status: Never smoker Past Alcohol Use History: Rare Additional Past Alcohol Use History / Comment(s): Patient is a lifelong nonsmoker. She denies any medical marijuana, marijuana, street drug use. She drinks occasional wine. Past Drug Use History: None Reported - Past Family History Mother Family Medical History: Diabetes Mellitus Additional Family Medical History / Comment(s): Mother at age 70 with h istory of coronary artery disease status post CABG 2 and diabetes. Father Family Medical History: Coronary Artery Disease (CAD), Diabetes Mellitus Additional Family Medical History / Comment(s): cabg Daughter(s) Additional Family Medical History / Comment(s): Patient has one daughter with hyperlipidemia. Patient has one son with diabetes. Patient is an only child. Medications and Allergies Home Medications Medication Instructions Recorded Confirmed Type ALPRAZolam [Xanax] 0.25 mg PO BID PRN 06/07/16 08/11/24 History Clopidogrel [Plavix] 75 mg PO DAILY 06/07/16 08/11/24 History Esomeprazole Magnesium [NexIUM] 40 mg PO DAILY PRN 06/07/16 08/11/24 History Hydrocodone/Acetaminophen [[place] 1 tab PO BID PRN 06/07/16 08/11/24 History 10-325] Hydroxychloroquine Sulfate 200 mg PO BID 06/07/16 08/11/24 History [Plaquenil] Isosorbide Mononitrate ER [Imdur] 60 mg PO DAILY 06/07/16 08/11/24 History allopurinoL [Zyloprim] 100 mg PO DAILY 06/07/16 08/11/24 History Levothyroxine Sodium [Synthroid] 50 mcg PO TUTH 05/21/17 08/11/24 History Nitroglycerin Sl Tabs [Nitrostat] 0.4 mg SUBLINGUAL Q5M PRN 09/24/17 08/11/24 History Levothyroxine Sodium [Synthroid] 100 mcg PO SUMOWEFRSA 11/08/17 08/11/24 History Metoprolol Succinate (ER) [Toprol 100 mg PO BID 11/08/17 08/11/24 History XL] Ascorbic Acid [Vitamin C] 1,000 mg PO DAILY 11/13/21 08/11/24 History Magnesium Oxide [Magnesium] 500 mg PO BID 11/13/21 08/11/24 History Acetaminophen/Diphenhydramine 2 tab PO HS 07/31/23 08/11/24 History [Tylenol PM 500-25mg] Aspirin 81 mg PO DAILY 07/31/23 08/11/24 History Cyclobenzaprine [Flexeril] 10 mg PO HS PRN 07/31/23 08/11/24 History Furosemide [Lasix] 40 mg PO DIRECTED 07/31/23 08/11/24 History Insulin NPH/Reg Insulin 70/30 2 - 4 unit SQ DAILY@1400 07/31/23 08/11/24 History [humuLIN 70/30 VIAL] Isosorbide Mononitrate ER [Imdur] 30 mg PO HS 07/31/23 08/11/24 History Sennosides [Senokot] 8.6 mg PO HS 07/31/23 08/11/24 History Dapagliflozin Propanediol [Farxiga] 5 mg PO DAILY #30 tab 08/02/23 08/11/24 Rx Losartan [Cozaar] 25 mg PO DAILY #90 tab 08/02/23 08/11/24 Rx Atorvastatin [Lipitor] 40 mg PO DAILY 08/11/24 08/11/24 History Carboxymethylcellulose Sodium 1 drop BOTH EYES TID PRN 08/11/24 08/11/24 History [Refresh Tears] Ipratropium-Albuterol Nebulize 3 ml INHALATION RT-TID PRN 08/11/24 08/11/24 History [Duoneb 0.5 mg-3 mg/3 ml Soln] Quercetin 800mg 1 tab PO DAILY 08/11/24 08/11/24 History estradioL [Vagifem] 10 mcg VAGINAL TUTH 08/11/24 08/11/24 History Allergies Allergy/AdvReac Type Severity Reaction Status Date / Time hydromorphone [From Dilaudid] Allergy Unknown Verified 08/11/24 12:03 Penicillins Allergy Rash/Hives Verified 08/11/24 11:54 Sulfa (Sulfonamide Allergy Rash/Hives Verified 08/11/24 11:54 Antibiotics) gabapentin [From Neurontin] AdvReac Unknown Verified 08/11/24 11:54 steroid AdvReac made heart Uncoded 08/11/24 11:55 pound, anxious w/dose pack Physical Exam Vitals: Vital Signs Temp Pulse Pulse Resp BP BP BP 08/12/24 08:30 125/72 102/58 08/12/24 08:18 55 L 08/12/24 07:20 97.8 F 34 L 17 08/12/24 04:00 97.8 F 67 18 08/12/24 02:00 73 08/12/24 00:00 97.7 F 73 16 08/11/24 20:00 98.2 F 59 L 18 08/11/24 17:00 97.7 F 60 18 08/11/24 16:00 60 18 08/11/24 15:00 98.4 F 51 L 58 L 18 185/70 08/11/24 13:00 44 L 18 186/64 08/11/24 11:58 53 L 18 192/80 08/11/24 09:58 98.3 F 59 L 18 152/89 BP BP Pulse Ox 08/12/24 08:30 144/84 08/12/24 08:18 08/12/24 07:20 96 08/12/24 04:00 148/74 99 08/12/24 02:00 08/12/24 00:00 129/74 99 08/11/24 20:00 152/73 08/11/24 17:00 208/71 98 08/11/24 16:00 08/11/24 15:00 177/62 100 08/11/24 13:00 98 08/11/24 11:58 97 03/25/25 09:58 100 Intake and Output 08/11/24 08/12/24 08/12/24 22:59 06:59 14:59 Intake Total 360 Balance 360 Intake: Oral 360 Other: # Voids 1 3 Weight 89.811 kg 89.6 kg Results 08/12/24 06:15 08/12/24 06:15 Cardiac Enzymes 08/11/24 08/11/24 08/11/24 Range/Units 10:22 10:22 14:28 AST 28 (14-36) U/L Troponin I 0.019 0.018 (0.000-0.034) ng/mL 08/11/24 Range/Units 17:10 AST (14-36) U/L Troponin I 0.018 (0.000-0.034) ng/mL Coagulation 08/11/24 Range/Units 10:22 PT 10.2 (10.0-12.5) sec APTT 21.9 L (22.0-30.0) sec CBC 08/11/24 08/12/24 Range/Units 10:22 06:15 WBC 6.1 5.4 (3.8-10.6) k/uL RBC 3.66 L 3.76 L (3.80-5.40) m/uL Hgb 12.0 12.4 (11.4-16.0) gm/dL Hct 37.2 38.8 (34.0-46.0) % Plt Count 162 171 (150-450) k/uL Comprehensive Metabolic Panel 08/11/24 08/12/24 Range/Units 10:22 06:15 Sodium 137 136 L (137-145) mmol/L Potassium 3.9 4.2 (3.5-5.1) mmol/L Chloride 101 98 (98-107) mmol/L Carbon Dioxide 30 32 H (22-30) mmol/L BUN 34 H 32 H (7-17) mg/dL Creatinine 1.17 H 1.33 H (0.52-1.04) mg/dL Glucose 97 148 H (74-99) mg/dL Calcium 9.7 9.9 (8.4-10.2) mg/dL AST 28 (14-36) U/L ALT 19 (4-34) U/L Alkaline Phosphatase 82 (38-126) U/L Total Protein 6.7 (6.3-8.2) g/dL Albumin 3.9 (3.5-5.0) g/dL Current Medications Generic Name Dose Route Start Last Admin Trade Name Freq PRN Reason Stop Dose Admin Acetaminophen 1,000 mg 08/11/24 15:27 08/11/24 21:24 Acetaminophen Tab 500 Mg Tab PO 1,000 mg HS PRN Administration Pain/Insomnia Hydrocodone Bitart/Acetaminophen 1 each 08/11/24 15:27 08/12/24 01:40 Hydrocodone/Apap 10-325mg 1 Each Tab PO 1 each BID PRN Administration Pain Albuterol/Ipratropium 3 ml 08/11/24 15:27 Ipratropium-Albuterol 3 Ml Neb INHALATION RT-TID PRN Shortness Of Breath Allopurinol 100 mg 08/12/24 09:00 08/12/24 08:54 Allopurinol 100 Mg Tab PO 100 mg DAILY JET Administration Alprazolam 0.25 mg 08/11/24 15:27 08/11/24 21:24 Alprazolam 0.25 Mg Tab PO 0.25 mg BID PRN Administration Anxiety Artificial Tears 1 drops 08/11/24 15:27 Artificial Tears-Hypromellose Drops 15 Ml Btl BOTH EYES TID PRN Dry Eye(s) Ascorbic Acid 1,000 mg 08/12/24 09:00 08/12/24 08:54 Ascorbic Acid 500 Mg Tab PO 1,000 mg DAILY JET Administration Aspirin 325 mg 08/12/24 09:00 08/12/24 08:54 Aspirin 325 Mg Tab PO 325 mg DAILY JET Administration Atorvastatin Calcium 40 mg 08/12/24 09:00 08/12/24 08:55 Atorvastatin 40 Mg Tab PO 40 mg DAILY JET Administration Clopidogrel Bisulfate 75 mg 08/12/24 09:00 08/12/24 08:55 Clopidogrel 75 Mg Tab PO 75 mg DAILY JET Administration Cyclobenzaprine HCl 10 mg 08/11/24 15:27 Cyclobenzaprine 10 Mg Tab PO HS PRN Muscle Pain Dapagliflozin 5 mg 08/12/24 09:00 08/12/24 08:54 Dapagliflozin Propanediol 5 Mg Tablet PO 5 mg DAILY JET Administration Diphenhydramine HCl 50 mg 08/11/24 15:40 Diphenhydramine 25 Mg Cap PO HS PRN Pain/Insomnia Furosemide 40 mg 08/11/24 15:30 08/12/24 08:54 Furosemide 40 Mg Tab PO 40 mg DAILY JET Administration Guaifenesin 200 mg 08/11/24 17:49 08/12/24 00:39 Guaifenesin Syrup 100mg/5ml 200 Mg/10 Ml Cup PO 200 mg Q6HR PRN Administration Cough Hydralazine HCl 50 mg 08/11/24 15:30 08/11/24 18:06 Hydralazine Hcl 50 Mg Tab PO 50 mg QID PRN Administration Blood Pressure - High Hydroxychloroquine Sulfate 200 mg 08/11/24 21:00 08/12/24 08:57 Hydroxychloroquine Sulfate 200 Mg Tab PO 200 mg BID [facility] Administration Isosorbide Mononitrate 30 mg 08/11/24 21:00 08/11/24 21:22 Isosorbide Mononitrate Er 30 Mg Tab.Er.24h PO 30 mg HS [facility] Administration Isosorbide Mononitrate 60 mg 08/11/24 15:30 08/12/24 08:55 Isosorbide Mononitrate Er 60 Mg Tab.Er.24h PO 60 mg DAILY [facility] Administration Levothyroxine Sodium 100 mcg 08/12/24 06:30 08/12/24 05:37 Levothyroxine 100 Mcg Tab PO 100 mcg [id number] [facility] Administration Levothyroxine Sodium 50 mcg 08/13/24 06:30 Levothyroxine 50 Mcg Tab PO TuTh@0630 [facility] Losartan Potassium 25 mg 08/11/24 15:30 08/12/24 08:55 Losartan 25 Mg Tab PO 25 mg DAILY [facility] Administration Magnesium Oxide 400 mg 08/11/24 21:00 08/12/24 08:54 Magnesium Oxide 400 Mg Tab PO 400 mg BID [facility] Administration Nitroglycerin 0.4 mg 08/11/24 13:12 Nitroglycerin Sl Tabs 0.4 Mg Tab SUBLINGUAL Q5M PRN Chest Pain Nitroglycerin 0.4 mg 08/11/24 15:27 Nitroglycerin Sl Tabs 0.4 Mg Tab SUBLINGUAL Q5M PRN Chest Pain Non-Formulary Medication 10 mcg 08/13/24 09:00 Estradiol [Vagifem] VAGINAL TUTH [facility] Pantoprazole Sodium 40 mg 08/11/24 15:27 Pantoprazole 40 Mg Tablet PO DAILY PRN GI Upset Senna 8.6 mg 08/11/24 21:00 08/11/24 21:23 Sennosides 8.6 Mg Tab PO 8.6 mg HS JET Administration Intake and Output 08/11/24 08/12/24 08/12/24 22:59 06:59 14:59 Intake Total 360 Balance 360 Intake: Oral 360 Other: # Voids 1 3 Weight 89.811 kg 89.6 kg 08/12/24 06:15 08/12/24 06:15
[2024-08-12 11:30] LABS: Glucose,Whole Blood 152 mg/dL (70-110)
[2024-08-12] MEDS: amLODIPine 5 MG TAB PO SCH (11:33)
[2024-08-12 11:46] VITALS: PULSE 66; RESP 18; TEMP 97.9
[2024-08-12 15:00] VITALS: BP 146/82
[2024-08-12 15:21] LABS: Chol/HDL Ratio 2.36 Ratio; LDL Cholesterol,Calculated 51.5 mg/dL (0.0-131.0)
--- NOTE | 2024-08-12 18:07 | P.DS ---
Providers Date of admission: 08/11/24 13:15 Attending physician: Jose Armando Shannon MD Consults: 08/11/24 13:13 Consult Physician Urgent Consulting Provider: [facility] Consult Reason/Comments: Bradycardia Do you want consulting provider notified?: Yes Primary care physician: Sam Quiñonez [place] Hospital Course: Diagnoses: Bradycardia is with sinus arrhythmia. Rather than A-fib. Secondary to beta-b locker which was discontinued Hypertensive urgency, improved. Blood pressure was fluctuating but is controlled upon discharge Hypomagnesemia Chronic kidney disease stage III Chronic epigastric burning 1.5 months she follow-up with Dr. Diaz for GI assessment next week Diabetes mellitus Hyperlipidemia Fibromyalgia Gastroesophageal reflux disease Osteoarthritis Hypothyroidism Sarcoidosis Hospital course: This is a pleasant 74 years old female with past medical history of multiple medical problems including hypertension, diabetes mellitus, hyperlipidemia. Patient presents to urgent care complaining with worsening coughing but with no chest pain or dyspnea. From urgent care they referred him to emergency room because of low heart rate, documented it was 36 and there was suspicion of atrial fibrillation associated with little lightheadedness. However patient evaluated by pressure test operator, no A-fib. Her metoprolol was discontinued because of bradycardia. Today I discussed the case with Dr. Guerrier who cleared her for discharge on the current cardiac medication regimen Patient states that she has blood pressure machines she can also monitor her blood pressure. Recommendations were provided for her in details Also close follow-up appointment made for her and she is agreeable with this plan and to go home today. Patient denies any other new complaint and she feels fine Problems and management plan were discussed with the patient and he verbalized understanding and acceptance Patient was found stable and can be discharged home in guarded prognosis however he needs follow-up as an outpatient. Patient was instructed to follow up with PCP within one week and patient agrees Admit her appointment with Dr. Palencia office the day after tomorrow on 08/14 with the nurse practitioner in the office. Patient informed and she is agreeable. Also an appointment made for her with pressure test operator Dr. Guerrier next week and/for her and she is agreeable Physical exam Gen: patient is a AAOx3, no distress CVS: S1-S2, RRR, no murmur Lungs: B/L CTA, no wheezing Abdomen: soft, no distention, no tenderness, positive bowel sounds Extremity: no leg edema or induration Time spent more than 35 minutes Plan - Discharge Summary Discharge Rx Participant: Yes New Discharge Prescriptions: New amLODIPine [Norvasc] 5 mg PO DAILY #30 tab Continue ALPRAZolam [Xanax] 0.25 mg PO BID PRN PRN Reason: Anxiety Isosorbide Mononitrate ER [Imdur] 60 mg PO DAILY Hydrocodone/Acetaminophen [[place] 10-325] 1 tab PO BID PRN PRN Reason: Pain Esomeprazole Magnesium [NexIUM] 40 mg PO DAILY PRN PRN Reason: Gi Upset allopurinoL [Zyloprim] 100 mg PO DAILY Hydroxychloroquine Sulfate [Plaquenil] 200 mg PO BID Clopidogrel [Plavix] 75 mg PO DAILY Levothyroxine Sodium [Synthroid] 50 mcg PO TUTH Nitroglycerin Sl Tabs [Nitrostat] 0.4 mg SUBLINGUAL Q5M PRN PRN Reason: Chest Pain Levothyroxine Sodium [Synthroid] 100 mcg PO SUMOWEFRSA Ascorbic Acid [Vitamin C] 1,000 mg PO DAILY Furosemide [Lasix] 40 mg PO DIRECTED Isosorbide Mononitrate ER [Imdur] 30 mg PO HS Insulin NPH/Reg Insulin 70/30 [humuLIN 70/30 VIAL] 2 - 4 unit SQ DAILY@1400 Aspirin 81 mg PO DAILY Sennosides [Senokot] 8.6 mg PO HS estradioL [Vagifem] 10 mcg VAGINAL TUTH Quercetin 800mg 1 tab PO DAILY Magnesium Oxide [Magnesium] 500 mg PO BID Acetaminophen/Diphenhydramine [Tylenol PM 500-25mg] 2 tab PO HS Cyclobenzaprine [Flexeril] 10 mg PO HS PRN PRN Reason: Muscle Pain Losartan [Cozaar] 25 mg PO DAILY #90 tab Dapagliflozin Propanediol [Farxiga] 5 mg PO DAILY #30 tab Carboxymethylcellulose Sodium [Refresh Tears] 1 drop BOTH EYES TID PRN PRN Reason: Dry Eye(S) Atorvastatin [Lipitor] 40 mg PO DAILY Ipratropium-Albuterol Nebulize [Duoneb 0.5 mg-3 mg/3 ml Soln] 3 ml INHALATION RT-TID PRN PRN Reason: Shortness Of Breath Discontinued Metoprolol Succinate (ER) [Toprol XL] 100 mg PO BID Discharge Medication List ALPRAZolam [Xanax] 0.25 mg PO BID PRN 06/07/16 [History] Clopidogrel [Plavix] 75 mg PO DAILY 06/07/16 [History] Esomeprazole Magnesium [NexIUM] 40 mg PO DAILY PRN 06/07/16 [History] Hydrocodone/Acetaminophen [[place] 10-325] 1 tab PO BID PRN 06/07/16 [History] Hydroxychloroquine Sulfate [Plaquenil] 200 mg PO BID 06/07/16 [History] Isosorbide Mononitrate ER [Imdur] 60 mg PO DAILY 06/07/16 [History] allopurinoL [Zyloprim] 100 mg PO DAILY 06/07/16 [History] Levothyroxine Sodium [Synthroid] 50 mcg PO TUTH 05/21/17 [History] Nitroglycerin Sl Tabs [Nitrostat] 0.4 mg SUBLINGUAL Q5M PRN 09/24/17 [History] Levothyroxine Sodium [Synthroid] 100 mcg PO SUMOWEFRSA 11/08/17 [History] Ascorbic Acid [Vitamin C] 1,000 mg PO DAILY 11/13/21 [History] Magnesium Oxide [Magnesium] 500 mg PO BID 11/13/21 [History] Acetaminophen/Diphenhydramine [Tylenol PM 500-25mg] 2 tab PO HS 07/31/23 [Histor y] Aspirin 81 mg PO DAILY 07/31/23 [History] Cyclobenzaprine [Flexeril] 10 mg PO HS PRN 07/31/23 [History] Furosemide [Lasix] 40 mg PO DIRECTED 07/31/23 [History] Insulin NPH/Reg Insulin 70/30 [humuLIN 70/30 VIAL] 2 - 4 unit SQ DAILY@1400 07/31/23 [History] Isosorbide Mononitrate ER [Imdur] 30 mg PO HS 07/31/23 [History] Sennosides [Senokot] 8.6 mg PO HS 07/31/23 [History] Dapagliflozin Propanediol [Farxiga] 5 mg PO DAILY #30 tab 08/02/23 [Rx] Losartan [Cozaar] 25 mg PO DAILY #90 tab 08/02/23 [Rx] Atorvastatin [Lipitor] 40 mg PO DAILY 08/11/24 [History] Carboxymethylcellulose Sodium [Refresh Tears] 1 drop BOTH EYES TID PRN 08/11/24 [History] Ipratropium-Albuterol Nebulize [Duoneb 0.5 mg-3 mg/3 ml Soln] 3 ml INHALATION RT-TID PRN 08/11/24 [History] Quercetin 800mg 1 tab PO DAILY 08/11/24 [History] estradioL [Vagifem] 10 mcg VAGINAL TUTH 08/11/24 [History] amLODIPine [Norvasc] 5 mg PO DAILY #30 tab 08/12/24 [Rx] Follow up Appointment(s)/Referral(s): Bo Diehl MD [STAFF PHYSICIAN] - 08/21/24 10:15 am (Apt is with Dr. Levi: ) Sam Quiñonez MD [Primary Care Provider] - 08/14/24 10:15 am (we recommend to check your BP and your blood \tests with your doctor including your kidney function tests ) Patient Instructions/Handouts: Bradycardia (DC) Activity/Diet/Wound Care/Special Instructions: heart healthy diet activity is restricted till you see your doctor we recommend to check your BP and your blood \tests with your doctor including your kidney function tests Discharge Disposition: HOME WITH HOME HEALTH SERVICES
[2024-08-13] MEDS ORDERED: LEVOTHYROXINE 50 MCG TAB PO SCH (06:30)
[2024-08-13] MEDS ORDERED: ESTRADIOL 10 MCG VAGINAL SCH (09:00)
== END 2024-08-12 15:09 | disposition home health service (06) ==
LOC: EC 09:56 → INTOOBSV 13:15 → 3SCARD 13:15
PROVIDERS: ADMIT Internal Medicine; ATTEND Internal Medicine
DX: R00.1 Bradycardia, unspecified (principal); I16.0 Hypertensive urgency; I25.10 Atherosclerotic heart disease of native coronary artery without angina pectoris; E83.42 Hypomagnesemia; R10.13 Epigastric pain; M79.7 Fibromyalgia; M19.90 Unspecified osteoarthritis, unspecified site; E03.9 Hypothyroidism, unspecified; D86.9 Sarcoidosis, unspecified; I12.9 Hypertensive chronic kidney disease with stage 1 through stage 4 chronic kidney disease, or unspecified chronic kidney disease; N18.30 Chronic kidney disease, stage 3 unspecified; E11.40 Type 2 diabetes mellitus with diabetic neuropathy, unspecified; K21.9 Gastro-esophageal reflux disease without esophagitis; E78.5 Hyperlipidemia, unspecified; I25.2 Old myocardial infarction; Z95.1 Presence of aortocoronary bypass graft; Z79.02 Long term (current) use of antithrombotics/antiplatelets; Z79.899 Other long term (current) drug therapy; Z79.890 Hormone replacement therapy; Z79.82 Long term (current) use of aspirin; Z79.4 Long term (current) use of insulin; Z79.84 Long term (current) use of oral hypoglycemic drugs; Z88.0 Allergy status to penicillin; Z88.2 Allergy status to sulfonamides; Z88.5 Allergy status to narcotic agent
CPT/HCPCS: 96365; 96375; 99285; 36415; 93005; 83880; 80061; 80053; 80048; 83605; 83735; 84484; 85025 ×2; 85610; 85730; 87636; 71046; G0378 ×2; J1940; J3475